=== PATIENT | male | born 1960 | race African-American/Black ===

== ENCOUNTER → 2016-07-05 | Outpatient (CLI) | payer BC ==
[~2016-07-05] VITALS: Ht 182.9 cm; Wt 104.3 kg
[~2016-07-05] MED LIST: ALPR0.254 PO; ALPR0.5T6 PO; APIX5TAB PO; ASCO500C PO; ASPI325T11 PO; ATOR40TA59 PO; BISA-42 PO; CALC625T PO; CARV25TA2 PO; CLON0.2T PO; CLON0.5T20 PO; CLOP75TA PO; CYCL10TA2 PO; FURO80TA72 PO; GABA-586 PO; GLUC100018 PO; GUAN2TAB11 PO; HYDR-2762 PO; INSU100I17 SQ; IOHEXOL 180 MG/ML 10 ML VIAL. IJ ONE; ISOS60TA2 PO; LISI-334 PO; MELO7.5O PO; NIFE60TA12 PO; NITR0.4T6 SL; OLME1TAB35 PO; OMEG300C PO; OXYC-244 PO; PROVENTIL HFA6.7 GM IH; RANO500T2 PO; TORS10TA3 PO; TRAM50TA PO
[2016-07-05 11:29] VITALS: BP 196/104
--- NOTE | 2016-07-05 13:19 | RAD ---
Lumbar myelogram, 07/05/2016: History: Back and leg pain Under local anesthesia, aseptic conditions and fluoroscopic guidance a lumbar puncture was performed at the L2-3 level utilizing a 25-gauge spinal needle. Good clear CSF flow was obtained following which 14 cc of Omnipaque 180 was injected into the thecal sac. The spinal needle was then removed and appropriate lumbar imaging performed. 2.5 minutes of fluoroscopy time was utilized. 12 fluoroscopic spot images were recorded. The patient was in moderate pain prior to, during and following the procedure. The following findings are delineated: 1. In the upright position there is severe central spinal stenosis at L4-5. There is circumferential narrowing of the thecal sac at that level. There is slight spondylolisthesis at L4-5 in the upright position. No instability was evident on limited flexion and extension. 2. There is poor filling of the L4 and L5 nerve root sleeves bilaterally. 3. There are mild anterior and posterior extradural defects at L3-4. The thecal sac narrows down to an AP diameter of 6-7 mm in the upright position. CT of the lumbar spine-post myelogram, 07/05/2016: Multidetector CT imaging was performed with multiplanar reconstructions produced. The following findings are delineated: 1. No significant abnormality is evident at the L1-2 level. 2. At L2-3 there is mild posterior disc bulging. There are mild degenerative changes involving the facet joints. The thecal sac measures 11-12 mm in AP diameter at the midline. The neural foramina are well preserved. 3. At L3-4 there is moderate broad-based posterior disc bulging. There is moderate posterior ligamentous thickening. The thecal sac measures 7-8 mm in AP diameter at the midline. There is mild inferior foraminal narrowing bilaterally. 4. At L4-5 there is moderate broad-based posterior disc protrusion, most prominent laterally on both sides. There are severe arthritic changes at the facet joints. The facet joint spaces are widened in the supine position for the CT scans. There is considerable posterior ligamentous thickening. The thecal sac narrows down to an AP diameter of 6-7 mm at the midline in the supine position. The canal narrowing is centered along the superior aspect of the disc space. A greater degree of thecal sac narrowing is present on the upright myelogram images. The combination of findings is causing moderate bilateral foraminal encroachment. 5. At L5-S1 there is mild posterior disc bulging. There are mild degenerative changes involving the facet joints. The central spinal canal is not significantly stenotic. There is only mild inferior foraminal narrowing bilaterally. IMPRESSION: 1. Severe facet joint arthropathy at L4-5 which in conjunction with moderate broad-based posterior disc protrusion results in moderate central spinal stenosis in the supine position and severe stenosis in the upright position as described above. 2. Moderate bilateral foraminal encroachment at L4-5. 3. Mild central spinal stenosis at L3-4.
== END | disposition home or self-care (01) ==
LOC: RAD 10:35
PROVIDERS: ATTEND Neurological Surgery
DX: M48.06 Spinal stenosis, lumbar region (principal)
CPT/HCPCS: 72132; 72265

== ENCOUNTER → 2017-01-24 | Outpatient (CLI) | payer BC ==
[2016-07-05 11:29] VITALS: BP 196/104
[~2017-01-24] MED LIST changes: +CHLO25TA PO; +INSU100I30 SQ; -IOHEXOL 180 MG/ML 10 ML VIAL. IJ ONE; +MODA200T2 PO; +NIFE60TA16 PO; +NITR0.4T22 SL; -NITR0.4T6 SL; -OXYC-244 PO; +OXYC-327 PO; +TAMS0.4C2 PO; +VALS1TAB22 PO
[2017-01-24 15:37] LABS: BASO % 0 % (0-3); EOS % 0 % (0-3); HEMOGLOBIN 11.5 g/dL (13.0-17.5); LYMPH # 1.5 x10^3/uL (1.0-4.8); LYMPH % 22 % (24-48); MEAN CORPUSCULAR HEMOGLOBIN 31 pg (25-35); MEAN CORPUSCULAR HGB CONC 34 g/dL (31-37); MEAN CORPUSCULAR VOLUME 91 fL (79-100); MONO % 6 % (0-9); NEUT % 72 % (31-73); PLATELET COUNT 182 x10^3/uL (140-400); RED BLOOD COUNT 3.73 x10^6/uL (4.30-5.70); RED CELL DISTRIBUTION WIDTH 13.9 % (11.5-14.5); WHITE BLOOD COUNT 6.6 x10^3/uL (4.0-11.0)
[2017-01-24 16:17] LABS: ALBUMIN 3.1 g/dL (3.4-5.0); ALBUMIN/GLOBULIN RATIO 0.8 (1.0-1.7); CALCIUM 8.3 mg/dL (8.5-10.1); TOTAL PROTEIN 7.1 g/dL (6.4-8.2)
[2017-01-24 16:18] LABS: GFR 41.7; POTASSIUM 4.6 mmol/L (3.5-5.1); TOTAL BILIRUBIN 0.3 mg/dL (0.2-1.0)
== END | disposition home or self-care (01) ==
LOC: SURGPAT 13:37
PROVIDERS: ATTEND Neurological Surgery
DX: Z01.818 Encounter for other preprocedural examination (principal); M48.061 Spinal stenosis, lumbar region without neurogenic claudication
CPT/HCPCS: 36415; 80053; 85025; 87641

== ENCOUNTER 2017-03-30 19:16 | Emergency (ER) | payer BC, MEDICARE ==
[2017-03-30] MEDS: IV NORMAL SALINE 1000ML BAG 1,000 ML IV (07:52)
[2017-03-30 19:37] LABS: ADD MAN DIFF? NO
[2017-03-30 19:38] LABS: BASO # 0.1 x10^3/uL (0.0-0.2); BASO % 1 % (0-3); EOS % 0 % (0-3); HEMATOCRIT 34.9 % (39.0-53.0); HEMOGLOBIN 12.2 g/dL (13.0-17.5); LYMPH % 27 % (24-48); MEAN CORPUSCULAR HEMOGLOBIN 31 pg (25-35); MEAN CORPUSCULAR HGB CONC 35 g/dL (31-37); MEAN CORPUSCULAR VOLUME 90 fL (79-100); MONO # 0.5 x10^3/uL (0.0-1.1); MONO % 7 % (0-9); NEUT # 4.6 x10^3uL (1.8-7.7); NEUT % 64 % (31-73); PLATELET COUNT 208 x10^3/uL (140-400); RED CELL DISTRIBUTION WIDTH 14.1 % (11.5-14.5); WHITE BLOOD COUNT 7.2 x10^3/uL (4.0-11.0)
[2017-03-30 20:03] LABS: ANION GAP 11 (6-14); BLOOD UREA NITROGEN 39 mg/dL (8-26); BUN/CREATININE RATIO 16 (6-20); CALCIUM 8.2 mg/dL (8.5-10.1); CARBON DIOXIDE 25 mmol/L (21-32); CHLORIDE 105 mmol/L (98-107); CREATININE 2.5 mg/dL (0.7-1.3); GFR 32.3; GLUCOSE 183 mg/dL (70-99); POTASSIUM 3.8 mmol/L (3.5-5.1); SODIUM 141 mmol/L (136-145)
[2017-03-30 20:05] LABS: ETHANOL < 10 mg/dL (0-10)
[2017-03-30 20:09] LABS: ALBUMIN 3.3 g/dL (3.4-5.0); ALBUMIN/GLOBULIN RATIO 0.8 (1.0-1.7); ALK PHOS 55 U/L (46-116); ALT (SGPT) 42 U/L (16-63); AST (SGOT) 35 U/L (15-37); TOTAL BILIRUBIN 0.3 mg/dL (0.2-1.0); TOTAL PROTEIN 7.2 g/dL (6.4-8.2)
[2017-03-30 20:13] LABS: TROPONINI < 0.017 ng/mL (0.000-0.055)
[2017-03-30 20:50] LABS: BARBITURATES NEG (NEG); BENZODIAZEPINES NEG (NEG); CANNABINOIDS NEG (NEG); COCAINE POS (NEG); METHADONE NEG (NEG); OPIATES POS (NEG); PHENCYCLIDINE NEG (NEG)
[2017-03-30 20:54] LABS: AMPHETAMINE/METHAMPHETAMINE NEG (NEG); ETHANOL, URINE NEG (NEG)
== END 2017-03-30 23:55 | disposition home or self-care (01) ==
LOC: ER 23:55
DX: R41.82 Altered mental status, unspecified (principal); E10.65 Type 1 diabetes mellitus with hyperglycemia; N28.9 Disorder of kidney and ureter, unspecified; F14.10 Cocaine abuse, uncomplicated; R07.89 Other chest pain; I48.91 Unspecified atrial fibrillation; F11.10 Opioid abuse, uncomplicated; J44.9 Chronic obstructive pulmonary disease, unspecified; I25.10 Atherosclerotic heart disease of native coronary artery without angina pectoris; I10 Essential (primary) hypertension; I95.9 Hypotension, unspecified; I25.2 Old myocardial infarction; Z95.0 Presence of cardiac pacemaker; Z95.5 Presence of coronary angioplasty implant and graft; Z91.041 Radiographic dye allergy status
CPT/HCPCS: 36415; 70450; 71045; 72125; 80053; 80307; 84484; 85025; 93005; 96360; 96361; 99285-25; G0480; J7030

== ENCOUNTER 2018-06-30 14:39 | Inpatient (IN) | payer BC, MEDICARE ==
[~2018-06-30] VITALS: Ht 185.4 cm; Wt 102.5 kg
[~2018-06-30 14:39] MED LIST changes: +ALBU2.5V8 IH; -CHLO25TA PO; +CHLO25TA10 PO; +ERGO500027 PO; -GABA-586 PO; +GABA300C18 PO; +HYDR-2761 PO; -HYDR-2762 PO; +HYDR-2765 PO; -OXYC-327 PO; +OXYC1TAB19 PO; +PANT20TA2 PO; +POTA20TA82 PO; -PROVENTIL HFA6.7 GM IH; +TAMS0.4C97 PO; +TICA90TA PO
--- NOTE | 2018-06-30 16:45 | NUR ---
The patient, MIKE TELLEZ, 58 y/o, M admitted by JOSELO MCPHERSON MD, was given written information regarding hospital policies, unit procedures and contact persons. Pt admitted to [facility] via transfer from [facility], report given by DULCE Delgadillo. Pt is alert, oriented with some confusion about location off and on. Pt resting comfortably under linda hugger, windows open to allow sunlight and additional heat. Valuables were checked and found to include wedding ring, glasses.
[2018-06-30 19:25] VITALS: BP 134/77
[2018-06-30] MEDS ORDERED: ONDANSETRON ODT 4 MG TAB.RAPDIS. PO PRN (19:45)
[2018-06-30] MEDS ORDERED: POTASSIUM CL 20MEQ-0.45% NACL 1,000 ML IV SCH ×2 (19:45→20:15)
[2018-06-30] MEDS ORDERED: NITROGLYCERIN SUBLINGUAL 0.4 MG BOTTLE OF 25. SL PRN (19:45)
[2018-06-30] MEDS ORDERED: ALBUTEROL SULFATE 2.5 MG/3 ML NEBU. INH PRN (19:45)
[2018-06-30] MEDS ORDERED: HYDR25SU18 RC (19:58)
[2018-06-30] MEDS ORDERED: OMEG100021 PO (19:58)
[2018-06-30] MEDS ORDERED: SENN1TAB37 PO (19:58)
[2018-06-30] MEDS ORDERED: TAMS0.4C97 PO (19:58)
[2018-06-30] MEDS ORDERED: ASCO500T3 PO (19:58)
[2018-06-30] MEDS ORDERED: FAMO20TA5 PO (19:58)
[2018-06-30] MEDS ORDERED: RANO500T2 PO (19:58)
[2018-06-30] MEDS ORDERED: ONDA4TAB12 PO (19:58)
[2018-06-30] MEDS ORDERED: OXYC1TAB19 PO (19:58)
[2018-06-30] MEDS ORDERED: CITA20TA6 PO (19:58)
[2018-06-30] MEDS ORDERED: HYDROCORTISONE ACETATE 25 MG SUPP.RECT PR PRN (20:15)
[2018-06-30] MEDS ORDERED: ONDANSETRON PF 4 MG/2 ML VIAL. IV PRN (20:15)
[2018-06-30] MEDS: RANOLAZINE 500 MG TAB.ER.12H PO SCH (20:43)
[2018-06-30] MEDS: cloNIDine HCL 0.2 MG TABLET PO SCH (20:43)
[2018-06-30] MEDS: SENNOSIDES/DOCUSATE 8.6/50MG TABLET. PO SCH (20:44)
[2018-06-30] MEDS: ALPRAZolam 0.5 MG TABLET PO PRN (20:44)
[2018-06-30] MEDS: oxyCODONE/APAP 7.5/325 1 TAB TABLET PO PRN (20:44)
[2018-06-30] MEDS: TICAGRELOR 90 MG TABLET. PO SCH (20:45)
[2018-06-30] MEDS: FAMOTIDINE 20 MG TABLET. PO SCH (20:45)
[2018-06-30] MEDS: HYDROcodone/APAP 5/325MG 1 TAB TABLET PO PRN (23:02)
[2018-06-30 23:30] VITALS: BP 132/76
[2018-07-01] MEDS: oxyCODONE/APAP 7.5/325 1 TAB TABLET PO PRN ×2 (03:40→22:54)
[2018-07-01 03:58] VITALS: BP 125/68
[2018-07-01 04:49] LABS: BASO % 0 % (0-3); EOS % 1 % (0-3); HEMATOCRIT 24.9 % (39.0-53.0); HEMOGLOBIN 8.5 g/dL (13.0-17.5); LYMPH # 1.1 x10^3/uL (1.0-4.8); LYMPH % 23 % (24-48); MEAN CORPUSCULAR HEMOGLOBIN 31 pg (25-35); MEAN CORPUSCULAR HGB CONC 34 g/dL (31-37); MEAN CORPUSCULAR VOLUME 90 fL (79-100); MONO # 0.6 x10^3/uL (0.0-1.1); MONO % 11 % (0-9); NEUT # 3.3 x10^3uL (1.8-7.7); NEUT % 66 % (31-73); PLATELET COUNT 124 x10^3/uL (140-400); RED BLOOD COUNT 2.78 x10^6/uL (4.30-5.70); WHITE BLOOD COUNT 5.1 x10^3/uL (4.0-11.0)
[2018-07-01] MEDS: HYDROcodone/APAP 5/325MG 1 TAB TABLET PO PRN ×2 (06:02→17:02)
[2018-07-01 06:37] LABS: ALBUMIN 2.4 g/dL (3.4-5.0); ALBUMIN/GLOBULIN RATIO 0.7 (1.0-1.7); ALK PHOS 55 U/L (46-116); ALT (SGPT) 28 U/L (16-63); ANION GAP 14 (6-14); AST (SGOT) 21 U/L (15-37); BLOOD UREA NITROGEN 43 mg/dL (8-26); BUN/CREATININE RATIO 8 (6-20); C-REACTIVE PROTEIN < 0.5 mg/L (0-3.3); CALCIUM 7.6 mg/dL (8.5-10.1); CARBON DIOXIDE 19 mmol/L (21-32); CHLORIDE 112 mmol/L (98-107); CREATININE 5.4 mg/dL (0.7-1.3); GFR 13.2; GLUCOSE 138 mg/dL (70-99); POTASSIUM 3.4 mmol/L (3.5-5.1); SODIUM 145 mmol/L (136-145); TOTAL BILIRUBIN 0.2 mg/dL (0.2-1.0); TOTAL PROTEIN 5.9 g/dL (6.4-8.2)
[2018-07-01 07:00] VITALS: BP 135/78
[2018-07-01] MEDS: INSULIN LISPRO 300 UNITS/3 ML INSULN.PEN. SQ SCH ×3 (08:00→17:05)
[2018-07-01] MEDS: CITALOPRAM 20 MG TABLET. PO SCH (09:25)
[2018-07-01] MEDS: RANOLAZINE 500 MG TAB.ER.12H PO SCH ×2 (09:25→20:23)
[2018-07-01] MEDS: CARVEDILOL 12.5 MG TABLET. PO SCH ×2 (09:25→17:03)
[2018-07-01] MEDS: GABAPENTIN 300 MG CAPSULE. PO SCH (09:26)
[2018-07-01] MEDS: OMEGA-3 FATTY ACIDS/FISH OIL 1,000 MG CAPSULE. PO SCH (09:26)
[2018-07-01] MEDS: ASCORBIC ACID 500 MG TABLET PO SCH (09:26)
[2018-07-01] MEDS: cloNIDine HCL 0.2 MG TABLET PO SCH ×2 (09:26→20:24)
[2018-07-01] MEDS: TAMSULOSIN 0.4 MG CAP.ER.24H. PO SCH (09:26)
[2018-07-01] MEDS: TICAGRELOR 90 MG TABLET. PO SCH ×2 (09:26→20:22)
[2018-07-01] MEDS ORDERED: IV 1/2 NORMAL SALINE 1,000 ML IV ONE (09:45)
[2018-07-01] MEDS ORDERED: MAGNESIUM SULFATE 2GM 50 ML IV ONE (10:30)
[2018-07-01 11:00] VITALS: BP 133/76
--- NOTE | 2018-07-01 12:03 | NUR ---
FACULTY CO-SIGN I have reviewed the documentation by Dao Navarro professor of nursing, [facility]: Addendum: 07/01/18 at 1203 by HOLLIS RUSHING RN Amended: Links added.
--- NOTE | 2018-07-01 14:06 | PDOC2 ---
CONSULT Date of Consult Date of Consult DATE: 07/01/18 TIME: 14:00 History of Present Illness Reason for Visit: This is 58 year male with recurrent constipation, heartburn- last seen here in February with similar complaints- also with CRF with HTN, cocaine use- now with on week of lower abd pain, constipation followed by some diarrhea recently , but does take laxatives regularly. Some nausea and vomiting as well with rectal bleeding or hematemesis. Also had chill recently but no fever Past Medical History Cardiovascular: AFIB, CAD, HTN Pulmonary: COPD CENTRAL NERVOUS SYSTEM: Seizure GI: Constipation, GERD Heme/Onc: No pertinent hx Hepatobiliary: No pertinent hx Psych: Bipolar Musculoskeletal: Osteoarthritis Infectious disease: No pertinent hx Renal/: Chronic renal insuff Endocrine: Diabetes Past Surgical History Past Surgical History: Pacemaker, Other Family History Family History: Diabetes, Heart Disease Social History ALCOHOL: occassional Drugs: Cocaine Lives: with Family Current Medications Current Medications Current Medications Potassium Chloride/Sodium Chloride 1,000 ml @ 75 mls/hr [id number] IV ; Start 03/08 at 19:45; Stop 07/01/18 at 09:46; Status DC Albuterol Sulfate (Ventolin Neb Soln) 2.5 mg PRN Q4HRS PRN INH FOR ASTHMA; Start 06/30/18 at 19:45 Alprazolam (Xanax) 0.5 mg PRN Q8HRS PRN PO ANXIETY / AGITATION Last administered on 06/30/18at 20:44; Start 06/30/18 at 19:45 Ascorbic Acid (Vitamin C) 500 mg DAILY PO Last administered on 07/01/18at 09:26 ; Start 07/01/18 at 09:00 Citalopram Hydrobromide (CeleXA) 20 mg DAILY PO Last administered on 07/01/18at 09:25; Start 07/01/18 at 09:00 Clonidine HCl (Catapres) 0.2 mg BID PO Last administered on 07/01/18at 09:26; Start 06/30/18 at 21:00 Famotidine (Pepcid) 20 mg HS PO Last administered on 06/30/18at 20:45; Start 03/08 at 21:00 Gabapentin (Neurontin) 300 mg DAILY PO Last administered on 07/01/18at 09:26; Start 07/01/18 at 09:00 Acetaminophen/ Hydrocodone Bitart (Lortab 5/325) 1 tab PRN Q6HRS PRN PO MODERATE PAIN Last administered on 07/01/18 06:02; Start 06/30/18 at 19:45 Nitroglycerin (Nitrostat) 0.4 mg PRN Q5MIN PRN SL CHEST PAIN; Start 06/30/18 at 19:45 Ondansetron HCl (Zofran Odt) 4 mg PRN Q8HRS PRN PO NAUSEA; Start 06/30/18 at 19 :45 Oxycodone/ Acetaminophen (Percocet 7.5/ 325) 1 tab PRN TID PRN PO SEVERE PAIN Last administered on 07/01/18 03:40; Start 06/30/18 at 19:45 Ranolazine (Ranexa) 500 mg BID PO Last administered on 07/01/18 09:25; Start 06/30/18 at 21:00 Senna/Docusate Sodium (Senna Plus) 1 tab HS PO Last administered on 06/30/18 20:44; Start 06/30/18 at 21:00 Tamsulosin HCl (Flomax) 0.4 mg DAILY PO Last administered on 07/01/18 09:26; Start 07/01/18 at 09:00 Ticagrelor (Brilinta) 90 mg BID PO Last administered on 07/01/18 09:26; Start 06/30/18 at 21:00 Carvedilol (Coreg) 12.5 mg BIDWMEALS PO Last administered on 07/01/18 09:25; Start 07/01/18 at 08:00 Hydrocortisone Acetate (Anucort-Hc) 25 mg BID PRN RI RECTAL PAIN; Start at 20:15 Nifedipine (Procardia Xl) 60 mg DAILY PO Last administered on 07/01/18 09:25; Start 07/01/18 at 09:00 Fish Oil (Fish Oil) 1,000 mg DAILY PO Last administered on 07/01/18 09:26; Start 07/01/18 at 09:00 Insulin Human Lispro (HumaLOG) 0-5 UNITS TIDWMEALS SQ ; Start 07/01/18 at 08:00 Dextrose (Dextrose 50%-Water Syringe) 12.5 gm PRN Q15MIN PRN IV SEE COMMENTS; Start 06/30/18 at 20:15 Ondansetron HCl (Zofran) 4 mg PRN Q4HRS PRN IV NAUSEA/VOMITING; Start 06/30/18 at 20:15 Potassium Chloride/Sodium Chloride 1,000 ml @ 75 mls/hr [id number] IV Last administered on 06/30/18at 20:47; Start 06/30/18 at 20:15; Stop 07/01/18 at 09:46 ; Status DC Fentanyl Citrate (Fentanyl 2ml Vial) 50 mcg PRN Q2HR PRN IV PAIN; Start at 20:15 Sodium Chloride 1,000 ml @ 125 mls/hr 1X ONCE IV Last administered on at 10:16; Start 07/01/18 at 09:45; Stop 07/01/18 at 17:44 Potassium Chloride (Klor-Con) 20 meq BIDWMEALS PO ; Start 07/01/18 at 17:00 Magnesium Sulfate 50 ml @ 25 mls/hr 1X ONCE IV Last administered on 07/01/18at 10:17; Start 07/01/18 at 10:30; Stop 07/01/18 at 12:29; Status DC Active Scripts Active Hydrocodone-Apap 5-325 (Hydrocodone Bit/Acetaminophen) 1 Each Tablet 1 Tab PO PRN Q6HRS PRN Flomax (Tamsulosin Hcl) 0.4 Mg Cap.er.24h 0.4 Mg PO BID 30 Days Reported Percocet 7.5-325 Mg Tablet (Oxycodone/Acetaminophen) 1 Each Tablet 1 Tab PO PRN TID PRN Flomax (Tamsulosin Hcl) 0.4 Mg Cap.er.24h 1 Cap PO DAILY Sennosides-Docusate Sodium Tab (Sennosides/Docusate Sodium) 1 Each Tablet 1 Each PO HS Ranexa (Ranolazine) 500 Mg Tab.er.12h 1 Tab PO BID Ondansetron Odt (Ondansetron) 4 Mg Tab.rapdis 1 Tab PO PRN Q8HRS PRN Fish Oil 1,000 mg Softgel ([place]-3/Dha/Epa/Fish Oil) 1,000 Mg Capsule 1,000 Mg PO DAILY Anusol-Hc (Hydrocortisone Acetate) 25 Mg Supp.rect 1 Supp RC PRN BID PRN Famotidine 20 Mg Tablet 20 Mg PO HS Citalopram Hbr (Citalopram Hydrobromide) 20 Mg Tablet 1 Tab PO DAILY Ascorbic Acid 500 Mg Tablet 500 Mg PO DAILY Protonix (Pantoprazole Sodium) 20 Mg Tablet.dr 40 Mg PO DAILY Vitamin D2 (Ergocalciferol (Vitamin D2)) 50,000 Unit Capsule 50,000 Unit PO WEEKLY Ranexa (Ranolazine) 500 Mg Tab.er.12h 500 Mg PO BID Brilinta (Ticagrelor) 90 Mg Tablet 90 Mg PO BID Gabapentin 300 Mg Capsule 300 Mg PO DAILY NITROGLYCERIN SubLingual (Nitroglycerin) 0.4 Mg Tab.subl 0.4 Mg SL PRN Q5MIN PRN Nifedipine Er (Nifedipine) 60 Mg Tab.er.24 60 Mg PO DAILY Eliquis (Apixaban) 5 Mg Tablet 5 Mg PO BID Proventil Hfa Inhaler (Albuterol Sulfate) 6.7 Gm Hfa.aer.ad 1 Puff IH PRN Q4HRS PRN Alprazolam 0.25 Mg Tablet 0.5 Mg PO PRN Q8HRS PRN Clonidine Hcl 0.2 Mg Tablet 1 Tab PO BID Atorvastatin Calcium 40 Mg Tablet 1 Tab PO DAILY Carvedilol 25 Mg Tablet 12.5 Mg PO BIDWMEALS Allergies Allergies: Coded Allergies: No Known Medication Allergies (Verified Allergy, Unknown, 06/23/15) ROS General: YES: Chills Gastrointestinal: Yes Nausea, Yes Constipation Physical Exam General: Alert, Oriented X3 HEENT: PERRLA Lungs: Clear to auscultation Heart: Regular rate, Normal S1, Normal S2 Abdomen: Normal bowel sounds, Soft, No tenderness, No hepatosplenomegaly Extremities: No clubbing, No cyanosis Skin: No rashes Psych/Mental Status: Mental status NL Vitals VITALS Vital Signs Date Time Temp Pulse Resp B/P (MAP) Pulse Ox O2 Delivery O2 Flow Rate FiO2 07/01/18 11:00 97.8 68 18 133/76 (95) 97 Room Air 97.8 Labs Labs Laboratory Tests Test 07/01/18 04:15 07/01/18 04:38 07/01/18 07:10 07/01/18 11:12 White Blood Count 5.1 x10^3/uL (4.0-11.0) Red Blood Count 2.78 x10^6/uL (4.30-5.70) Hemoglobin 8.5 g/dL (13.0-17.5) Hematocrit 24.9 % (39.0-53.0) Mean Corpuscular Volume 90 fL (79-100) Mean Corpuscular Hemoglobin 31 pg (25-35) Mean Corpuscular Hemoglobin Concent 34 g/dL (31-37) Red Cell Distribution Width 15.0 % (11.5-14.5) Platelet Count 124 x10^3/uL (140-400) Neutrophils (%) (Auto) 66 % (31-73) Lymphocytes (%) (Auto) 23 % (24-48) Monocytes (%) (Auto) 11 % (0-9) Eosinophils (%) (Auto) 1 % (0-3) Basophils (%) (Auto) 0 % (0-3) Neutrophils # (Auto) 3.3 x10^3uL (1.8-7.7) Lymphocytes # (Auto) 1.1 x10^3/uL (1.0-4.8) Monocytes # (Auto) 0.6 x10^3/uL (0.0-1.1) Eosinophils # (Auto) 0.0 x10^3/uL (0.0-0.7) Basophils # (Auto) 0.0 x10^3/uL (0.0-0.2) Erythrocyte Sedimentation Rate 35 (0-15) Thyroid Stimulating Hormone (TSH) 2.489 uIU/mL (0.358-3.74) Sodium Level 145 mmol/L (136-145) Potassium Level 3.4 mmol/L (3.5-5.1) Chloride Level 112 mmol/L (98-107) Carbon Dioxide Level 19 mmol/L (21-32) Anion Gap 14 (6-14) Blood Urea Nitrogen 43 mg/dL (8-26) Creatinine 5.4 mg/dL (0.7-1.3) Estimated GFR (Cockcroft-Gault) 13.2 BUN/Creatinine Ratio 8 (6-20) Glucose Level 138 mg/dL (70-99) Calcium Level 7.6 mg/dL (8.5-10.1) Total Bilirubin 0.2 mg/dL (0.2-1.0) Aspartate Amino Transf (AST/SGOT) 21 U/L (15-37) Alanine Aminotransferase (ALT/SGPT) 28 U/L (16-63) Alkaline Phosphatase 55 U/L (46-116) C-Reactive Protein, Quantitative < 0.5 mg/L (0-3.3) Total Protein 5.9 g/dL (6.4-8.2) Albumin 2.4 g/dL (3.4-5.0) Albumin/Globulin Ratio 0.7 (1.0-1.7) Glucose (Fingerstick) 91 mg/dL (70-99) 112 mg/dL (70-99) Laboratory Tests Test 07/01/18 04:15 07/01/18 04:38 07/01/18 07:10 07/01/18 11:12 White Blood Count 5.1 x10^3/uL (4.0-11.0) Red Blood Count 2.78 x10^6/uL (4.30-5.70) Hemoglobin 8.5 g/dL (13.0-17.5) Hematocrit 24.9 % (39.0-53.0) Mean Corpuscular Volume 90 fL (79-100) Mean Corpuscular Hemoglobin 31 pg (25-35) Mean Corpuscular Hemoglobin Concent 34 g/dL (31-37) Red Cell Distribution Width 15.0 % (11.5-14.5) Platelet Count 124 x10^3/uL (140-400) Neutrophils (%) (Auto) 66 % (31-73) Lymphocytes (%) (Auto) 23 % (24-48) Monocytes (%) (Auto) 11 % (0-9) Eosinophils (%) (Auto) 1 % (0-3) Basophils (%) (Auto) 0 % (0-3) Neutrophils # (Auto) 3.3 x10^3uL (1.8-7.7) Lymphocytes # (Auto) 1.1 x10^3/uL (1.0-4.8) Monocytes # (Auto) 0.6 x10^3/uL (0.0-1.1) Eosinophils # (Auto) 0.0 x10^3/uL (0.0-0.7) Basophils # (Auto) 0.0 x10^3/uL (0.0-0.2) Erythrocyte Sedimentation Rate 35 (0-15) Thyroid Stimulating Hormone (TSH) 2.489 uIU/mL (0.358-3.74) Sodium Level 145 mmol/L (136-145) Potassium Level 3.4 mmol/L (3.5-5.1) Chloride Level 112 mmol/L (98-107) Carbon Dioxide Level 19 mmol/L (21-32) Anion Gap 14 (6-14) Blood Urea Nitrogen 43 mg/dL (8-26) Creatinine 5.4 mg/dL (0.7-1.3) Estimated GFR (Cockcroft-Gault) 13.2 BUN/Creatinine Ratio 8 (6-20) Glucose Level 138 mg/dL (70-99) Calcium Level 7.6 mg/dL (8.5-10.1) Total Bilirubin 0.2 mg/dL (0.2-1.0) Aspartate Amino Transf (AST/SGOT) 21 U/L (15-37) Alanine Aminotransferase (ALT/SGPT) 28 U/L (16-63) Alkaline Phosphatase 55 U/L (46-116) C-Reactive Protein, Quantitative < 0.5 mg/L (0-3.3) Total Protein 5.9 g/dL (6.4-8.2) Albumin 2.4 g/dL (3.4-5.0) Albumin/Globulin Ratio 0.7 (1.0-1.7) Glucose (Fingerstick) 91 mg/dL (70-99) 112 mg/dL (70-99) Assessment/Plan Assessment/Plan New nausea and vomiting with lower abd pain- chronic constipation with recent diarrhea -but takes laxatives regularly Chronic constipation Chronic heartburn and some dysphagia CRF HTN Cocaine use history Plan- liquid diet PPI miralax defer to renal on bladder testing and management of HTN and CRF Will plan EGD and colonoscopy in next few days if stable MAEVE WREN MD Jul 01, 2018 14:06
--- NOTE | 2018-07-01 14:31 | NUR ---
Per Dr. Hamilton, patient is no longer to be on isolation for c-diff. Dr. Hamilton believes there is not significant evidence to warrant the testing. Isolation stopped and sticker removed per this health underwriter
--- NOTE | 2018-07-01 14:32 | NUR ---
Bladder scan performed by this jingle writer per the request of Dr. Ibis Cantu. Bladder scan showed 202mL of urine in the bladder at the time of scan, 1400. This information was verbally delivered to Dr. Ibis Cantu as he was on the unit.
--- NOTE | 2018-07-01 14:41 | PDOC2 ---
CONSULT Date of Consult Date of Consult DATE: 07/01/18 TIME: 14:30 Reason for Consult Reason for Consult: RENAL FAILURE Referring Physician Referring Physician: [place] Identification/Chief Complaint Chief Complaint WEAK, AND ABNORMAL LABS Source Source: Chart review, Patient History of Present Illness Reason for Visit: THIS IS A 58 YR OLD EVALUATED FOR WEAKNESS AND ADMITTED FOR KARLA, CR OF 5.4. PREVIOUSLY CR OF 3.2 AT BASELINE AND C/W STAGE 4 CKD. MILD HYPOKALEMIA AND MET ACIDOSIS ALSO NOTED. HIS HX IS NOTABLE FOR HTN, DM II AND BPH WITH SOME URINARY RETENTION FOR WHICH HE IS ON FLOMAX. DENIED ANY NEPHROTOXINS LATELY BUT HIS UDS IS POSITIVE FOR COCAINE IN THE PAST EVEN THOUGH HE HAS DENIED IT. ALSO HAS COMPLAINTS OF RECURRENT CONSTIPATION AND HEART BURN SYMPTOMS FOR WHICH HE IS SEEING GI. NO OTHER HX OF ANY KIDNEY OR BLADDER SURGERIES HEMATURIA DYSURIA OR FREQUENCY NOTED Past Medical History Cardiovascular: AFIB, CAD, HTN Pulmonary: COPD CENTRAL NERVOUS SYSTEM: Seizure GI: Constipation, GERD Heme/Onc: No pertinent hx Hepatobiliary: No pertinent hx Psych: Bipolar Musculoskeletal: Osteoarthritis Infectious disease: No pertinent hx Renal/: Chronic renal insuff Endocrine: Diabetes Past Surgical History Past Surgical History: Pacemaker, Other Family History Family History: Diabetes, Heart Disease Social History ALCOHOL: occassional Drugs: Cocaine Lives: with Family Current Medications Current Medications Current Medications Potassium Chloride/Sodium Chloride 1,000 ml @ 75 mls/hr [id number] IV ; Start 03/08 at 19:45; Stop 07/01/18 at 09:46; Status DC Albuterol Sulfate (Ventolin Neb Soln) 2.5 mg PRN Q4HRS PRN INH FOR ASTHMA; Start 06/30/18 at 19:45 Alprazolam (Xanax) 0.5 mg PRN Q8HRS PRN PO ANXIETY / AGITATION Last administered on 06/30/18at 20:44; Start 06/30/18 at 19:45 Ascorbic Acid (Vitamin C) 500 mg DAILY PO Last administered on 07/01/18at 09:26 ; Start 07/01/18 at 09:00 Citalopram Hydrobromide (CeleXA) 20 mg DAILY PO Last administered on 07/01/18at 09:25; Start 07/01/18 at 09:00 Clonidine HCl (Catapres) 0.2 mg BID PO Last administered on 07/01/18 09:26; Start 06/30/18 at 21:00 Famotidine (Pepcid) 20 mg HS PO Last administered on 06/30/18 20:45; Start 03/08 at 21:00 Gabapentin (Neurontin) 300 mg DAILY PO Last administered on 07/01/18 09:26; Start 07/01/18 at 09:00 Acetaminophen/ Hydrocodone Bitart (Lortab 5/325) 1 tab PRN Q6HRS PRN PO MODERATE PAIN Last administered on 07/01/18 06:02; Start 06/30/18 at 19:45 Nitroglycerin (Nitrostat) 0.4 mg PRN Q5MIN PRN SL CHEST PAIN; Start 06/30/18 at 19:45 Ondansetron HCl (Zofran Odt) 4 mg PRN Q8HRS PRN PO NAUSEA; Start 06/30/18 at 19 :45 Oxycodone/ Acetaminophen (Percocet 7.5/ 325) 1 tab PRN TID PRN PO SEVERE PAIN Last administered on 07/01/18 03:40; Start 06/30/18 at 19:45 Ranolazine (Ranexa) 500 mg BID PO Last administered on 07/01/18 09:25; Start 06/30/18 at 21:00 Senna/Docusate Sodium (Senna Plus) 1 tab HS PO Last administered on 06/30/18 20:44; Start 06/30/18 at 21:00 Tamsulosin HCl (Flomax) 0.4 mg DAILY PO Last administered on 07/01/18 09:26; Start 07/01/18 at 09:00 Ticagrelor (Brilinta) 90 mg BID PO Last administered on 07/01/18 09:26; Start 06/30/18 at 21:00 Carvedilol (Coreg) 12.5 mg BIDWMEALS PO Last administered on 07/01/18 09:25; Start 07/01/18 at 08:00 Hydrocortisone Acetate (Anucort-Hc) 25 mg BID PRN GA RECTAL PAIN; Start at 20:15 Nifedipine (Procardia Xl) 60 mg DAILY PO Last administered on 07/01/18 09:25; Start 07/01/18 at 09:00 Fish Oil (Fish Oil) 1,000 mg DAILY PO Last administered on 07/01/18at 09:26; Start 07/01/18 at 09:00 Insulin Human Lispro (HumaLOG) 0-5 UNITS TIDWMEALS SQ ; Start 07/01/18 at 08:00 Dextrose (Dextrose 50%-Water Syringe) 12.5 gm PRN Q15MIN PRN IV SEE COMMENTS; Start 06/30/18 at 20:15 Ondansetron HCl (Zofran) 4 mg PRN Q4HRS PRN IV NAUSEA/VOMITING; Start 06/30/18 at 20:15 Potassium Chloride/Sodium Chloride 1,000 ml @ 75 mls/hr [id number] IV Last administered on 06/30/18at 20:47; Start 06/30/18 at 20:15; Stop 07/01/18 at 09:46 ; Status DC Fentanyl Citrate (Fentanyl 2ml Vial) 50 mcg PRN Q2HR PRN IV PAIN; Start at 20:15 Sodium Chloride 1,000 ml @ 125 mls/hr 1X ONCE IV Last administered on at 10:16; Start 07/01/18 at 09:45; Stop 07/01/18 at 17:44 Potassium Chloride (Klor-Con) 20 meq BIDWMEALS PO ; Start 07/01/18 at 17:00 Magnesium Sulfate 50 ml @ 25 mls/hr 1X ONCE IV Last administered on 07/01/18at 10:17; Start 07/01/18 at 10:30; Stop 07/01/18 at 12:29; Status DC Active Scripts Active Hydrocodone-Apap 5-325 (Hydrocodone Bit/Acetaminophen) 1 Each Tablet 1 Tab PO PRN Q6HRS PRN Flomax (Tamsulosin Hcl) 0.4 Mg Cap.er.24h 0.4 Mg PO BID 30 Days Reported Percocet 7.5-325 Mg Tablet (Oxycodone/Acetaminophen) 1 Each Tablet 1 Tab PO PRN TID PRN Flomax (Tamsulosin Hcl) 0.4 Mg Cap.er.24h 1 Cap PO DAILY Sennosides-Docusate Sodium Tab (Sennosides/Docusate Sodium) 1 Each Tablet 1 Each PO HS Ranexa (Ranolazine) 500 Mg Tab.er.12h 1 Tab PO BID Ondansetron Odt (Ondansetron) 4 Mg Tab.rapdis 1 Tab PO PRN Q8HRS PRN Fish Oil 1,000 mg Softgel (Parker-3/Dha/Epa/Fish Oil) 1,000 Mg Capsule 1,000 Mg PO DAILY Anusol-Hc (Hydrocortisone Acetate) 25 Mg Supp.rect 1 Supp RC PRN BID PRN Famotidine 20 Mg Tablet 20 Mg PO HS Citalopram Hbr (Citalopram Hydrobromide) 20 Mg Tablet 1 Tab PO DAILY Ascorbic Acid 500 Mg Tablet 500 Mg PO DAILY Protonix (Pantoprazole Sodium) 20 Mg Tablet.dr 40 Mg PO DAILY Vitamin D2 (Ergocalciferol (Vitamin D2)) 50,000 Unit Capsule 50,000 Unit PO WEEKLY Ranexa (Ranolazine) 500 Mg Tab.er.12h 500 Mg PO BID Brilinta (Ticagrelor) 90 Mg Tablet 90 Mg PO BID Gabapentin 300 Mg Capsule 300 Mg PO DAILY NITROGLYCERIN SubLingual (Nitroglycerin) 0.4 Mg Tab.subl 0.4 Mg SL PRN Q5MIN PRN Nifedipine Er (Nifedipine) 60 Mg Tab.er.24 60 Mg PO DAILY Eliquis (Apixaban) 5 Mg Tablet 5 Mg PO BID Proventil Hfa Inhaler (Albuterol Sulfate) 6.7 Gm Hfa.aer.ad 1 Puff IH PRN Q4HRS PRN Alprazolam 0.25 Mg Tablet 0.5 Mg PO PRN Q8HRS PRN Clonidine Hcl 0.2 Mg Tablet 1 Tab PO BID Atorvastatin Calcium 40 Mg Tablet 1 Tab PO DAILY Carvedilol 25 Mg Tablet 12.5 Mg PO BIDWMEALS Allergies Allergies: Coded Allergies: No Known Medication Allergies (Verified Allergy, Unknown, 06/23/15) ROS General: YES: Fatigue, Appetite PSYCHOLOGICAL ROS: YES: Anxiety, Depression Eyes: Yes Decreased vision HEENT: YES: Heacaches Respiratory: YES: Cough Gastrointestinal: Yes Constipation Genitourinary: YES Frequency, YES Retention Musculoskeletal: Yes Muscular Weakness Neurological: Yes Weakness Skin: Yes Dry Skin Physical Exam General: Alert, Oriented X3, Cooperative, No acute distress HEENT: Atraumatic, PERRLA, EOMI, Mucous membr. moist/pink Lungs: Clear to auscultation, Normal air movement Heart: Regular rate, Normal S1, Normal S2 Abdomen: Normal bowel sounds, Soft, No tenderness Extremities: No clubbing Skin: No breakdown Neuro: Normal speech, Sensation intact Psych/Mental Status: Mental status NL, Mood NL MUSCULOSKELETAL: No joint tenderness, No deformity, No swelling Vitals VITALS Vital Signs Date Time Temp Pulse Resp B/P (MAP) Pulse Ox O2 Delivery O2 Flow Rate FiO2 07/01/18 11:00 97.8 68 18 133/76 (95) 97 Room Air 97.8 Labs Labs Laboratory Tests Test 07/01/18 04:15 07/01/18 04:38 07/01/18 07:10 07/01/18 11:12 White Blood Count 5.1 x10^3/uL (4.0-11.0) Red Blood Count 2.78 x10^6/uL (4.30-5.70) Hemoglobin 8.5 g/dL (13.0-17.5) Hematocrit 24.9 % (39.0-53.0) Mean Corpuscular Volume 90 fL (79-100) Mean Corpuscular Hemoglobin 31 pg (25-35) Mean Corpuscular Hemoglobin Concent 34 g/dL (31-37) Red Cell Distribution Width 15.0 % (11.5-14.5) Platelet Count 124 x10^3/uL (140-400) Neutrophils (%) (Auto) 66 % (31-73) Lymphocytes (%) (Auto) 23 % (24-48) Monocytes (%) (Auto) 11 % (0-9) Eosinophils (%) (Auto) 1 % (0-3) Basophils (%) (Auto) 0 % (0-3) Neutrophils # (Auto) 3.3 x10^3uL (1.8-7.7) Lymphocytes # (Auto) 1.1 x10^3/uL (1.0-4.8) Monocytes # (Auto) 0.6 x10^3/uL (0.0-1.1) Eosinophils # (Auto) 0.0 x10^3/uL (0.0-0.7) Basophils # (Auto) 0.0 x10^3/uL (0.0-0.2) Erythrocyte Sedimentation Rate 35 (0-15) Thyroid Stimulating Hormone (TSH) 2.489 uIU/mL (0.358-3.74) Sodium Level 145 mmol/L (136-145) Potassium Level 3.4 mmol/L (3.5-5.1) Chloride Level 112 mmol/L (98-107) Carbon Dioxide Level 19 mmol/L (21-32) Anion Gap 14 (6-14) Blood Urea Nitrogen 43 mg/dL (8-26) Creatinine 5.4 mg/dL (0.7-1.3) Estimated GFR (Cockcroft-Gault) 13.2 BUN/Creatinine Ratio 8 (6-20) Glucose Level 138 mg/dL (70-99) Calcium Level 7.6 mg/dL (8.5-10.1) Total Bilirubin 0.2 mg/dL (0.2-1.0) Aspartate Amino Transf (AST/SGOT) 21 U/L (15-37) Alanine Aminotransferase (ALT/SGPT) 28 U/L (16-63) Alkaline Phosphatase 55 U/L (46-116) C-Reactive Protein, Quantitative < 0.5 mg/L (0-3.3) Total Protein 5.9 g/dL (6.4-8.2) Albumin 2.4 g/dL (3.4-5.0) Albumin/Globulin Ratio 0.7 (1.0-1.7) Glucose (Fingerstick) 91 mg/dL (70-99) 112 mg/dL (70-99) Laboratory Tests Test 07/01/18 04:15 07/01/18 04:38 07/01/18 07:10 07/01/18 11:12 White Blood Count 5.1 x10^3/uL (4.0-11.0) Red Blood Count 2.78 x10^6/uL (4.30-5.70) Hemoglobin 8.5 g/dL (13.0-17.5) Hematocrit 24.9 % (39.0-53.0) Mean Corpuscular Volume 90 fL (79-100) Mean Corpuscular Hemoglobin 31 pg (25-35) Mean Corpuscular Hemoglobin Concent 34 g/dL (31-37) Red Cell Distribution Width 15.0 % (11.5-14.5) Platelet Count 124 x10^3/uL (140-400) Neutrophils (%) (Auto) 66 % (31-73) Lymphocytes (%) (Auto) 23 % (24-48) Monocytes (%) (Auto) 11 % (0-9) Eosinophils (%) (Auto) 1 % (0-3) Basophils (%) (Auto) 0 % (0-3) Neutrophils # (Auto) 3.3 x10^3uL (1.8-7.7) Lymphocytes # (Auto) 1.1 x10^3/uL (1.0-4.8) Monocytes # (Auto) 0.6 x10^3/uL (0.0-1.1) Eosinophils # (Auto) 0.0 x10^3/uL (0.0-0.7) Basophils # (Auto) 0.0 x10^3/uL (0.0-0.2) Erythrocyte Sedimentation Rate 35 (0-15) Thyroid Stimulating Hormone (TSH) 2.489 uIU/mL (0.358-3.74) Sodium Level 145 mmol/L (136-145) Potassium Level 3.4 mmol/L (3.5-5.1) Chloride Level 112 mmol/L (98-107) Carbon Dioxide Level 19 mmol/L (21-32) Anion Gap 14 (6-14) Blood Urea Nitrogen 43 mg/dL (8-26) Creatinine 5.4 mg/dL (0.7-1.3) Estimated GFR (Cockcroft-Gault) 13.2 BUN/Creatinine Ratio 8 (6-20) Glucose Level 138 mg/dL (70-99) Calcium Level 7.6 mg/dL (8.5-10.1) Total Bilirubin 0.2 mg/dL (0.2-1.0) Aspartate Amino Transf (AST/SGOT) 21 U/L (15-37) Alanine Aminotransferase (ALT/SGPT) 28 U/L (16-63) Alkaline Phosphatase 55 U/L (46-116) C-Reactive Protein, Quantitative < 0.5 mg/L (0-3.3) Total Protein 5.9 g/dL (6.4-8.2) Albumin 2.4 g/dL (3.4-5.0) Albumin/Globulin Ratio 0.7 (1.0-1.7) Glucose (Fingerstick) 91 mg/dL (70-99) 112 mg/dL (70-99) Assessment/Plan Assessment/Plan IMP KARLA CR OF 5.4 CKD STAGE 4-PROGRESSIVE WITH CR OF 3.2 AT BASELINE WHEN LAST HERE HX OF HTN HX OF DM II SUBSTANCE ABUSE-RECURRENT COCAINE ON HIS UDS IN THE PAST SUSPECT NON COMPLIANCE RECURRENT CONSTIPATION AND HEART BURN HX OF URINARY RETENTION AND BPH IN THE PAST ANEMIA OF CHRONIC DISEASE MILD HYPOKALEMIA MILD NON AG MET ACIDOSIS PLAN CONT WITH FLOMAX HYDRATION WILL NEED COLONOSCOPY D/W DR WREN CHECK BLADDER SCAN MAY NEED HD SOON ENC ABSTINENCE FROM DRUG USE CHECK UDS CHECK CPK CHECK IRON, PO4 ENC COMPLIANCE EMY GAN MD Jul 01, 2018 14:40
[2018-07-01 15:00] VITALS: BP_SYST 136; BP_SYST 171; BP_DIAS 52; BP_DIAS 72
[2018-07-01] MEDS: IV NORMAL SALINE 1000ML BAG 1,000 ML IV SCH (15:09)
--- NOTE | 2018-07-01 15:23 | HP ---
ADMIT DATE: 07/01/2018 HISTORY OF PRESENT ILLNESS: The patient is a 58-year-old male patient who came to the Emergency Room of [facility] complaining of recurrent episodes of nausea, vomiting as well as diarrhea. He also complains of left lower quadrant pain. All this started approximately five days ago. He was seen in the Emergency Room two days ago. Since that time, his diarrhea has stopped, but he is still unable to tolerate anything orally. He denied any blood in the emesis. There is no recent travel, no fever and the Zofran is not helping his nausea. Nothing seems to make a discomfort in the left lower quadrant of the abdomen toward better or worse. He had a CT scan performed at his Emergency Room visit two days ago, which showed no evidence of diverticulitis. It did show dilatation of his appendix without definite adjacent inflammation at this time and poor evaluation of the pancreas without contrast, but there is suspicion for fullness in the pancreatic head and uncinate process with some possible mild haziness of the adjacent fat. In fact, we repeated his CT scan yesterday and it shows marked atrophy of the body and tail of the pancreas and fullness of the uncinate process, the head of the pancreas is unchanged. However, the appendix is well visualized and is within normal limits at least on this second report. The patient is known to have diabetes and has an insulin infusion pump and has reported that his blood sugars have been running low as he is unable to keep anything by mouth. He was extensively investigated in the Emergency Room and was found to be hypokalemic, hypomagnesemic. His creatinine also has risen to 4.9. He normally follows with Dr. Cantu and apparently, his baseline creatinine is 2.5-3 mg/dL according to him and I did actually contact Dr. Cantu's office and confirmed this information. His white cell count was normal and his urinalysis was basically unremarkable and he was admitted to [facility] where we did investigate the cause of his recurrent bouts of nausea and vomiting, diarrhea as my differential diagnosis initially was acute gastroenteritis, C. diff colitis and/or diabetic gastroparesis. While at [facility], he was started on IV fluid with potassium and his creatinine has actually slightly improved from 4.9 to 4.8. We gave him a bolus of normal saline and continued at half normal saline with 20 mEq of potassium chloride and he was noted also to be hypothermic with a rectal temperature of only 94 and therefore, the patient was transferred to [facility] to continue with rewarming process and to consult the digital marketing analyst as well as the electric cutter operator as he clearly has acute on chronic kidney injury, hypokalemia, hypomagnesemia as well as nausea, vomiting and diarrhea and left lower quadrant abdominal pain. PAST MEDICAL HISTORY: Significant for: 1. Type 2 diabetes mellitus for which she is on insulin infusion pump. 2. Hypertension. 3. Hyperlipidemia. 4. He has coronary artery disease, status post PCI with stent deployment. 5. He has chronic kidney disease. 6. Hypothyroidism. 7. Benign prostatic hypertrophy. 8. He apparently has urinary tract infection, treated with amoxicillin about a month ago according to him. PAST SURGICAL HISTORY: Significant for partial thyroidectomy, PCI with stent deployment, permanent pacemaker placement, abdominal wall abscess, incision and drainage, bilateral cataract extraction, esophagogastroduodenoscopy and colonoscopy. ALLERGIES: He has no known drug allergies. MEDICATIONS: He is currently on following medications: He is on albuterol sulfate 1 puff 4 times a day, Flomax 0.4 mg daily, apixaban 5 mg twice a day, Brilinta 90 mg p.o. b.i.d., Ranexa 500 mg twice a day, omega-3 fatty acid, fish oil 500 mg daily, clonidine 0.2 mg twice a day, nitroglycerin 0.4 mg sublingually every 5 minutes x 3, carvedilol 12.5 mg twice a day, nifedipine for Procardia 60 mg once a day. He is on hydrocodone/APAP 5/325 one tablet every 6 hours, gabapentin 300 mg 3 times a day, escitalopram oxalate 10 mg daily, Xanax 0.5 mg every 8 hours, furosemide 80 mg daily and Senna-S two-in-one one tablet at bedtime, ondansetron 4 mg every 6-8 hours, famotidine 20 mg twice a day. He is on insulin sliding scale before meals, ascorbic acid 500 mg once a day. FAMILY HISTORY: He has two sisters and four brothers, all of them have diabetes and hypertension. Two of his sisters have myocardial infarction, PCI. Father at the age of 87 because of congestive heart failure. Mother in her 80s because of myocardial infarction, cerebrovascular accident, Alzheimer disease. SOCIAL HISTORY: He is , has two daughters. He continued to smoke about five cigarettes a day. He drinks alcohol occasionally. He does not use any drugs. 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 REVIEW OF SYSTEMS: The patient has bilateral cataract extraction. Denied any glaucoma or macular degeneration or diabetic retinopathy. Denied any earache, tinnitus or sensorineural deafness. Denied any nosebleeds, stuffy nose or postnasal drip. Denied any sore throat, sore tongue, toothache, hoarseness of voice or difficulty swallowing. Did have multiple episodes of nausea, vomiting as well as diarrhea. He continued to complain of pain in his left lower quadrant. Denied any chest pain, shortness of breath, orthopnea, paroxysmal nocturnal dyspnea. Denied any cough, phlegm or hemoptysis. Denied any dizziness, lightheadedness, or vertigo. Denied any chills, rigors or fever. PHYSICAL EXAMINATION: GENERAL: When I examined him this morning, he was sitting at the edge of the bed, eating his breakfast comfortably, in no apparent distress. He was somewhat pale, but no jaundice, cyanosis or thyromegaly. No jugular venous distention. No limb edema. VITAL SIGNS: His heart rate was 74, blood pressure was 135/78, temperature was 98.4, respiratory rate was 16 and oxygen saturation was 99%. HEAD, EYES, EARS, NOSE AND THROAT: Showed normocephalic, atraumatic. NECK: Supple. HEART: Showed normal first and second sounds. No gallop, rub or murmur. CHEST: Clear to auscultation. No crepitation or rhonchi. ABDOMEN: Distended, soft, nontender. No guarding or rigidity. No organomegaly. All hernial orifices intact. Bowel sounds normal. NEUROLOGIC: He is awake, alert, responding appropriately. All cranial nerves intact. EXTREMITIES: He moves extremities without difficulty. His intake and output was incompletely recorded. LABORATORY DATA: This morning showed that his white cell count was 5100, hemoglobin 8.5, hematocrit 24.9, MCV 90 and platelet count of 124,000. Sed rate was 35. His chemistry showed that his serum sodium was 145, potassium slightly up at 3.4, chloride 112, bicarbonate 19, anion gap of 14, BUN 43, creatinine 5.4, estimated GFR was 13 mL per minute, his glucose 138, calcium was 7.6. Total bilirubin, AST, ALT, alkaline phosphatase were normal. Total protein was 5.9, albumin was 2.4. His sed rate was only 0.5 mg/dL. TSH was 2.489. ASSESSMENT AND PLAN: In summary, this is a 58-year-old male patient who was transferred from [facility] where he was admitted with: 1. Recurrent bouts of nausea, vomiting, diarrhea and left lower quadrant pain. CT scan did not really show any abnormality, particularly it showed no any evidence of diverticulitis or colitis. He did receive antibiotic about a month ago for urinary tract infection. 2. Acute on chronic kidney injury. His creatinine has risen from 2.5 to 3 to 4.9. He was given IV bolus of half normal saline with 20 mEq of potassium as he has also hypokalemia, hypomagnesemia. He has multiple other medical problems including type 2 diabetes with recurrent episode of hypoglycemia such that he has stopped his insulin infusion pump. Hypertension, hyperlipidemia, coronary artery disease, status post percutaneous coronary intervention with stent deployment, hypothyroidism, benign prostatic hypertrophy. Unfortunately, although his potassium is slightly better, his creatinine has risen from 4.8 to 5.4. I will increase his IV fluid and await the evaluation by the electric cutter operator as he might ultimately require hemodialysis if the trend continue. His CT scan showed no evidence of any obstruction, hydronephrosis or urinary retention. JOSELO MCPHERSON MD DR: LEEANNA/bonnie JOB#: [id number] / [id number]
[2018-07-01] MEDS: POTASSIUM CHLORIDE 20 MEQ TABLET.ER. PO SCH (17:03)
[2018-07-01 19:15] VITALS: BP 147/77
[2018-07-01] MEDS: SENNOSIDES/DOCUSATE 8.6/50MG TABLET. PO SCH (20:22)
[2018-07-01] MEDS: ALPRAZolam 0.5 MG TABLET PO PRN (20:22)
[2018-07-01] MEDS: FAMOTIDINE 20 MG TABLET. PO SCH (20:23)
[2018-07-01 23:45] VITALS: BP 169/78
[2018-07-02] MEDS: IV NORMAL SALINE 1000ML BAG 1,000 ML IV SCH ×3 (00:02→23:14)
[2018-07-02 03:52] VITALS: BP 150/72
[2018-07-02] MEDS: oxyCODONE/APAP 7.5/325 1 TAB TABLET PO PRN ×2 (05:54→20:50)
[2018-07-02 07:00] VITALS: BP 150/75
[2018-07-02] MEDS: INSULIN LISPRO 300 UNITS/3 ML INSULN.PEN. SQ SCH ×3 (07:53→17:00)
[2018-07-02 08:22] LABS: CALCIUM 7.6 mg/dL (8.5-10.1); CREATININE 5.5 mg/dL (0.7-1.3); GFR 12.9; POTASSIUM 3.8 mmol/L (3.5-5.1)
[2018-07-02 08:27] LABS: PHOSPHORUS 4.5 mg/dL (2.6-4.7)
[2018-07-02] MEDS: TAMSULOSIN 0.4 MG CAP.ER.24H. PO SCH (08:49)
[2018-07-02] MEDS: RANOLAZINE 500 MG TAB.ER.12H PO SCH ×2 (08:49→20:52)
[2018-07-02] MEDS: POTASSIUM CHLORIDE 20 MEQ TABLET.ER. PO SCH ×2 (08:51→16:46)
[2018-07-02] MEDS: GABAPENTIN 300 MG CAPSULE. PO SCH (08:51)
[2018-07-02] MEDS: ASCORBIC ACID 500 MG TABLET PO SCH (08:51)
[2018-07-02] MEDS: cloNIDine HCL 0.2 MG TABLET PO SCH ×2 (08:52→20:53)
[2018-07-02] MEDS: CITALOPRAM 20 MG TABLET. PO SCH (08:52)
[2018-07-02] MEDS: OMEGA-3 FATTY ACIDS/FISH OIL 1,000 MG CAPSULE. PO SCH (08:52)
[2018-07-02] MEDS: CARVEDILOL 12.5 MG TABLET. PO SCH ×2 (08:52→16:46)
[2018-07-02] MEDS: TICAGRELOR 90 MG TABLET. PO SCH ×2 (08:53→20:50)
[2018-07-02 11:00] VITALS: BP 147/70
--- NOTE | 2018-07-02 11:23 | PDOC ---
GI PROGRESS NOTES Date Date/Time DATE: 07/02/18 TIME: 11:20 Subjective Subjective no BM yet- abd pain improved- tolerating diet Cr has not improved Objective Vitals Vital Signs Date Time Temp Pulse Resp B/P (MAP) Pulse Ox O2 Delivery O2 Flow Rate FiO2 07/02/18 08:53 70 150/75 07/02/18 08:52 70 150/75 07/02/18 08:52 70 150/75 07/02/18 08:49 150/75 07/02/18 08:00 Room Air 07/02/18 07:11 BiPAP/CPAP 07/02/18 07:00 97.3 70 18 150/75 (100) 100 Room Air 97.3 07/02/18 05:54 BiPAP/CPAP 07/02/18 03:52 97.4 69 20 150/72 (98) 100 Room Air 97.4 07/01/18 23:45 97.9 73 20 169/78 (108) 99 Room Air 97.9 07/01/18 22:54 Room Air 07/01/18 20:24 71 147/71 07/01/18 20:23 71 147/77 07/01/18 20:00 Room Air 07/01/18 19:15 98.6 71 18 147/77 (100) 99 Room Air 98.6 07/01/18 18:06 Room Air 07/01/18 17:03 73 136/72 07/01/18 17:02 Room Air 07/01/18 15:00 98.3 73 18 136/72 (93) 98 Room Air 98.3 Labs Labs Laboratory Tests Test 07/01/18 16:41 07/01/18 19:46 07/02/18 07:34 07/02/18 07:41 Glucose (Fingerstick) 160 mg/dL (70-99) 285 mg/dL (70-99) 122 mg/dL (70-99) Sodium Level 146 mmol/L (136-145) Potassium Level 3.8 mmol/L (3.5-5.1) Chloride Level 112 mmol/L (98-107) Carbon Dioxide Level 20 mmol/L (21-32) Anion Gap 14 (6-14) Blood Urea Nitrogen 43 mg/dL (8-26) Creatinine 5.5 mg/dL (0.7-1.3) Estimated GFR (Cockcroft-Gault) 12.9 Glucose Level 121 mg/dL (70-99) Calcium Level 7.6 mg/dL (8.5-10.1) Phosphorus Level 4.5 mg/dL (2.6-4.7) Magnesium Level 1.9 mg/dL (1.8-2.4) Creatine Kinase 239 U/L (39-308) Physical Exam Physical Exam chest- clear abd- soft non tender no masses Assessment Assessment Constipation and abd pain- no prior colonoscopy - need to r/o occult lesions GERD and heartburn- need to r/o PUD, reflux etc CRF Anemia- likely multifactorial- checking stool but none yet Plan- laxative today, consider EGD and colonoscopy in the next few days MAEVE WREN MD Jul 02, 2018 11:23
[2018-07-02] MEDS ORDERED: MAGNESIUM CITRATE 296 ML SOLUTION. PO ONE (11:30)
--- NOTE | 2018-07-02 12:15 | PDOC ---
Renal-Progress Notes Subjective Notes Notes NO NEW COMPLAINTS History of Present Illness Hx of present illness STABLE Vitals Vitals Vital Signs Date Time Temp Pulse Resp B/P (MAP) Pulse Ox O2 Delivery O2 Flow Rate FiO2 07/02/18 11:00 97.2 73 18 147/70 (95) 100 Room Air 97.2 Weight Weight [ ] I.O. Intake and Output Intake and Output 07/02/18 07:00 Intake Total 1225 ml Output Total 450 ml Balance 775 ml Intake Oral 1225 ml Output Urine Total 450 ml # Voids 1 Labs Labs Laboratory Tests Test 07/01/18 16:41 07/01/18 19:46 07/02/18 07:34 07/02/18 07:41 Glucose (Fingerstick) 160 mg/dL (70-99) 285 mg/dL (70-99) 122 mg/dL (70-99) Sodium Level 146 mmol/L (136-145) Potassium Level 3.8 mmol/L (3.5-5.1) Chloride Level 112 mmol/L (98-107) Carbon Dioxide Level 20 mmol/L (21-32) Anion Gap 14 (6-14) Blood Urea Nitrogen 43 mg/dL (8-26) Creatinine 5.5 mg/dL (0.7-1.3) Estimated GFR (Cockcroft-Gault) 12.9 Glucose Level 121 mg/dL (70-99) Calcium Level 7.6 mg/dL (8.5-10.1) Phosphorus Level 4.5 mg/dL (2.6-4.7) Magnesium Level 1.9 mg/dL (1.8-2.4) Creatine Kinase 239 U/L (39-308) Test 07/02/18 11:12 Glucose (Fingerstick) 97 mg/dL (70-99) Review of Systems Constitutional: yes: weakness, alert, oriented Ears/Nose/Throat: Yes: no symptom reported Eyes: Yes: no symptom reported Pulmonary: Yes no symptom reported Gastrointestional: Yes: nausea, constipation Genitourinary: Yes: retention Musculoskeletal: Yes: muscle stiffness Skin: Yes no symptom reported Psychiatric/Neurological: Yes: no symptom reported Endocrine: Yes: no symptom reported Physical Exam General Appearance: no apparent distress Skin: warm Respiratory: bilateral CTA Heart: S1S2, RRR Abdomen: soft, bowel sounds present Genitourinary: bladder flat Extremities: pulses present Neurology: alert, oriented Musculoskeletal: Osteoarthritis Assessment Assessment IMP KARLA CR OF 5.5-WORSE CKD STAGE 4-PROGRESSIVE WITH CR OF 3.2 AT BASELINE WHEN LAST HERE HX OF HTN HX OF DM II SUBSTANCE ABUSE-RECURRENT COCAINE ON HIS UDS IN THE PAST SUSPECT NON COMPLIANCE RECURRENT CONSTIPATION AND HEART BURN HX OF URINARY RETENTION AND BPH IN THE PAST ANEMIA OF CHRONIC DISEASE-IRON STORES ARE ADEQUATE MILD HYPOKALEMIA-BETTER MILD NON AG MET ACIDOSIS PLAN CONT WITH FLOMAX HYDRATION WILL NEED COLONOSCOPY D/W DR WREN CHECKED BLADDER SCAN-NO SIGNIFICANT RETENTION MAY NEED HD SOON IF NOT THIS WEEK ENC ABSTINENCE FROM DRUG USE CHECK IRON, PO4 START ARANESP ENC COMPLIANCE EMY GAN MD Jul 02, 2018 12:15
[2018-07-02] MEDS: DEXTROSE 50% 25 GM / 50ML DISP.SYRIN. IV PRN (14:26)
[2018-07-02 15:00] VITALS: BP 144/76
[2018-07-02 19:15] VITALS: BP 157/76
[2018-07-02] MEDS: ALPRAZolam 0.5 MG TABLET PO PRN (20:50)
[2018-07-02] MEDS: FAMOTIDINE 20 MG TABLET. PO SCH (20:52)
[2018-07-02] MEDS: SENNOSIDES/DOCUSATE 8.6/50MG TABLET. PO SCH (20:52)
[2018-07-02] MEDS: DARBEPOETIN ALFA 60 MCG/0.3 ML DISP.SYRIN. SQ SCH (21:13)
[2018-07-02] MEDS: HYDROcodone/APAP 5/325MG 1 TAB TABLET PO PRN (23:15)
[2018-07-02 23:30] VITALS: BP 152/68
--- NOTE | 2018-07-03 02:00 | PN ---
DATE: 07/02/2018 SUBJECTIVE: The patient is sitting slightly propped up in bed, in no apparent distress. He is awake, alert. On questioning him, he denied any complaint except that he has no constipation. The nursing staff stated that he is now retaining fluid and they have to cut his bracelet. We did start him on IV fluid without any much improvement in his kidney function. In fact, his creatinine is steadily rising, today is 5.5. PHYSICAL EXAMINATION: GENERAL: When I examined him, he looked well and was clearly in no apparent respiratory distress and pale. Not jaundiced or cyanosed from thyromegaly. No jugular venous distension. No lower limb edema. VITAL SIGNS: His heart rate was 70, blood pressure 150/75, temperature was 97.3, respiratory rate was 18 and oxygen saturation was 100% on room air. HEAD, EYES, EARS, NOSE AND THROAT: Normocephalic, atraumatic. NECK: Supple. HEART: Showed normal first and second sounds. No gallop, rub or murmur. CHEST: Clear to auscultation. No crepitation or rhonchi. ABDOMEN: Distended, soft, nontender. NEUROLOGIC: He was awake, alert, responding appropriately. Cranial nerves intact. He moves extremities without difficulty. His intake was 780, output was 400. LABORATORY DATA: As of this morning, his serum sodium was 146, potassium 3.8, chloride 112, bicarbonate 20, anion gap of 14, BUN 43, creatinine 5.5, estimated GFR was 12.9 mL per minute. His glucose was 121, calcium was 7.6. His phosphorus was 4.5, magnesium was 1.9 and CK was 239. ASSESSMENT: 1. Recurrent bouts of nausea, vomiting, diarrhea and lower left quadrant pain. CT scan did not show any evidence of diverticulitis or colitis. He did receive antibiotic about a month ago for urinary tract infection. 2. Acute on chronic kidney injury. His creatinine is baseline 2.5-3, and as of this morning, his creatinine has risen up to 5.5. 3. Hypokalemia and hypomagnesemia have improved. His potassium is up to 3.8, magnesium was 1.9. Other medical problems include: A. Type 2 diabetes mellitus for which he was on insulin infusion pump. B. Hypertension. C. Hyperlipidemia. D. Coronary artery disease, status post percutaneous coronary intervention with stent deployment. E. Hypothyroidism. F. Benign prostatic hypertrophy. PLAN: To continue with IV fluid. The patient will be scheduled for upper and lower GI endoscopy. He will also probably require dialysis soon as his creatinine is steadily worsening. JOSELO MCPHERSON MD DR: LEEANNA/bonnie JOB#: [id number] / [id number]
[2018-07-03] MEDS: oxyCODONE/APAP 7.5/325 1 TAB TABLET PO PRN ×2 (03:36→16:17)
[2018-07-03 03:46] VITALS: BP 156/82
--- NOTE | 2018-07-03 04:13 | NUR ---
Bladder scanned performed at 0400 on 07/03/18 as patient voiced concerns about not voiding enough and pain in is right back and right leg. Scan showed residual of 100ml after using urinal, will pass this information onto the day nurse.
[2018-07-03 04:41] LABS: HEMATOCRIT 25.9 % (39.0-53.0); HEMOGLOBIN 8.8 g/dL (13.0-17.5); RED BLOOD COUNT 2.89 x10^6/uL (4.30-5.70); RED CELL DISTRIBUTION WIDTH 15.3 % (11.5-14.5)
[2018-07-03] MEDS: ALPRAZolam 0.5 MG TABLET PO PRN (05:48)
[2018-07-03] MEDS: HYDROcodone/APAP 5/325MG 1 TAB TABLET PO PRN ×2 (05:49→12:28)
[2018-07-03 06:26] LABS: CREATININE 5.4 mg/dL (0.7-1.3); GFR 13.2; POTASSIUM 4.8 mmol/L (3.5-5.1)
[2018-07-03 07:13] VITALS: BP 137/83
[2018-07-03] MEDS: INSULIN LISPRO 300 UNITS/3 ML INSULN.PEN. SQ SCH ×3 (08:00→17:00)
[2018-07-03] MEDS: CITALOPRAM 20 MG TABLET. PO SCH (08:32)
[2018-07-03] MEDS: POTASSIUM CHLORIDE 20 MEQ TABLET.ER. PO SCH ×2 (08:32→17:00)
[2018-07-03] MEDS: RANOLAZINE 500 MG TAB.ER.12H PO SCH ×2 (08:33→20:02)
[2018-07-03] MEDS: CARVEDILOL 12.5 MG TABLET. PO SCH ×2 (08:33→17:09)
[2018-07-03] MEDS: TAMSULOSIN 0.4 MG CAP.ER.24H. PO SCH (08:34)
[2018-07-03] MEDS: TICAGRELOR 90 MG TABLET. PO SCH ×2 (08:34→19:40)
[2018-07-03] MEDS: cloNIDine HCL 0.2 MG TABLET PO SCH ×2 (08:34→20:02)
[2018-07-03] MEDS: OMEGA-3 FATTY ACIDS/FISH OIL 1,000 MG CAPSULE. PO SCH (08:34)
[2018-07-03] MEDS: GABAPENTIN 300 MG CAPSULE. PO SCH (08:34)
[2018-07-03] MEDS: ASCORBIC ACID 500 MG TABLET PO SCH (08:34)
[2018-07-03] MEDS: IV NORMAL SALINE 1000ML BAG 1,000 ML IV SCH (08:39)
--- NOTE | 2018-07-03 09:55 | NUR ---
Pt administers own insulin through pump. Pt states he gave self 3 units of insulin.
[2018-07-03] MEDS ORDERED: FURO80TA72 PO (11:30)
[2018-07-03 11:55] VITALS: BP 147/80
--- NOTE | 2018-07-03 12:08 | NUR ---
Pt administers own insulin with pump. Pt states he administered 3.5 units of insulin for 1200 dosage.
--- NOTE | 2018-07-03 12:23 | PDOC ---
Subjective: Subjective: Tolerating PO, hasn't stooled. Has some LLQ discomfort when touched. Heartburn is better. Objective: Vital Signs: Vital Signs Date Time Temp Pulse Resp B/P (MAP) Pulse Ox O2 Delivery O2 Flow Rate FiO2 07/03/18 11:55 97.6 71 147/80 (102) Room Air 97.6 07/03/18 07:13 20 100 Labs: Laboratory Tests Test 07/02/18 14:23 07/02/18 14:36 07/02/18 16:59 07/02/18 19:35 Glucose (Fingerstick) 43 mg/dL 175 mg/dL 104 mg/dL 110 mg/dL Test 07/03/18 04:15 07/03/18 07:14 07/03/18 11:26 White Blood Count 5.0 x10^3/uL Red Blood Count 2.89 x10^6/uL Hemoglobin 8.8 g/dL Hematocrit 25.9 % Mean Corpuscular Volume 90 fL Mean Corpuscular Hemoglobin 31 pg Mean Corpuscular Hemoglobin Concent 34 g/dL Red Cell Distribution Width 15.3 % Platelet Count 152 x10^3/uL Sodium Level 140 mmol/L Potassium Level 4.8 mmol/L Chloride Level 109 mmol/L Carbon Dioxide Level 19 mmol/L Anion Gap 12 Blood Urea Nitrogen 47 mg/dL Creatinine 5.4 mg/dL Estimated GFR (Cockcroft-Gault) 13.2 Glucose Level 180 mg/dL Calcium Level 8.0 mg/dL Glucose (Fingerstick) 151 mg/dL 185 mg/dL PE: GEN: NAD, up to chair LUNGS: CTAB HEART: RRR ABD: NABS, S/ND, mild discomfort around insulin pump NEURO/PSYCH: A & O 3, flat A/P: N/v - better H/o GERD and constipation - previously recommended PPI and Miralax long-term CRC screen - 10 years ago HTN, DM, CKD/KARLA, ACD H/o cocaine use Abnormal CT @ [facility] - "pancreatic head fullness" according to H&P -- Previous recommendations for EGD and colonoscopy - will review this w/ Dr. Schmidt but could pursue as outpt when renal function improves. Add PPI in place of H2 shayna, add Miralax. Check KUB. Could also consider GES later on. Will review recs re: pancreatic head fullness w/ Dr. Schmidt. KEVIN LAGUNAS Jul 03, 2018 12:23
[2018-07-03] MEDS: POLYETHYLENE GLYCOL 3350 17 GM PACKET. PO SCH ×2 (12:28→20:02)
[2018-07-03] MEDS: PANTOPRAZOLE 40 MG TABLET.DR. PO SCH (12:28)
--- NOTE | 2018-07-03 14:19 | PDOC ---
SUBJECTIVE ROS Denies N/V. Mild SOB on exertion, none at rest Feels UOP somewhat decreased, Bladder scan last night OBJECTIVE Vital Signs Vital Signs Date Time Temp Pulse Resp B/P (MAP) Pulse Ox O2 Delivery O2 Flow Rate FiO2 07/03/18 13:28 Room Air 07/03/18 11:55 97.6 71 147/80 (102) 97.6 07/03/18 07:13 20 100 I & 0 Intake and Output 07/03/18 06:59 Intake Total 650 ml Output Total 1200 ml Balance -550 ml Intake Oral 650 ml Output Urine Total 1200 ml PHYSICAL EXAM Physical Exam GEN: NAD HEEN: OM Moist NECK: Supple CVS: S1S2, RRR RESP: No Acc. Muscle Use, Coarse BS GI: BS + ve, NO Bruit, Non Tender, obese : No CVA tenderness, No Suprapubic Tenderness NEURO- No Asterixis DIAGNOSIS/ASSESSMENT Assessment & Plan KARLA - Creat peaked at 5.5 Stable today , E-Lytes stable, asymptomatic DC IVF , Monitor Bladder scan PVR 200 ml If No improvement in renal function in am will initiate HD Temp HD cath (after reviewing am labs) tomorrow( IR recommends Holding Brilinta for 3 days, permacath on tuesday) CKD stage 4- Baseline Creat 3.[address] Cantu of our Group Pt reports at last visit with him Creat in 3's Shortenss of Breath Mild DC IVF On lasix at home, will hold for now as stable Get CxR , daily standing weight HTN DM II- a sper primary Substance Abuse - Recurrent Cocaine use Acknowledges, states will not use again HX Urinary retention and BPH PVR 200 ml , On Flomax Anemia of Chr disease Fe stores Normal On Aranesp GI planning EGD and colonoscopy in the next few days Hypokalemia- Mild Normal today Metabolic acidosis- Mild Discussed at great length with Pt and at bedside Discussed with RN COMMENT/RELEVANT DATA Meds Current Medications Medications (Trade) Dose Ordered Sig/Lien Start Time Stop Time Status Last Admin Dose Admin Acetaminophen/ Hydrocodone Bitart (Lortab 5/325) 1 tab PRN Q6HRS PRN 06/30/18 19:45 07/03/18 12:28 1 TAB Albuterol Sulfate (Ventolin Neb Soln) 2.5 mg PRN Q4HRS PRN 06/30/18 19:45 Alprazolam (Xanax) 0.5 mg PRN Q8HRS PRN 06/30/18 19:45 07/03/18 05:48 0.5 MG Ascorbic Acid (Vitamin C) 500 mg DAILY 07/01/18 09:00 07/03/18 08:34 500 MG Carvedilol (Coreg) 12.5 mg BIDWMEALS 07/01/18 08:00 07/03/18 08:33 12.5 MG Citalopram Hydrobromide (CeleXA) 20 mg DAILY 07/01/18 09:00 07/03/18 08:32 20 MG Clonidine HCl (Catapres) 0.2 mg BID 06/30/18 21:00 07/03/18 08:34 0.2 MG Darbepoetin Blane (Aranesp) 60 mcg WEEKLYHS 07/02/18 21:00 07/02/18 21:13 60 MCG Dextrose (Dextrose 50%-Water Syringe) 12.5 gm PRN Q15MIN PRN 06/30/18 20:15 07/02/18 14:26 25 GM Famotidine (Pepcid) 20 mg HS 06/30/18 21:00 07/03/18 12:22 DC 07/02/18 20:52 20 MG Fentanyl Citrate (Fentanyl 2ml Vial) 50 mcg PRN Q2HR PRN 06/30/18 20:15 Fish Oil (Fish Oil) 1,000 mg DAILY 07/01/18 09:00 07/03/18 08:34 1,000 MG Gabapentin (Neurontin) 300 mg DAILY 07/01/18 09:00 07/03/18 08:34 300 MG Hydrocortisone Acetate (Anucort-Hc) 25 mg BID PRN 06/30/18 20:15 Insulin Human Lispro (HumaLOG) 0-5 UNITS TIDWMEALS 07/01/18 08:00 07/01/18 17:05 2 UNITS Magnesium Citrate (Citroma) 296 ml 1X ONCE 07/02/18 11:30 07/02/18 11:31 DC 07/02/18 11:44 296 ML Magnesium Sulfate 50 ml @ 25 mls/hr 1X ONCE 07/01/18 10:30 07/01/18 12:29 DC 07/01/18 10:17 25 MLS/HR Nifedipine (Procardia Xl) 60 mg DAILY 07/01/18 09:00 07/03/18 11:45 60 MG Nitroglycerin (Nitrostat) 0.4 mg PRN Q5MIN PRN 06/30/18 19:45 Ondansetron HCl (Zofran Odt) 4 mg PRN Q8HRS PRN 06/30/18 19:45 Ondansetron HCl (Zofran) 4 mg PRN Q4HRS PRN 06/30/18 20:15 Oxycodone/ Acetaminophen (Percocet 7.5/ 325) 1 tab PRN TID PRN 06/30/18 19:45 07/03/18 03:36 1 TAB Pantoprazole Sodium (Protonix) 40 mg DAILYAC 07/03/18 13:00 07/03/18 12:28 40 MG Polyethylene Glycol (miraLAX PACKET) 17 gm BID 07/03/18 13:00 07/03/18 12:28 17 GM Potassium Chloride/Sodium Chloride 1,000 ml @ 75 mls/hr [id number] 06/30/18 20:15 07/01/18 09:46 DC 06/30/18 20:47 75 MLS/HR Potassium Chloride (Klor-Con) 20 meq BIDWMEALS 07/01/18 17:00 07/03/18 08:32 20 MEQ Ranolazine (Ranexa) 500 mg BID 06/30/18 21:00 07/03/18 08:33 500 MG Senna/Docusate Sodium (Senna Plus) 1 tab HS 06/30/18 21:00 07/02/18 20:52 1 TAB Sodium Chloride 1,000 ml @ 100 mls/hr Q10H 07/01/18 14:45 07/03/18 08:39 100 MLS/HR Tamsulosin HCl (Flomax) 0.4 mg DAILY 07/01/18 09:00 07/03/18 08:34 0.4 MG Ticagrelor (Brilinta) 90 mg BID 06/30/18 21:00 07/03/18 08:34 90 MG Lab Laboratory Tests Test 07/02/18 14:23 07/02/18 14:36 07/02/18 16:59 07/02/18 19:35 Glucose (Fingerstick) 43 mg/dL (70-99) 175 mg/dL (70-99) 104 mg/dL (70-99) 110 mg/dL (70-99) Test 07/03/18 04:15 07/03/18 07:14 07/03/18 11:26 White Blood Count 5.0 x10^3/uL (4.0-11.0) Red Blood Count 2.89 x10^6/uL (4.30-5.70) Hemoglobin 8.8 g/dL (13.0-17.5) Hematocrit 25.9 % (39.0-53.0) Mean Corpuscular Volume 90 fL (79-100) Mean Corpuscular Hemoglobin 31 pg (25-35) Mean Corpuscular Hemoglobin Concent 34 g/dL (31-37) Red Cell Distribution Width 15.3 % (11.5-14.5) Platelet Count 152 x10^3/uL (140-400) Sodium Level 140 mmol/L (136-145) Potassium Level 4.8 mmol/L (3.5-5.1) Chloride Level 109 mmol/L (98-107) Carbon Dioxide Level 19 mmol/L (21-32) Anion Gap 12 (6-14) Blood Urea Nitrogen 47 mg/dL (8-26) Creatinine 5.4 mg/dL (0.7-1.3) Estimated GFR (Cockcroft-Gault) 13.2 Glucose Level 180 mg/dL (70-99) Calcium Level 8.0 mg/dL (8.5-10.1) Glucose (Fingerstick) 151 mg/dL (70-99) 185 mg/dL (70-99) Results All relevant outside records, renal labs, imaging studies, telemetry/EKG's were reviewed. JOY CELIS MD Jul 03, 2018 14:19
[2018-07-03 15:00] VITALS: BP 133/70
--- NOTE | 2018-07-03 15:29 | NUR ---
CHARLINE following pt for anticipated dc needs. Chart reviewed and DW RN. Pt lives at home with family. Nephrology following pt and pt will have a temp cath tomorrow for HD. Per RN, plan is to eval pt's labs after HD to determine OP HD needs. Will continue to follow.
--- NOTE | 2018-07-03 15:43 | RAD ---
EXAM: Chest, 2 views. HISTORY: Shortness of breath. COMPARISON: 03/30/2017 FINDINGS: 2 views of the chest are obtained. There is no infiltrate, pleural effusion or pneumothorax. There is suspected right basilar pleural parenchymal scarring. There are healed rib fractures. The heart is normal in size. There is a cardiac pacemaker with leads unchanged in position. IMPRESSION: No acute pulmonary finding. Electronically signed by: Cori Mclaughlin MD (07/03/2018 3:39 PM) [place] [id number]
--- NOTE | 2018-07-03 16:01 | RAD ---
EXAM: Abdomen, single view. HISTORY: Constipation. COMPARISON: CT dated 02/23/2018. FINDINGS: A frontal view of the abdomen is obtained. There is gas and stool within the colon. There is no transition point to suggest obstruction. There are vascular calcifications. There is an oval opacity overlying the left lower quadrant, likely artifact overlying the patient. IMPRESSION: Prominent air-filled bowel within the upper abdomen. There is no evidence of obstruction. Electronically signed by: Cori Mclaughlin MD (07/03/2018 3:58 PM) [place] [id number]
--- NOTE | 2018-07-03 19:08 | NUR ---
Pt administers own insulin with pump. Pt administered zero units of insulin with dinner with a BS reading of 130.
[2018-07-03 19:45] VITALS: BP 155/84
[2018-07-03] MEDS: SENNOSIDES/DOCUSATE 8.6/50MG TABLET. PO SCH (20:02)
[2018-07-03 23:15] VITALS: BP 146/75
[2018-07-04] MEDS: DEXTROSE 50% 25 GM / 50ML DISP.SYRIN. IV PRN (01:18)
--- NOTE | 2018-07-04 01:29 | PN ---
DATE: 07/03/2018 SUBJECTIVE: The patient is resting, slightly propped up in bed, eating his breakfast comfortably, in no apparent distress. On questioning him, he denied any chest pain or shortness of breath, has had no further episodes of nausea, vomiting or diarrhea. In fact, he is constipated. He had complained of back pain and pain in his legs and he is already on pain medication for that. PHYSICAL EXAMINATION: GENERAL: When I examined him, he looked pale, but no jaundice, cyanosis, or thyromegaly. No jugular venous distention. No lower limb edema. VITAL SIGNS: His heart rate was 71, blood pressure was 137/83, temperature was 98.2, respiratory rate was 20, and oxygen saturation was 100% on room air. HEAD, EYES, EARS, NOSE AND THROAT: Showed normocephalic, atraumatic. NECK: Supple. HEART: Showed normal first and second heart sounds. No gallop, rub or murmur. CHEST: Clear to auscultation. No crepitation or rhonchi. ABDOMEN: Distended, soft, nontender. NEUROLOGIC: He was awake, alert, responding appropriately. All cranial nerves intact. He moves extremities without difficulty. His intake was 1225, output was 450. LABORATORY DATA: His lab work this morning showed a white cell count 5000, hemoglobin 8.8, hematocrit 25.9, MCV 90 and platelet count of 152,000. His chemistry showed a serum sodium 140, potassium 4.8, chloride 109, bicarbonate 19, anion gap of 12, BUN of 47, creatinine 5.4. His estimated GFR was 13.2 mL per minute. His glucose was 180, calcium was 8. ASSESSMENT: 1. Recurrent bouts of nausea, vomiting, diarrhea and left lower quadrant pain that has resolved. CT scan did not show any evidence of diverticulitis or colitis. He did receive antibiotic about a month ago for urinary tract infection. 2. Acute on chronic kidney injury. Creatinine has dramatically risen from a baseline of 2.5-3. As of this morning, his creatinine is 5.4. 3. Hypokalemia and hypomagnesemia has improved. His potassium is up to 4.8, magnesium was 1.94. The patient has multiple other medical problems including: A. Type 2 diabetes mellitus, for which he was on insulin infusion pump. B. Hypertension. C. Hyperlipidemia. D. Coronary artery disease, status post percutaneous coronary intervention with stent deployment. E. Hypothyroidism. F. Benign prostatic hypertrophy. PLAN: To continue with IV fluid. Apparently, he was seen by the cookie breaker and he is scheduled with plans for upper and lower GI endoscopy. So far, the patient did not seem to have an urgent indication for hemodialysis. JOSELO MCPHERSON MD DR: LEEANNA/bonnie JOB#: [id number] / [id number]
[2018-07-04 03:14] VITALS: BP 120/67
[2018-07-04 04:25] LABS: CALCIUM 8.1 mg/dL (8.5-10.1); CREATININE 5.6 mg/dL (0.7-1.3); GFR 12.6; MAGNESIUM 2.3 mg/dL (1.8-2.4); POTASSIUM 5.2 mmol/L (3.5-5.1)
[2018-07-04 07:05] VITALS: BP 142/76
[2018-07-04] MEDS: TICAGRELOR 90 MG TABLET. PO SCH (07:24)
[2018-07-04] MEDS: PANTOPRAZOLE 40 MG TABLET.DR. PO SCH (07:52)
[2018-07-04] MEDS: CARVEDILOL 12.5 MG TABLET. PO SCH ×2 (07:53→17:00)
[2018-07-04] MEDS: INSULIN LISPRO 300 UNITS/3 ML INSULN.PEN. SQ SCH ×3 (08:00→17:00)
[2018-07-04] MEDS: POTASSIUM CHLORIDE 20 MEQ TABLET.ER. PO SCH ×2 (08:00→17:00)
--- NOTE | 2018-07-04 08:58 | NUR ---
Pt administers own insulin via pump. Pt has a BS reading of 256 this morning, 07/04, and states he administered 5.7 units of insulin via his pump.
[2018-07-04] MEDS ORDERED: LIDOCAINE WITH 8.4% SOD BICARB 3 ML DISP.SYRIN. INJ ONE (09:00)
[2018-07-04] MEDS: RANOLAZINE 500 MG TAB.ER.12H PO SCH ×2 (09:00→20:36)
[2018-07-04] MEDS: cloNIDine HCL 0.2 MG TABLET PO SCH ×2 (09:00→20:36)
[2018-07-04] MEDS ORDERED: LIDOCAINE WITH 8.4% SOD BICARB 3 ML DISP.SYRIN. ONE ×2 (09:03→09:39)
--- NOTE | 2018-07-04 09:38 | PDOC ---
SUBJECTIVE ROS Initiate don HD, tolerating well , denies any concerns or complaints OBJECTIVE Vital Signs Vital Signs Date Time Temp Pulse Resp B/P (MAP) Pulse Ox O2 Delivery O2 Flow Rate FiO2 07/04/18 07:53 73 142/76 07/04/18 07:05 98.4 17 97 Room Air 98.4 I & 0 Intake and Output 07/04/18 06:59 Intake Total 2260 ml Balance 2260 ml Intake Oral 2260 ml # Voids 6 PHYSICAL EXAM Physical Exam GEN: NAD HEEN: OM Moist NECK: Supple CVS: S1S2, RRR RESP: No Acc. Muscle Use, Coarse BS GI: BS + ve, NO Bruit, Non Tender, obese : No CVA tenderness, No Suprapubic Tenderness NEURO- No Asterixis DIAGNOSIS/ASSESSMENT Assessment & Plan KARLA - Creat peaked at 5.5 No improvement in renal function Bladder scan PVR 200 ml 1st treatment today - Seen on HD, tolerating well Temp HD cath placed Holding Brilinta for 3 days, permacath on tuesday) CKD stage 4- Baseline Creat 3.[address] Cantu of our Group Pt reports at last visit with him Creat in 3's Shortness of Breath Mild CxR unremarkable HTN- Monitor Post HD DM II- as per primary Substance Abuse - Recurrent Cocaine use Acknowledges, states will not use again HX Urinary retention and BPH PVR 200 ml , On Flomax Anemia of Chr disease Fe stores Normal On Aranesp GI planning EGD and colonoscopy in the next few days Hypokalemia- Mild Normal today Metabolic acidosis- Mild Discussed at great length with Pt and at bedside Discussed with RN COMMENT/RELEVANT DATA Meds Current Medications Medications (Trade) Dose Ordered Sig/Lien Start Time Stop Time Status Last Admin Dose Admin Acetaminophen/ Hydrocodone Bitart (Lortab 5/325) 1 tab PRN Q6HRS PRN 06/30/18 19:45 07/03/18 12:28 1 TAB Albuterol Sulfate (Ventolin Neb Soln) 2.5 mg PRN Q4HRS PRN 06/30/18 19:45 Alprazolam (Xanax) 0.5 mg PRN Q8HRS PRN 06/30/18 19:45 07/03/18 05:48 0.5 MG Ascorbic Acid (Vitamin C) 500 mg DAILY 07/01/18 09:00 07/03/18 08:34 500 MG Carvedilol (Coreg) 12.5 mg BIDWMEALS 07/01/18 08:00 07/04/18 07:53 12.5 MG Citalopram Hydrobromide (CeleXA) 20 mg DAILY 07/01/18 09:00 07/03/18 08:32 20 MG Clonidine HCl (Catapres) 0.2 mg BID 06/30/18 21:00 07/03/18 20:02 0.2 MG Darbepoetin Blane (Aranesp) 60 mcg WEEKLYHS 07/02/18 21:00 07/02/18 21:13 60 MCG Dextrose (Dextrose 50%-Water Syringe) 12.5 gm PRN Q15MIN PRN 06/30/18 20:15 07/04/18 01:18 12.5 GM Famotidine (Pepcid) 20 mg HS 06/30/18 21:00 07/03/18 12:22 DC 07/02/18 20:52 20 MG Fentanyl Citrate (Fentanyl 2ml Vial) 50 mcg PRN Q2HR PRN 06/30/18 20:15 Fish Oil (Fish Oil) 1,000 mg DAILY 07/01/18 09:00 07/03/18 08:34 1,000 MG Gabapentin (Neurontin) 300 mg DAILY 07/01/18 09:00 07/03/18 08:34 300 MG Hydrocortisone Acetate (Anucort-Hc) 25 mg BID PRN 06/30/18 20:15 Insulin Human Lispro (HumaLOG) 0-5 UNITS TIDWMEALS 07/01/18 08:00 07/01/18 17:05 2 UNITS Lidocaine/Sodium Bicarbonate (Buffered Lidocaine 1%) 3 ml STK-MED ONCE 07/04/18 09:03 07/04/18 09:04 DC Magnesium Citrate (Citroma) 296 ml 1X ONCE 07/02/18 11:30 07/02/18 11:31 DC 07/02/18 11:44 296 ML Magnesium Sulfate 50 ml @ 25 mls/hr 1X ONCE 07/01/18 10:30 07/01/18 12:29 DC 07/01/18 10:17 25 MLS/HR Nifedipine (Procardia Xl) 60 mg DAILY 07/01/18 09:00 07/03/18 11:45 60 MG Nitroglycerin (Nitrostat) 0.4 mg PRN Q5MIN PRN 06/30/18 19:45 Ondansetron HCl (Zofran Odt) 4 mg PRN Q8HRS PRN 06/30/18 19:45 Ondansetron HCl (Zofran) 4 mg PRN Q4HRS PRN 06/30/18 20:15 Oxycodone/ Acetaminophen (Percocet 7.5/ 325) 1 tab PRN TID PRN 06/30/18 19:45 07/03/18 16:17 1 TAB Pantoprazole Sodium (Protonix) 40 mg DAILYAC 07/03/18 13:00 07/04/18 07:52 40 MG Polyethylene Glycol (miraLAX PACKET) 17 gm BID 07/03/18 13:00 07/03/18 20:02 17 GM Potassium Chloride/Sodium Chloride 1,000 ml @ 75 mls/hr [id number] 06/30/18 20:15 07/01/18 09:46 DC 06/30/18 20:47 75 MLS/HR Potassium Chloride (Klor-Con) 20 meq BIDWMEALS 07/01/18 17:00 07/03/18 08:32 20 MEQ Ranolazine (Ranexa) 500 mg BID 06/30/18 21:00 07/03/18 20:02 500 MG Senna/Docusate Sodium (Senna Plus) 1 tab HS 06/30/18 21:00 07/03/18 20:02 1 TAB Sodium Chloride 1,000 ml @ 100 mls/hr Q10H 07/01/18 14:45 07/03/18 14:07 DC 07/03/18 08:39 100 MLS/HR Tamsulosin HCl (Flomax) 0.4 mg DAILY 07/01/18 09:00 07/03/18 08:34 0.4 MG Ticagrelor (Brilinta) 90 mg BID 06/30/18 21:00 07/03/18 08:34 90 MG Lab Laboratory Tests Test 07/03/18 11:26 07/03/18 16:44 07/03/18 19:55 07/04/18 01:10 Glucose (Fingerstick) 185 mg/dL (70-99) 130 mg/dL (70-99) 123 mg/dL (70-99) 53 mg/dL (70-99) Test 07/04/18 01:26 07/04/18 02:41 07/04/18 03:47 07/04/18 06:56 Glucose (Fingerstick) 102 mg/dL (70-99) 149 mg/dL (70-99) 256 mg/dL (70-99) Sodium Level 142 mmol/L (136-145) Potassium Level 5.2 mmol/L (3.5-5.1) Chloride Level 110 mmol/L (98-107) Carbon Dioxide Level 20 mmol/L (21-32) Anion Gap 12 (6-14) Blood Urea Nitrogen 49 mg/dL (8-26) Creatinine 5.6 mg/dL (0.7-1.3) Estimated GFR (Cockcroft-Gault) 12.6 Glucose Level 161 mg/dL (70-99) Calcium Level 8.1 mg/dL (8.5-10.1) Magnesium Level 2.3 mg/dL (1.8-2.4) Results All relevant outside records, renal labs, imaging studies, telemetry/EKG's were reviewed. Other CxR-- There is no infiltrate, pleural effusion or pneumothorax. There is suspected right basilar pleural parenchymal scarring. There are healed rib fractures. The heart is normal in size. There is a cardiac pacemaker with leads unchanged in position. IMPRESSION: No acute pulmonary finding. JOY CELIS MD Jul 04, 2018 09:38
[2018-07-04] MEDS: CITALOPRAM 20 MG TABLET. PO SCH (10:11)
[2018-07-04] MEDS: POLYETHYLENE GLYCOL 3350 17 GM PACKET. PO SCH ×2 (10:11→20:35)
[2018-07-04] MEDS: ASCORBIC ACID 500 MG TABLET PO SCH (10:12)
[2018-07-04] MEDS: TAMSULOSIN 0.4 MG CAP.ER.24H. PO SCH (10:12)
[2018-07-04] MEDS: HYDROcodone/APAP 5/325MG 1 TAB TABLET PO PRN ×2 (10:12→20:39)
[2018-07-04] MEDS: GABAPENTIN 300 MG CAPSULE. PO SCH (10:12)
[2018-07-04] MEDS: OMEGA-3 FATTY ACIDS/FISH OIL 1,000 MG CAPSULE. PO SCH (10:12)
--- NOTE | 2018-07-04 10:23 | RAD ---
Procedure: Ultrasound and fluoroscopically guided placement of right internal jugular central venous catheter07/04/2018 10:19 AM Clinical Indication: Needs Dialysis Discussion: The risks and benefits of the procedure were discussed the patient and/or their artist's representative. Informed consent was obtained. A timeout procedure was performed. All elements of maximal sterile barrier technique including the use of a cap, mask, sterile gown, sterile gloves, large sterile sheet, appropriate hand hygiene, and 2% chlorhexidine for cutaneous antisepsis (or acceptable alternative antiseptic per current guidelines) were followed for this procedure. The patient was prepped and draped in the usual sterile fashion. Ultrasound interrogation of the right neck revealed patency and compressibility of the right internal jugular vein. A 21-gauge micropuncture was then used to gain access to this vein under ultrasound guidance. A hard copy ultrasound image was recorded. A guidewire was advanced centrally. 5 Croatian sheath was placed. Over a wire following dilatation, a dual-lumen temporary dialysis catheter was advanced such the tip is at the mid right atrium with the patient supine. Triple-lumen central venous catheter was advanced centrally. Catheter was found to flush and aspirate normally Catheter secured in place and a sterile dressing was applied. No immediate complications were identified. Total fluoroscopy time: 0.7 MIN Dose area product: 3 Gycm2 Impression: Successful ultrasound-guided placement of right internal jugular triple-lumen central venous catheter
[2018-07-04 10:37] VITALS: BP 150/74
--- NOTE | 2018-07-04 12:08 | NUR ---
Pt administers own insulin via pump. Pt had a BS reading of 169 the afternoon of 07/04. Pt states he administered to himself 5 units of insulin.
--- NOTE | 2018-07-04 12:09 | PDOC ---
Subjective: Subjective: No GI complaints - hasn't stooled but doesn't want more laxatives. Objective: Objective: Had temp HD cath placed - ?dialysis today Vital Signs: Vital Signs Date Time Temp Pulse Resp B/P (MAP) Pulse Ox O2 Delivery O2 Flow Rate FiO2 07/04/18 10:37 97.4 64 18 150/74 (99) 98 Room Air 97.4 Labs: Laboratory Tests Test 07/03/18 16:44 07/03/18 19:55 07/04/18 01:10 07/04/18 01:26 Glucose (Fingerstick) 130 mg/dL 123 mg/dL 53 mg/dL 102 mg/dL Test 07/04/18 02:41 07/04/18 03:47 07/04/18 06:56 07/04/18 11:31 Glucose (Fingerstick) 149 mg/dL 256 mg/dL 169 mg/dL Sodium Level 142 mmol/L Potassium Level 5.2 mmol/L Chloride Level 110 mmol/L Carbon Dioxide Level 20 mmol/L Anion Gap 12 Blood Urea Nitrogen 49 mg/dL Creatinine 5.6 mg/dL Estimated GFR (Cockcroft-Gault) 12.6 Glucose Level 161 mg/dL Calcium Level 8.1 mg/dL Magnesium Level 2.3 mg/dL Hepatitis B Surface Antigen Nonreactive Imaging: KUB 07/03 IMPRESSION: Prominent air-filled bowel within the upper abdomen. There is no evidence of obstruction. PE: GEN: NAD - was asleep LUNGS: CTAB HEART: RRR ABD: NABS, S/ND/NT NEURO/PSYCH: A & O 3 A/P: N/v - resolved H/o constipation w/ recent diarrhea CKD - plans for dialysis ACD -- Continue same per GI - plan for outpt EGD, colonoscopy, and MRCP. KEVIN LAGUNAS Jul 04, 2018 12:09
[2018-07-04] MEDS ORDERED: IV NORMAL SALINE 1000ML BAG 1,000 ML IV PRN ×2 (14:30)
[2018-07-04 15:05] VITALS: BP 152/77
--- NOTE | 2018-07-04 15:36 | NUR ---
Ranexa and Catapres held due to pt having dialysis for the first time today, 07/04.
[2018-07-04] MEDS ORDERED: DIALYSIS PATIENT. MC PRN ×2 (16:45)
--- NOTE | 2018-07-04 17:26 | NUR ---
Humalog not administered at 1700 due to pt being off unit for dialysis.
--- NOTE | 2018-07-04 18:19 | NUR ---
beatrice held d/t pt having first dialysis today
[2018-07-04 19:00] VITALS: BP 193/90
[2018-07-04] MEDS: SENNOSIDES/DOCUSATE 8.6/50MG TABLET. PO SCH ×2 (20:35→21:00)
--- NOTE | 2018-07-04 22:09 | PN ---
DATE: 07/04/2018 SUBJECTIVE: The patient is resting, slightly propped up in bed, in no apparent distress. Apparently, he has had his temper, hemodialysis placed successfully. On questioning him, he denied any complaint. The nursing staff did not voice any concerns and said he had an uneventful night. PHYSICAL EXAMINATION: GENERAL: On he looked pale, no jaundice, cyanosis, or thyromegaly. No jugular venous distension. No lower limb edema. VITAL SIGNS: Her heart rate was 73, blood pressure 142/76, temperature was 98.4, respiratory rate was 17 and oxygen saturation was 97%. The rest of clinical exam is stable, has not really changed. LABORATORY DATA: Showed a serum sodium 142, potassium 5.2, chloride 110, bicarbonate 20, anion gap of 12, BUN 49, creatinine 5.6, estimated GFR was 12.6 and glucose 161, calcium was 8.2, magnesium was 2.3. His white cell count was 5000, hemoglobin 9, hematocrit 26, MCV 90 and platelet count 152,000. ASSESSMENT: 1. Acute kidney injury with a creatinine rising to 5.6 today, his hyperkalemia also. 2. The patient has multiple other medical problems including: A: Type 2 diabetes mellitus for which he was on insulin infusion pump. B: Hypertension. C: Hyperlipidemia. D. Coronary artery disease, status post percutaneous coronary intervention with stent deployment. E. Hypothyroidism. F: Benign prostatic hypertrophy with no evidence of urinary retention. The patient basically did not respond to IV fluid and he is probably going to be dialyzed today. His Brilinta was held and he will have his permanent catheter placed next Tuesday. JOSELO MCPHERSON MD DR: LEEANNA/bonnie JOB#: [id number] / [id number]
[2018-07-04 23:00] VITALS: BP 171/81
[2018-07-05 03:00] VITALS: BP 180/88
[2018-07-05] MEDS: DEXTROSE 50% 25 GM / 50ML DISP.SYRIN. IV PRN (06:11)
--- NOTE | 2018-07-05 06:23 | NUR ---
this RN entered the patient's room at about 0600, patient stated that his blood glucose was 57 on the patient's glucose monitor. This RN checked the patient's levels on the hospital's glucose monitor, Blood glucose of 33. Patient was given 3 orange juices and left over chicken that his brought in. This RN was able to give the patient 25ml of IV dextrose before patient's IV infiltrated. This RN checked the patient's glucose at this time, Glucose 136. Patient glucose rechecked after 5 minutes and glucose is currently at 125. This RN will continue to monitor the patient's glucose levels at this time. This RN will also attempt to place a new IV.
[2018-07-05 07:10] VITALS: BP 165/79
[2018-07-05] MEDS: PANTOPRAZOLE 40 MG TABLET.DR. PO SCH (07:30)
[2018-07-05] MEDS ORDERED: IV NORMAL SALINE 1000ML BAG 1,000 ML IV PRN ×2 (07:42)
[2018-07-05] MEDS ORDERED: ALBUMIN HUMAN 25% 200 ML IV PRN (07:45)
[2018-07-05] MEDS ORDERED: DIALYSIS PATIENT. MC PRN ×2 (07:45)
[2018-07-05] MEDS: fentaNYL PF VIAL 100 MCG/2 ML VIAL IV PRN ×2 (07:53→11:36)
[2018-07-05] MEDS: CARVEDILOL 12.5 MG TABLET. PO SCH ×3 (08:00→17:11)
[2018-07-05] MEDS: POTASSIUM CHLORIDE 20 MEQ TABLET.ER. PO SCH ×2 (08:00→17:11)
[2018-07-05] MEDS: INSULIN LISPRO 300 UNITS/3 ML INSULN.PEN. SQ SCH ×3 (08:00→17:16)
[2018-07-05] MEDS: cloNIDine HCL 0.2 MG TABLET PO SCH ×3 (09:00→20:46)
[2018-07-05] MEDS: CITALOPRAM 20 MG TABLET. PO SCH ×2 (09:00→11:39)
[2018-07-05] MEDS: OMEGA-3 FATTY ACIDS/FISH OIL 1,000 MG CAPSULE. PO SCH (09:00)
[2018-07-05] MEDS: GABAPENTIN 300 MG CAPSULE. PO SCH ×2 (09:00→11:37)
[2018-07-05] MEDS: RANOLAZINE 500 MG TAB.ER.12H PO SCH ×3 (09:00→20:46)
[2018-07-05] MEDS: TAMSULOSIN 0.4 MG CAP.ER.24H. PO SCH (09:00)
[2018-07-05] MEDS: POLYETHYLENE GLYCOL 3350 17 GM PACKET. PO SCH ×3 (09:00→20:46)
[2018-07-05] MEDS: ASCORBIC ACID 500 MG TABLET PO SCH (09:00)
--- NOTE | 2018-07-05 13:12 | PDOC ---
Subjective: Subjective: No GI complaints - still hasn't stooled but "I can tell I will soon." Tolerating PO, denies pain. Has a sack of mints - "I'm not supposed to be eating these." Objective: Vital Signs: Vital Signs Date Time Temp Pulse Resp B/P (MAP) Pulse Ox O2 Delivery O2 Flow Rate FiO2 07/05/18 12:06 14 99 Room Air 07/05/18 11:42 70 201/108 07/05/18 07:10 97.3 97.3 Labs: Laboratory Tests Test 07/04/18 20:30 07/05/18 05:56 07/05/18 06:09 07/05/18 06:22 Glucose (Fingerstick) 143 mg/dL 33 mg/dL 136 mg/dL 125 mg/dL Test 07/05/18 06:42 07/05/18 08:21 07/05/18 10:47 07/05/18 11:31 Glucose (Fingerstick) 122 mg/dL 75 mg/dL 71 mg/dL 76 mg/dL PE: GEN: NAD LUNGS: CTAB HEART: RRR ABD: NABS, S/ND/NT NEURO/PSYCH: A & O 3, flat A/P: CKD - getting HD now ACD GERD, constipation -- Continue same per GI for now - further workup as outpt. KEVIN LAGUNAS Jul 05, 2018 13:12
[2018-07-05 15:11] VITALS: BP 168/84
--- NOTE | 2018-07-05 15:49 | PDOC ---
SUBJECTIVE ROS 2nd HD today tolerating well , denies any concerns or complaints OBJECTIVE Vital Signs Vital Signs Date Time Temp Pulse Resp B/P (MAP) Pulse Ox O2 Delivery O2 Flow Rate FiO2 07/05/18 15:11 98.5 73 19 168/84 (112) 100 Room Air 98.5 I & 0 Intake and Output 07/05/18 06:59 Intake Total 600 ml Output Total 600 ml Balance 0 ml Intake Oral 600 ml Output Urine Total 600 ml PHYSICAL EXAM Physical Exam GEN: NAD HEEN: OM Moist NECK: Supple CVS: S1S2, RRR RESP: No Acc. Muscle Use, Coarse BS GI: BS + ve, NO Bruit, Non Tender, obese : No CVA tenderness, No Suprapubic Tenderness NEURO- No Asterixis DIAGNOSIS/ASSESSMENT Assessment & Plan ?New Onset ESRD / KARLA - Creat peaked at 5.5 No improvement in renal function Bladder scan PVR 200 ml Initiated on HD 07/04 2nst treatment today - Seen on HD, tolerating well Temp HD cath placed Holding Brilinta for 3 days, permacath on tuesday) CKD stage 4- Baseline Creat 3.[address] Cantu of our Group Pt reports at last visit with him Creat in 3's Shortness of Breath Mild CxR unremarkable HTN- Monitor Post HD DM II- as per primary Substance Abuse - Recurrent Cocaine use Acknowledges, states will not use again HX Urinary retention and BPH PVR 200 ml , On Flomax HTN- BP high Restarted Lasix, Continue HD and UF Anemia of Chr disease Fe stores Normal On Aranesp GI planning EGD and colonoscopy in the next few days Hypokalemia- Mild Normal today Metabolic acidosis- Mild Discussed at great length with Pt and at bedside Discussed with RN COMMENT/RELEVANT DATA Meds Current Medications Medications (Trade) Dose Ordered Sig/Lien Start Time Stop Time Status Last Admin Dose Admin Acetaminophen/ Hydrocodone Bitart (Lortab 5/325) 1 tab PRN Q6HRS PRN 06/30/18 19:45 07/04/18 20:39 1 TAB Albumin Human 200 ml @ 200 mls/hr 1X PRN PRN 07/05/18 07:45 07/05/18 13:44 DC Albuterol Sulfate (Ventolin Neb Soln) 2.5 mg PRN Q4HRS PRN 06/30/18 19:45 Alprazolam (Xanax) 0.5 mg PRN Q8HRS PRN 06/30/18 19:45 07/03/18 05:48 0.5 MG Ascorbic Acid (Vitamin C) 500 mg DAILY 07/01/18 09:00 07/04/18 10:12 500 MG Carvedilol (Coreg) 12.5 mg BIDWMEALS 07/01/18 08:00 07/05/18 11:38 12.5 MG Citalopram Hydrobromide (CeleXA) 20 mg DAILY 07/01/18 09:00 07/05/18 11:39 20 MG Clonidine HCl (Catapres) 0.2 mg BID 06/30/18 21:00 07/05/18 11:37 0.2 MG Darbepoetin Blane (Aranesp) 60 mcg WEEKLYHS 07/02/18 21:00 07/02/18 21:13 60 MCG Dextrose (Dextrose 50%-Water Syringe) 12.5 gm PRN Q15MIN PRN 06/30/18 20:15 07/05/18 06:11 12.5 GM Famotidine (Pepcid) 20 mg HS 06/30/18 21:00 07/03/18 12:22 DC 07/02/18 20:52 20 MG Fentanyl Citrate (Fentanyl 2ml Vial) 50 mcg PRN Q2HR PRN 06/30/18 20:15 07/05/18 11:36 50 MCG Fish Oil (Fish Oil) 1,000 mg DAILY 07/01/18 09:00 07/04/18 10:12 1,000 MG Gabapentin (Neurontin) 300 mg DAILY 07/01/18 09:00 07/05/18 11:37 300 MG Hydrocortisone Acetate (Anucort-Hc) 25 mg BID PRN 06/30/18 20:15 Info (PHARMACY MONITORING -- do not chart) 1 each PRN DAILY PRN 07/05/18 07:45 UNV Insulin Human Lispro (HumaLOG) 0-5 UNITS TIDWMEALS 07/01/18 08:00 07/01/18 17:05 2 UNITS Lidocaine/Sodium Bicarbonate (Buffered Lidocaine 1%) 3 ml STK-MED ONCE 07/04/18 09:39 07/04/18 09:40 DC Magnesium Citrate (Citroma) 296 ml 1X ONCE 07/02/18 11:30 07/02/18 11:31 DC 07/02/18 11:44 296 ML Magnesium Sulfate 50 ml @ 25 mls/hr 1X ONCE 07/01/18 10:30 07/01/18 12:29 DC 07/01/18 10:17 25 MLS/HR Nifedipine (Procardia Xl) 60 mg DAILY 07/01/18 09:00 07/05/18 11:39 60 MG Nitroglycerin (Nitrostat) 0.4 mg PRN Q5MIN PRN 06/30/18 19:45 Ondansetron HCl (Zofran Odt) 4 mg PRN Q8HRS PRN 06/30/18 19:45 Ondansetron HCl (Zofran) 4 mg PRN Q4HRS PRN 06/30/18 20:15 Oxycodone/ Acetaminophen (Percocet 7.5/ 325) 1 tab PRN TID PRN 06/30/18 19:45 07/03/18 16:17 1 TAB Pantoprazole Sodium (Protonix) 40 mg DAILYAC 07/03/18 13:00 07/04/18 07:52 40 MG Polyethylene Glycol (miraLAX PACKET) 17 gm BID 07/03/18 13:00 07/05/18 11:42 17 GM Potassium Chloride/Sodium Chloride 1,000 ml @ 75 mls/hr [id number] 06/30/18 20:15 07/01/18 09:46 DC 06/30/18 20:47 75 MLS/HR Potassium Chloride (Klor-Con) 20 meq BIDWMEALS 07/01/18 17:00 07/03/18 08:32 20 MEQ Ranolazine (Ranexa) 500 mg BID 06/30/18 21:00 07/05/18 11:42 500 MG Senna/Docusate Sodium (Senna Plus) 1 tab HS 06/30/18 21:00 07/03/18 20:02 1 TAB Sodium Chloride 1,000 ml @ 400 mls/hr Q2H30M PRN 07/05/18 07:42 07/05/18 19:41 Tamsulosin HCl (Flomax) 0.4 mg DAILY 07/01/18 09:00 07/04/18 10:12 0.4 MG Ticagrelor (Brilinta) 90 mg BID 07/07/18 09:00 Lab Laboratory Tests Test 07/04/18 20:30 07/05/18 05:56 07/05/18 06:09 07/05/18 06:22 Glucose (Fingerstick) 143 mg/dL (70-99) 33 mg/dL (70-99) 136 mg/dL (70-99) 125 mg/dL (70-99) Test 07/05/18 06:42 07/05/18 08:21 07/05/18 10:47 07/05/18 11:31 Glucose (Fingerstick) 122 mg/dL (70-99) 75 mg/dL (70-99) 71 mg/dL (70-99) 76 mg/dL (70-99) Results All relevant outside records, renal labs, imaging studies, telemetry/EKG's were reviewed. JOY CELIS MD Jul 05, 2018 15:49
[2018-07-05] MEDS: FUROSEMIDE 80 MG TABLET. PO SCH (17:10)
[2018-07-05] MEDS: HYDROcodone/APAP 5/325MG 1 TAB TABLET PO PRN (17:11)
[2018-07-05 19:58] VITALS: BP 163/80
[2018-07-05] MEDS: SENNOSIDES/DOCUSATE 8.6/50MG TABLET. PO SCH (20:46)
[2018-07-05] MEDS: oxyCODONE/APAP 7.5/325 1 TAB TABLET PO PRN (20:49)
[2018-07-05 23:18] VITALS: BP 177/56
--- NOTE | 2018-07-06 03:21 | PN ---
DATE: 07/05/2018 SUBJECTIVE: The patient is resting, slightly propped up in bed, in no apparent respiratory distress. He just finished his hemodialysis for second time through his temporary hemodialysis catheter. Apparently, he is scheduled for permanent catheter placement on Tuesday as per the director of labor and delivery progress note. Apparently, despite all the discussions, he continued stating that he needs an answer. PHYSICAL EXAMINATION: GENERAL: When I examined him this afternoon, he looked well and was clearly in no apparent respiratory distress. No pallor, jaundice, cyanosis, or thyromegaly. No jugular venous distension. No lower limb edema. VITAL SIGNS: His heart rate was 70, blood pressure was 201/108, temperature was 97.4, respiratory rate was 18 and oxygen saturation was 99% on room air. The rest of clinical exam is stable. No lab work is available. ASSESSMENT: 1. Acute kidney injury with creatinine rising to 5.6, also has hyperkalemia as of yesterday for which he underwent hemodialysis twice. 2. The patient has multiple other medical problems including: a. Type 2 diabetes mellitus for which he is on insulin infusion pump. b. Hypertension. c. Hyperlipidemia. d. Coronary artery disease, status post percutaneous coronary intervention and stent deployment. e. Hypothyroidism. f. Benign prostatic hypertrophy with no evidence of urinary retention. PLAN: To continue with the current plan of management. Apparently, the Gastroenterology team is planning upper and lower GI endoscopy. Continue with hemodialysis. Continue to educate the patient about the nature of his disease. OJSELO MCPHERSON MD DR: LEEANNA/bonnie JOB#: [id number] / [id number]
[2018-07-06 03:30] VITALS: BP 155/78
[2018-07-06 07:15] LABS: HEMATOCRIT 26.5 % (39.0-53.0); HEMOGLOBIN 8.9 g/dL (13.0-17.5); RED BLOOD COUNT 2.95 x10^6/uL (4.30-5.70); RED CELL DISTRIBUTION WIDTH 15.2 % (11.5-14.5); WHITE BLOOD COUNT 6.8 x10^3/uL (4.0-11.0)
[2018-07-06 07:28] VITALS: BP 148/77
[2018-07-06 07:29] LABS: ALBUMIN 2.6 g/dL (3.4-5.0); CREATININE 3.3 mg/dL (0.7-1.3); GFR 23.3; PHOSPHORUS 3.1 mg/dL (2.6-4.7); POTASSIUM 4.4 mmol/L (3.5-5.1)
[2018-07-06 07:41] LABS: CALCIUM 8.6 mg/dL (8.5-10.1)
[2018-07-06] MEDS: PANTOPRAZOLE 40 MG TABLET.DR. PO SCH (08:01)
[2018-07-06] MEDS: INSULIN LISPRO 300 UNITS/3 ML INSULN.PEN. SQ SCH ×3 (08:03→17:00)
[2018-07-06] MEDS: POTASSIUM CHLORIDE 20 MEQ TABLET.ER. PO SCH ×2 (08:06→17:17)
[2018-07-06] MEDS: OMEGA-3 FATTY ACIDS/FISH OIL 1,000 MG CAPSULE. PO SCH (08:09)
[2018-07-06] MEDS: ASCORBIC ACID 500 MG TABLET PO SCH (08:09)
[2018-07-06] MEDS: GABAPENTIN 300 MG CAPSULE. PO SCH (08:09)
[2018-07-06] MEDS: TAMSULOSIN 0.4 MG CAP.ER.24H. PO SCH (08:10)
[2018-07-06] MEDS: POLYETHYLENE GLYCOL 3350 17 GM PACKET. PO SCH ×2 (08:10→21:00)
[2018-07-06] MEDS: CITALOPRAM 20 MG TABLET. PO SCH (08:11)
[2018-07-06] MEDS: oxyCODONE/APAP 7.5/325 1 TAB TABLET PO PRN ×3 (08:21→23:29)
[2018-07-06] MEDS: RANOLAZINE 500 MG TAB.ER.12H PO SCH ×2 (10:00→20:12)
[2018-07-06] MEDS: FUROSEMIDE 80 MG TABLET. PO SCH (10:00)
[2018-07-06] MEDS: cloNIDine HCL 0.2 MG TABLET PO SCH ×2 (10:01→20:11)
--- NOTE | 2018-07-06 10:08 | PDOC ---
SUBJECTIVE ROS No complaints OBJECTIVE Vital Signs Vital Signs Date Time Temp Pulse Resp B/P (MAP) Pulse Ox O2 Delivery O2 Flow Rate FiO2 07/06/18 08:21 18 99 Room Air 07/06/18 07:28 98.1 70 148/77 (100) 98.1 I & 0 Intake and Output 07/06/18 07:00 Intake Total 900 ml Output Total 800 ml Balance 100 ml Intake Oral 900 ml Output Urine Total 800 ml PHYSICAL EXAM Physical Exam GEN: NAD HEEN: OM Moist NECK: Supple CVS: S1S2, RRR RESP: No Acc. Muscle Use, Coarse BS GI: BS + ve, NO Bruit, Non Tender, obese : No CVA tenderness, No Suprapubic Tenderness NEURO- No Asterixis DIAGNOSIS/ASSESSMENT Assessment & Plan ?New Onset ESRD / KARLA - Creat peaked at 5.5 Initiated on HD 07/04 x 2 treatments , No HD today Holding Brilinta perm cath on Tuesday Dw RN to call me with renal lab results tomorrow am CKD stage 4- Baseline Creat 3.[address] Cantu of our Group Pt reports at last visit with him Creat in 3's Shortness of Breath resolved CxR unremarkable HTN- Monitor Post HD DM II- as per primary Substance Abuse - Recurrent Cocaine use HX Urinary retention and BPH PVR 200 ml , On Flomax HTN- BP high Restarted Lasix Anemia of Chr disease Fe stores Normal On Aranesp now GI planning further whaley as OP Hypokalemia- Mild Normal today Metabolic acidosis- Mild Discussed at great length with Pt and at bedside Discussed with RN COMMENT/RELEVANT DATA Meds Current Medications Medications (Trade) Dose Ordered Sig/Lien Start Time Stop Time Status Last Admin Dose Admin Acetaminophen/ Hydrocodone Bitart (Lortab 5/325) 1 tab PRN Q6HRS PRN 06/30/18 19:45 07/05/18 17:11 1 TAB Albumin Human 200 ml @ 200 mls/hr 1X PRN PRN 07/05/18 07:45 07/05/18 13:44 DC Albuterol Sulfate (Ventolin Neb Soln) 2.5 mg PRN Q4HRS PRN 06/30/18 19:45 Alprazolam (Xanax) 0.5 mg PRN Q8HRS PRN 06/30/18 19:45 07/03/18 05:48 0.5 MG Ascorbic Acid (Vitamin C) 500 mg DAILY 07/01/18 09:00 07/06/18 08:09 500 MG Carvedilol (Coreg) 12.5 mg BIDWMEALS 07/01/18 08:00 07/05/18 17:11 12.5 MG Citalopram Hydrobromide (CeleXA) 20 mg DAILY 07/01/18 09:00 07/06/18 08:11 20 MG Clonidine HCl (Catapres) 0.2 mg BID 06/30/18 21:00 07/05/18 20:46 0.2 MG Darbepoetin Blane (Aranesp) 60 mcg WEEKLYHS 07/02/18 21:00 07/02/18 21:13 60 MCG Dextrose (Dextrose 50%-Water Syringe) 12.5 gm PRN Q15MIN PRN 06/30/18 20:15 07/05/18 06:11 12.5 GM Famotidine (Pepcid) 20 mg HS 06/30/18 21:00 07/03/18 12:22 DC 07/02/18 20:52 20 MG Fentanyl Citrate (Fentanyl 2ml Vial) 50 mcg PRN Q2HR PRN 06/30/18 20:15 07/05/18 11:36 50 MCG Fish Oil (Fish Oil) 1,000 mg DAILY 07/01/18 09:00 07/06/18 08:09 1,000 MG Furosemide (Lasix) 80 mg DAILY 07/05/18 16:00 07/05/18 17:10 80 MG Gabapentin (Neurontin) 300 mg DAILY 07/01/18 09:00 07/06/18 08:09 300 MG Hydrocortisone Acetate (Anucort-Hc) 25 mg BID PRN 06/30/18 20:15 Info (PHARMACY MONITORING -- do not chart) 1 each PRN DAILY PRN 07/05/18 07:45 UNV Insulin Human Lispro (HumaLOG) 0-5 UNITS TIDWMEALS 07/01/18 08:00 07/05/18 17:16 3 UNITS Lidocaine/Sodium Bicarbonate (Buffered Lidocaine 1%) 3 ml STK-MED ONCE 07/04/18 09:39 07/04/18 09:40 DC Magnesium Citrate (Citroma) 296 ml 1X ONCE 07/02/18 11:30 07/02/18 11:31 DC 07/02/18 11:44 296 ML Magnesium Sulfate 50 ml @ 25 mls/hr 1X ONCE 07/01/18 10:30 07/01/18 12:29 DC 07/01/18 10:17 25 MLS/HR Nifedipine (Procardia Xl) 60 mg DAILY 07/01/18 09:00 07/05/18 11:39 60 MG Nitroglycerin (Nitrostat) 0.4 mg PRN Q5MIN PRN 06/30/18 19:45 Ondansetron HCl (Zofran Odt) 4 mg PRN Q8HRS PRN 06/30/18 19:45 Ondansetron HCl (Zofran) 4 mg PRN Q4HRS PRN 06/30/18 20:15 Oxycodone/ Acetaminophen (Percocet 7.5/ 325) 1 tab PRN TID PRN 06/30/18 19:45 07/06/18 08:21 1 TAB Pantoprazole Sodium (Protonix) 40 mg DAILYAC 07/03/18 13:00 07/06/18 08:01 40 MG Polyethylene Glycol (miraLAX PACKET) 17 gm BID 07/03/18 13:00 07/06/18 08:10 17 GM Potassium Chloride/Sodium Chloride 1,000 ml @ 75 mls/hr [id number] 06/30/18 20:15 07/01/18 09:46 DC 06/30/18 20:47 75 MLS/HR Potassium Chloride (Klor-Con) 20 meq BIDWMEALS 07/01/18 17:00 07/06/18 08:06 20 MEQ Ranolazine (Ranexa) 500 mg BID 06/30/18 21:00 07/05/18 20:46 500 MG Senna/Docusate Sodium (Senna Plus) 1 tab HS 06/30/18 21:00 07/05/18 20:46 1 TAB Sodium Chloride 1,000 ml @ 400 mls/hr Q2H30M PRN 07/05/18 07:42 07/05/18 19:41 DC Tamsulosin HCl (Flomax) 0.4 mg DAILY 07/01/18 09:00 07/06/18 08:10 0.4 MG Ticagrelor (Brilinta) 90 mg BID 07/07/18 09:00 Lab Laboratory Tests Test 07/05/18 10:47 07/05/18 11:31 07/05/18 16:31 07/05/18 16:40 Glucose (Fingerstick) 71 mg/dL (70-99) 76 mg/dL (70-99) 220 mg/dL (70-99) Hepatitis B Surface Antibody Nonreactive Hepatitis B Core Total Antibody Negative (Negative) Test 07/05/18 20:26 07/06/18 05:42 07/06/18 07:35 Glucose (Fingerstick) 169 mg/dL (70-99) 193 mg/dL (70-99) White Blood Count 6.8 x10^3/uL (4.0-11.0) Red Blood Count 2.95 x10^6/uL (4.30-5.70) Hemoglobin 8.9 g/dL (13.0-17.5) Hematocrit 26.5 % (39.0-53.0) Mean Corpuscular Volume 90 fL (79-100) Mean Corpuscular Hemoglobin 30 pg (25-35) Mean Corpuscular Hemoglobin Concent 34 g/dL (31-37) Red Cell Distribution Width 15.2 % (11.5-14.5) Platelet Count 175 x10^3/uL (140-400) Sodium Level 138 mmol/L (136-145) Potassium Level 4.4 mmol/L (3.5-5.1) Chloride Level 101 mmol/L (98-107) Carbon Dioxide Level 32 mmol/L (21-32) Anion Gap 5 (6-14) Blood Urea Nitrogen 22 mg/dL (8-26) Creatinine 3.3 mg/dL (0.7-1.3) Estimated GFR (Cockcroft-Gault) 23.3 Glucose Level 211 mg/dL (70-99) Calcium Level 8.6 mg/dL (8.5-10.1) Phosphorus Level 3.1 mg/dL (2.6-4.7) Albumin 2.6 g/dL (3.4-5.0) Results All relevant outside records, renal labs, imaging studies, telemetry/EKG's were reviewed. JOY CELIS MD Jul 06, 2018 10:08
[2018-07-06 11:00] VITALS: BP 160/86
[2018-07-06] MEDS: CARVEDILOL 12.5 MG TABLET. PO SCH ×2 (11:43→17:19)
--- NOTE | 2018-07-06 11:59 | PDOC ---
Subjective: Subjective: Feels fine, hasn't stooled. Objective: Vital Signs: Vital Signs Date Time Temp Pulse Resp B/P (MAP) Pulse Ox O2 Delivery O2 Flow Rate FiO2 07/06/18 11:43 70 160/86 07/06/18 11:00 98.6 16 97 Room Air 98.6 Labs: Laboratory Tests Test 07/05/18 16:31 07/05/18 16:40 07/05/18 20:26 07/06/18 05:42 Glucose (Fingerstick) 220 mg/dL 169 mg/dL Hepatitis B Surface Antibody Nonreactive Hepatitis B Core Total Antibody Negative White Blood Count 6.8 x10^3/uL Red Blood Count 2.95 x10^6/uL Hemoglobin 8.9 g/dL Hematocrit 26.5 % Mean Corpuscular Volume 90 fL Mean Corpuscular Hemoglobin 30 pg Mean Corpuscular Hemoglobin Concent 34 g/dL Red Cell Distribution Width 15.2 % Platelet Count 175 x10^3/uL Sodium Level 138 mmol/L Potassium Level 4.4 mmol/L Chloride Level 101 mmol/L Carbon Dioxide Level 32 mmol/L Anion Gap 5 Blood Urea Nitrogen 22 mg/dL Creatinine 3.3 mg/dL Estimated GFR (Cockcroft-Gault) 23.3 Glucose Level 211 mg/dL Calcium Level 8.6 mg/dL Phosphorus Level 3.1 mg/dL Albumin 2.6 g/dL Test 07/06/18 07:35 Glucose (Fingerstick) 193 mg/dL PE: GEN: NADA LUNGS: CTAB HEART: RRR ABD: S/ND/NT NEURO/PSYCH: A & O 3 A/P: CKD, now on HD ACD GERD, constipation -- Try Dulcolax. KEVIN LAGUNAS Jul 06, 2018 11:59
[2018-07-06] MEDS ORDERED: BISACODYL 5 MG TABLET.DR. PO ONE (12:00)
--- NOTE | 2018-07-06 13:44 | NUR ---
CHARLINE following pt. After discussing with Drywall Applicator, CHARLINE phoned and faxed referral to [facility] for [facility]. Pt admission and chair time pending. Left a voice mail to Ghazala regarding referral. Pt and pt's aware and agreeable. Will continue to follow. Addendum: 07/06/18 at 1620 by PRADEEP OLIVIER CHARLINE refaxed referral to [facility] after speaking with Ghazala. Acceptance and admission pending.
--- NOTE | 2018-07-06 14:19 | NUR ---
Patient has insulin pump in place, he administered 4 units of insulin for his lunch/ 1200 dosage.
[2018-07-06 15:20] VITALS: BP 140/84
--- NOTE | 2018-07-06 15:58 | NUR ---
Called IR several times at 1500 and left message to call back regarding patient's tunneled catheter insertion tomorrow. Discussed with the patient the procedure and need to obtain consent. The patient said that according to the green coffee blender, he might not need it if his next lab results are OK/ there's a decrease in creatinine. He will wait tomorrow to sign the consent forms for the procedure.
[2018-07-06 19:30] VITALS: BP 126/75
[2018-07-06] MEDS: HYDROcodone/APAP 5/325MG 1 TAB TABLET PO PRN (19:51)
[2018-07-06] MEDS: SENNOSIDES/DOCUSATE 8.6/50MG TABLET. PO SCH (20:13)
--- NOTE | 2018-07-06 23:29 | PN ---
DATE: 07/06/2018 SUBJECTIVE: The patient is resting, slightly propped up in bed, in no apparent respiratory distress. He denied any complaint; however, he said that yesterday was rough and he was very weak, tired and nauseous after dialysis. PHYSICAL EXAMINATION: GENERAL: When I examined him this morning, he looked well and was clearly in no apparent respiratory distress. Pale, but not jaundiced or cyanosed from thyromegaly. No jugular venous distention. No lower limb edema. VITAL SIGNS: His heart rate was 70, blood pressure was 148/77, temperature was 98, respiratory rate was 18 and oxygen saturation was 99% on room air. LABORATORY DATA: His lab work this morning showed a serum sodium 138, potassium 4.4, chloride 101, bicarbonate 32, anion gap of 5, BUN 22, creatinine 3.3, estimated GFR was 23 mL per minute, his glucose was 211 and calcium was 8.6. Phosphorus 3.2. Albumin was 2.6. His white cell count was 6800, hemoglobin 9, hematocrit 27, MCV 90 and platelet count of 175,000. ASSESSMENT: 1. Acute kidney injury. Creatinine has risen up to 5.6. He was dialyzed on 2 consecutive days and today's creatinine is 3.32. The patient has multiple other medical problems including: A. Type 2 diabetes mellitus, for which he was on insulin infusion pump. B. Hypertension. C. Hyperlipidemia. D. Coronary artery disease, status post percutaneous coronary intervention and stent deployment. E. Hypothyroidism. F. Benign prostatic hypertrophy with no evidence of urinary retention. G. Chronic kidney disease, stage 3 to 4. PLAN: The plan is to continue with current plan of management. He is scheduled for a tunneled hemodialysis catheter tomorrow unless his kidney functions show significant improvement by tomorrow morning. JOSELO MCPHERSON MD DR: LEEANNA/bonnie JOB#: [id number] / [id number]
[2018-07-06] MEDS: ALPRAZolam 0.5 MG TABLET PO PRN (23:30)
[2018-07-06 23:38] VITALS: BP 142/79
[2018-07-07] VITALS (12 sets, daily range): BP systolic 141–182; BP diastolic 72–92
[2018-07-07 05:03] LABS: CALCIUM 8.6 mg/dL (8.5-10.1); CREATININE 4.2 mg/dL (0.7-1.3); GFR 17.6; POTASSIUM 4.8 mmol/L (3.5-5.1)
[2018-07-07] MEDS: HYDROcodone/APAP 5/325MG 1 TAB TABLET PO PRN ×2 (05:21→18:11)
[2018-07-07] MEDS: PANTOPRAZOLE 40 MG TABLET.DR. PO SCH (07:30)
[2018-07-07] MEDS: CARVEDILOL 12.5 MG TABLET. PO SCH ×2 (08:00→18:08)
[2018-07-07] MEDS: INSULIN LISPRO 300 UNITS/3 ML INSULN.PEN. SQ SCH ×3 (08:00→17:00)
[2018-07-07] MEDS: POTASSIUM CHLORIDE 20 MEQ TABLET.ER. PO SCH ×2 (08:00→18:07)
[2018-07-07] MEDS ORDERED: LIDOCAINE 1%/EPI 1:100,000 20 ML VIAL. ONE ×2 (08:16→13:26)
--- NOTE | 2018-07-07 08:44 | PDOC ---
Subjective: Subjective: Hasn't stooled, feels bloated. Might go for IR procedure today, doesn't want to have stools during that. Objective: Objective: Gets Fentanyl and Percocet. Vital Signs: Vital Signs Date Time Temp Pulse Resp B/P (MAP) Pulse Ox O2 Delivery O2 Flow Rate FiO2 07/07/18 07:00 97.8 75 17 148/84 (105) 98 Room Air 97.8 Labs: Laboratory Tests Test 07/06/18 11:41 07/06/18 16:55 07/06/18 19:19 07/07/18 04:00 Glucose (Fingerstick) 234 mg/dL 186 mg/dL 132 mg/dL Sodium Level 138 mmol/L Potassium Level 4.8 mmol/L Chloride Level 101 mmol/L Carbon Dioxide Level 32 mmol/L Anion Gap 5 Blood Urea Nitrogen 30 mg/dL Creatinine 4.2 mg/dL Estimated GFR (Cockcroft-Gault) 17.6 Glucose Level 132 mg/dL Calcium Level 8.6 mg/dL Test 07/07/18 07:38 Glucose (Fingerstick) 169 mg/dL PE: GEN: NAD LUNGS: CTAB HEART: RRR ABD: quiet, some distention NEURO/PSYCH: A & O 3, flat A/P: CKD - has been on HD w/ temp cath ACD - stable GERD, constipation -- Add Amitiza, consider Relistor. Outpt EGD, colonoscopy, and MRCP. KEVIN LAGUNAS Jul 07, 2018 08:44
[2018-07-07] MEDS: cloNIDine HCL 0.2 MG TABLET PO SCH ×2 (09:00→21:26)
[2018-07-07] MEDS: POLYETHYLENE GLYCOL 3350 17 GM PACKET. PO SCH ×2 (09:00→21:00)
[2018-07-07] MEDS: RANOLAZINE 500 MG TAB.ER.12H PO SCH ×2 (09:00→21:25)
[2018-07-07] MEDS: LUBIPROSTONE 8 MCG CAPSULE PO SCH ×2 (09:00→18:06)
[2018-07-07] MEDS: TICAGRELOR 90 MG TABLET. PO SCH ×2 (09:00→21:25)
[2018-07-07] MEDS: TAMSULOSIN 0.4 MG CAP.ER.24H. PO SCH (09:00)
[2018-07-07] MEDS: FUROSEMIDE 80 MG TABLET. PO SCH (09:00)
--- NOTE | 2018-07-07 09:41 | NUR ---
CHARLINE following pt. CHARLINE phoned Ghazala at [facility] intake and she reported fax was not received. She also reported the faxes go to an intake team first. CHARLINE re-faxed clinicals again for 3rd time. Acceptance and admission pending. Will continue to follow.
[2018-07-07] MEDS ORDERED: IV NORMAL SALINE 1000ML BAG 1,000 ML IV PRN ×2 (10:27)
--- NOTE | 2018-07-07 10:28 | PDOC ---
SUBJECTIVE ROS No complaints OBJECTIVE Vital Signs Vital Signs Date Time Temp Pulse Resp B/P (MAP) Pulse Ox O2 Delivery O2 Flow Rate FiO2 07/07/18 08:00 Room Air 07/07/18 07:00 97.8 75 17 148/84 (105) 98 97.8 I & 0 Intake and Output 07/07/18 06:59 Intake Total 540 ml Output Total 200 ml Balance 340 ml Intake Oral 540 ml Output Urine Total 200 ml # Voids 1 PHYSICAL EXAM Physical Exam GEN: NAD HEEN: OM Moist NECK: Supple CVS: S1S2, RRR RESP: No Acc. Muscle Use, Coarse BS GI: BS + ve, NO Bruit, Non Tender, obese : No CVA tenderness, No Suprapubic Tenderness NEURO- No Asterixis DIAGNOSIS/ASSESSMENT Assessment & Plan New Onset ESRD - No improvement in renal function Bladder scan PVR 200 ml Initiated on HD 07/04 , 3 rd treatment today Seen on HD, tolerating well , continue as ordered Temp HD cath ,permacath today (Brilinta held for past 3 days) SW for OP chair time CKD stage 4- Baseline Creat 3.[address] Cantu Shortness of Breath Improved CxR unremarkable HTN- Monitor Post HD DM II- as per primary Substance Abuse - Recurrent Cocaine use Acknowledges, states will not use again HX Urinary retention and BPH PVR 200 ml , On Flomax HTN- BP high Restarted Lasix, Continue HD and UF Anemia of Chr disease Fe stores Normal On Aranesp GI planning EGD and colonoscopy in the next few days Metabolic acidosis- Corrected with HD Discussed at great length with Pt and at bedside COMMENT/RELEVANT DATA Meds Current Medications Medications (Trade) Dose Ordered Sig/Lien Start Time Stop Time Status Last Admin Dose Admin Acetaminophen/ Hydrocodone Bitart (Lortab 5/325) 1 tab PRN Q6HRS PRN 06/30/18 19:45 07/07/18 05:21 1 TAB Albumin Human 200 ml @ 200 mls/hr 1X PRN PRN 07/05/18 07:45 07/05/18 13:44 DC Albuterol Sulfate (Ventolin Neb Soln) 2.5 mg PRN Q4HRS PRN 06/30/18 19:45 Alprazolam (Xanax) 0.5 mg PRN Q8HRS PRN 06/30/18 19:45 07/06/18 23:30 0.5 MG Ascorbic Acid (Vitamin C) 500 mg DAILY 07/01/18 09:00 07/06/18 08:09 500 MG Bisacodyl (Dulcolax Tab) 10 mg 1X ONCE 07/06/18 12:00 07/06/18 12:01 DC 07/06/18 12:12 10 MG Carvedilol (Coreg) 12.5 mg BIDWMEALS 07/01/18 08:00 07/06/18 17:19 12.5 MG Citalopram Hydrobromide (CeleXA) 20 mg DAILY 07/01/18 09:00 07/06/18 08:11 20 MG Clonidine HCl (Catapres) 0.2 mg BID 06/30/18 21:00 07/06/18 20:11 0.2 MG Darbepoetin Blane (Aranesp) 60 mcg WEEKLYHS 07/02/18 21:00 07/02/18 21:13 60 MCG Dextrose (Dextrose 50%-Water Syringe) 12.5 gm PRN Q15MIN PRN 06/30/18 20:15 07/05/18 06:11 12.5 GM Famotidine (Pepcid) 20 mg HS 06/30/18 21:00 07/03/18 12:22 DC 07/02/18 20:52 20 MG Fentanyl Citrate (Fentanyl 2ml Vial) 50 mcg PRN Q2HR PRN 06/30/18 20:15 07/05/18 11:36 50 MCG Fish Oil (Fish Oil) 1,000 mg DAILY 07/01/18 09:00 07/06/18 08:09 1,000 MG Furosemide (Lasix) 80 mg DAILY 07/05/18 16:00 07/06/18 10:00 80 MG Gabapentin (Neurontin) 300 mg DAILY 07/01/18 09:00 07/06/18 08:09 300 MG Hydrocortisone Acetate (Anucort-Hc) 25 mg BID PRN 06/30/18 20:15 Info (PHARMACY MONITORING -- do not chart) 1 each PRN DAILY PRN 07/05/18 07:45 UNV Insulin Human Lispro (HumaLOG) 0-5 UNITS TIDWMEALS 07/01/18 08:00 07/06/18 08:03 2 UNITS Lidocaine/ Epinephrine (LIDOCAINE 1%-EPI 1:100,000 Multi-Dose) 20 ml STK-MED ONCE 07/07/18 08:16 07/07/18 08:17 DC Lidocaine/Sodium Bicarbonate (Buffered Lidocaine 1%) 3 ml STK-MED ONCE 07/04/18 09:39 07/04/18 09:40 DC Lubiprostone (Amitiza) 24 mcg BIDWMEALS 07/07/18 09:00 Magnesium Citrate (Citroma) 296 ml 1X ONCE 07/02/18 11:30 07/02/18 11:31 DC 07/02/18 11:44 296 ML Magnesium Sulfate 50 ml @ 25 mls/hr 1X ONCE 07/01/18 10:30 07/01/18 12:29 DC 07/01/18 10:17 25 MLS/HR Nifedipine (Procardia Xl) 60 mg DAILY 07/01/18 09:00 07/06/18 10:00 60 MG Nitroglycerin (Nitrostat) 0.4 mg PRN Q5MIN PRN 06/30/18 19:45 Ondansetron HCl (Zofran Odt) 4 mg PRN Q8HRS PRN 06/30/18 19:45 Ondansetron HCl (Zofran) 4 mg PRN Q4HRS PRN 06/30/18 20:15 Oxycodone/ Acetaminophen (Percocet 7.5/ 325) 1 tab PRN TID PRN 06/30/18 19:45 07/06/18 23:29 1 TAB Pantoprazole Sodium (Protonix) 40 mg DAILYAC 07/03/18 13:00 07/06/18 08:01 40 MG Polyethylene Glycol (miraLAX PACKET) 17 gm BID 07/03/18 13:00 07/06/18 08:10 17 GM Potassium Chloride/Sodium Chloride 1,000 ml @ 75 mls/hr [id number] 06/30/18 20:15 07/01/18 09:46 DC 06/30/18 20:47 75 MLS/HR Potassium Chloride (Klor-Con) 20 meq BIDWMEALS 07/01/18 17:00 07/06/18 17:17 20 MEQ Ranolazine (Ranexa) 500 mg BID 06/30/18 21:00 07/06/18 20:12 500 MG Senna/Docusate Sodium (Senna Plus) 1 tab HS 06/30/18 21:00 07/06/18 20:13 1 TAB Sodium Chloride 1,000 ml @ 400 mls/hr Q2H30M PRN 07/05/18 07:42 07/05/18 19:41 DC Tamsulosin HCl (Flomax) 0.4 mg DAILY 07/01/18 09:00 07/06/18 08:10 0.4 MG Ticagrelor (Brilinta) 90 mg BID 07/07/18 09:00 Lab Laboratory Tests Test 07/06/18 11:41 07/06/18 16:55 07/06/18 19:19 07/07/18 04:00 Glucose (Fingerstick) 234 mg/dL (70-99) 186 mg/dL (70-99) 132 mg/dL (70-99) Sodium Level 138 mmol/L (136-145) Potassium Level 4.8 mmol/L (3.5-5.1) Chloride Level 101 mmol/L (98-107) Carbon Dioxide Level 32 mmol/L (21-32) Anion Gap 5 (6-14) Blood Urea Nitrogen 30 mg/dL (8-26) Creatinine 4.2 mg/dL (0.7-1.3) Estimated GFR (Cockcroft-Gault) 17.6 Glucose Level 132 mg/dL (70-99) Calcium Level 8.6 mg/dL (8.5-10.1) Test 07/07/18 07:38 Glucose (Fingerstick) 169 mg/dL (70-99) Results All relevant outside records, renal labs, imaging studies, telemetry/EKG's were reviewed. JOY CELIS MD Jul 07, 2018 10:28
[2018-07-07] MEDS ORDERED: diphenhydrAMINE 50 MG/ML VIAL IV PRN ×2 (10:30)
[2018-07-07] MEDS ORDERED: DIALYSIS PATIENT. MC PRN (10:30)
--- NOTE | 2018-07-07 10:54 | NUR ---
SW following with pt. Spoke with Ghazala and they are verifying pt's insurance at this time. Discussed with PCP, RN and Mural Painter. Pt will have perm cath today and will definitely need OP HD. Pt admission and chair time pending. Will continue to follow.
[2018-07-07] MEDS ORDERED: MIDAZOLAM HCL/PF 2 MG/2 ML VIAL. ONE (13:11)
[2018-07-07] MEDS ORDERED: fentaNYL PF VIAL 100 MCG/2 ML VIAL ONE (13:12)
[2018-07-07] MEDS ORDERED: fentaNYL PF VIAL 100 MCG/2 ML VIAL IV ONE (13:30)
[2018-07-07] MEDS ORDERED: IOHEXOL 240 MG/ML 50ML VIAL. IJ ONE (13:30)
[2018-07-07] MEDS ORDERED: IV NORMAL SALINE 250ML 250 ML IV ONE (13:30)
[2018-07-07] MEDS ORDERED: MIDAZOLAM HCL/PF 2 MG/2 ML VIAL. IV ONE (13:30)
[2018-07-07] MEDS ORDERED: DEXTROSE 50% 25 GM / 50ML DISP.SYRIN. IV ONE ×2 (13:32→14:00)
[2018-07-07] MEDS ORDERED: LIDOCAINE 1%/EPI 1:100,000 20 ML VIAL. IJ ONE (14:00)
--- NOTE | 2018-07-07 14:02 | NUR ---
Patient to IR for temp to permanent HD cath exchange. Patient's insulin pump beeping alerting low blood sugar. Fingerstick glucose reading 71, insulin pump read 56 patient feels symptomatic. Patient given 1 amp of Dextrose IVP x1. Blood sugar recheck 189. Patient vitals stable. Right temp IJ HD cath removed and tunneled HD catheter placed right IJ/chest. Patient tolerated well with no issues. Report called to DULCE Maria on .
[2018-07-07] MEDS: CITALOPRAM 20 MG TABLET. PO SCH (14:55)
[2018-07-07] MEDS: OMEGA-3 FATTY ACIDS/FISH OIL 1,000 MG CAPSULE. PO SCH (14:55)
[2018-07-07] MEDS: GABAPENTIN 300 MG CAPSULE. PO SCH (14:56)
[2018-07-07] MEDS: ASCORBIC ACID 500 MG TABLET PO SCH (14:56)
--- NOTE | 2018-07-07 15:00 | NUR ---
Patient underwent hemodialysis this morning then tunneled catheter insertion at IR lab this afternoon at 1330. The patient was brought back to the unit at 1415. He is alert and oriented. VS upon returning to the unit were BP 177/87 HR 71 RR 18 Temp. 98.2F O2 sat at 100% at 2 LPM. He reported pain on the catheter site at 7/10, dressing is intact, clean and dry. The patient was given food upon arrival. We will continue to monitor.
[2018-07-07] MEDS ORDERED: ANTI-COAG MONITOR BY PHARMACY. MC PRN (16:15)
--- NOTE | 2018-07-07 17:05 | RAD ---
Conversion of a right internal jugular temporary dialysis catheter to tunneled catheter 07/07/2018 Indication: Need for longer term dialysis access Discussion: The risks and benefits of the procedure were discussed the patient. Informed consent was obtained. Timeout procedure was performed. The right neck and chest prepped and draped using sterile barrier technique. All elements of maximal sterile barrier technique including the use of a cap, mask, sterile gown, sterile gloves, large sterile sheet, appropriate hand hygiene, and 2% chlorhexidine for cutaneous antisepsis (or acceptable alternative antiseptic per current guidelines) were followed for this procedure. Fluoroscopic evaluation demonstrates the pre-existing catheter to be in the appropriate position. A guidewire was advanced through the pre-existing catheter, into the IVC. A tunneled dialysis catheter was advanced from a small dermatotomy several inches inferior to the right clavicle to the access site. The pre-existing catheter was removed over a wire. A peel-away sheath was placed. The wire was removed and the new catheter was advanced through the peel-away sheath such that its catheter tip was at the mid right atrium with the patient supine. The new catheter was found to flush and aspirate normally. The catheter was secured in place. Sterile dressings were applied. Total fluoroscopy time: 0.4 minutes Dose area product:3 Gycmn2 The procedures performed under conscious sedation including continuous cardiopulmonary monitoring via dedicated sedation nurse. Natx-yf-rbmn sedation time: 15 minutes Impression: Conversion of a temporary dialysis catheter to a tunneled dialysis catheter as described
[2018-07-07] MEDS: oxyCODONE/APAP 7.5/325 1 TAB TABLET PO PRN (21:24)
[2018-07-07] MEDS: ALPRAZolam 0.5 MG TABLET PO PRN (21:25)
[2018-07-07] MEDS: SENNOSIDES/DOCUSATE 8.6/50MG TABLET. PO SCH (21:25)
--- NOTE | 2018-07-07 22:43 | PN ---
DATE: 07/07/2018 SUBJECTIVE: The patient is having his hemodialysis today. His creatinine is up and the ssn/ssbn weapons equipment operator recommended that he should go ahead and place a tunneled hemodialysis catheter. OBJECTIVE: GENERAL: On examining him, he looked well and was clearly in no apparent respiratory distress, pale, but no jaundice, cyanosis or thyromegaly. No jugular venous distention. No limb edema. VITAL SIGNS: His heart rate was 75, blood pressure 148/84, temperature was 97.8, respiratory rate was 17 and oxygen saturation was 98%. The rest of clinical exam is stable, has not really changed. PLAN: To proceed with the tunneled hemodialysis catheter. I spoke with the Gastroenterology team and they are planning to do the colonoscopy as an outpatient. JOSELO MCPHERSON MD DR: LEEANNA/bonnie JOB#: [id number] / [id number]
[2018-07-07 22:52] LABS: FECAL OB PT NEGATIVE (NEG)
[2018-07-08 03:50] VITALS: BP 172/57
[2018-07-08] MEDS: oxyCODONE/APAP 7.5/325 1 TAB TABLET PO PRN ×2 (06:10→19:36)
[2018-07-08 07:00] VITALS: BP 153/82
[2018-07-08] MEDS: POTASSIUM CHLORIDE 20 MEQ TABLET.ER. PO SCH ×4 (08:00→17:36)
[2018-07-08] MEDS: INSULIN LISPRO 300 UNITS/3 ML INSULN.PEN. SQ SCH ×3 (08:00→17:00)
[2018-07-08] MEDS: POLYETHYLENE GLYCOL 3350 17 GM PACKET. PO SCH ×2 (08:56→20:56)
[2018-07-08] MEDS: LUBIPROSTONE 8 MCG CAPSULE PO SCH ×2 (08:57→17:30)
[2018-07-08] MEDS: HYDROcodone/APAP 5/325MG 1 TAB TABLET PO PRN ×2 (08:57→21:02)
[2018-07-08] MEDS: GABAPENTIN 300 MG CAPSULE. PO SCH (08:57)
[2018-07-08] MEDS: TICAGRELOR 90 MG TABLET. PO SCH ×2 (08:57→20:57)
[2018-07-08] MEDS: PANTOPRAZOLE 40 MG TABLET.DR. PO SCH (08:57)
[2018-07-08] MEDS: TAMSULOSIN 0.4 MG CAP.ER.24H. PO SCH (08:57)
[2018-07-08] MEDS: RANOLAZINE 500 MG TAB.ER.12H PO SCH ×2 (08:57→20:56)
[2018-07-08] MEDS: OMEGA-3 FATTY ACIDS/FISH OIL 1,000 MG CAPSULE. PO SCH (08:57)
[2018-07-08] MEDS: FUROSEMIDE 80 MG TABLET. PO SCH (08:58)
[2018-07-08] MEDS: cloNIDine HCL 0.2 MG TABLET PO SCH ×2 (08:58→20:56)
[2018-07-08] MEDS: CITALOPRAM 20 MG TABLET. PO SCH (08:59)
[2018-07-08] MEDS: CARVEDILOL 12.5 MG TABLET. PO SCH ×2 (08:59→17:31)
[2018-07-08] MEDS: ASCORBIC ACID 500 MG TABLET PO SCH (09:01)
[2018-07-08 11:00] VITALS: BP 131/79
--- NOTE | 2018-07-08 11:12 | PN ---
DATE: 07/08/2018 SUBJECTIVE: The patient is resting slightly propped up, sleeping comfortably, in no apparent distress. He apparently has had his tunneled catheter for hemodialysis placed successfully yesterday. However, his chair time is still pending. The nursing staff, however, did not voice any concern that he had an uneventful night. PHYSICAL EXAMINATION: GENERAL: On examining him, he looked pale, not jaundiced or cyanosed. No thyromegaly. No jugular venous distention. No lower limb edema. VITAL SIGNS: His heart rate was 70, blood pressure was 153/82, temperature was 98.3, respiratory rate was 20 and oxygen saturation was 99%. The rest of the clinical examination is stable. His blood sugar seems to be reasonably controlled. ASSESSMENT: 1. Qbyov-rk-ylxjlad kidney injury. The patient now has end-stage renal disease, on hemodialysis and has permanent tunneled hemodialysis catheter placed successfully yesterday. Awaiting the chair time, to be discharged, with dialysis as an outpatient. 2. The patient has multiple other medical problems including: A. Type 2 diabetes mellitus, seems to be reasonably controlled. B. Hypertension. C. Hyperlipidemia. D. Coronary artery disease, status post percutaneous coronary intervention with stent deployment. E. Hypothyroidism. F. Benign prostatic hypertrophy, with no evidence of urinary retention. G. Anemia of chronic kidney disease, for which he is now on darbepoetin yazmin 60 mcg once a week. PLAN: Plan is to continue with all his current medications, continue with hemodialysis and Urology team await the chair time and discharge him accordingly, to dialyze the patient or not. JOSELO MCPHERSON MD DR: LEEANNA/bonnie JOB#: [id number] / [id number]
[2018-07-08 15:00] VITALS: BP 128/78
--- NOTE | 2018-07-08 18:00 | NUR ---
Pt ambulated and took a shower with stand-by assistance. After shower, pt was c/o nausea and stated he had one episode of vomiting although staff only noted secretions coming out of mouth like salvia. Pt stated that he feels "lightheaded." BP 133/77, HR 72. No changes noted on media monitor. Gave PRN zofran. Will continue to monitor.
[2018-07-08 19:40] VITALS: BP 152/77
[2018-07-08] MEDS: SENNOSIDES/DOCUSATE 8.6/50MG TABLET. PO SCH (20:57)
[2018-07-08] MEDS: APIXABAN 5 MG TABLET. PO SCH (20:57)
[2018-07-08 23:40] VITALS: BP 148/80
[2018-07-09 03:40] VITALS: BP 151/81
[2018-07-09 07:00] VITALS: BP 153/79
[2018-07-09] MEDS: INSULIN LISPRO 300 UNITS/3 ML INSULN.PEN. SQ SCH ×3 (08:00→17:00)
[2018-07-09] MEDS: POLYETHYLENE GLYCOL 3350 17 GM PACKET. PO SCH ×2 (09:00→20:58)
[2018-07-09] MEDS: LUBIPROSTONE 8 MCG CAPSULE PO SCH ×2 (10:05→17:46)
[2018-07-09] MEDS: APIXABAN 5 MG TABLET. PO SCH ×2 (10:06→20:58)
[2018-07-09] MEDS: GABAPENTIN 300 MG CAPSULE. PO SCH (10:06)
[2018-07-09] MEDS: CITALOPRAM 20 MG TABLET. PO SCH (10:06)
[2018-07-09] MEDS: ASCORBIC ACID 500 MG TABLET PO SCH (10:06)
[2018-07-09] MEDS: oxyCODONE/APAP 7.5/325 1 TAB TABLET PO PRN ×2 (10:06→17:46)
[2018-07-09] MEDS: TICAGRELOR 90 MG TABLET. PO SCH ×2 (10:06→20:58)
[2018-07-09] MEDS: OMEGA-3 FATTY ACIDS/FISH OIL 1,000 MG CAPSULE. PO SCH (10:07)
[2018-07-09] MEDS: TAMSULOSIN 0.4 MG CAP.ER.24H. PO SCH (10:07)
[2018-07-09] MEDS: FUROSEMIDE 80 MG TABLET. PO SCH (10:07)
[2018-07-09] MEDS: PANTOPRAZOLE 40 MG TABLET.DR. PO SCH (10:07)
[2018-07-09] MEDS: CARVEDILOL 12.5 MG TABLET. PO SCH ×2 (10:07→17:47)
[2018-07-09] MEDS: RANOLAZINE 500 MG TAB.ER.12H PO SCH ×2 (10:07→20:57)
[2018-07-09] MEDS: cloNIDine HCL 0.2 MG TABLET PO SCH ×2 (10:08→20:57)
[2018-07-09 11:00] VITALS: BP 144/76
[2018-07-09 15:00] VITALS: BP 117/73
[2018-07-09] MEDS: POTASSIUM CHLORIDE 20 MEQ TABLET.ER. PO SCH (17:46)
[2018-07-09 19:45] VITALS: BP 146/80
[2018-07-09] MEDS: DEXTROSE 50% 25 GM / 50ML DISP.SYRIN. IV PRN (20:37)
[2018-07-09] MEDS: HYDROcodone/APAP 5/325MG 1 TAB TABLET PO PRN (20:58)
[2018-07-09] MEDS: SENNOSIDES/DOCUSATE 8.6/50MG TABLET. PO SCH (20:59)
[2018-07-09] MEDS: DARBEPOETIN ALFA 60 MCG/0.3 ML DISP.SYRIN. SQ SCH (21:03)
--- NOTE | 2018-07-09 22:58 | PN ---
DATE: 07/09/2018 SUBJECTIVE: The patient is resting slightly propped up, comfortably, in no apparent distress. On questioning him, he denied any complaint. The nursing staff did not voice any concern, said he had an uneventful night. He has had his tunneled hemodialysis catheter placed successfully and we are basically waiting for the chair time where he can be discharged to be dialyzed as an outpatient. PHYSICAL EXAMINATION: GENERAL: When I examined him this morning, he looked well and was really in no apparent respiratory distress ____ pale, not jaundiced, cyanosed, thyromegaly. No jugular venous distension. No lower limb edema. VITAL SIGNS: His heart rate was 74, blood pressure was 151/81, temperature was 98.4, respiratory rate was 18, and oxygen saturation was 98%. HEAD, EYES, EARS, NOSE AND THROAT: Showed normocephalic, atraumatic. NECK: Supple. HEART: Showed normal first and sounds. No gallop, rub or murmur. CHEST: Clear to auscultation. No crepitation or rhonchi. ABDOMEN: Distended, soft, nontender. NEUROLOGIC: He is awake, alert, responding appropriately. All cranial nerves intact. Moves extremities without difficulty, ambulates with a walker. His intake is 700, output 250. LABORATORY DATA: No lab work done. Blood sugars seem to be reasonably controlled. ASSESSMENT AND PLAN: 1. End-stage renal disease on hemodialysis Tuesday, Tuesday, Tuesday. 2. Type 2 diabetes mellitus, seems to be reasonably controlled. 3. Hypertension. 4. Hyperlipidemia. 5. Coronary artery disease, status post percutaneous coronary intervention with stent deployment. 6. Hypothyroidism. 7. Benign prostatic bed with no evidence of urinary retention. 8. Anemia of chronic kidney disease for which he is on darbepoetin yazmin 60 mcg once a week. JOSELO MCPHERSON MD DR: LEEANNA/bonnie JOB#: [id number] / [id number]
[2018-07-09 23:16] VITALS: BP 156/84
[2018-07-10 03:15] VITALS: BP 154/83
[2018-07-10] MEDS: PANTOPRAZOLE 40 MG TABLET.DR. PO SCH (07:30)
[2018-07-10] MEDS: INSULIN LISPRO 300 UNITS/3 ML INSULN.PEN. SQ SCH ×3 (08:00→17:27)
[2018-07-10] MEDS: LUBIPROSTONE 8 MCG CAPSULE PO SCH ×2 (08:00→17:23)
[2018-07-10] MEDS: CARVEDILOL 12.5 MG TABLET. PO SCH ×2 (08:00→17:23)
[2018-07-10] MEDS: POTASSIUM CHLORIDE 20 MEQ TABLET.ER. PO SCH ×2 (08:00→17:23)
[2018-07-10 08:28] VITALS: BP 142/84
[2018-07-10 08:55] LABS: HEMATOCRIT 31.2 % (39.0-53.0); HEMOGLOBIN 10.5 g/dL (13.0-17.5)
[2018-07-10] MEDS ORDERED: 0.9 % SODIUM CHLORIDE 10 ML DISP.SYRIN. IV PRN ×2 (09:00)
[2018-07-10] MEDS: RANOLAZINE 500 MG TAB.ER.12H PO SCH ×2 (09:00→21:24)
[2018-07-10] MEDS: TICAGRELOR 90 MG TABLET. PO SCH ×2 (09:00→21:25)
[2018-07-10] MEDS: CITALOPRAM 20 MG TABLET. PO SCH (09:00)
[2018-07-10] MEDS: POLYETHYLENE GLYCOL 3350 17 GM PACKET. PO SCH ×2 (09:00→21:00)
[2018-07-10] MEDS ORDERED: IV NORMAL SALINE 1000ML BAG 1,000 ML IV PRN ×2 (09:00)
[2018-07-10] MEDS: TAMSULOSIN 0.4 MG CAP.ER.24H. PO SCH (09:00)
[2018-07-10] MEDS: FUROSEMIDE 80 MG TABLET. PO SCH (09:00)
[2018-07-10] MEDS: APIXABAN 5 MG TABLET. PO SCH ×2 (09:00→21:25)
[2018-07-10] MEDS: ASCORBIC ACID 500 MG TABLET PO SCH (09:00)
[2018-07-10] MEDS: OMEGA-3 FATTY ACIDS/FISH OIL 1,000 MG CAPSULE. PO SCH (09:00)
[2018-07-10] MEDS: GABAPENTIN 300 MG CAPSULE. PO SCH (09:00)
--- NOTE | 2018-07-10 09:26 | NUR ---
CHARLINE following pt. CHARLINE faxed permanent cath placement note and left a voice mail to Ghazala at [facility] requesting a call back. Chair time still pending. EJ CARDONA.
[2018-07-10 09:31] LABS: CALCIUM 9.3 mg/dL (8.5-10.1); CREATININE 5.3 mg/dL (0.7-1.3); GFR 13.5; POTASSIUM 4.3 mmol/L (3.5-5.1)
[2018-07-10] MEDS ORDERED: DIALYSIS PATIENT. MC PRN ×2 (10:15)
--- NOTE | 2018-07-10 11:22 | PDOC ---
Subjective: Subjective: Stooled over the weekend. Tolerating PO but not excited about food options here. Objective: Vital Signs: Vital Signs Date Time Temp Pulse Resp B/P (MAP) Pulse Ox O2 Delivery O2 Flow Rate FiO2 07/10/18 08:28 97.9 72 18 142/84 (103) 96 Room Air 97.9 07/09/18 20:58 2.0 Labs: Laboratory Tests Test 07/09/18 12:01 07/09/18 17:20 07/09/18 20:30 07/09/18 20:44 Glucose (Fingerstick) 185 mg/dL 131 mg/dL 32 mg/dL 148 mg/dL Test 07/10/18 08:25 Hemoglobin 10.5 g/dL Hematocrit 31.2 % Sodium Level 136 mmol/L Potassium Level 4.3 mmol/L Chloride Level 100 mmol/L Carbon Dioxide Level 25 mmol/L Anion Gap 11 Blood Urea Nitrogen 36 mg/dL Creatinine 5.3 mg/dL Estimated GFR (Cockcroft-Gault) 13.5 Glucose Level 152 mg/dL Glucose (Fingerstick) 149 mg/dL Calcium Level 9.3 mg/dL PE: GEN: dialyzing LUNGS: CTAB HEART: RRR ABD: NABS, S/ND/NT NEURO/PSYCH: A & O 3 A/P: ESRD on HD ACD - stable GERD, constipation -- Continue Protonix, Miralax, and Amitiza. When discharged, our office will contact to set up EGD, colonoscopy, and MRCP. KEVIN LAGUNAS Jul 10, 2018 11:22
--- NOTE | 2018-07-10 11:45 | NUR ---
CHARLINE following pt. Spoke with Ghazala and informed her pt is ready to dc today once chair time is confirmed. She reported she will check in with clinic and notify SW with a confirmed chair time. Will continue to follow.
--- NOTE | 2018-07-10 11:51 | PDOC ---
Renal-Progress Notes Subjective Notes Notes NONE History of Present Illness Hx of present illness BETTER Vitals Vitals Vital Signs Date Time Temp Pulse Resp B/P (MAP) Pulse Ox O2 Delivery O2 Flow Rate FiO2 07/10/18 08:28 97.9 72 18 142/84 (103) 96 Room Air 97.9 07/09/18 20:58 2.0 Weight Weight [ ] I.O. Intake and Output Intake and Output 07/10/18 06:59 Intake Total 300 ml Output Total 300 ml Balance 0 ml Intake Oral 300 ml Output Urine Total 300 ml Labs Labs Laboratory Tests Test 07/09/18 12:01 07/09/18 17:20 07/09/18 20:30 07/09/18 20:44 Glucose (Fingerstick) 185 mg/dL (70-99) 131 mg/dL (70-99) 32 mg/dL (70-99) 148 mg/dL (70-99) Test 07/10/18 08:25 Hemoglobin 10.5 g/dL (13.0-17.5) Hematocrit 31.2 % (39.0-53.0) Sodium Level 136 mmol/L (136-145) Potassium Level 4.3 mmol/L (3.5-5.1) Chloride Level 100 mmol/L (98-107) Carbon Dioxide Level 25 mmol/L (21-32) Anion Gap 11 (6-14) Blood Urea Nitrogen 36 mg/dL (8-26) Creatinine 5.3 mg/dL (0.7-1.3) Estimated GFR (Cockcroft-Gault) 13.5 Glucose Level 152 mg/dL (70-99) Glucose (Fingerstick) 149 mg/dL (70-99) Calcium Level 9.3 mg/dL (8.5-10.1) Review of Systems Constitutional: yes: weakness, alert, oriented Ears/Nose/Throat: Yes: no symptom reported Eyes: Yes: no symptom reported Pulmonary: Yes no symptom reported Gastrointestional: Yes: nausea, constipation Genitourinary: Yes: retention Musculoskeletal: Yes: muscle stiffness Skin: Yes no symptom reported Psychiatric/Neurological: Yes: no symptom reported Endocrine: Yes: no symptom reported Physical Exam General Appearance: no apparent distress Skin: warm Respiratory: bilateral CTA Heart: S1S2, RRR Abdomen: soft, bowel sounds present Genitourinary: bladder flat Extremities: pulses present Neurology: alert, oriented Musculoskeletal: Osteoarthritis Assessment Assessment IMP NEW ESRD ANEMIA HTN DM II COCAINE USE HX BPH HX PLAN HD TODAY UF TO EJ D/C ONCE OP HD SET UP WILL FOLLOW EMY GAN MD Jul 10, 2018 11:51
[2018-07-10 14:20] VITALS: BP 158/81
--- NOTE | 2018-07-10 14:29 | NUR ---
SW left a voice mail to Ghazala regarding pt's chair time. Still awaiting chair time for OP HD. DW with pt's and Physician this morning as well.
[2018-07-10] MEDS: cloNIDine HCL 0.2 MG TABLET PO SCH ×2 (14:37→21:25)
[2018-07-10] MEDS: oxyCODONE/APAP 7.5/325 1 TAB TABLET PO PRN ×2 (14:38→23:11)
--- NOTE | 2018-07-10 16:28 | NUR ---
Spoke with Ghazala who reported she still awaiting to hear back from clinic regarding chair time. She reported as of this morning clinic was waiting for MD to review clinicals. Chair time pending. RN aware.
[2018-07-10 19:20] VITALS: BP 146/73
[2018-07-10] MEDS: SENNOSIDES/DOCUSATE 8.6/50MG TABLET. PO SCH (21:25)
--- NOTE | 2018-07-10 22:30 | PN ---
DATE: 07/10/2018 SUBJECTIVE: The patient is having his scheduled hemodialysis today. On questioning him, he denied any complaint. The nursing staff did not voice any concern. He had an eventful night. market research worker stated that she continues to wait for chair time from [facility]. Once we have that, obviously she can be discharged. OBJECTIVE: GENERAL: When I saw him this morning, he looked well and in no apparent respiratory distress. No pallor, jaundice, cyanosis or thyromegaly. No jugular venous distention. No lower limb edema. VITAL SIGNS: His heart rate was 72, blood pressure 142/84, temperature was 97.9, respiratory rate was 18 and oxygen saturation was 96% on room air. HEAD, EYES, EARS, NOSE AND THROAT: Normocephalic, atraumatic. NECK: Supple. HEART: Showed normal first and second sound. No gallop, no murmur. CHEST: Clear to auscultation. No crepitation or rhonchi. ABDOMEN: Distended, soft, nontender. No guarding, no rigidity, organomegaly. All hernial orifices intact. Bowel sounds normal. NEUROLOGIC: He was awake, alert, responding appropriately. All cranial nerves intact. He moves extremities without difficult. LABORATORY DATA: Showed hemoglobin of 10.5 and hematocrit 31.2. His chemistries ____ hemodialysis dependent. ASSESSMENT: 1. End-stage renal disease, on hemodialysis on Tuesday, Tuesday and Tuesday. 2. Type 2 diabetes mellitus, seems to be reasonably controlled. 3. Hypertension. 4. Hyperlipidemia. 5. Coronary artery disease, status post percutaneous coronary intervention with stent deployment. 6. Hypothyroidism. 7. Benign prostatic hypertrophy with no evidence of urinary retention. 8. Anemia of chronic kidney disease for which he is on darbepoetin yazmin 60 mcg once a week. PLAN: Obviously to continue with current plan and management, await the chair time. The patient will be ____ the patient can be discharged. JOSELO MCPHERSON MD DR: LEEANNA/bonnie JOB#: [id number] / [id number]
[2018-07-10 23:52] VITALS: BP 179/85
[2018-07-11 03:45] VITALS: BP 180/89
[2018-07-11 07:52] VITALS: BP 187/92
[2018-07-11] MEDS: INSULIN LISPRO 300 UNITS/3 ML INSULN.PEN. SQ SCH ×2 (08:00→12:00)
[2018-07-11] MEDS: OMEGA-3 FATTY ACIDS/FISH OIL 1,000 MG CAPSULE. PO SCH (08:31)
[2018-07-11] MEDS: POLYETHYLENE GLYCOL 3350 17 GM PACKET. PO SCH (08:31)
[2018-07-11] MEDS: CITALOPRAM 20 MG TABLET. PO SCH (08:31)
[2018-07-11] MEDS: CARVEDILOL 12.5 MG TABLET. PO SCH (08:32)
[2018-07-11] MEDS: GABAPENTIN 300 MG CAPSULE. PO SCH (08:32)
[2018-07-11] MEDS: LUBIPROSTONE 8 MCG CAPSULE PO SCH (08:33)
[2018-07-11] MEDS: PANTOPRAZOLE 40 MG TABLET.DR. PO SCH (08:33)
[2018-07-11] MEDS: FUROSEMIDE 80 MG TABLET. PO SCH (08:33)
[2018-07-11] MEDS: POTASSIUM CHLORIDE 20 MEQ TABLET.ER. PO SCH (08:34)
[2018-07-11] MEDS: ASCORBIC ACID 500 MG TABLET PO SCH (08:34)
[2018-07-11 08:35] VITALS: BP 187/92
[2018-07-11] MEDS: cloNIDine HCL 0.2 MG TABLET PO SCH (08:35)
[2018-07-11] MEDS: RANOLAZINE 500 MG TAB.ER.12H PO SCH (08:35)
[2018-07-11] MEDS: TAMSULOSIN 0.4 MG CAP.ER.24H. PO SCH (08:35)
[2018-07-11] MEDS: APIXABAN 5 MG TABLET. PO SCH (08:35)
[2018-07-11] MEDS: TICAGRELOR 90 MG TABLET. PO SCH (08:39)
--- NOTE | 2018-07-11 08:48 | NUR ---
CHARLINE following pt. CHARLINE left a voice mail to Ghazala requesting a call back. CHARLINE spoke with DULCE Yanez at [facility] who reported they are expecting pt today at 1415. CHARLINE was never given a confirmed chair time from [facility] admission yesterday. CHARLINE discussed pt has dialyzed yesterday and is still in hospital and might not make it to clinic today. Renata reported pt is able to come tomorrow at 1430 and they will give pt his clinic schedule at first appointment. Awaiting to hear final confirmation of admission from [facility] intake at this time. CHARLINE phoned Renea and left a voice mail requesting a call back. Will continue to follow.
--- NOTE | 2018-07-11 09:20 | PDOC ---
Subjective: Subjective: Offers no complaints, wants to go home. Objective: Objective: D/w RN - DC today? Was waiting on outpt HD plans. Vital Signs: Vital Signs Date Time Temp Pulse Resp B/P (MAP) Pulse Ox O2 Delivery O2 Flow Rate FiO2 07/11/18 08:35 76 187/92 07/11/18 07:52 97.9 18 100 Room Air 97.9 07/10/18 15:38 2.0 Labs: Laboratory Tests Test 07/10/18 13:59 07/10/18 16:48 07/10/18 20:54 07/11/18 08:00 Glucose (Fingerstick) 119 mg/dL 181 mg/dL 196 mg/dL 64 mg/dL PE: GEN: NAD - eating breakfast LUNGS: room air HEART: RRR ABD: non-tender, soft NEURO/PSYCH: A & O 3 A/P: ESRD on HD, ACD GERD, constipation -- DC per primary on Protonix, Miralax, and Amitiza. Our office will contact re: follow-up. KEVIN LAGUNAS Jul 11, 2018 09:20
--- NOTE | 2018-07-11 11:58 | NUR ---
CHARLINE following pt. Pt has confirmed chair time on T, Th and Sat at 1445. After discussing with Renata at clinic pt is able to come tomorrow for first treatment at 1415 and they will provide pt with an accurate schedule. Confirmation paper provided to pt and pt's in room/aware about first appointment date. Pt's reported she had visited clinic yesterday and had talked to the nurses as well. Physician notified for dc order. RN notified.
[2018-07-11] MEDS ORDERED: LUBI24CA7 PO (12:16)
[2018-07-11] MEDS ORDERED: POLY17PO29 PO (12:16)
--- NOTE | 2018-07-11 12:32 | PDOC ---
Renal-Progress Notes Subjective Notes Notes NONE History of Present Illness Hx of present illness STABLE Vitals Vitals Vital Signs Date Time Temp Pulse Resp B/P (MAP) Pulse Ox O2 Delivery O2 Flow Rate FiO2 07/11/18 08:35 76 187/92 07/11/18 07:52 97.9 18 100 Room Air 97.9 07/10/18 15:38 2.0 Weight Weight [ ] I.O. Intake and Output Intake and Output 07/11/18 07:00 Intake Total 1050 ml Output Total 245 ml Balance 805 ml Intake Oral 1050 ml Output Urine Total 245 ml # Voids 3 Labs Labs Laboratory Tests Test 07/10/18 13:59 07/10/18 16:48 07/10/18 20:54 07/11/18 08:00 Glucose (Fingerstick) 119 mg/dL (70-99) 181 mg/dL (70-99) 196 mg/dL (70-99) 64 mg/dL (70-99) Test 07/11/18 11:52 Glucose (Fingerstick) 199 mg/dL (70-99) Review of Systems Constitutional: yes: weakness, alert, oriented Ears/Nose/Throat: Yes: no symptom reported Eyes: Yes: no symptom reported Pulmonary: Yes no symptom reported Gastrointestional: Yes: nausea, constipation Genitourinary: Yes: retention Musculoskeletal: Yes: muscle stiffness Skin: Yes no symptom reported Psychiatric/Neurological: Yes: no symptom reported Endocrine: Yes: no symptom reported Physical Exam General Appearance: no apparent distress Skin: warm Respiratory: bilateral CTA Heart: S1S2, RRR Abdomen: soft, bowel sounds present Genitourinary: bladder flat Extremities: pulses present Neurology: alert, oriented Musculoskeletal: Osteoarthritis Assessment Assessment IMP NEW ESRD ANEMIA HTN DM II COCAINE USE HX BPH HX PLAN HD TOMORROW OP OP HD SET UP OK TO D/C EMY GAN MD Jul 11, 2018 12:32
[2018-07-11] MEDS: oxyCODONE/APAP 7.5/325 1 TAB TABLET PO PRN (13:07)
--- NOTE | 2018-07-11 14:04 | NUR ---
Discharge Note: MIKE TELLEZ Discharge instructions and discharge home medications reviewed with Patient and a copy given. All questions have been answered and understanding verbalized. The following instructions and handouts were given: Dishcarge Instruction, Hemodialysis, Prescriptions Discontinued lines and drains: Right Hand Peripheral IV removed, Catheter intact. Patient discharged to Home with Self-Care via Private Vehicle
--- NOTE | 2018-07-11 15:05 | DS ---
DATE OF DISCHARGE: 07/11/2018 HOSPITAL COURSE: The patient is a 58-year-old -Lao male patient who was seen originally at [facility] with a complaint of recurrent bouts of nausea, vomiting as well as diarrhea. He also complained of left lower quadrant pain. All this started about 5 days prior to admission. He was evaluated in the Emergency Room and has had a CT scan, which showed no evidence of any diverticulitis or colitis. However, it did show that his kidney function has dramatically deteriorated. His creatinine has risen from the baseline of 2.5 to 3 to 4.9 and despite treatment with IV fluid, his kidney function continued to steadily worse and so I transferred him to [facility] where he was evaluated by the chemistry account manager, and it became clear that he will definitely require hemodialysis, and therefore, he initially had a temporary hemodialysis catheter placed and eventually a tunneled hemodialysis catheter placed after discontinuation of his Brilinta and apixaban. He was dialyzed on Tuesday, Tuesday, Tuesday, and he got the chair time today to be dialyzed as an outpatient, and therefore, a decision was made to discharge him home to continue hemodialysis and as an outpatient. PHYSICAL EXAMINATION: GENERAL: When I saw him this morning, he looked well and was clearly in no apparent respiratory distress. No pallor, jaundice, cyanosis or thyromegaly. No jugular venous distension. No lower limb edema. VITAL SIGNS: His heart rate was 76, blood pressure 160/90, temperature was 97.9, respiratory rate was 18 and oxygen saturation was 100% on room air. HEAD, EYES, EARS, NOSE AND THROAT: Showed normocephalic, atraumatic. NECK: Supple. HEART: Showed normal first and second heart sounds. No gallop, rub or murmur. CHEST: Clear to auscultation. No crepitation or rhonchi. ABDOMEN: Distended, soft, nontender. NEUROLOGIC: He was sleepy, but arousable. All cranial nerves intact. He moves extremities without difficulty, ambulates with a walker. His intake over the last 24 hours and output was incompletely recorded. LABORATORY DATA: Showed his blood sugar has been reasonably controlled. His hemoglobin was 10.5, hematocrit 31.2. DISCHARGE MEDICATIONS: He was discharged home to continue on following medications: He was discharged on Amitiza 24 mcg capsule twice a day, polyethylene glycol 17 grams daily, albuterol sulfate 1 puff every 4 hours as needed, alprazolam 0.5 mg every 8 hours as needed for anxiety, apixaban 5 mg twice a day, ascorbic acid 500 mg daily, atorvastatin calcium 40 mg daily, carvedilol 12.5 mg twice a day with meals, citalopram hydrobromide 20 mg daily, clonidine 0.2 mg tablet twice a day, ergocalciferol 50,000 units p.o. weekly, famotidine 20 mg at bedtime, furosemide 80 mg once a day, gabapentin 300 mg daily, hydrocodone/APAP 5/325 one tablet every 6 hours, hydrocortisone acetate for Anusol suppository rectally 1 twice a day as needed, nifedipine 60 mg once a day, nitroglycerin 0.4 mg sublingually every 5 minutes as needed, omega-3 fatty acid 1000 mg daily, ondansetron ODT 4 mg every 8 hours, oxycodone/APAP 7.5/325 one tablet 3 times a day as needed, Protonix 40 mg daily, Ranexa 500 mg twice a day, Senna-S one tablet at bedtime, tamsulosin for Flomax 0.4 mg once a day, Brilinta 90 mg twice a day. FINAL DISCHARGE DIAGNOSES: 1. End-stage renal disease, on hemodialysis Tuesday, Tuesday, Tuesday. 2. Type 2 diabetes mellitus, seems to be reasonably controlled. 3. Hypertension. 4. Hyperlipidemia. 5. Coronary artery disease, status post percutaneous coronary intervention with stent deployment. 6. Hypothyroidism. 7. Benign prostatic hypertrophy with no evidence of any distention. 8. Anemia of chronic kidney disease, for which he is now on darbepoetin yazmin 60 mcg once a week. JOSELO MCPHERSON MD DR: LEEANNA/bonnie JOB#: [id number] / [id number]
--- NOTE | 2018-07-11 22:52 | PN ---
DATE: 07/11/2018 SUBJECTIVE: The patient is resting, slightly propped up in bed, in no apparent distress. He was dialyzed yesterday and apparently has been up and about, walks to the bathroom without assistance. The social workers are still working to get him a chair time for hemodialysis as an outpatient. On questioning him, he denied any complaint. PHYSICAL EXAMINATION: GENERAL: When I examined him, he looked pale, but no jaundice, cyanosis or thyromegaly. No jugular venous distension. No lower limb edema. VITAL SIGNS: His heart rate was 76, blood pressure 187/92, temperature was 97.9, respiratory rate was 18 and oxygen saturation was 100%. The rest of the clinical examination is stable. LABORATORY DATA: His H and H was 10.5 and 31.2. His chemistry is variable as hemodialysis dependent. His blood sugar seems to be well controlled. ASSESSMENT: 1. End-stage renal disease, hemodialysis on Tuesday, Tuesday and Tuesday. 2. Type 2 diabetes mellitus, seems to be reasonably controlled. 3. Hypertension. 4. Hyperlipidemia. 5. Coronary artery disease, status post percutaneous coronary intervention with stent deployment. 6. Hypothyroidism. 7. Benign prostatic hypertrophy with no evidence of urinary retention. 8. Anemia of chronic kidney disease for which he is on darbepoetin yazmin 60 mcg once a week. PLAN: To continue with optimize his blood sugar and adjust insulin as needed. Continue with nutritional support. Continue with physical and occupational therapy. Continue the hemodialysis. Nephrology team will be discharged once we have chair time. JOSELO MCPHERSON MD DR: LEEANNA/bonnie JOB#: [id number] / [id number]
== END 2018-07-11 13:35 | disposition home or self-care (01) | DRG 674 ==
LOC: 6 SOUTH 17:16
PROVIDERS: ADMIT Internal Medicine; ATTEND Internal Medicine
PROC: 5A09357 Assistance with Respiratory Ventilation, Less than 24 Consecutive Hours, Continuous Positive Airway Pressure (ICD-10-PCS; 2018-07-01)
PROC: 5A09357 Assistance with Respiratory Ventilation, Less than 24 Consecutive Hours, Continuous Positive Airway Pressure (ICD-10-PCS; 2018-07-02)
PROC: 5A1D70Z Performance of Urinary Filtration, Intermittent, Less than 6 Hours Per Day (ICD-10-PCS; 2018-07-04)
PROC: 02H633Z Insertion of Infusion Device into Right Atrium, Percutaneous Approach (ICD-10-PCS; 2018-07-04)
PROC: B244ZZZ Ultrasonography of Right Heart (ICD-10-PCS; 2018-07-04)
PROC: B5181ZA Fluoroscopy of Superior Vena Cava using Low Osmolar Contrast, Guidance (ICD-10-PCS; 2018-07-04)
PROC: 5A1D70Z Performance of Urinary Filtration, Intermittent, Less than 6 Hours Per Day (ICD-10-PCS; 2018-07-05)
PROC: 0JH63XZ Insertion of Tunneled Vascular Access Device into Chest Subcutaneous Tissue and Fascia, Percutaneous Approach (ICD-10-PCS; principal; 2018-07-07)
PROC: 5A1D70Z Performance of Urinary Filtration, Intermittent, Less than 6 Hours Per Day (ICD-10-PCS; 2018-07-07)
PROC: 06PYX3Z Removal of Infusion Device from Lower Vein, External Approach (ICD-10-PCS; 2018-07-07)
PROC: 02H633Z Insertion of Infusion Device into Right Atrium, Percutaneous Approach (ICD-10-PCS; 2018-07-07)
PROC: B2141ZZ Fluoroscopy of Right Heart using Low Osmolar Contrast (ICD-10-PCS; 2018-07-07)
PROC: 5A1D70Z Performance of Urinary Filtration, Intermittent, Less than 6 Hours Per Day (ICD-10-PCS; 2018-07-10)
DX: N17.9 Acute kidney failure, unspecified (principal); E87.2 Acidosis; I12.0 Hypertensive chronic kidney disease with stage 5 chronic kidney disease or end stage renal disease; N39.0 Urinary tract infection, site not specified; D63.1 Anemia in chronic kidney disease; N18.6 End stage renal disease; E03.9 Hypothyroidism, unspecified; E11.22 Type 2 diabetes mellitus with diabetic chronic kidney disease; E78.5 Hyperlipidemia, unspecified; E83.42 Hypomagnesemia; E87.5 Hyperkalemia; E87.6 Hypokalemia; F14.90 Cocaine use, unspecified, uncomplicated; F17.210 Nicotine dependence, cigarettes, uncomplicated; F31.9 Bipolar disorder, unspecified; I25.10 Atherosclerotic heart disease of native coronary artery without angina pectoris; I48.91 Unspecified atrial fibrillation; J44.9 Chronic obstructive pulmonary disease, unspecified; K59.09 Other constipation; M19.90 Unspecified osteoarthritis, unspecified site; K21.9 Gastro-esophageal reflux disease without esophagitis; N40.1 Benign prostatic hyperplasia with lower urinary tract symptoms; R13.10 Dysphagia, unspecified; Z96.41 Presence of insulin pump (external) (internal); Z79.4 Long term (current) use of insulin; Z82.0 Family history of epilepsy and other diseases of the nervous system; Z82.3 Family history of stroke; Z82.49 Family history of ischemic heart disease and other diseases of the circulatory system; Z95.0 Presence of cardiac pacemaker; Z83.3 Family history of diabetes mellitus; Z95.5 Presence of coronary angioplasty implant and graft; Z98.41 Cataract extraction status, right eye; Z98.42 Cataract extraction status, left eye; Z99.2 Dependence on renal dialysis
CPT/HCPCS: 36415; 36556; 36581; 71046; 74018; 76937; 77001; 80048; 80053; 80069; 82274; 82550; 82962; 83540; 83550; 83735; 84100; 84443; 85014; 85018; 85025; 85027; 85651; 86140; 86704; 86706; 87340; 99152; 99153; 99406; A4215; C1750; C1769; C1892; J0696; J0881; J1815; J2250; J2405; J3010; J3475; J3490; J7030; J7042; J7050; 97110; 97530; 97535

== ENCOUNTER 2018-08-08 14:35 | Emergency (ER) | payer BC, MEDICARE ==
[~2018-08-08] VITALS: Ht 182.9 cm; Wt 96.4 kg
[~2018-08-08 14:35] MED LIST changes: +ASCO500T3 PO; +CITA20TA6 PO; +FAMO20TA5 PO; +HYDR25SU18 RC; +LUBI24CA7 PO; +OMEG100021 PO; +ONDA4TAB12 PO; +POLY17PO29 PO; +SENN1TAB37 PO
[2018-08-08] MEDS ORDERED: LABETALOL 20 MG/4 ML DISP.SYRIN. IVP ONE ×2 (15:15→16:00)
[2018-08-08 15:31] LABS: BASO # 0.1 x10^3/uL (0.0-0.2); BASO % 1 % (0-3); EOS % 0 % (0-3); HEMATOCRIT 34.4 % (39.0-53.0); HEMOGLOBIN 11.7 g/dL (13.0-17.5); LYMPH # 1.3 x10^3/uL (1.0-4.8); LYMPH % 15 % (24-48); MEAN CORPUSCULAR HEMOGLOBIN 30 pg (25-35); MEAN CORPUSCULAR HGB CONC 34 g/dL (31-37); MEAN CORPUSCULAR VOLUME 87 fL (79-100); MONO # 0.7 x10^3/uL (0.0-1.1); MONO % 8 % (0-9); NEUT # 6.7 x10^3uL (1.8-7.7); NEUT % 77 % (31-73); PLATELET COUNT 318 x10^3/uL (140-400); RED BLOOD COUNT 3.93 x10^6/uL (4.30-5.70); RED CELL DISTRIBUTION WIDTH 15.4 % (11.5-14.5); WHITE BLOOD COUNT 8.7 x10^3/uL (4.0-11.0)
[2018-08-08 15:44] LABS: PROTHROMBIN TIME PATIENT 15.2 SEC (11.7-14.0)
--- NOTE | 2018-08-08 15:46 | RAD ---
EXAM: Chest, single view. HISTORY: Weakness. COMPARISON: 03/30/2017 FINDINGS: A frontal view of the chest is obtained. There is no infiltrate, pleural effusion or pneumothorax. The heart is normal in size. There is a right central venous catheter overlying the superior vena cava. There is adjacent radiodense likely due to artifact from door captain. There is a cardiac pacemaker with leads unchanged in position. There is stable widening of the acromial clavicular joints. IMPRESSION: No acute pulmonary finding. Electronically signed by: Cori Mclaughlin MD (08/08/2018 3:43 PM) [place] [id number]
--- NOTE | 2018-08-08 15:50 | RAD ---
CT HEAD INDICATION: Weakness COMPARISON: 03/30/2017 Exposure: One or more of the following individualized dose reduction techniques were utilized for this examination: 1. Automated exposure control 2. Adjustment of the mA and/or kV according to patient size 3. Use of iterative reconstruction technique TECHNIQUE: 5 mm contiguous axial images were obtained from the skull base to the vertex in both bone and soft tissue algorithm. FINDINGS: There is hyperdensity identified in the left basal ganglia region measuring 3.5 cm likely acute bleed in the left basal ganglia adjacent to the left lateral ventricle with hypodensity identified adjacent to the bleed. There is extension of blood into the left and right lateral ventricles, third and the fourth ventricle. Mild bilateral periventricular white matter hypodensities likely chronic small vessel ischemic disease The visualized paranasal sinuses, mastoid air cells are clear. IMPRESSION: 1. Left basal ganglia acute bleed with extension of blood into the right and left lateral ventricles on the third and fourth ventricle. FOR INTERNAL CODING PURPOSES RESULT CODE: Dano De informed at 3:45 PM same day exam. Electronically signed by: Matty Garcia MD (08/08/2018 3:48 PM) [id number]
[2018-08-08 15:51] LABS: ALBUMIN 3.2 g/dL (3.4-5.0); ALBUMIN/GLOBULIN RATIO 0.7 (1.0-1.7); CALCIUM 8.9 mg/dL (8.5-10.1); CREATININE 3.3 mg/dL (0.7-1.3); GFR 23.3; MAGNESIUM 1.6 mg/dL (1.8-2.4); TOTAL BILIRUBIN 0.5 mg/dL (0.2-1.0); TOTAL PROTEIN 7.8 g/dL (6.4-8.2)
[2018-08-08 15:52] LABS: POTASSIUM 2.9 mmol/L (3.5-5.1)
--- NOTE | 2018-08-08 16:02 | PHYS DOC ---
Past Medical History Past Medical History: A-Fib, Asthma, CAD, COPD, Diabetes-Type I, Hypertension, Hypotension, VT, Seizure Additional Past Medical Histor: CARDIAC CATH WITH STENT PLACEMENT, SYNCOPE Past Surgical History: Pacemaker Additional Past Surgical Histo: CARDIAC CATH WITH STENT PLACEMENT, DIALYSIS CATHETER RIGHT CHEST Alcohol Use: Occasionally Drug Use: None Adult General Chief Complaint Chief Complaint: WEAKNESS/GENERALIZED HPI HPI Patient is a 58 year old male with history of diabetes type 2, hypertension, A. fib on Brilinta who presents to the ED today telling me his had a bad headache for 3 days. Patient is somehow "historian. He appears to be in pain. He states he has history of end-stage renal disease and just came from dialysis where he could not complete his dialysis session because of this headache and weakness. Nursing staff informs me patient fell down yesterday trying to get in bed. Patient denies any neck pain. He is currently alert and oriented 4. Patient denies any loss of consciousness when he fell down. He states he was able to get up and continue his daily life. Review of Systems Review of Systems Constitutional: Denies fever or chills [] Eyes: Denies change in visual acuity, redness, or eye pain [] HENT: Denies nasal congestion or sore throat [] Respiratory: Denies cough or shortness of breath [] Cardiovascular: No additional information not addressed in HPI [] GI: Denies abdominal pain, nausea, vomiting, bloody stools or diarrhea [] : Denies dysuria or hematuria [] Musculoskeletal: Reports falling. Denies back pain or joint pain [] Integument: Denies rash or skin lesions [] Neurologic: Reports headache, reports weakness specifically in the right side, All other systems were reviewed and found to be within normal limits, except as documented in this note. Current Medications Current Medications Current Medications Medications (Trade) Dose Ordered Sig/Lien Start Time Stop Time Status Last Admin Dose Admin Labetalol HCl (Normodyne Iv Push) 20 mg 1X ONCE 08/08/18 16:00 08/08/18 16:01 DC 08/08/18 16:00 20 MG Nicardipine HCl 50 mg/Sodium Chloride 250 ml @ 25 mls/hr CONT PRN 08/08/18 16:00 08/08/18 16:06 25 MLS/HR Potassium Chloride/Sodium Chloride 1,000 ml @ 75 mls/hr 1X ONCE 5/21/19 16:00 08/09/18 05:19 08/08/18 16:13 75 MLS/HR Allergies Allergies Allergies Coded Allergies Type Severity Reaction Last Updated Verified No Known Medication Allergies Allergy Unknown 06/23/15 Yes Physical Exam Physical Exam Constitutional: Well developed, well nourished, no acute distress, non-toxic appearance. [] HENT: Normocephalic, atraumatic, bilateral external ears normal, oropharynx moist, no oral exudates, nose normal. [] Eyes: PERRLA, EOMI, conjunctiva normal, no discharge. [] Neck: Normal range of motion, no tenderness, supple, no stridor. [] Cardiovascular:Heart rate regular rhythm, no murmur [] Lungs & Thorax: Bilateral breath sounds clear to auscultation [] Abdomen: Bowel sounds normal, soft, no tenderness, no masses, no pulsatile masses. [] Skin: Warm, dry, no erythema, no rash. [] Back: No tenderness, no CVA tenderness. [] Extremities: No tenderness, no cyanosis, no clubbing, ROM intact, no edema. [] Neurologic: Alert and oriented X 3, normal motor function, normal sensory function, no focal deficits noted. Cranial nerves II through XII intact. Weakness noted on the right upper extremity as well as right lower extremity. Psychologic: Affect normal, judgement normal, mood normal. [] Current Patient Data Vital Signs Vital Signs Date Time Temp Pulse Resp B/P (MAP) Pulse Ox O2 Delivery O2 Flow Rate FiO2 08/08/18 16:00 73 239/110 08/08/18 14:35 98.4 23 100 Room Air 98.4 Lab Values Laboratory Tests Test 08/08/18 15:20 08/08/18 15:30 White Blood Count 8.7 x10^3/uL (4.0-11.0) Red Blood Count 3.93 x10^6/uL (4.30-5.70) L Hemoglobin 11.7 g/dL (13.0-17.5) L Hematocrit 34.4 % (39.0-53.0) L Mean Corpuscular Volume 87 fL (79-100) Mean Corpuscular Hemoglobin 30 pg (25-35) Mean Corpuscular Hemoglobin Concent 34 g/dL (31-37) Red Cell Distribution Width 15.4 % (11.5-14.5) H Platelet Count 318 x10^3/uL (140-400) Neutrophils (%) (Auto) 77 % (31-73) H Lymphocytes (%) (Auto) 15 % (24-48) L Monocytes (%) (Auto) 8 % (0-9) Eosinophils (%) (Auto) 0 % (0-3) Basophils (%) (Auto) 1 % (0-3) Neutrophils # (Auto) 6.7 x10^3uL (1.8-7.7) Lymphocytes # (Auto) 1.3 x10^3/uL (1.0-4.8) Monocytes # (Auto) 0.7 x10^3/uL (0.0-1.1) Eosinophils # (Auto) 0.0 x10^3/uL (0.0-0.7) Basophils # (Auto) 0.1 x10^3/uL (0.0-0.2) Prothrombin Time 15.2 SEC (11.7-14.0) H Prothrombin Time INR 1.2 (0.8-1.1) H Sodium Level 141 mmol/L (136-145) Potassium Level 2.9 mmol/L (3.5-5.1) *L Chloride Level 102 mmol/L (98-107) Carbon Dioxide Level 24 mmol/L (21-32) Anion Gap 15 (6-14) H Blood Urea Nitrogen 18 mg/dL (8-26) Creatinine 3.3 mg/dL (0.7-1.3) H Estimated GFR (Cockcroft-Gault) 23.3 BUN/Creatinine Ratio 5 (6-20) L Glucose Level 95 mg/dL (70-99) Calcium Level 8.9 mg/dL (8.5-10.1) Magnesium Level 1.6 mg/dL (1.8-2.4) L Total Bilirubin 0.5 mg/dL (0.2-1.0) Aspartate Amino Transferase (AST) 36 U/L (15-37) Alanine Aminotransferase (ALT) 25 U/L (16-63) Alkaline Phosphatase 70 U/L (46-116) Creatine Kinase 760 U/L (39-308) H Creatine Kinase MB (Mass) 4.4 ng/mL (0.0-3.6) H Creatine Kinase MB Relative Index 0.6 % (0-4) Troponin I Quantitative 0.087 ng/mL (0.000-0.055) GA-Ovz-G-Type Natriuretic Peptide 95585 pg/mL (0-124) H Total Protein 7.8 g/dL (6.4-8.2) Albumin 3.2 g/dL (3.4-5.0) L Albumin/Globulin Ratio 0.7 (1.0-1.7) L Thyroid Stimulating Hormone (TSH) 0.910 uIU/mL (0.358-3.74) PTT 37 SEC (24-38) Laboratory Tests 08/08/18 15:20 Laboratory Tests 08/08/18 15:20 EKG EKG Interpreted by Dr. De sinus rhythm HR 72 no STEMI[] Radiology/Procedures Radiology/Procedures []PROCEDURE: CT HEAD WO CONTRAST CT HEAD INDICATION: Weakness COMPARISON: 03/30/2017 Exposure: One or more of the following individualized dose reduction techniques were utilized for this examination: 1. Automated exposure control 2. Adjustment of the mA and/or kV according to patient size 3. Use of iterative reconstruction technique TECHNIQUE: 5 mm contiguous axial images were obtained from the skull base to the vertex in both bone and soft tissue algorithm. FINDINGS: There is hyperdensity identified in the left basal ganglia region measuring 3.5 cm likely acute bleed in the left basal ganglia adjacent to the left lateral ventricle with hypodensity identified adjacent to the bleed. There is extension of blood into the left and right lateral ventricles, third and the fourth ventricle. Mild bilateral periventricular white matter hypodensities likely chronic small vessel ischemic disease The visualized paranasal sinuses, mastoid air cells are clear. IMPRESSION: 1. Left basal ganglia acute bleed with extension of blood into the right and left lateral ventricles on the third and fourth ventricle. FOR INTERNAL CODING PURPOSES RESULT CODE: C Dr. De informed at 3:45 PM same day exam. Electronically signed by: Matty Garcia MD (08/08/2018 3:48 PM) [id number] DICTATED and SIGNED BY: MATTY GARCIA MD DATE: 08/08/18 1548 PROCEDURE: PORTABLE CHEST 1V EXAM: Chest, single view. HISTORY: Weakness. COMPARISON: 03/30/2017 FINDINGS: A frontal view of the chest is obtained. There is no infiltrate, pleural effusion or pneumothorax. The heart is normal in size. There is a right central venous catheter overlying the superior vena cava. There is adjacent radiodense likely due to artifact from conveyor monitor. There is a cardiac pacemaker with leads unchanged in position. There is stable widening of the acromial clavicular joints. IMPRESSION: No acute pulmonary finding. Electronically signed by: Cori Miranda MD (08/08/2018 3:43 PM) [place] [id number] DICTATED and SIGNED BY: CORI MIRANDA MD DATE: 08/08/18 5889 PROCEDURE: CT CERVICAL SPINE WO CONTRAST CT of the cervical spine without contrast, 08/08/2018: HISTORY: Fall, neck pain Noncontrast scans were obtained with multiplanar reconstructions produced. Comparison is made to a study from 03/30/2017. There is moderate disc space narrowing at multiple levels in the mid and lower cervical spine with moderate marginal spurring. There are sclerotic and cystic changes in the vertebral bodies, particularly along the vertebral endplates, likely on a degenerative basis. These findings are greatest at C4, C5 and C6. There are moderate degenerative changes involving multiple facet joints bilaterally. No acute fracture or subluxation is evident. The posterior disc margins are not clearly defined due to artifacts. The degenerative changes are causing mild to moderate central spinal stenosis at several levels including C4-5 and C5-6. There is moderate calcific plaquing at both carotid bifurcations. IMPRESSION: 1. Moderate multilevel degenerative change as described above. 2. No acute bony abnormality is detected. RS Compliance Statement: One or more of the following individualized dose reduction techniques were utilized for this examination: 1. Automated exposure control 2. Adjustment of the mA and/or kV according to patient size 3. Use of iterative reconstruction technique Electronically signed by: Jaylen Jeffery MD (08/08/2018 5:15 PM) [facility] DICTATED and SIGNED BY: JAYLEN JEFFERY MD DATE: 08/08/18 9508 Course & Med Decision Making Course & Med Decision Making Pertinent Labs and Imaging studies reviewed. (See chart for details) This is a 58-year-old male patient who presents to the ED today complaining of a bad headache. It's reporting patient fell down yesterday trying to get in bed and hit his head on the ground. He is on Brilinta as well as dialysis CT of the head interpreted by radiologist -Left basal ganglia acute bleed with extension of blood into the right and left lateral ventricles on the third and fourth ventricle. Stroke scale was 4 Dr. De is aware. Patient's blood pressure was 249/112 on arrival to the ED with heart rate of 74. Dr. De ordered Cardene drip 16:20 spoke with Louann who accepted patient at [facility], she requested we start patient on FFP 6 packs. which were ordered CBC with no acute findings. CMP with potassium of 2.9, patient was started on IV potassium. Troponin 0.087, EKG is negative. Patient awaiting transportation to [facility]. 1808 EMS taking patient to Drag Disclaimer Dragon Disclaimer This electronic medical record was generated, in whole or in part, using a voice recognition dictation system. Departure Departure Impression: Primary Impression: Subarachnoid hemorrhage Additional Impressions: Fall from standing Hypokalemia Non-STEMI (non-ST elevated myocardial infarction) Accelerated hypertension Disposition: 05 TRANSFER OTHER Condition: STABLE Referrals: KAMRYN HARRY MD (PCP) NIHSS Stroke Scale NIH Stroke Scale: NIH Stroke Scale Response (Comments) Value Level of Consciousness: 0 Alert/Responsive 0 LOC Questions: 0 Answers both correctly 0 Best Gaze: 0 Normal 0 Visual: 0 No visual loss 0 Facial Palsy: 0 Normal, symmetrical 0 Motor - Left Arm 0 No drift 0 Motor - Right Arm 1 Drifts but can hold 1 Motor - Left Leg 0 No drift 0 Motor: Right Leg 3 Limb falls 3 Limb Ataxia: 0 Absent 0 Sensory: 0 No loss 0 Best Language: 0 Normal 0 Dysathria: 0 Normal 0 Extinction and Inattention: 0 Normal 0 Total 4 Problem Qualifiers Additional Impressions: Fall from standing Encounter type: initial encounter Qualified Codes: W19.XXXA - Unspecified fall, initial encounter HELADIO GALLARDO APRN August 08, 2018 16:02
--- NOTE | 2018-08-08 16:35 | EKG ---
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
--- NOTE | 2018-08-08 17:18 | RAD ---
CT of the cervical spine without contrast, 08/08/2018: HISTORY: Fall, neck pain Noncontrast scans were obtained with multiplanar reconstructions produced. Comparison is made to a study from 03/30/2017. There is moderate disc space narrowing at multiple levels in the mid and lower cervical spine with moderate marginal spurring. There are sclerotic and cystic changes in the vertebral bodies, particularly along the vertebral endplates, likely on a degenerative basis. These findings are greatest at C4, C5 and C6. There are moderate degenerative changes involving multiple facet joints bilaterally. No acute fracture or subluxation is evident. The posterior disc margins are not clearly defined due to artifacts. The degenerative changes are causing mild to moderate central spinal stenosis at several levels including C4-5 and C5-6. There is moderate calcific plaquing at both carotid bifurcations. IMPRESSION: 1. Moderate multilevel degenerative change as described above. 2. No acute bony abnormality is detected. PQRS Compliance Statement: One or more of the following individualized dose reduction techniques were utilized for this examination: 1. Automated exposure control 2. Adjustment of the mA and/or kV according to patient size 3. Use of iterative reconstruction technique Electronically signed by: Jaylen Pelletier MD (08/08/2018 5:15 PM) [facility]
[2018-08-08 18:02] VITALS: BP 135/74
== END 2018-08-08 18:11 | disposition short-term general hospital (02) ==
LOC: ER 14:35
DX: S06.6X9A Traumatic subarachnoid hemorrhage with loss of consciousness of unspecified duration, initial encounter (principal); R53.1 Weakness; I21.4 Non-ST elevation (NSTEMI) myocardial infarction; E87.6 Hypokalemia; I13.11 Hypertensive heart and chronic kidney disease without heart failure, with stage 5 chronic kidney disease, or end stage renal disease; E11.22 Type 2 diabetes mellitus with diabetic chronic kidney disease; N18.6 End stage renal disease; J44.9 Chronic obstructive pulmonary disease, unspecified; I25.10 Atherosclerotic heart disease of native coronary artery without angina pectoris; I48.91 Unspecified atrial fibrillation; Z99.2 Dependence on renal dialysis; W18.39XA Other fall on same level, initial encounter; Y93.89 Activity, other specified; Y92.89 Other specified places as the place of occurrence of the external cause; Y99.8 Other external cause status
CPT/HCPCS: 36415; 70450; 71045; 72125; 80053; 82553; 83735; 83880; 84443; 84484; 85025; 85610; 85730; 86850; 86900; 86901; 86927; 93005; 96365; 96366; 96368; 99285; J3490; J7050; P9017; J7030

== ENCOUNTER 2018-08-25 12:09 | Emergency (ER) | payer BC, MEDICARE ==
[~2018-08-25] VITALS: Ht 182.9 cm; Wt 96.2 kg
[2018-08-25] MEDS ORDERED: IV NORMAL SALINE 1000ML BAG 1,000 ML IV ONE ×3 (12:30→15:30)
[2018-08-25 12:46] LABS: BASE EXCESS ABG -1 mmol/L (-3-3); HCO3 ABG 22 mmol/L (21-28); PCO2 ABG 32 mmHg (35-46); PO2 ABG 436 mmHg (65-108); SAT O2 ABG 99 % (92-99)
--- NOTE | 2018-08-25 12:53 | RAD ---
EXAM: CHEST 1 VIEW. HISTORY: Intubated, respiratory failure.. COMPARISON: 08/08/2018. FINDINGS: A frontal view of the chest is obtained. An endotracheal tube has its tip 6 cm above the kerry. A nasogastric tube has its tip in the stomach. A right internal jugular hemodialysis catheter has its tip in the superior cavoatrial junction. A left-sided pacemaker has its leads in the right atrium and right ventricle. There are no confluent infiltrates. There is no pneumothorax or pleural effusion. The heart is not enlarged. IMPRESSION: 1. Line positioning as above. No confluent infiltrates. Electronically signed by: Alyssa Taylor MD (08/25/2018 12:51 PM) [facility]
[2018-08-25 12:58] LABS: AMPHETAMINE/METHAMPHETAMINE NEG (NEG); BARBITURATES NEG (NEG); BENZODIAZEPINES POS (NEG); CANNABINOIDS NEG (NEG); COCAINE NEG (NEG); METHADONE NEG (NEG); OPIATES NEG (NEG); PHENCYCLIDINE NEG (NEG)
[2018-08-25 12:58] LABS: FIO2 ABG 80
--- NOTE | 2018-08-25 13:00 | RAD ---
EXAM: CT HEAD WITHOUT CONTRAST. HISTORY: Altered mental status, intracranial hemorrhage. TECHNIQUE: Computed tomography of the head was performed without intravenous contrast. COMPARISON: 08/08/2018. FINDINGS: There has been interval evolution of the previously noted left superior thalamic intraparenchymal hematoma. It is now only slightly hyperdense. Only trace clot remains within the lateral ventricles. The lateral ventricles remain mildly enlarged, but stable since the prior study. Garica-white differentiation elsewhere is consistent with moderate chronic microangiopathic white matter change. Prominence of the lateral ventricles and hemispheric sulci indicates moderate atrophy. There is an air-fluid level in the left maxillary sinus. Fluid in the nasopharynx is associated with intubation and nasogastric tube placement. A chronic depressed fracture of the left medial orbital wall is noted. There are changes of bilateral cataract surgery. The temporal bones are unremarkable. The calvarium reveals no suspicious lesions. IMPRESSION: 1. Interval evolution of the previously noted intraparenchymal hematoma and intraventricular hemorrhage. No residual mass effect. Only trace intraventricular clot persists with stable ventricular size. 2. Moderate atrophy and chronic microangiopathic white matter change. 3. Acute left maxillary sinusitis. These findings were called to Dr. Valencia by Logan Taylor on 08/25/2018 at 12:56 PM. *One or more of the following individualized dose reduction techniques were utilized for this examination: 1. Automated exposure control. 2. Adjustment of the mA and/or kV according to patient size. 3. Use of iterative reconstruction technique. Electronically signed by: Alyssa Taylor MD (08/25/2018 12:58 PM) [facility]
[2018-08-25] MEDS ORDERED: ETOMIDATE 20 MG/10 ML VIAL. IV ONE (13:15)
[2018-08-25] MEDS ORDERED: ROCURONIUM 50 MG/5 ML VIAL. IV ONE (13:15)
[2018-08-25 13:45] LABS: CALCIUM 9.3 mg/dL (8.5-10.1); CREATININE 5.5 mg/dL (0.7-1.3); GFR 12.9; POTASSIUM 4.2 mmol/L (3.5-5.1)
[2018-08-25] MEDS ORDERED: MIDAZOLAM HCL/PF 5 MG/5 ML VIAL. NS ONE ×2 (13:45→14:00)
--- NOTE | 2018-08-25 13:45 | EKG ---
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
[2018-08-25 13:51] LABS: ALBUMIN 3.3 g/dL (3.4-5.0); ALBUMIN/GLOBULIN RATIO 0.8 (1.0-1.7); TOTAL BILIRUBIN 0.4 mg/dL (0.2-1.0); TOTAL PROTEIN 7.6 g/dL (6.4-8.2)
[2018-08-25 13:54] LABS: BASO % 0 % (0-3); EOS # 0.1 x10^3/uL (0.0-0.7); EOS % 1 % (0-3); HEMATOCRIT 37.7 % (39.0-53.0); HEMOGLOBIN 12.6 g/dL (13.0-17.5); LYMPH # 1.9 x10^3/uL (1.0-4.8); LYMPH % 31 % (24-48); MEAN CORPUSCULAR HEMOGLOBIN 30 pg (25-35); MEAN CORPUSCULAR HGB CONC 33 g/dL (31-37); MEAN CORPUSCULAR VOLUME 89 fL (79-100); MONO # 0.9 x10^3/uL (0.0-1.1); MONO % 15 % (0-9); NEUT # 3.2 x10^3uL (1.8-7.7); NEUT % 53 % (31-73); PLATELET COUNT 273 x10^3/uL (140-400); RED BLOOD COUNT 4.22 x10^6/uL (4.30-5.70); RED CELL DISTRIBUTION WIDTH 15.9 % (11.5-14.5)
[2018-08-25] MEDS ORDERED: PROPOFOL 50 ML IV ONE (13:57)
[2018-08-25] MEDS ORDERED: PROPOFOL 100 ML IV PRN (14:00)
[2018-08-25] MEDS ORDERED: fentaNYL PF VIAL 100 MCG/2 ML VIAL IV PRN (14:00)
[2018-08-25] MEDS ORDERED: PROPOFOL 50 ML IV PRN (14:00)
[2018-08-25 14:58] VITALS: BP 132/72
--- NOTE | 2018-08-25 15:03 | PHYS DOC ---
Past Medical History Past Medical History: A-Fib, Asthma, CAD, COPD, Diabetes-Type I, Hypertension, Hypotension, [place], Seizure Additional Past Medical Histor: CARDIAC CATH WITH STENT PLACEMENT, SYNCOPE Past Surgical History: Pacemaker Additional Past Surgical Histo: CARDIAC CATH WITH STENT PLACEMENT, DIALYSIS CATHETER RIGHT CHEST Alcohol Use: Occasionally Drug Use: None Adult General Chief Complaint Chief Complaint: ALTERED MENTAL STATUS HPI HPI Patient is a 58 year old -Beninese Beninese male with history of atrial fibrillation, end stage renal disease currently on dialysis, recent hemorrhagic CVA 2 weeks ago who presents from rehabilitation facility with decreased level of consciousness with apneic episodes. Patient's last known normal was at 10 AM. Rehabilitation facility, the patient was found unresponsive with GCS of 5. Patient was placed on oxygen but did require manual assisted bag valve ventilation. No seizure activity, posturing witnessing. Prehospital EKG sinus rhythm without arrhythmia. Blood pressure and pulse are stable. History is limited given the patient's condition. Patient intubated shortly after ED arrival. [] Review of Systems Review of Systems ROS as per HPI All other systems were reviewed and found to be within normal limits, except as documented in this note. Current Medications Current Medications Current Medications Medications (Trade) Dose Ordered Sig/Lien Start Time Stop Time Status Last Admin Dose Admin Etomidate (Amidate) 20 mg 1X ONCE 08/25/18 13:15 08/25/18 13:20 DC 08/25/18 12:19 20 MG Fentanyl Citrate (Fentanyl 2ml Vial) 25 mcg PRN Q1HR PRN 08/25/18 14:00 Midazolam HCl (Versed) 5 mg 1X ONCE 08/25/18 14:00 08/25/18 14:01 DC 08/25/18 13:59 5 MG Propofol 50 ml @ As Directed STK-MED ONCE 08/25/18 13:57 08/25/18 13:58 DC Rocuronium Converse (Zemuron) 50 mg 1X ONCE 08/25/18 13:15 08/25/18 13:20 DC 08/25/18 12:19 50 MG Sodium Chloride 1,000 ml @ 1,000 mls/hr 1X ONCE 08/25/18 14:45 08/25/18 15:44 Allergies Allergies Allergies Coded Allergies Type Severity Reaction Last Updated Verified No Known Medication Allergies Allergy Unknown 06/23/15 Yes Physical Exam Physical Exam Constitutional: Unresponsiveness, apnea with assisted manual ventilation via bag valve mask,[] HENT: Normocephalic, atraumatic, bilateral external ears normal, oropharynx moist, no oral exudates, nose normal. [] Eyes:Pinpoint, family reactive. [] Neck: Supple. [] Cardiovascular:Heart rate regular rhythm, no murmur [] Lungs & Thorax: Respiratory rate, decreased with shallow respirations and apneic episodes[] Abdomen: Bowel sounds normal, soft, no tenderness. [] Skin: Warm, dry, no erythema, no rash. [] Extremities: No tenderness, no cyanosis, no clubbing, ROM intact, no edema. [] Neurologic: Unresponsive, no purposeful movement. [] Current Patient Data Vital Signs Vital Signs Date Time Temp Pulse Resp B/P (MAP) Pulse Ox O2 Delivery O2 Flow Rate FiO2 08/25/18 14:28 99.0 68 16 100 99.0 08/25/18 12:20 Ventilator 08/25/18 12:09 113/48 (69) 15.0 Lab Values Laboratory Tests Test 08/25/18 12:20 08/25/18 12:26 08/25/18 12:28 08/25/18 12:45 White Blood Count 6.0 x10^3/uL (4.0-11.0) Red Blood Count 4.22 x10^6/uL (4.30-5.70) L Hemoglobin 12.6 g/dL (13.0-17.5) L Hematocrit 37.7 % (39.0-53.0) L Mean Corpuscular Volume 89 fL (79-100) Mean Corpuscular Hemoglobin 30 pg (25-35) Mean Corpuscular Hemoglobin Concent 33 g/dL (31-37) Red Cell Distribution Width 15.9 % (11.5-14.5) H Platelet Count 273 x10^3/uL (140-400) Neutrophils (%) (Auto) 53 % (31-73) Lymphocytes (%) (Auto) 31 % (24-48) Monocytes (%) (Auto) 15 % (0-9) H Eosinophils (%) (Auto) 1 % (0-3) Basophils (%) (Auto) 0 % (0-3) Neutrophils # (Auto) 3.2 x10^3uL (1.8-7.7) Lymphocytes # (Auto) 1.9 x10^3/uL (1.0-4.8) Monocytes # (Auto) 0.9 x10^3/uL (0.0-1.1) Eosinophils # (Auto) 0.1 x10^3/uL (0.0-0.7) Basophils # (Auto) 0.0 x10^3/uL (0.0-0.2) Prothrombin Time 13.0 SEC (11.7-14.0) Prothrombin Time INR 1.0 (0.8-1.1) PTT 31 SEC (24-38) Ammonia 25 mcmol/L (11-34) Ethyl Alcohol Level < 10 mg/dL (0-10) Glucose (Fingerstick) 140 mg/dL (70-99) H Urine Opiates Screen Neg (NEG) Urine Methadone Screen Neg (NEG) Urine Barbiturates Neg (NEG) Urine Phencyclidine Screen Neg (NEG) Urine Amphetamine/Methamphetamine Neg (NEG) Urine Benzodiazepines Screen Pos (NEG) Urine Cocaine Screen Neg (NEG) Urine Cannabinoids Screen Neg (NEG) Urine Ethyl Alcohol Neg (NEG) O2 Saturation 99 % (92-99) Arterial Blood pH 7.47 (7.35-7.45) H Arterial Blood pCO2 at Patient Temp 32 mmHg (35-46) L Arterial Blood pO2 at Patient Temp 436 mmHg (65-108) H Arterial Blood HCO3 22 mmol/L (21-28) Arterial Blood Base Excess -1 mmol/L (-3-3) FiO2 80 Test 08/25/18 13:20 Sodium Level 135 mmol/L (136-145) L Potassium Level 4.2 mmol/L (3.5-5.1) Chloride Level 97 mmol/L (98-107) L Carbon Dioxide Level 26 mmol/L (21-32) Anion Gap 12 (6-14) Blood Urea Nitrogen 29 mg/dL (8-26) H Creatinine 5.5 mg/dL (0.7-1.3) H Estimated GFR (Cockcroft-Gault) 12.9 BUN/Creatinine Ratio 5 (6-20) L Glucose Level 154 mg/dL (70-99) H Calcium Level 9.3 mg/dL (8.5-10.1) Total Bilirubin 0.4 mg/dL (0.2-1.0) Aspartate Amino Transferase (AST) 19 U/L (15-37) Alanine Aminotransferase (ALT) 23 U/L (16-63) Alkaline Phosphatase 58 U/L (46-116) Troponin I Quantitative 0.041 ng/mL (0.000-0.055) LY-Zuk-X-Type Natriuretic Peptide 1103 pg/mL (0-124) H Total Protein 7.6 g/dL (6.4-8.2) Albumin 3.3 g/dL (3.4-5.0) L Albumin/Globulin Ratio 0.8 (1.0-1.7) L Thyroid Stimulating Hormone (TSH) 1.025 uIU/mL (0.358-3.74) Laboratory Tests 08/25/18 12:20 Laboratory Tests 08/25/18 13:20 EKG EKG [EKG: Reviewed] Radiology/Procedures Radiology/Procedures [CT head without contrast: Evolution of prior stroke without's of rebleeding or increased intracranial pressure per radiology report.] Course & Med Decision Making Course & Med Decision Making Pertinent Labs and Imaging studies reviewed. (See chart for details) [Patient intubated for airway protection, respiratory failure shortly after ED arrival. CT head negative acute disease. Vital signs stable with that. Lab work nondiagnostic. Initially, patient sedated on vent. Some movement, localization of pain in upper extremities. Patient placed on to prevent drip. Patient transferred to [facility] per request of family members.] Dragon Disclaimer Dragon Disclaimer This electronic medical record was generated, in whole or in part, using a voice recognition dictation system. Departure Departure Impression: Primary Impression: Encephalopathy acute Additional Impression: Acute respiratory failure Disposition: 02 TRANSFER T-[facility]LY [facility] Condition: STABLE Referrals: KAMRYN HARRY MD (PCP) Problem Qualifiers BING ROBERSON DO Aug 25, 2018 15:03
== END 2018-08-25 15:17 | disposition short-term general hospital (02) ==
LOC: ER 12:09
DX: G93.40 Encephalopathy, unspecified (principal); J96.00 Acute respiratory failure, unspecified whether with hypoxia or hypercapnia; R41.82 Altered mental status, unspecified; I48.91 Unspecified atrial fibrillation; E10.22 Type 1 diabetes mellitus with diabetic chronic kidney disease; I13.11 Hypertensive heart and chronic kidney disease without heart failure, with stage 5 chronic kidney disease, or end stage renal disease; N18.6 End stage renal disease; J44.9 Chronic obstructive pulmonary disease, unspecified; I25.10 Atherosclerotic heart disease of native coronary artery without angina pectoris; I25.2 Old myocardial infarction; Z99.2 Dependence on renal dialysis; Z95.0 Presence of cardiac pacemaker
CPT/HCPCS: 31500; 36415; 36600; 51702; 70450; 71045; 80053; 80307; 82140; 82805; 82962; 83880; 84443; 84484; 85025; 85610; 85730; 87040; 93005; 96360; 96361; 99285; G0480; J2250; J2704; J7030; 92950; 94002; 99284

== ENCOUNTER 2018-10-17 19:49 | Emergency (ER) | payer BC, MEDICARE ==
[~2018-10-17] VITALS: Ht 185.4 cm; Wt 96.2 kg
[2018-10-17 20:15] VITALS: BP 152/96
--- NOTE | 2018-10-17 20:49 | PHYS DOC ---
Past Medical History Past Medical History: A-Fib, Asthma, CAD, COPD, Diabetes-Type I, Hypertension, Hypotension, [place], Seizure, Stroke Additional Past Medical Histor: CARDIAC CATH WITH STENT PLACEMENT, SYNCOPE Past Surgical History: Pacemaker Additional Past Surgical Histo: CARDIAC CATH WITH STENT PLACEMENT, DIALYSIS CATHETER RIGHT CHEST Alcohol Use: Occasionally Drug Use: None Adult General Chief Complaint Chief Complaint: SYNCOPE HPI HPI Patient is a 58 year old [f__sex] who presents with [] Review of Systems Review of Systems Constitutional: Denies fever or chills [] Eyes: Denies change in visual acuity, redness, or eye pain [] HENT: Denies nasal congestion or sore throat [] Respiratory: Denies cough or shortness of breath [] Cardiovascular: No additional information not addressed in HPI [] GI: Denies abdominal pain, nausea, vomiting, bloody stools or diarrhea [] : Denies dysuria or hematuria [] Musculoskeletal: Denies back pain or joint pain [] Integument: Denies rash or skin lesions [] Neurologic: Denies headache, focal weakness or sensory changes [] Endocrine: Denies polyuria or polydipsia [] All other systems were reviewed and found to be within normal limits, except as documented in this note. Allergies Allergies Allergies Coded Allergies Type Severity Reaction Last Updated Verified No Known Medication Allergies Allergy Unknown 06/23/15 Yes Physical Exam Physical Exam Constitutional: Well developed, well nourished, no acute distress, non-toxic appearance. [] HENT: Normocephalic, atraumatic, bilateral external ears normal, oropharynx moist, no oral exudates, nose normal. [] Eyes: PERRLA, EOMI, conjunctiva normal, no discharge. [] Neck: Normal range of motion, no tenderness, supple, no stridor. [] Cardiovascular:Heart rate regular rhythm, no murmur [] Lungs & Thorax: Bilateral breath sounds clear to auscultation [] Abdomen: Bowel sounds normal, soft, no tenderness, no masses, no pulsatile masses. [] Skin: Warm, dry, no erythema, no rash. [] Back: No tenderness, no CVA tenderness. [] Extremities: No tenderness, no cyanosis, no clubbing, ROM intact, no edema. [] Neurologic: Alert and oriented X 3, normal motor function, normal sensory function, no focal deficits noted. [] Psychologic: Affect normal, judgement normal, mood normal. [] Current Patient Data Vital Signs Vital Signs Date Time Temp Pulse Resp B/P (MAP) Pulse Ox O2 Delivery O2 Flow Rate FiO2 10/17/18 20:03 97.3 79 10 157/91 (113) 96 Room Air 97.3 EKG EKG @2018 NSR at 73bpm, NO ST elevation, Q wave in III, QRS 94ms, QT/QTc 464/516ms Radiology/Procedures Radiology/Procedures [] Course & Med Decision Making Course & Med Decision Making Pertinent Labs and Imaging studies reviewed. (See chart for details) [] Dragon Disclaimer Dragon Disclaimer This electronic medical record was generated, in whole or in part, using a voice recognition dictation system. Departure Departure Impression: Primary Impression: Chronic orthostatic hypotension Disposition: 01 HOME, SELF-CARE Condition: IMPROVED Referrals: SAHARA GU (PCP) Patient Instructions: Orthostatic Hypotension EDI MCNAIR DO Oct 17, 2018 20:49
--- NOTE | 2018-10-18 07:06 | EKG ---
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
== END 2018-10-17 21:00 | disposition home or self-care (01) ==
LOC: ER 19:49
DX: I95.1 Orthostatic hypotension (principal); I48.91 Unspecified atrial fibrillation; I25.10 Atherosclerotic heart disease of native coronary artery without angina pectoris; J44.9 Chronic obstructive pulmonary disease, unspecified; E10.9 Type 1 diabetes mellitus without complications; I10 Essential (primary) hypertension; I25.2 Old myocardial infarction; Z86.73 Personal history of transient ischemic attack (TIA), and cerebral infarction without residual deficits; Z95.5 Presence of coronary angioplasty implant and graft; Z95.0 Presence of cardiac pacemaker
CPT/HCPCS: 82962; 93005; 99285-25

== ENCOUNTER 2018-12-16 17:48 | Inpatient (IN) | payer BC, MEDICARE ==
[~2018-12-16] VITALS: Ht 180.3 cm; Wt 79.1 kg
[2018-12-16] MEDS ORDERED: MIDAZOLAM HCL/PF 2 MG/2 ML VIAL. ONE (18:08)
[2018-12-16] MEDS ORDERED: fentaNYL PF VIAL 100 MCG/2 ML VIAL ONE (18:08)
--- NOTE | 2018-12-16 18:15 | PHYS DOC ---
Past Medical History Past Medical History: A-Fib, Asthma, CAD, COPD, Diabetes-Type I, Hypertension, Hypotension, [place], Seizure, Stroke Additional Past Medical Histor: CARDIAC CATH WITH STENT PLACEMENT, SYNCOPE Past Surgical History: Pacemaker Additional Past Surgical Histo: CARDIAC CATH WITH STENT PLACEMENT, DIALYSIS CATHETER RIGHT CHEST Alcohol Use: Occasionally Drug Use: None Adult General Chief Complaint Chief Complaint: chest pain HPI HPI Patient is a 58-year-old -Cypriot male who arrives via EMS from dialysis center after reportedly having episode of crushing chest pain. EMS reports that when they had arrived patient was complaining of severe chest pain and EKG that they had obtained showed ST elevations in contour abnormality in V2 and V3. A shunt was given a dose of nitroglycerin while in route and had reported improvement in pain to EMS. At this point, patient's blood pressure had dropped down to 80s over 40s and IV fluids were initiated. EMS reports that they then did a rapid assessment for stroke and while he had normal cattle killer strengths, he was not able to hold his left arm up against gravity. Upon arrival, patient is intermittently arousable to verbal stimuli and did admit to continued chest pain although he is unable to rate pain. Additional history unobtainable as patient is unable to provide history.[] Review of Systems Review of Systems Constitutional: No report of fever[] Respiratory: No report of shortness of breath [] Cardiovascular: No additional information not addressed in HPI [] GI: No report of vomiting or diarrhea [] Integument: Positive report of diaphoresis per EMS[] Neurologic: Positive mental status change[] Unable to fully assess review of systems due to patient level of consciousness. Current Medications Current Medications Current Medications Medications (Trade) Dose Ordered Sig/Lien Start Time Stop Time Status Last Admin Dose Admin Fentanyl Citrate (Fentanyl 2ml Vial) 100 mcg STK-MED ONCE 12/16/18 18:08 12/16/18 18:08 DC Midazolam HCl (Versed) 2 mg STK-MED ONCE 12/16/18 18:08 12/16/18 18:08 DC Allergies Allergies Allergies Coded Allergies Type Severity Reaction Last Updated Verified No Known Medication Allergies Allergy Unknown 06/23/15 Yes Physical Exam Physical Exam Constitutional: Patient is minimally responsive to verbal stimuli, appears in mild distress. [] HENT: Normocephalic, atraumatic, bilateral external ears normal, oropharynx moist, no oral exudates, nose normal. [] Eyes: PERRLA, conjunctiva normal, no discharge. [] Neck: Normal range of motion, no tenderness, supple, no stridor. [] Cardiovascular: Regular rate and rhythm[] Lungs & Thorax: Bilateral breath sounds clear to auscultation [] Abdomen: Bowel sounds normal, soft. [] Skin: Warm, dry, no erythema, no rash. [] Extremities: No tenderness, no cyanosis, no clubbing, ROM intact. [] Neurologic: Patient intermittently responsive to verbal stimuli, unable to assess neurological status as patient is unable to follow commands. [] EKG EKG EKG demonstrates sinus rhythm with rate of 83. There is contract or abnormality noted in V1 and V2 as well as some ST depression in V4 and V5[] Radiology/Procedures Radiology/Procedures [] Impressions: Chest x-ray demonstrates well-inflated lungs with ET tube in good position. Course & Med Decision Making Course & Med Decision Making Pertinent Labs and Imaging studies reviewed. (See chart for details) Patient moved to room upon arrival was evaluated by your medical staff and after rapid assessment, patient deemed appropriate for RSI. On my staff will patient simultaneously prepared for intubation. Shots case was discussed with Dr. Lassiter while patient was still in route and he is in route to emergency room to evaluate patient for Project Builder. Endotracheal Intubation by me: Pre assessment performed. See preceding note for details. Pre-oxygenation performed with 100% oxygen RSI: Performed w/o complication or hypoxic events. Medications as ordered. Blade: Dennison scope ET Tube: 7.5 cm Depth: 24 cm at the lip Intubation confirmed by colorimetric CO2, equal breath sounds, quiet over the stomach. Chest X-ray 1V Interpreted by me: 4 cm above the kerry ET tube. Normal soft tissue, No pneumothorax. A total of 35 minutes of critical care time has been spent on this patient exclusive of separately billable procedures and includes direct [id number] time with the patient, ordering and reviewing of both laboratory and radiologic studies, discussion of patient's case with consultants, and finally on dictation of this patient's medical record. Patient's case was discussed with Dr. Hodge at 6:30 PM and patient will be admitted to ICU under his care. Beatriz Disclaimer Dragon Disclaimer This electronic medical record was generated, in whole or in part, using a voice recognition dictation system. Departure Departure Impression: Primary Impression: Acute respiratory failure Additional Impressions: Chest pain Abnormal EKG ESRD on hemodialysis Disposition: ADMITTED INPATIENT Admitting Physician: JASMEET (Dr. Hodge) Condition: GUARDED Referrals: SAHARA GU (PCP) Problem Qualifiers Primary Impression: Acute respiratory failure Respiratory failure complication: unspecified whether with hypoxia or hypercapnia Qualified Codes: J96.00 - Acute respiratory failure, unspecified whether with hypoxia or hypercapnia Additional Impressions: Chest pain Chest pain type: chest pain due to myocardial ischemia Ischemic chest pain type: unspecified angina pectoris type Qualified Codes: I25.9 - Chronic ischemic heart disease, unspecified ALEXANDRIA VILLALBA Jr. DO Dec 16, 2018 18:15
[2018-12-16 18:20] LABS: BASO % 1 % (0-3); EOS # 0.1 x10^3/uL (0.0-0.7); EOS % 1 % (0-3); HEMATOCRIT 38.1 % (39.0-53.0); HEMOGLOBIN 13.1 g/dL (13.0-17.5); LYMPH # 2.2 x10^3/uL (1.0-4.8); LYMPH % 36 % (24-48); MEAN CORPUSCULAR HEMOGLOBIN 32 pg (25-35); MEAN CORPUSCULAR HGB CONC 35 g/dL (31-37); MEAN CORPUSCULAR VOLUME 92 fL (79-100); MONO # 0.7 x10^3/uL (0.0-1.1); MONO % 11 % (0-9); NEUT % 50 % (31-73); PLATELET COUNT 275 x10^3/uL (140-400); RED BLOOD COUNT 4.16 x10^6/uL (4.30-5.70); RED CELL DISTRIBUTION WIDTH 15.3 % (11.5-14.5)
--- NOTE | 2018-12-16 18:23 | RAD ---
PORTABLE CHEST 1V Clinical indications: Chest pain. ET tube placement. COMPARISON: August 25, 2018. FINDINGS: ET tube is located 6 cm above the level of the kerry. NG tube is in place and the tip is seen within the fundus of the stomach. Right IJ hemodialysis line is in present and the distal tip is located within the lower SVC above the level of the right atrium. No pneumothorax or pleural effusion or pulmonary edema or pneumothorax is seen. Bipolar atrioventricular pacemaker is evident. Heart size and mediastinum and pulmonary vasculature and both brooks are unremarkable. Healed posterior right rib cage fractures are seen. IMPRESSION: No acute radiographic abnormality. Electronically signed by: Reza Cole MD (12/16/2018 6:21 PM) [id number]
--- NOTE | 2018-12-16 18:30 | RAD ---
PQRS Compliance Statement: One or more of the following individualized dose reduction techniques were utilized for this examination: 1. Automated exposure control 2. Adjustment of the mA and/or kV according to patient size 3. Use of iterative reconstruction technique CT head without contrast 12/16/2018 6:00 PM INDICATION: Altered mental status COMPARISON: CT head 08/25/2018 TECHNIQUE: Multiple axial CT images of the head were obtained from skull base through the vertex without intravenous contrast. FINDINGS: Head: Ventricles, sulci and basal cisterns are prominent compatible with mild general cerebral White mass. Low-attenuation in the periventricular white matter is suggestive of chronic small vessel ischemic changes. There is no hydrocephalus. Garcia-white matter differentiation is normal. There is no acute intracranial hemorrhage. There is no mass, mass effect or midline shift. Posterior fossa is normal in appearance. Visualized portions of the orbits are normal with exception of bilateral lens replacement. Small air-fluid levels identified in the left maxillary sinus. Mastoid air cells are well aerated. Scalp and calvaria are normal. Nasopharynx is fluid-filled. Patient is intubated. IMPRESSION: No acute intracranial hemorrhage. Mild general cerebral volume loss. Low-attenuation in the periventricular white matter is suggestive of chronic small vessel ischemic changes. Small air-fluid levels identified in the left maxillary sinus. Moderate mucosal thickening of the left ethmoid air cells. Findings may be associated with recent intubation. Electronically signed by: Delia Huff MD (12/16/2018 6:28 PM) [facility]
[2018-12-16 18:32] LABS: CREATININE 2.6 mg/dL (0.7-1.3); GFR 30.6; POTASSIUM 3.3 mmol/L (3.5-5.1)
[2018-12-16] MEDS ORDERED: VECURONIUM BOLUS 10 MG VIAL. IV ONE (18:42)
[2018-12-16] MEDS ORDERED: ETOMIDATE 20 MG/10 ML VIAL. IV ONE (18:42)
[2018-12-16 18:43] LABS: ALBUMIN 3.2 g/dL (3.4-5.0); ALBUMIN/GLOBULIN RATIO 0.7 (1.0-1.7); MAGNESIUM 1.6 mg/dL (1.8-2.4); TOTAL BILIRUBIN 0.4 mg/dL (0.2-1.0); TOTAL PROTEIN 7.8 g/dL (6.4-8.2)
[2018-12-16] MEDS ORDERED: HEPARIN for IV BOLUS 10,000 UNIT/10 ML VIAL. IV PRN (18:45)
[2018-12-16] MEDS ORDERED: HEPARIN for IV BOLUS 10,000 UNIT/10 ML VIAL. IV ONE (18:45)
[2018-12-16] MEDS: HEPARIN 25,000UTS/500ML PREMIX 500 ML IV PRN (19:35)
--- NOTE | 2018-12-16 19:55 | HP ---
ADMIT DATE: 12/16/2018 CHIEF COMPLAINT: Chest pain. HISTORY OF PRESENT ILLNESS: The patient is a pleasant 58-year-old male who is on dialysis. He apparently was at the dialysis center today and was having chest pain, described it as crushing. When the EMS arrived, they saw ST elevations. He is brought to the ER. We were considering activating the code STEMI. Dr. Chester arrived here in the ER with me, he feels like this is probably not an acute [place]. The patient has now been intubated to protect his airway. Per the ER doctor, the patient was intermittently arousable when he arrived. We are going to admit the patient. We will be consulting Cardiology and Pulmonary. I am also going to order a CAT scan of the chest to rule out PE. PAST MEDICAL HISTORY: AFib; end-stage renal disease, on dialysis; asthma; COPD; CAD; hypertension; hyperlipidemia; hypotension; seizures; cardiac cath; coronary stents; previous syncopal episodes; dialysis catheter on the right chest. ALLERGIES: None. FAMILY HISTORY: Coronary artery disease. SOCIAL HISTORY: I do not think he drinks smoke or take drugs. MEDICATIONS: Reviewed, please refer to the MRAD. REVIEW OF SYSTEMS: Unable to obtain as the patient is intubated. PHYSICAL EXAMINATION: VITALS: Within normal limits and are stable. GENERAL: No apparent distress. Alert and oriented. HEENT: He has ENT tube in place. NECK: Supple, no JVD, no thyromegaly was noted. LUNGS: Clear to auscultation in all lung abbasi without rhonchi or wheezing. CHEST: He has a right anterior chest wall hemodialysis catheter. HEART: RRR, S1, S2 present. Peripheral pulses intact, no obvious murmurs were noted. ABDOMEN: A little distended. EXTREMITIES: Show trace edema. NEUROLOGIC: He is sedated. PSYCHIATRIC: Normal affect, normal mood. Stable. SKIN: No ulcerations or rashes, good skin turgor, no jaundice. VASCULAR: Good capillary refill, neurovascular bundle appears to be intact. LABORATORY DATA: White count 6, hemoglobin 13, platelets 275. Electrolytes: Sodium 139, potassium 3.3, chloride 103, bicarb 27, BUN 20, creatinine 2.6, glucose 171. Troponin 0. BNP 6341. CT of the head was negative. Chest x-ray negative. ASSESSMENT AND PLAN: Chest pain and respiratory failure of undetermined etiology. The patient has been admitted to the ICU. We are consulting Pulmonary and Renal and Cardiology. Serial enzymes, serial EKGs. CT of the chest to rule out pulmonary embolism, deep venous thrombosis prophylaxis. PROGNOSIS: Guarded. GEETHA TAYLOR DO DR: CYNTHIA/bonnie JOB#: [id number] / [id number]
[2018-12-16 20:08] LABS: BASE EXCESS ABG 1 mmol/L (-3-3); HCO3 ABG 24 mmol/L (21-28); PCO2 ABG 34 mmHg (35-46); PO2 ABG 51 mmHg (65-108); SAT O2 ABG 89 % (92-99)
[2018-12-16 20:20] VITALS: BP 190/97
--- NOTE | 2018-12-16 20:20 | NUR ---
pt admitted to room 105 from ED at this time, accompanied pt to hospital. VSS while on 100% FiO2 on vent. pt unresponsive to painful stimuli, no cough, no gag but pupils still briskly reactive to light. on Heparin gtt for DVT prophylaxis. at bedside, able to answer admission questions and questions answered regarding pt's current condition. will pass on in report, will continue to closely monitor.
[2018-12-16 21:00] VITALS: BP 175/96
[2018-12-16 22:00] VITALS: BP 188/97
--- NOTE | 2018-12-16 22:35 | NUR ---
pt's SBP becoming increasingly elevated, >190s at times. pt also has hx of seizures but unable to recall dosage or frequency of pt's current seizure medications. Dr Hodge paged and notified, new orders received and noted. will pass on in report, will continue to closely monitor.
[2018-12-16] MEDS ORDERED: LABETALOL 20 MG/4 ML DISP.SYRIN. IVP PRN (22:45)
[2018-12-16 22:49] LABS: FIO2 ABG 80
[2018-12-16 23:00] VITALS: BP 190/106
[2018-12-17] VITALS (24 sets, daily range): BP systolic 95–191; BP diastolic 66–118
--- NOTE | 2018-12-17 00:10 | NUR ---
during 0000 assessment, pt now much more alert. moving arms and legs, trying to mouth words around ET tube, attempting to get at ET tube with his hands and opening eyes when spoken to. HR increasing and pt overbreathing the vent. sedation applied, bolus given and now pt more compliant with vent and VSS more stable. will pass on in report, will continue to closely monitor.
[2018-12-17 04:58] LABS: BASO % 1 % (0-3); EOS % 1 % (0-3); HEMATOCRIT 36.1 % (39.0-53.0); HEMOGLOBIN 12.2 g/dL (13.0-17.5); LYMPH # 1.9 x10^3/uL (1.0-4.8); LYMPH % 37 % (24-48); MEAN CORPUSCULAR HEMOGLOBIN 31 pg (25-35); MEAN CORPUSCULAR HGB CONC 34 g/dL (31-37); MEAN CORPUSCULAR VOLUME 92 fL (79-100); MONO # 0.6 x10^3/uL (0.0-1.1); MONO % 11 % (0-9); NEUT # 2.7 x10^3/uL (1.8-7.7); NEUT % 52 % (31-73); PLATELET COUNT 242 x10^3/uL (140-400); RED BLOOD COUNT 3.91 x10^6/uL (4.30-5.70); RED CELL DISTRIBUTION WIDTH 15.3 % (11.5-14.5); WHITE BLOOD COUNT 5.2 x10^3/uL (4.0-11.0)
[2018-12-17 05:17] LABS: CALCIUM 8.9 mg/dL (8.5-10.1); CREATININE 3.4 mg/dL (0.7-1.3); GFR 22.5; POTASSIUM 3.3 mmol/L (3.5-5.1)
[2018-12-17] MEDS: PROPOFOL 100 ML IV PRN ×3 (06:20→19:17)
--- NOTE | 2018-12-17 06:49 | PDOC ---
Provider Note Provider Note [id number] acute resp fail cp copd cta, le venous doppler, BD GUADALUPE CRUZ MD Dec 17, 2018 06:49
[2018-12-17] MEDS: IPRATRPIUM/ALBUTEROL 0.5/2.5MG 3 ML NEBU. NEB SCH ×4 (07:41→20:24)
[2018-12-17 07:55] LABS: BASE EXCESS ABG 0 mmol/L (-3-3); HCO3 ABG 22 mmol/L (21-28); PCO2 ABG 27 mmHg (35-46); PO2 ABG 302 mmHg (65-108); SAT O2 ABG 99 % (92-99)
[2018-12-17 07:57] LABS: FIO2 ABG 60
--- NOTE | 2018-12-17 07:58 | RAD ---
EXAM: Right lower extremity venous Doppler sonogram. HISTORY: Pain and swelling. TECHNIQUE: Garcia scale and color Doppler sonographic evaluation of the right lower extremity veins with spectral waveform analysis was performed. FINDINGS: The peroneal veins are not well seen due to soft tissue edema. There is normal color flow, normal compressibility and there are normal spectral waveforms in the common femoral, superficial femoral, popliteal, posterior tibial and greater saphenous veins. IMPRESSION: No Doppler evidence of lower extremity deep venous thrombosis, with limited evaluation of the peroneal veins due to soft tissue edema. Electronically signed by: Cori Mclaughlin MD (12/17/2018 7:55 AM) [facility]
[2018-12-17] MEDS: ANTI-COAG MONITOR BY PHARMACY. MC PRN (07:59)
[2018-12-17] MEDS ORDERED: CONTRAST GIVEN. MC PRN (08:00)
[2018-12-17] MEDS ORDERED: IOHEXOL 350 MG/ML 100 ML VIAL. IV ONE (08:00)
--- NOTE | 2018-12-17 10:43 | RAD ---
EXAM: CT angiography of the chest with intravenous contrast. HISTORY: Respiratory failure. TECHNIQUE: Computed tomographic images of the chest were obtained following the administration of 90 cc Omnipaque 350 intravenous contrast according to angiography protocol. Multiplanar reformatting was performed and 3-dimensional maximum intensity projection images were obtained. COMPARISON: None. FINDINGS: There is no convincing pulmonary emphysema. The aorta is normal in caliber. There is a bovine aortic arch branching pattern, a normal variant. The heart is normal in size. There is a small pericardial effusion. There is a left-sided cardiac pacemaker with leads in expected position. There is an endotracheal tube within the mid trachea. There is a nasogastric tube within the stomach. There is a small amount of aspirated debris within the inferior trachea and right mainstem bronchus. There are mildly prominent bilateral hilar lymph nodes. There is no pleural effusion or pneumothorax. There is right greater than left lower lobe posterior dependent and infrahilar atelectasis. The possibility of superimposed bilateral basilar interstitial infiltrate is not excluded. There is mild emphysema. No suspicious pulmonary nodule is seen. There is no acute finding involving the upper abdomen. There is fatty atrophy of the pancreatic tail. There is suspected left renal cortical lobulation due to scarring. There is no suspicious osseous lesion. There are chronic mild compression deformities and superior endplate depressions at the upper and mid thoracic levels. IMPRESSION: 1. No convincing pulmonary embolism. 2. Bilateral posterior dependent and infrahilar atelectasis. There may be superimposed right greater than left basilar interstitial infiltrate. 3. Small pericardial effusion. 4. Small amount of aspirated mucus within the inferior trachea and right mainstem bronchus. Electronically signed by: Cori Mclaughlin MD (12/17/2018 10:40 AM) [facility]
[2018-12-17] MEDS ORDERED: INSU100I17 SQ (11:05)
[2018-12-17] MEDS ORDERED: ESCITALOPRAM OX10 MG PO (11:05)
[2018-12-17] MEDS ORDERED: LINZESS145 MCG PO (11:05)
[2018-12-17] MEDS ORDERED: BRIV75TA PO (11:05)
[2018-12-17] MEDS ORDERED: ASPI-630 PO (11:05)
[2018-12-17] MEDS ORDERED: CALC667T4 PO (11:05)
[2018-12-17] MEDS ORDERED: DIVA250T14 PO (11:05)
[2018-12-17] MEDS ORDERED: INSU100I13 SQ (11:05)
--- NOTE | 2018-12-17 11:18 | EKG ---
[facility] [address] [place] [address] Test Date: 2018-12-16 Test Time: 18:33:49 Pat Name: MIKE TELLEZ Department: Room: 105 1 Gender: M [place] Filler: : 1960 Requested By: ALEXANDRIA VILLALBA Order Number: [id number] Reading MD: Osmel Lovelace MD Measurements Intervals [place] Rate: 79 P: -55 WV: 86 QRS: 61 QRSD: 100 T: 116 QT: 426 QTc: 495 Interpretive Statements SINUS RHYTHM T ABNORMALITY IN ANTEROLATERAL LEADS PROLONGED QT NON SPECIFIC ST DEPRESSION ABNORMAL ECG CONSIDER LVH Electronically Signed On 12-26-2018 10:26:56 CDT by Osmel Lovelace MD
--- NOTE | 2018-12-17 11:23 | CONS ---
DATE OF CONSULTATION: 12/17/2018 I was asked to see this 58-year-old gentleman for acute respiratory failure. HISTORY OF PRESENT ILLNESS: The patient is currently on the ventilator and is sedated and is not able to give me any information. All of the information was obtained from nursing staff and chart. He has end-stage renal disease and was on dialysis, developed severe chest pain, was brought to the Emergency Room via masks. He had altered mental status, so he was intubated in the Emergency Room. Currently, he is on the ventilator and is sedated. He has small amount of ET tube secretion. Cardiology is consulted. PAST MEDICAL HISTORY: Coronary artery disease, paroxysmal atrial fibrillation, COPD, diabetes mellitus, hypertension, status post stent, history of CVA, end-stage renal disease, on dialysis. ALLERGIES: No known drug allergies. MEDICATIONS: Currently, he is on propofol, heparin drip. SOCIAL HISTORY: Positive for smoking, details are not known. FAMILY HISTORY: Unable to obtain. The patient is on the ventilator and sedated. REVIEW OF SYSTEMS: As mentioned as above. I have discussed the patient with RN, other systems are otherwise negative. PHYSICAL EXAMINATION: GENERAL: This is a well-developed gentleman. VITAL SIGNS: O2 saturation on 80% FiO2 is 100%, respiratory rate 16, heart rate 75, blood pressure 177/91, temperature 98.7. HEENT: Normocephalic, atraumatic. Pupils equal, round, reactive to light. Nose is clear. Throat He is orally intubated. NECK: There is no lymphadenopathy or thyromegaly. CARDIOVASCULAR: Regular rate and rhythm. PMI is nondisplaced. CHEST: Inspection is normal. LUNGS: Clear to auscultation and percussion is within normal limit. ABDOMEN: Soft and obese. Bowel sounds are good. There is no mass. EXTREMITIES: There is no edema. LYMPHATICS: There is no lymphadenopathy. NEUROLOGIC: He is sedated on the ventilator. SKIN: Chronic changes. LYMPHATICS: There is no lymphadenopathy. LABORATORY DATA: I reviewed the following lab data: Chest x-ray shows ET tube is in good position. There is minimal left atelectasis. WBC 5.2, hemoglobin 12.2, platelet 242. Sodium 142, potassium 3.3, chloride 104, CO2 of 23, BUN 28, creatinine 3.4, glucose 196. Troponin is less than 0.017. BNP 6341. ABG: pH 7.47, pCO2 of 34, pO2 of 51 on 80% FiO2 at 10:00 on 12/16/2018. IMPRESSION: 1. Acute hypoxemic respiratory failure. Differential diagnosis including pulmonary embolism versus cardiac etiologies versus chronic obstructive pulmonary disease versus others. 2. Chest pain, questionable etiology. 3. Chronic obstructive pulmonary disease. 4. End-stage renal disease, on hemodialysis. 5. Hypokalemia. 6. Hypertension. 7. Diabetes mellitus. 8. History of cerebrovascular accident. 9. Coronary artery disease. 10. Paroxysmal atrial fibrillation. 11. Encephalopathy ? etiology. PLAN AND RECOMMENDATIONS: 1. Titrate FiO2 to keep O2 saturation 94%. We will repeat ABG. Change vent setting per ABG. 2. Continue ventilator support until the patient is more stable. 3. I will order CT angiogram if it is okay with Nephrology. 4. Cardiology is consulted. 5. Lower extremity venous Doppler. 6. Continue heparin until lower extremity venous Doppler and CT angiogram results are available. 7. Protonix for stress ulcer prophylaxis. 8. Monitor respiratory status very closely. 9. Cardiology is consulted. Thank you very much for allowing me to participate in care of this very nice gentleman. The findings and recommendations were discussed with RN. GUADALUPE CRUZ M.D. : MONIE/bonnie JOB#: [id number] / [id number]
--- NOTE | 2018-12-17 12:27 | PDOC ---
[facility] PROGRESS NOTE Chief Complaint Chief Complaint Chest pain Acute respiratory failure History of Present Illness History of Present Illness 12/17/18 Pt seen and examined in the ICU Was joined at bedside by Sedated with Diprivan On ventilation (AC 14/500/40% 5.0 PEEP) Will consult pulmonary and cardiology pH = 7.53, will decrease respiratory rate Vitals/I&O Vitals/I&O: Vital Signs Date Time Temp Pulse Resp B/P (MAP) Pulse Ox O2 Delivery O2 Flow Rate FiO2 12/17/18 11:00 72 14 157/89 (111) 100 Ventilator 12/17/18 08:00 98.7 98.7 12/16/18 17:48 15.0 I & O 12/16/18 12/16/18 12/17/18 15:00 23:00 07:00 Intake Total 209.8 ml Output Total 75 ml 70 ml Balance -75 ml 139.8 ml Physical Exam General: No acute distress Heart: Regular rate, Normal S1, Normal S2 Lungs: Clear Abdomen: Normal bowel sounds Extremities: No clubbing, No cyanosis, No edema, Normal pulses Skin: No rashes, No breakdown, No significant lesion Labs Labs: Laboratory Tests Test 12/16/18 18:00 12/16/18 20:05 12/16/18 22:30 12/17/18 04:00 White Blood Count 6.0 x10^3/uL (4.0-11.0) 5.2 x10^3/uL (4.0-11.0) Red Blood Count 4.16 x10^6/uL (4.30-5.70) 3.91 x10^6/uL (4.30-5.70) Hemoglobin 13.1 g/dL (13.0-17.5) 12.2 g/dL (13.0-17.5) Hematocrit 38.1 % (39.0-53.0) 36.1 % (39.0-53.0) Mean Corpuscular Volume 92 fL (79-100) 92 fL (79-100) Mean Corpuscular Hemoglobin 32 pg (25-35) 31 pg (25-35) Mean Corpuscular Hemoglobin Concent 35 g/dL (31-37) 34 g/dL (31-37) Red Cell Distribution Width 15.3 % (11.5-14.5) 15.3 % (11.5-14.5) Platelet Count 275 x10^3/uL (140-400) 242 x10^3/uL (140-400) Neutrophils (%) (Auto) 50 % (31-73) 52 % (31-73) Lymphocytes (%) (Auto) 36 % (24-48) 37 % (24-48) Monocytes (%) (Auto) 11 % (0-9) 11 % (0-9) Eosinophils (%) (Auto) 1 % (0-3) 1 % (0-3) Basophils (%) (Auto) 1 % (0-3) 1 % (0-3) Neutrophils # (Auto) 3.0 x10^3/uL (1.8-7.7) 2.7 x10^3/uL (1.8-7.7) Lymphocytes # (Auto) 2.2 x10^3/uL (1.0-4.8) 1.9 x10^3/uL (1.0-4.8) Monocytes # (Auto) 0.7 x10^3/uL (0.0-1.1) 0.6 x10^3/uL (0.0-1.1) Eosinophils # (Auto) 0.1 x10^3/uL (0.0-0.7) 0.0 x10^3/uL (0.0-0.7) Basophils # (Auto) 0.0 x10^3/uL (0.0-0.2) 0.0 x10^3/uL (0.0-0.2) Sodium Level 139 mmol/L (136-145) 142 mmol/L (136-145) Potassium Level 3.3 mmol/L (3.5-5.1) 3.3 mmol/L (3.5-5.1) Chloride Level 103 mmol/L (98-107) 104 mmol/L (98-107) Carbon Dioxide Level 27 mmol/L (21-32) 23 mmol/L (21-32) Anion Gap 9 (6-14) 15 (6-14) Blood Urea Nitrogen 20 mg/dL (8-26) 28 mg/dL (8-26) Creatinine 2.6 mg/dL (0.7-1.3) 3.4 mg/dL (0.7-1.3) Estimated GFR (Cockcroft-Gault) 30.6 22.5 BUN/Creatinine Ratio 8 (6-20) Glucose Level 171 mg/dL (70-99) 196 mg/dL (70-99) Calcium Level 9.0 mg/dL (8.5-10.1) 8.9 mg/dL (8.5-10.1) Magnesium Level 1.6 mg/dL (1.8-2.4) Total Bilirubin 0.4 mg/dL (0.2-1.0) Aspartate Amino Transf (AST/SGOT) 36 U/L (15-37) Alanine Aminotransferase (ALT/SGPT) 27 U/L (16-63) Alkaline Phosphatase 78 U/L (46-116) Troponin I Quantitative < 0.017 ng/mL (0.000-0.055) < 0.017 ng/mL (0.000-0.055) < 0.017 ng/mL (0.000-0.055) SD-Gyu-A-Type Natriuretic Peptide 6341 pg/mL (0-124) Total Protein 7.8 g/dL (6.4-8.2) Albumin 3.2 g/dL (3.4-5.0) Albumin/Globulin Ratio 0.7 (1.0-1.7) O2 Saturation 89 % (92-99) Arterial Blood pH 7.47 (7.35-7.45) Arterial Blood pCO2 at Patient Temp 34 mmHg (35-46) Arterial Blood pO2 at Patient Temp 51 mmHg (65-108) Arterial Blood HCO3 24 mmol/L (21-28) Arterial Blood Base Excess 1 mmol/L (-3-3) FiO2 80 Heparin Anti-Xa Act, Unfractionated 0.30 IU/mL (0.30-0.70) Test 12/17/18 07:40 12/17/18 11:05 O2 Saturation 99 % (92-99) Arterial Blood pH 7.53 (7.35-7.45) Arterial Blood pCO2 at Patient Temp 27 mmHg (35-46) Arterial Blood pO2 at Patient Temp 302 mmHg (65-108) Arterial Blood HCO3 22 mmol/L (21-28) Arterial Blood Base Excess 0 mmol/L (-3-3) FiO2 60 Heparin Anti-Xa Act, Unfractionated 0.45 IU/mL (0.30-0.70) Review of Systems Review of Systems: No nausea, no vomiting No headche, no loss of vision Assessment and Plan Assessmemt and Plan Problems Medical Problems: (1) Abnormal EKG Status: Acute (2) Acute respiratory failure Status: Acute (3) Chest pain Status: Acute Assessment Acute respiratory failure COPD Plan ICU monitoring Consult pulmonology Consult cardiology Home meds Sliding scale insulin OG tube feeds Hope to discharge on heparin based on consultants' input Full code Total time 32 min Comment Review of Relevant I have reviewed the following items dominick (where applicable) has been applied. Medications: Current Medications Medications (Trade) Dose Ordered Sig/Lien Route PRN Reason Start Time Stop Time Status Last Admin Dose Admin Heparin Sodium (Porcine) (Heparin Sodium) 4,000 unit 1X ONCE IV 12/16/18 18:45 12/16/18 18:46 DC 12/16/18 19:26 Heparin Sodium/ Dextrose 500 ml @ 20.88 mls/ hr CONT PRN IV SEE I/O 12/16/18 18:45 12/16/18 19:35 Lorazepam (Ativan Inj) 2 mg PRN Q1HR PRN IV PER PROTOCOL 12/16/18 22:45 12/16/18 23:10 Labetalol HCl (Normodyne Iv Push) 20 mg PRN Q2HR PRN IVP HYPERTENSION 12/16/18 22:45 12/16/18 23:04 Propofol 100 ml @ 1.225 mls/ hr CONT PRN IV SEE I/O RECORD 12/17/18 00:15 12/17/18 06:20 Albuterol/ Ipratropium (Duoneb) 3 ml RTQID NEB 12/17/18 08:00 12/17/18 07:41 Info (Anti-Coagulation Monitoring By Pharmacy) 1 each PRN DAILY PRN MC SEE COMMENTS 12/17/18 08:00 12/17/18 07:59 GEETHA TAYLOR III DO Dec 17, 2018 12:27
[2018-12-17] MEDS ORDERED: PANTOPRAZOLE 40 MG TABLET.DR. PO SCH (12:30)
[2018-12-17] MEDS: INSULIN LISPRO 300 UNITS/3 ML VIAL. SQ SCH ×2 (12:30→19:25)
--- NOTE | 2018-12-17 13:23 | PDOC2 ---
CONSULT Date of Consult Date of Consult DATE: 12/17/18 TIME: 13:17 Reason for Consult Reason for Consult: Respiratory failure, coronary artery disease Referring Physician Referring Physician: Dr. Hodge Identification/Chief Complaint Chief Complaint Chest pain and shortness of breath Source Source: Chart review History of Present Illness Reason for Visit: The patient is a 58-year-old male with a history of coronary artery disease and stenting, COPD and end-stage renal disease on hemodialysis. He reportedly developed chest discomfort while at his dialysis center and was transferred to the emergency room. In the emergency room the patient was in acute respiratory failure and was intubated and placed on a ventilator. EKG showed no acute EKG changes consistent with an ST elevated myocardial infarction and troponins have been negative �[address] head scan showed no acute changes. The patient has remained on a ventilator overnight and is being evaluated by the pulmonary service and the renal service. His rhythm has remained stable. Most recent echocardiogram from February 2018 showed an ejection fraction of 65% and no significant valvular abnormalities. Past Medical History Cardiovascular: AFIB, CAD, HTN Pulmonary: COPD, Pulmonary embolus CENTRAL NERVOUS SYSTEM: Periperal neuropathy, Seizure GI: Constipation, GERD Heme/Onc: No pertinent hx Hepatobiliary: No pertinent hx Psych: Bipolar Musculoskeletal: Osteoarthritis Infectious disease: No pertinent hx Renal/: Chronic renal insuff, Chronic renal failure Endocrine: Diabetes Past Surgical History Past Surgical History: Pacemaker, Other (coronary stents. Hemodialysis catheter.) Family History Family History: Diabetes, Heart Disease Social History No ALCOHOL: none Drugs: Cocaine Lives: with Family Current Problem List Problem List Problems Medical Problems: (1) Abnormal EKG Status: Acute (2) Acute respiratory failure Status: Acute (3) Chest pain Status: Acute Current Medications Current Medications Current Medications Fentanyl Citrate (Fentanyl 2ml Vial) 100 mcg STK-MED ONCE .ROUTE ; Start 12/16/18 at 18:08; Stop 12/16/18 at 18:08; Status DC Midazolam HCl (Versed) 2 mg STK-MED ONCE .ROUTE ; Start 12/16/18 at 18:08; Stop 12/16/18 at 18:08; Status DC Heparin Sodium (Porcine) (Heparin Sodium) 4,000 unit 1X ONCE IV Last administered on 12/16/18at 19:26; Start 12/16/18 at 18:45; Stop 12/16/18 at 18:46; Status DC Heparin Sodium/ Dextrose 500 ml @ 20.88 mls/ hr CONT PRN IV SEE I/O Last administered on 12/16/18at 19:35; Start 12/16/18 at 18:45 Heparin Sodium (Porcine) (Heparin Sodium) 2,200 unit PRN Q6HRS PRN IV FOR UFH LEVEL LESS THAN 0.2; Start 12/16/18 at 18:45 Etomidate (Amidate) 20 mg STK-MED ONCE IV ; Start 12/16/18 at 18:42; Stop 12/16/18 at 18:42; Status DC Vecuronium [place] (Norcuron Bolus) 10 mg STK-MED ONCE IV ; Start 12/16/18 at 18:42; Stop 12/16/18 at 18:42; Status DC Lorazepam (Ativan Inj) 2 mg PRN Q1HR PRN IV PER PROTOCOL Last administered on 12/16/18at 23:10; Start 12/16/18 at 22:45 Nicardipine HCl 50 mg/Sodium Chloride 250 ml @ 25 mls/hr CONT PRN IV SEE I/O RECORD; Start 12/16/18 at 22:45 Labetalol HCl (Normodyne Iv Push) 20 mg PRN Q2HR PRN IVP HYPERTENSION Last administered on 12/16/18at 23:04; Start 12/16/18 at 22:45 Propofol 100 ml @ 1.225 mls/ hr CONT PRN IV SEE I/O RECORD Last administered on 12/17/18at 06:20; Start 12/17/18 at 00:15 Albuterol/ Ipratropium (Duoneb) 3 ml RTQID NEB Last administered on 12/17/18at 12:36; Start 12/17/18 at 08:00 Iohexol (Omnipaque 350 Mg/ml) 100 ml 1X ONCE IV ; Start 12/17/18 at 08:00; Stop 12/17/18 at 08:01; Status DC Info (CONTRAST GIVEN -- Rx MONITORING) 1 each PRN DAILY PRN MC SEE COMMENTS; Start 12/17/18 at 08:00; Stop 12/19/18 at 07:59 Info (Anti-Coagulation Monitoring By Pharmacy) 1 each PRN DAILY PRN MC SEE COMMENTS Last administered on 12/17/18at 07:59; Start 12/17/18 at 08:00 Aspirin (Children'S Aspirin) 81 mg DAILY PO ; Start 12/17/18 at 12:30 Atorvastatin Calcium (Lipitor) 40 mg QHS PO ; Start 12/17/18 at 21:00 Divalproex Sodium (Depakote Er) 250 mg HS PO ; Start 12/17/18 at 21:00 Gabapentin (Neurontin) 300 mg DAILY PO ; Start 12/17/18 at 12:30 Non-Formulary Medication (Brivaracetam (Briviact)) 75 mg DAILY PO ; Start 12/18/18 at 09:00; Status UNV Calcium Acetate (Phoslo) 667 mg BIDWMEALS PO ; Start 12/17/18 at 17:00 Carvedilol (Coreg) 6.25 mg BIDWMEALS PO ; Start 12/17/18 at 12:30 Citalopram Hydrobromide (CeleXA) 20 mg DAILY PO ; Start 12/17/18 at 12:30 Insulin Human Lispro (HumaLOG) 3 units TIDWMEALS SQ ; Start 12/17/18 at 12:30 Insulin Glargine (Lantus Syringe) 6 unit QHS SQ ; Start 12/17/18 at 21:00 Non-Formulary Medication (Linaclotide (Linzess)) 72 mg DAILY07 PO ; Start 12/18/18 at 07:00; Status UNV Nifedipine (Procardia Xl) 60 mg DAILY PO ; Start 12/18/18 at 09:00; Status UNV Pantoprazole Sodium (Protonix) 40 mg DAILYAC PO ; Start 12/17/18 at 12:30; Stop 12/17/18 at 12:07; Status DC Lansoprazole (Prevacid) 30 mg DAILYAC FT ; Start 12/17/18 at 12:30 Active Scripts Active Miralax (Polyethylene Glycol 3350) 17 Gm Powd.pack 1 Packet PO DAILY 30 Days Amitiza (Lubiprostone) 24 Mcg Capsule 1 Cap PO BID 30 Days Hydrocodone-Apap 5-325 (Hydrocodone Bit/Acetaminophen) 1 Each Tablet 1 Tab PO PRN Q6HRS PRN Reported Aspirin 81 Mg Tab.chew 1 Tab PO DAILY Novolog Flexpen (Insulin Aspart) 100 Unit/1 Ml Insuln.pen 3 Unit SQ TIDAC Lantus Solostar (Insulin Glargine,Hum.rec.anlog) 100 Unit/1 Ml Insuln.pen 6 Unit SQ HS Linzess (Linaclotide) 145 Mcg Capsule 72 Mg PO DAILY07 Calcium Acetate 667 Mg Tablet 667 Mg PO BID Divalproex Sodium Er (Divalproex Sodium) 250 Mg Tab.er.24h 250 Mg PO HS Escitalopram Oxalate 10 Mg Tablet 1 Tab PO DAILY Briviact (Brivaracetam) 75 Mg Tablet 75 Mg PO DAILY Percocet 7.5-325 Mg Tablet (Oxycodone/Acetaminophen) 1 Each Tablet 1 Tab PO PRN TID PRN Sennosides-Docusate Sodium Tab (Sennosides/Docusate Sodium) 1 Each Tablet 1 Each PO HS Ondansetron Odt (Ondansetron) 4 Mg Tab.rapdis 1 Tab PO PRN Q8HRS PRN Anusol-Hc (Hydrocortisone Acetate) 25 Mg Supp.rect 1 Supp RC PRN BID PRN Protonix (Pantoprazole Sodium) 20 Mg Tablet.dr 40 Mg PO DAILY Gabapentin 300 Mg Capsule 300 Mg PO DAILY Nifedipine Er (Nifedipine) 60 Mg Tab.er.24 60 Mg PO DAILY Proventil Hfa Inhaler (Albuterol Sulfate) 6.7 Gm Hfa.aer.ad 1 Puff IH PRN Q4HRS PRN Atorvastatin Calcium 40 Mg Tablet 1 Tab PO DAILY Carvedilol 25 Mg Tablet 6.25 Mg PO BIDWMEALS Allergies Allergies: Coded Allergies: No Known Medication Allergies (Verified Allergy, Unknown, 06/23/15) ROS Review of System The patient is intubated. Physical Exam General: Other (intubated and sedated) Lungs: Other (decreased breath sounds) Heart: Regular rate Abdomen: Normal bowel sounds Vitals VITALS Vital Signs Date Time Temp Pulse Resp B/P (MAP) Pulse Ox O2 Delivery O2 Flow Rate FiO2 12/17/18 13:00 69 14 146/81 (102) 100 Ventilator 12/17/18 12:00 98.5 98.5 12/16/18 17:48 15.0 Labs Labs Laboratory Tests Test 12/16/18 18:00 12/16/18 20:05 12/16/18 22:30 12/17/18 04:00 White Blood Count 6.0 x10^3/uL (4.0-11.0) 5.2 x10^3/uL (4.0-11.0) Red Blood Count 4.16 x10^6/uL (4.30-5.70) 3.91 x10^6/uL (4.30-5.70) Hemoglobin 13.1 g/dL (13.0-17.5) 12.2 g/dL (13.0-17.5) Hematocrit 38.1 % (39.0-53.0) 36.1 % (39.0-53.0) Mean Corpuscular Volume 92 fL (79-100) 92 fL (79-100) Mean Corpuscular Hemoglobin 32 pg (25-35) 31 pg (25-35) Mean Corpuscular Hemoglobin Concent 35 g/dL (31-37) 34 g/dL (31-37) Red Cell Distribution Width 15.3 % (11.5-14.5) 15.3 % (11.5-14.5) Platelet Count 275 x10^3/uL (140-400) 242 x10^3/uL (140-400) Neutrophils (%) (Auto) 50 % (31-73) 52 % (31-73) Lymphocytes (%) (Auto) 36 % (24-48) 37 % (24-48) Monocytes (%) (Auto) 11 % (0-9) 11 % (0-9) Eosinophils (%) (Auto) 1 % (0-3) 1 % (0-3) Basophils (%) (Auto) 1 % (0-3) 1 % (0-3) Neutrophils # (Auto) 3.0 x10^3/uL (1.8-7.7) 2.7 x10^3/uL (1.8-7.7) Lymphocytes # (Auto) 2.2 x10^3/uL (1.0-4.8) 1.9 x10^3/uL (1.0-4.8) Monocytes # (Auto) 0.7 x10^3/uL (0.0-1.1) 0.6 x10^3/uL (0.0-1.1) Eosinophils # (Auto) 0.1 x10^3/uL (0.0-0.7) 0.0 x10^3/uL (0.0-0.7) Basophils # (Auto) 0.0 x10^3/uL (0.0-0.2) 0.0 x10^3/uL (0.0-0.2) Sodium Level 139 mmol/L (136-145) 142 mmol/L (136-145) Potassium Level 3.3 mmol/L (3.5-5.1) 3.3 mmol/L (3.5-5.1) Chloride Level 103 mmol/L (98-107) 104 mmol/L (98-107) Carbon Dioxide Level 27 mmol/L (21-32) 23 mmol/L (21-32) Anion Gap 9 (6-14) 15 (6-14) Blood Urea Nitrogen 20 mg/dL (8-26) 28 mg/dL (8-26) Creatinine 2.6 mg/dL (0.7-1.3) 3.4 mg/dL (0.7-1.3) Estimated GFR (Cockcroft-Gault) 30.6 22.5 BUN/Creatinine Ratio 8 (6-20) Glucose Level 171 mg/dL (70-99) 196 mg/dL (70-99) Calcium Level 9.0 mg/dL (8.5-10.1) 8.9 mg/dL (8.5-10.1) Magnesium Level 1.6 mg/dL (1.8-2.4) Total Bilirubin 0.4 mg/dL (0.2-1.0) Aspartate Amino Transf (AST/SGOT) 36 U/L (15-37) Alanine Aminotransferase (ALT/SGPT) 27 U/L (16-63) Alkaline Phosphatase 78 U/L (46-116) Troponin I Quantitative < 0.017 ng/mL (0.000-0.055) < 0.017 ng/mL (0.000-0.055) < 0.017 ng/mL (0.000-0.055) VA-Tme-J-Type Natriuretic Peptide 6341 pg/mL (0-124) Total Protein 7.8 g/dL (6.4-8.2) Albumin 3.2 g/dL (3.4-5.0) Albumin/Globulin Ratio 0.7 (1.0-1.7) O2 Saturation 89 % (92-99) Arterial Blood pH 7.47 (7.35-7.45) Arterial Blood pCO2 at Patient Temp 34 mmHg (35-46) Arterial Blood pO2 at Patient Temp 51 mmHg (65-108) Arterial Blood HCO3 24 mmol/L (21-28) Arterial Blood Base Excess 1 mmol/L (-3-3) FiO2 80 Heparin Anti-Xa Act, Unfractionated 0.30 IU/mL (0.30-0.70) Test 12/17/18 07:40 12/17/18 11:05 O2 Saturation 99 % (92-99) Arterial Blood pH 7.53 (7.35-7.45) Arterial Blood pCO2 at Patient Temp 27 mmHg (35-46) Arterial Blood pO2 at Patient Temp 302 mmHg (65-108) Arterial Blood HCO3 22 mmol/L (21-28) Arterial Blood Base Excess 0 mmol/L (-3-3) FiO2 60 Heparin Anti-Xa Act, Unfractionated 0.45 IU/mL (0.30-0.70) Laboratory Tests Test 12/16/18 18:00 12/16/18 20:05 12/16/18 22:30 12/17/18 04:00 White Blood Count 6.0 x10^3/uL (4.0-11.0) 5.2 x10^3/uL (4.0-11.0) Red Blood Count 4.16 x10^6/uL (4.30-5.70) 3.91 x10^6/uL (4.30-5.70) Hemoglobin 13.1 g/dL (13.0-17.5) 12.2 g/dL (13.0-17.5) Hematocrit 38.1 % (39.0-53.0) 36.1 % (39.0-53.0) Mean Corpuscular Volume 92 fL (79-100) 92 fL (79-100) Mean Corpuscular Hemoglobin 32 pg (25-35) 31 pg (25-35) Mean Corpuscular Hemoglobin Concent 35 g/dL (31-37) 34 g/dL (31-37) Red Cell Distribution Width 15.3 % (11.5-14.5) 15.3 % (11.5-14.5) Platelet Count 275 x10^3/uL (140-400) 242 x10^3/uL (140-400) Neutrophils (%) (Auto) 50 % (31-73) 52 % (31-73) Lymphocytes (%) (Auto) 36 % (24-48) 37 % (24-48) Monocytes (%) (Auto) 11 % (0-9) 11 % (0-9) Eosinophils (%) (Auto) 1 % (0-3) 1 % (0-3) Basophils (%) (Auto) 1 % (0-3) 1 % (0-3) Neutrophils # (Auto) 3.0 x10^3/uL (1.8-7.7) 2.7 x10^3/uL (1.8-7.7) Lymphocytes # (Auto) 2.2 x10^3/uL (1.0-4.8) 1.9 x10^3/uL (1.0-4.8) Monocytes # (Auto) 0.7 x10^3/uL (0.0-1.1) 0.6 x10^3/uL (0.0-1.1) Eosinophils # (Auto) 0.1 x10^3/uL (0.0-0.7) 0.0 x10^3/uL (0.0-0.7) Basophils # (Auto) 0.0 x10^3/uL (0.0-0.2) 0.0 x10^3/uL (0.0-0.2) Sodium Level 139 mmol/L (136-145) 142 mmol/L (136-145) Potassium Level 3.3 mmol/L (3.5-5.1) 3.3 mmol/L (3.5-5.1) Chloride Level 103 mmol/L (98-107) 104 mmol/L (98-107) Carbon Dioxide Level 27 mmol/L (21-32) 23 mmol/L (21-32) Anion Gap 9 (6-14) 15 (6-14) Blood Urea Nitrogen 20 mg/dL (8-26) 28 mg/dL (8-26) Creatinine 2.6 mg/dL (0.7-1.3) 3.4 mg/dL (0.7-1.3) Estimated GFR (Cockcroft-Gault) 30.6 22.5 BUN/Creatinine Ratio 8 (6-20) Glucose Level 171 mg/dL (70-99) 196 mg/dL (70-99) Calcium Level 9.0 mg/dL (8.5-10.1) 8.9 mg/dL (8.5-10.1) Magnesium Level 1.6 mg/dL (1.8-2.4) Total Bilirubin 0.4 mg/dL (0.2-1.0) Aspartate Amino Transf (AST/SGOT) 36 U/L (15-37) Alanine Aminotransferase (ALT/SGPT) 27 U/L (16-63) Alkaline Phosphatase 78 U/L (46-116) Troponin I Quantitative < 0.017 ng/mL (0.000-0.055) < 0.017 ng/mL (0.000-0.055) < 0.017 ng/mL (0.000-0.055) RF-Ret-D-Type Natriuretic Peptide 6341 pg/mL (0-124) Total Protein 7.8 g/dL (6.4-8.2) Albumin 3.2 g/dL (3.4-5.0) Albumin/Globulin Ratio 0.7 (1.0-1.7) O2 Saturation 89 % (92-99) Arterial Blood pH 7.47 (7.35-7.45) Arterial Blood pCO2 at Patient Temp 34 mmHg (35-46) Arterial Blood pO2 at Patient Temp 51 mmHg (65-108) Arterial Blood HCO3 24 mmol/L (21-28) Arterial Blood Base Excess 1 mmol/L (-3-3) FiO2 80 Heparin Anti-Xa Act, Unfractionated 0.30 IU/mL (0.30-0.70) Test 12/17/18 07:40 12/17/18 11:05 O2 Saturation 99 % (92-99) Arterial Blood pH 7.53 (7.35-7.45) Arterial Blood pCO2 at Patient Temp 27 mmHg (35-46) Arterial Blood pO2 at Patient Temp 302 mmHg (65-108) Arterial Blood HCO3 22 mmol/L (21-28) Arterial Blood Base Excess 0 mmol/L (-3-3) FiO2 60 Heparin Anti-Xa Act, Unfractionated 0.45 IU/mL (0.30-0.70) Images Images CT head scan with no acute changes. Assessment/Plan Assessment/Plan 1. Respiratory failure. History of severe COPD. Patient intubated on a ventil ator. Pulmonary following. CT chest scan pending. 2. Reported chest pain. No EKG changes of an acute ST elevated myocardial inf arction. Troponin have been normal �3. History of coronary artery disease and stenting. We'll continue present medications. We'll check an echocardiogram for LV function. 3. History of atrial fibrillation and permanent pacing. We'll obtain the credit risk manager and interrogate the device. 4. End-stage renal disease. Hemodialysis as per the renal service. 5. Diabetes mellitus. As per the primary service. 6. Hypertension. Controlled. 7. History of previous CVA. Thank you for allowing us to participate in the care of your patient. TOBY HOFFMAN MD Dec 17, 2018 13:23
[2018-12-17] MEDS: amLODIPine BESYLATE 10 MG TABLET PO SCH (13:26)
[2018-12-17] MEDS: LANSOPRAZOLE 30 MG TAB.RAP.DR FT SCH (13:26)
[2018-12-17] MEDS: ASPIRIN CHEWABLE 81 MG TABLET. PO SCH (13:26)
[2018-12-17] MEDS: CITALOPRAM 20 MG TABLET. PO SCH (13:26)
[2018-12-17] MEDS: GABAPENTIN 300 MG CAPSULE. PO SCH (13:27)
[2018-12-17] MEDS: CARVEDILOL 6.25 MG TABLET. PO SCH ×2 (13:27→19:19)
[2018-12-17] MEDS ORDERED: IV NORMAL SALINE 1000ML BAG 1,000 ML IV PRN ×2 (13:54)
[2018-12-17] MEDS ORDERED: 0.9 % SODIUM CHLORIDE 10 ML DISP.SYRIN. IV PRN ×2 (14:00)
[2018-12-17] MEDS ORDERED: ALBUMIN HUMAN 25% 200 ML IV PRN (14:00)
[2018-12-17] MEDS ORDERED: diphenhydrAMINE 50 MG/ML VIAL IV PRN ×2 (14:00)
[2018-12-17] MEDS ORDERED: DIALYSIS PATIENT. MC PRN (14:00)
[2018-12-17] MEDS ORDERED: ACETAMINOPHEN 500 MG TABLET PO PRN (14:00)
--- NOTE | 2018-12-17 14:00 | NUR ---
Spoke with Dr Pyle about discontinuing Heparin gtt. Dr. Pyle wants to keep heparin gtt infusing until the morning and will re evaluate.
[2018-12-17] MEDS ORDERED: POTASSIUM BICARB 20 MEQ EFFERVESCENT TABLET. PO ONE (14:30)
--- NOTE | 2018-12-17 14:54 | CONS ---
DATE OF CONSULTATION: REQUESTING PHYSICIAN: Hospitalist. REASON FOR CONSULTATION: Renal failure. HISTORY OF PRESENT ILLNESS: This is a 58-year-old gentleman with history of end-stage renal disease. He has been on dialysis since June of 2018. He has multiple hospitalizations during that time course. Currently admitted with chest pain, it has just occurred during his dialysis treatment. He was brought to the hospital and admitted to the Emergency Department. Evaluation at this point, he has not revealed etiology. Does not appear to be an acute cardiac event and CT angiogram was unremarkable for pulmonary embolus. PAST MEDICAL HISTORY: Hypertension, end-stage renal disease, hemodialysis-dependent, anemia of chronic kidney disease, secondary hyperparathyroidism, renal disease, atrial fibrillation, coronary artery stenting, COPD, hyperlipidemia and syncope. ALLERGIES: None. MEDICATIONS: Reviewed per medication list. FAMILY HISTORY: Noncontributory. SOCIAL HISTORY: The patient is , resides with his . REVIEW OF SYSTEMS: Unobtainable, the patient is intubated and sedated. PHYSICAL EXAMINATION: GENERAL APPEARANCE: The patient intubated and sedated. HEENT: Clear. NECK: No increased JVD. No thyromegaly, mass, or adenopathy. LUNGS: Clear. CARDIAC: Without S3 or rub. ABDOMEN: Soft, nontender, no bruits. EXTREMITIES: Without edema. NEUROLOGY/PSYCHIATRIC: Sedated. LABORATORY DATA: Hemoglobin 12.2 and white count is 5.2. Sodium 142, potassium 3.3, chloride 104, CO2 23, BUN 28, creatinine 3.4 and GFR is 22.5. Head CT, no acute intracranial hemorrhage. CT angiogram of chest, no pulmonary embolism, small pericardial effusion. IMPRESSION: 1. End-stage renal disease secondary to hypertensive nephrosclerosis. 2. Chest pain, unclear etiology. He has had mild pericardial effusion. Could raise the possibility of pericarditis. RECOMMENDATIONS: 1. Ongoing dialysis Tuesday, and Tuesday. 2. Pulmonary management. 3. Further evaluation of his chest pain is indicated. We will follow. EDI HERNANDEZ MD DR: MARIZA/bonnie JOB#: [id number] / [id number]
[2018-12-17] MEDS: CALCIUM ACETATE 667 MG CAPSULE PO SCH (19:19)
[2018-12-17] MEDS: HEPARIN 25,000UTS/500ML PREMIX 500 ML IV PRN (19:26)
[2018-12-17] MEDS: DIVALPROEX EXTENDED RELEASE 250 MG TAB.ER.24H. PO SCH (21:00)
[2018-12-17] MEDS: ATORVASTATIN CALCIUM 40 MG TABLET. PO SCH (21:13)
[2018-12-17] MEDS: INSULIN GLARGINE SYRINGE. SQ SCH (21:16)
[2018-12-18] VITALS (24 sets, daily range): BP systolic 96–171; BP diastolic 62–98
[2018-12-18] MEDS: PROPOFOL 100 ML IV PRN (00:30)
[2018-12-18] MEDS: LINACLOTIDE 72 MG PO SCH (07:00)
[2018-12-18] MEDS: IPRATRPIUM/ALBUTEROL 0.5/2.5MG 3 ML NEBU. NEB SCH ×3 (07:31→19:38)
[2018-12-18 07:50] LABS: BASO % 0 % (0-3); EOS # 0.1 x10^3/uL (0.0-0.7); EOS % 1 % (0-3); HEMATOCRIT 37.7 % (39.0-53.0); HEMOGLOBIN 12.6 g/dL (13.0-17.5); LYMPH # 1.6 x10^3/uL (1.0-4.8); LYMPH % 28 % (24-48); MEAN CORPUSCULAR HEMOGLOBIN 31 pg (25-35); MEAN CORPUSCULAR HGB CONC 34 g/dL (31-37); MEAN CORPUSCULAR VOLUME 93 fL (79-100); MONO # 0.9 x10^3/uL (0.0-1.1); MONO % 15 % (0-9); NEUT # 3.1 x10^3/uL (1.8-7.7); NEUT % 56 % (31-73); PLATELET COUNT 230 x10^3/uL (140-400); RED BLOOD COUNT 4.04 x10^6/uL (4.30-5.70); RED CELL DISTRIBUTION WIDTH 15.8 % (11.5-14.5); WHITE BLOOD COUNT 5.6 x10^3/uL (4.0-11.0)
[2018-12-18 07:50] LABS: BASE EXCESS ABG 2 mmol/L (-3-3); HCO3 ABG 25 mmol/L (21-28); PCO2 ABG 35 mmHg (35-46); PO2 ABG 150 mmHg (65-108); SAT O2 ABG 99 % (92-99)
[2018-12-18 07:52] LABS: FIO2 ABG 40
[2018-12-18] MEDS: ANTI-COAG MONITOR BY PHARMACY. MC PRN (08:08)
[2018-12-18 08:19] LABS: CALCIUM 8.8 mg/dL (8.5-10.1); CREATININE 3.3 mg/dL (0.7-1.3); GFR 23.3; POTASSIUM 3.8 mmol/L (3.5-5.1)
[2018-12-18] MEDS: ASPIRIN CHEWABLE 81 MG TABLET. PO SCH (08:41)
[2018-12-18] MEDS: CALCIUM ACETATE 667 MG CAPSULE PO SCH ×2 (08:41→17:00)
[2018-12-18] MEDS: CITALOPRAM 20 MG TABLET. PO SCH (08:41)
[2018-12-18] MEDS: CARVEDILOL 6.25 MG TABLET. PO SCH ×2 (08:41→17:00)
[2018-12-18] MEDS: GABAPENTIN 300 MG CAPSULE. PO SCH (08:41)
[2018-12-18] MEDS: LANSOPRAZOLE 30 MG TAB.RAP.DR FT SCH (08:41)
[2018-12-18] MEDS: amLODIPine BESYLATE 10 MG TABLET PO SCH (08:42)
[2018-12-18] MEDS: INSULIN LISPRO 300 UNITS/3 ML VIAL. SQ SCH ×2 (08:50→17:00)
[2018-12-18] MEDS: BRIVARACETAM PO SCH ×3 (09:00→21:00)
--- NOTE | 2018-12-18 09:20 | PDOC ---
SUBJECTIVE ROS Intubated , no new concerns voiced y RN OBJECTIVE Vital Signs Vital Signs Date Time Temp Pulse Resp B/P (MAP) Pulse Ox O2 Delivery O2 Flow Rate FiO2 12/18/18 08:42 72 166/88 12/18/18 07:31 100 Ventilator 12/18/18 06:00 14 12/18/18 04:00 99.2 99.2 I & 0 Intake and Output 12/18/18 06:59 Intake Total 1649.7 ml Output Total 215 ml Balance 1434.7 ml Intake Oral 0 ml IV Total 832.7 ml Tube Feeding 417 ml Other 400 ml Output Urine Total 215 ml Gastric Drainage Total 0 ml PHYSICAL EXAM Physical Exam GENERAL: Intubated on MV HEENT:Intubated NECK: Supple, LUNGS: Clear to auscultation CHEST: right anterior chest wall hemodialysis catheter. HEART: RRR, S1, S2 present. ABDOMEN: soft EXTREMITIES: trace edema. NEUROLOGIC: sedated. SKIN: No rashes DIAGNOSIS/ASSESSMENT Assessment & Plan End-stage renal disease secondary to hypertensive nephrosclerosis. Ongoing dialysis TTS Dialyzed on 12/17 after CTA , No indication today for HD Respiratory failure. History of severe COPD. Patient intubated on a ventilator. Pulmonary following. CT chest scan pending. Chest pain. No EKG changes of an acute ST elevated myocardial infarction. History of coronary artery disease and stenting. Cardiology following History of atrial fibrillation and permanent pacing Diabetes mellitus. As per the primary service. Hypertension. Controlled. History of previous CVA. COMMENT/RELEVANT DATA Meds Current Medications Medications (Trade) Dose Ordered Sig/Lien Start Time Stop Time Status Last Admin Dose Admin Acetaminophen (Tylenol) 500 mg 1X PRN PRN 12/17/18 14:00 12/18/18 13:59 Albumin Human 200 ml @ 200 mls/hr 1X PRN PRN 12/17/18 14:00 12/17/18 19:59 DC Albuterol/ Ipratropium (Duoneb) 3 ml RTQID 12/17/18 08:00 12/18/18 07:31 3 ML Amlodipine Besylate (Norvasc) 10 mg DAILY 12/17/18 13:30 12/18/18 08:42 10 MG Aspirin (Children'S Aspirin) 81 mg DAILY 12/17/18 12:30 12/18/18 08:41 81 MG Atorvastatin Calcium (Lipitor) 40 mg QHS 12/17/18 21:00 12/17/18 21:13 40 MG Calcium Acetate (Phoslo) 667 mg BIDWMEALS 12/17/18 17:00 12/18/18 08:41 667 MG Carvedilol (Coreg) 6.25 mg BIDWMEALS 12/17/18 12:30 12/18/18 08:41 6.25 MG Citalopram Hydrobromide (CeleXA) 20 mg DAILY 12/17/18 12:30 12/18/18 08:41 20 MG Diphenhydramine HCl (Benadryl) 25 mg 1X PRN PRN 12/17/18 14:00 12/18/18 13:59 Divalproex Sodium (Depakote Er) 250 mg HS 12/17/18 21:00 Etomidate (Amidate) 20 mg STK-MED ONCE 12/16/18 18:42 12/16/18 18:42 DC Fentanyl Citrate (Fentanyl 2ml Vial) 100 mcg STK-MED ONCE 12/16/18 18:08 12/16/18 18:08 DC Gabapentin (Neurontin) 300 mg DAILY 12/17/18 12:30 12/18/18 08:41 300 MG Heparin Sodium (Porcine) (Heparin Sodium) 2,200 unit PRN Q6HRS PRN 12/16/18 18:45 Heparin Sodium/ Dextrose 500 ml @ 20.88 mls/ hr CONT PRN 12/16/18 18:45 12/17/18 19:26 20.88 MLS/HR Info (Anti-Coagulation Monitoring By Pharmacy) 1 each PRN DAILY PRN 12/17/18 08:00 12/18/18 08:08 1 EACH Info (CONTRAST GIVEN -- Rx MONITORING) 1 each PRN DAILY PRN 12/17/18 08:00 12/19/18 07:59 Info (PHARMACY MONITORING -- do not chart) 1 each PRN DAILY PRN 12/17/18 14:00 Insulin Glargine (Lantus Syringe) 6 unit QHS 12/17/18 21:00 12/17/18 21:16 6 UNIT Insulin Human Lispro (HumaLOG) 3 units TIDWMEALS 12/17/18 12:30 12/18/18 08:50 3 UNITS Iohexol (Omnipaque 350 Mg/ml) 100 ml 1X ONCE 12/17/18 08:00 12/17/18 08:01 DC Labetalol HCl (Normodyne Iv Push) 20 mg PRN Q2HR PRN 12/16/18 22:45 12/16/18 23:04 20 MG Lansoprazole (Prevacid) 30 mg DAILYAC 12/17/18 12:30 12/18/18 08:41 30 MG Lorazepam (Ativan Inj) 2 mg PRN Q1HR PRN 12/16/18 22:45 12/16/18 23:10 2 MG Midazolam HCl (Versed) 2 mg STK-MED ONCE 12/16/18 18:08 12/16/18 18:08 DC Nicardipine HCl 50 mg/Sodium Chloride 250 ml @ 25 mls/hr CONT PRN 12/16/18 22:45 Nifedipine (Procardia Xl) 60 mg DAILY 12/18/18 09:00 UNV Non-Formulary Medication (Brivaracetam (Briviact)) 75 mg DAILY 12/18/18 09:00 UNV Non-Formulary Medication (Linaclotide (Linzess)) 72 mg DAILY07 12/18/18 07:00 UNV Pantoprazole Sodium (Protonix) 40 mg DAILYAC 12/17/18 12:30 12/17/18 12:07 DC Potassium Bicarbonate (Potassium Effervescent Tablet) 40 meq 1X ONCE 12/17/18 14:30 12/17/18 14:31 DC 12/17/18 15:00 40 MEQ Propofol 100 ml @ 1.225 mls/ hr CONT PRN 12/17/18 00:15 12/18/18 00:30 12.247 MLS/HR Sodium Chloride 1,000 ml @ 400 mls/hr Q2H30M PRN 12/17/18 13:54 12/18/18 01:53 DC Sodium Chloride (Normal Saline Flush) 10 ml 1X PRN PRN 12/17/18 14:00 12/18/18 13:59 Vecuronium [place] (Norcuron Bolus) 10 mg STK-MED ONCE 12/16/18 18:42 12/16/18 18:42 DC Lab Laboratory Tests Test 12/17/18 11:05 12/17/18 17:00 12/17/18 19:22 12/17/18 21:16 Heparin Anti-Xa Act, Unfractionated 0.45 IU/mL (0.30-0.70) Hepatitis B Surface Antigen Nonreactive (Nonreactive) Glucose (Fingerstick) 169 mg/dL (70-99) 148 mg/dL (70-99) Test 12/18/18 04:35 12/18/18 07:30 12/18/18 08:40 White Blood Count 5.6 x10^3/uL (4.0-11.0) Red Blood Count 4.04 x10^6/uL (4.30-5.70) Hemoglobin 12.6 g/dL (13.0-17.5) Hematocrit 37.7 % (39.0-53.0) Mean Corpuscular Volume 93 fL (79-100) Mean Corpuscular Hemoglobin 31 pg (25-35) Mean Corpuscular Hemoglobin Concent 34 g/dL (31-37) Red Cell Distribution Width 15.8 % (11.5-14.5) Platelet Count 230 x10^3/uL (140-400) Neutrophils (%) (Auto) 56 % (31-73) Lymphocytes (%) (Auto) 28 % (24-48) Monocytes (%) (Auto) 15 % (0-9) Eosinophils (%) (Auto) 1 % (0-3) Basophils (%) (Auto) 0 % (0-3) Neutrophils # (Auto) 3.1 x10^3/uL (1.8-7.7) Lymphocytes # (Auto) 1.6 x10^3/uL (1.0-4.8) Monocytes # (Auto) 0.9 x10^3/uL (0.0-1.1) Eosinophils # (Auto) 0.1 x10^3/uL (0.0-0.7) Basophils # (Auto) 0.0 x10^3/uL (0.0-0.2) Heparin Anti-Xa Act, Unfractionated 0.68 IU/mL (0.30-0.70) Sodium Level 139 mmol/L (136-145) Potassium Level 3.8 mmol/L (3.5-5.1) Chloride Level 101 mmol/L (98-107) Carbon Dioxide Level 30 mmol/L (21-32) Anion Gap 8 (6-14) Blood Urea Nitrogen 23 mg/dL (8-26) Creatinine 3.3 mg/dL (0.7-1.3) Estimated GFR (Cockcroft-Gault) 23.3 Glucose Level 133 mg/dL (70-99) Calcium Level 8.8 mg/dL (8.5-10.1) O2 Saturation 99 % (92-99) Arterial Blood pH 7.48 (7.35-7.45) Arterial Blood pCO2 at Patient Temp 35 mmHg (35-46) Arterial Blood pO2 at Patient Temp 150 mmHg (65-108) Arterial Blood HCO3 25 mmol/L (21-28) Arterial Blood Base Excess 2 mmol/L (-3-3) FiO2 40 Glucose (Fingerstick) 167 mg/dL (70-99) Results All relevant outside records, renal labs, imaging studies, telemetry/EKG's were reviewed. JOY CELIS MD Dec 18, 2018 09:20
--- NOTE | 2018-12-18 09:42 | NUR ---
Home medications not on formulary non administered due to medications not being here. is supposed to bring medications from home for pharmacy to label. Will re assess
--- NOTE | 2018-12-18 09:48 | PDOC ---
PULMONARY PROGRESS NOTES Subjective remains intubated/sedated/ has been agitated Vitals Vital Signs Date Time Temp Pulse Resp B/P (MAP) Pulse Ox O2 Delivery O2 Flow Rate FiO2 12/18/18 09:00 70 14 160/84 (109) 100 Ventilator 12/18/18 08:00 99.3 99.3 General: No acute distress Lungs: Clear Cardiovascular: S1, S2 Abdomen: Soft, Non-tender Extremities: No Edema Skin: Warm Labs Laboratory Tests Test 12/16/18 18:00 12/16/18 20:05 12/16/18 22:30 12/17/18 04:00 White Blood Count 6.0 x10^3/uL (4.0-11.0) 5.2 x10^3/uL (4.0-11.0) Red Blood Count 4.16 x10^6/uL (4.30-5.70) 3.91 x10^6/uL (4.30-5.70) Hemoglobin 13.1 g/dL (13.0-17.5) 12.2 g/dL (13.0-17.5) Hematocrit 38.1 % (39.0-53.0) 36.1 % (39.0-53.0) Mean Corpuscular Volume 92 fL (79-100) 92 fL (79-100) Mean Corpuscular Hemoglobin 32 pg (25-35) 31 pg (25-35) Mean Corpuscular Hemoglobin Concent 35 g/dL (31-37) 34 g/dL (31-37) Red Cell Distribution Width 15.3 % (11.5-14.5) 15.3 % (11.5-14.5) Platelet Count 275 x10^3/uL (140-400) 242 x10^3/uL (140-400) Neutrophils (%) (Auto) 50 % (31-73) 52 % (31-73) Lymphocytes (%) (Auto) 36 % (24-48) 37 % (24-48) Monocytes (%) (Auto) 11 % (0-9) 11 % (0-9) Eosinophils (%) (Auto) 1 % (0-3) 1 % (0-3) Basophils (%) (Auto) 1 % (0-3) 1 % (0-3) Neutrophils # (Auto) 3.0 x10^3/uL (1.8-7.7) 2.7 x10^3/uL (1.8-7.7) Lymphocytes # (Auto) 2.2 x10^3/uL (1.0-4.8) 1.9 x10^3/uL (1.0-4.8) Monocytes # (Auto) 0.7 x10^3/uL (0.0-1.1) 0.6 x10^3/uL (0.0-1.1) Eosinophils # (Auto) 0.1 x10^3/uL (0.0-0.7) 0.0 x10^3/uL (0.0-0.7) Basophils # (Auto) 0.0 x10^3/uL (0.0-0.2) 0.0 x10^3/uL (0.0-0.2) Sodium Level 139 mmol/L (136-145) 142 mmol/L (136-145) Potassium Level 3.3 mmol/L (3.5-5.1) 3.3 mmol/L (3.5-5.1) Chloride Level 103 mmol/L (98-107) 104 mmol/L (98-107) Carbon Dioxide Level 27 mmol/L (21-32) 23 mmol/L (21-32) Anion Gap 9 (6-14) 15 (6-14) Blood Urea Nitrogen 20 mg/dL (8-26) 28 mg/dL (8-26) Creatinine 2.6 mg/dL (0.7-1.3) 3.4 mg/dL (0.7-1.3) Estimated GFR (Cockcroft-Gault) 30.6 22.5 BUN/Creatinine Ratio 8 (6-20) Glucose Level 171 mg/dL (70-99) 196 mg/dL (70-99) Calcium Level 9.0 mg/dL (8.5-10.1) 8.9 mg/dL (8.5-10.1) Magnesium Level 1.6 mg/dL (1.8-2.4) Total Bilirubin 0.4 mg/dL (0.2-1.0) Aspartate Amino Transf (AST/SGOT) 36 U/L (15-37) Alanine Aminotransferase (ALT/SGPT) 27 U/L (16-63) Alkaline Phosphatase 78 U/L (46-116) Troponin I Quantitative < 0.017 ng/mL (0.000-0.055) < 0.017 ng/mL (0.000-0.055) < 0.017 ng/mL (0.000-0.055) EN-Tjq-O-Type Natriuretic Peptide 6341 pg/mL (0-124) Total Protein 7.8 g/dL (6.4-8.2) Albumin 3.2 g/dL (3.4-5.0) Albumin/Globulin Ratio 0.7 (1.0-1.7) O2 Saturation 89 % (92-99) Arterial Blood pH 7.47 (7.35-7.45) Arterial Blood pCO2 at Patient Temp 34 mmHg (35-46) Arterial Blood pO2 at Patient Temp 51 mmHg (65-108) Arterial Blood HCO3 24 mmol/L (21-28) Arterial Blood Base Excess 1 mmol/L (-3-3) FiO2 80 Heparin Anti-Xa Act, Unfractionated 0.30 IU/mL (0.30-0.70) Test 12/17/18 07:40 12/17/18 11:05 12/17/18 17:00 12/17/18 19:22 O2 Saturation 99 % (92-99) Arterial Blood pH 7.53 (7.35-7.45) Arterial Blood pCO2 at Patient Temp 27 mmHg (35-46) Arterial Blood pO2 at Patient Temp 302 mmHg (65-108) Arterial Blood HCO3 22 mmol/L (21-28) Arterial Blood Base Excess 0 mmol/L (-3-3) FiO2 60 Heparin Anti-Xa Act, Unfractionated 0.45 IU/mL (0.30-0.70) Hepatitis B Surface Antigen Nonreactive (Nonreactive) Glucose (Fingerstick) 169 mg/dL (70-99) Test 12/17/18 21:16 12/18/18 04:35 12/18/18 07:30 12/18/18 08:40 Glucose (Fingerstick) 148 mg/dL (70-99) 167 mg/dL (70-99) White Blood Count 5.6 x10^3/uL (4.0-11.0) Red Blood Count 4.04 x10^6/uL (4.30-5.70) Hemoglobin 12.6 g/dL (13.0-17.5) Hematocrit 37.7 % (39.0-53.0) Mean Corpuscular Volume 93 fL (79-100) Mean Corpuscular Hemoglobin 31 pg (25-35) Mean Corpuscular Hemoglobin Concent 34 g/dL (31-37) Red Cell Distribution Width 15.8 % (11.5-14.5) Platelet Count 230 x10^3/uL (140-400) Neutrophils (%) (Auto) 56 % (31-73) Lymphocytes (%) (Auto) 28 % (24-48) Monocytes (%) (Auto) 15 % (0-9) Eosinophils (%) (Auto) 1 % (0-3) Basophils (%) (Auto) 0 % (0-3) Neutrophils # (Auto) 3.1 x10^3/uL (1.8-7.7) Lymphocytes # (Auto) 1.6 x10^3/uL (1.0-4.8) Monocytes # (Auto) 0.9 x10^3/uL (0.0-1.1) Eosinophils # (Auto) 0.1 x10^3/uL (0.0-0.7) Basophils # (Auto) 0.0 x10^3/uL (0.0-0.2) Heparin Anti-Xa Act, Unfractionated 0.68 IU/mL (0.30-0.70) Sodium Level 139 mmol/L (136-145) Potassium Level 3.8 mmol/L (3.5-5.1) Chloride Level 101 mmol/L (98-107) Carbon Dioxide Level 30 mmol/L (21-32) Anion Gap 8 (6-14) Blood Urea Nitrogen 23 mg/dL (8-26) Creatinine 3.3 mg/dL (0.7-1.3) Estimated GFR (Cockcroft-Gault) 23.3 Glucose Level 133 mg/dL (70-99) Calcium Level 8.8 mg/dL (8.5-10.1) O2 Saturation 99 % (92-99) Arterial Blood pH 7.48 (7.35-7.45) Arterial Blood pCO2 at Patient Temp 35 mmHg (35-46) Arterial Blood pO2 at Patient Temp 150 mmHg (65-108) Arterial Blood HCO3 25 mmol/L (21-28) Arterial Blood Base Excess 2 mmol/L (-3-3) FiO2 40 Laboratory Tests Test 12/17/18 11:05 12/17/18 17:00 12/17/18 19:22 12/17/18 21:16 Heparin Anti-Xa Act, Unfractionated 0.45 IU/mL (0.30-0.70) Hepatitis B Surface Antigen Nonreactive (Nonreactive) Glucose (Fingerstick) 169 mg/dL (70-99) 148 mg/dL (70-99) Test 12/18/18 04:35 12/18/18 07:30 12/18/18 08:40 White Blood Count 5.6 x10^3/uL (4.0-11.0) Red Blood Count 4.04 x10^6/uL (4.30-5.70) Hemoglobin 12.6 g/dL (13.0-17.5) Hematocrit 37.7 % (39.0-53.0) Mean Corpuscular Volume 93 fL (79-100) Mean Corpuscular Hemoglobin 31 pg (25-35) Mean Corpuscular Hemoglobin Concent 34 g/dL (31-37) Red Cell Distribution Width 15.8 % (11.5-14.5) Platelet Count 230 x10^3/uL (140-400) Neutrophils (%) (Auto) 56 % (31-73) Lymphocytes (%) (Auto) 28 % (24-48) Monocytes (%) (Auto) 15 % (0-9) Eosinophils (%) (Auto) 1 % (0-3) Basophils (%) (Auto) 0 % (0-3) Neutrophils # (Auto) 3.1 x10^3/uL (1.8-7.7) Lymphocytes # (Auto) 1.6 x10^3/uL (1.0-4.8) Monocytes # (Auto) 0.9 x10^3/uL (0.0-1.1) Eosinophils # (Auto) 0.1 x10^3/uL (0.0-0.7) Basophils # (Auto) 0.0 x10^3/uL (0.0-0.2) Heparin Anti-Xa Act, Unfractionated 0.68 IU/mL (0.30-0.70) Sodium Level 139 mmol/L (136-145) Potassium Level 3.8 mmol/L (3.5-5.1) Chloride Level 101 mmol/L (98-107) Carbon Dioxide Level 30 mmol/L (21-32) Anion Gap 8 (6-14) Blood Urea Nitrogen 23 mg/dL (8-26) Creatinine 3.3 mg/dL (0.7-1.3) Estimated GFR (Cockcroft-Gault) 23.3 Glucose Level 133 mg/dL (70-99) Calcium Level 8.8 mg/dL (8.5-10.1) O2 Saturation 99 % (92-99) Arterial Blood pH 7.48 (7.35-7.45) Arterial Blood pCO2 at Patient Temp 35 mmHg (35-46) Arterial Blood pO2 at Patient Temp 150 mmHg (65-108) Arterial Blood HCO3 25 mmol/L (21-28) Arterial Blood Base Excess 2 mmol/L (-3-3) FiO2 40 Glucose (Fingerstick) 167 mg/dL (70-99) Medications Active Scripts Medications Dose Route/Sig Max Daily Dose Days Date Category Aspirin 81 Mg Tab.chew 1 Tab PO DAILY 12/17/18 Reported Novolog Flexpen (Insulin Aspart) 100 Unit/1 Ml Insuln.pen 3 Unit SQ TIDAC 12/17/18 Reported Lantus Solostar (Insulin Glargine,Hum.rec.anlog) 100 Unit/1 Ml Insuln.pen 6 Unit SQ HS 12/17/18 Reported Linzess (Linaclotide) 145 Mcg Capsule 72 Mg PO DAILY07 12/17/18 Reported Calcium Acetate 667 Mg Tablet 667 Mg PO BID 12/17/18 Reported Divalproex Sodium Er (Divalproex Sodium) 250 Mg Tab.er.24h 250 Mg PO HS 12/17/18 Reported Escitalopram Oxalate 10 Mg Tablet 1 Tab PO DAILY 12/17/18 Reported Briviact (Brivaracetam) 75 Mg Tablet 75 Mg PO DAILY 12/17/18 Reported Miralax (Polyethylene Glycol 3350) 17 Gm Powd.pack 1 Packet PO DAILY 30 07/11/18 Rx Amitiza (Lubiprostone) 24 Mcg Capsule 1 Cap PO BID 30 07/11/18 Rx Percocet 7.5-325 Mg Tablet (Oxycodone/Acetaminophen) 1 Each Tablet 1 Tab PO PRN TID PRN 06/30/18 Reported Sennosides-Docusate Sodium Tab (Sennosides/Docusate Sodium) 1 Each Tablet 1 Each PO HS 06/30/18 Reported Ondansetron Odt (Ondansetron) 4 Mg Tab.rapdis 1 Tab PO PRN Q8HRS PRN 06/30/18 Reported Anusol-Hc (Hydrocortisone Acetate) 25 Mg Supp.rect 1 Supp RC PRN BID PRN 06/30/18 Reported Hydrocodone-Apap 5-325 (Hydrocodone Bit/Acetaminophen) 1 Each Tablet 1 Tab PO PRN Q6HRS PRN 02/24/18 Rx Protonix (Pantoprazole Sodium) 20 Mg Tablet.dr 40 Mg PO DAILY 02/20/18 Reported Gabapentin 300 Mg Capsule 300 Mg PO DAILY 02/20/18 Reported Nifedipine Er (Nifedipine) 60 Mg Tab.er.24 60 Mg PO DAILY 01/19/17 Reported Proventil Hfa Inhaler (Albuterol Sulfate) 6.7 Gm Hfa.aer.ad 1 Puff IH PRN Q4HRS PRN 01/19/17 Reported Atorvastatin Calcium 40 Mg Tablet 1 Tab PO DAILY 06/23/15 Reported Carvedilol 25 Mg Tablet 6.25 Mg PO BIDWMEALS 11/25/14 Reported Impression . 1. Acute hypoxemic respiratory failure due to encephalopathy /chronic obstructive pulmonary disease . No PE/DVT 2. Chest pain, questionable etiology.no CAD 3. Chronic obstructive pulmonary disease. 4. End-stage renal disease, on hemodialysis. 5. Hypokalemia. 6. Hypertension. 7. Diabetes mellitus. 8. History of cerebrovascular accident. 9. Coronary artery disease. 10. Paroxysmal atrial fibrillation. 11. Encephalopathy ? etiology. Plan . 1. ABG adequate/ AC mode. will dc sedation and assess MS 2. May use precedex if needed 3. CT angiogram neg for PE 4. Cardiology rec. can dc heparin pulmonary dyer 5. Lower extremity venous Doppler.neg 6. f/u cxr as needed 7. Protonix for stress ulcer prophylaxis. 8. Monitor respiratory status very closely. d/w RN/RT cct 30 min BAYRON SCHNEIDER MD Dec 18, 2018 09:48
--- NOTE | 2018-12-18 10:35 | PDOC ---
CARDIO Progress Notes Date and Time Date of Service 12/18/18 Time of Evaluation 1020 Subjective Subjective: Other (intubated ) Vitals Vitals Vital Signs Date Time Temp Pulse Resp B/P (MAP) Pulse Ox O2 Delivery O2 Flow Rate FiO2 12/18/18 10:00 74 14 125/78 (94) 100 Ventilator 12/18/18 08:00 99.3 99.3 Weight Weight [ ] Input and Output Intake and Output Intake and Output 12/18/18 07:00 Intake Total 1649.7 ml Output Total 210 ml Balance 1439.7 ml Intake Oral 0 ml IV Total 832.7 ml Tube Feeding 417 ml Other 400 ml Output Urine Total 210 ml Gastric Drainage Total 0 ml Laboratory Labs Laboratory Tests Test 12/17/18 11:05 12/17/18 17:00 12/17/18 19:22 12/17/18 21:16 Heparin Anti-Xa Act, Unfractionated 0.45 IU/mL (0.30-0.70) Hepatitis B Surface Antigen Nonreactive (Nonreactive) Glucose (Fingerstick) 169 mg/dL (70-99) 148 mg/dL (70-99) Test 12/18/18 04:35 12/18/18 07:30 12/18/18 08:40 White Blood Count 5.6 x10^3/uL (4.0-11.0) Red Blood Count 4.04 x10^6/uL (4.30-5.70) Hemoglobin 12.6 g/dL (13.0-17.5) Hematocrit 37.7 % (39.0-53.0) Mean Corpuscular Volume 93 fL (79-100) Mean Corpuscular Hemoglobin 31 pg (25-35) Mean Corpuscular Hemoglobin Concent 34 g/dL (31-37) Red Cell Distribution Width 15.8 % (11.5-14.5) Platelet Count 230 x10^3/uL (140-400) Neutrophils (%) (Auto) 56 % (31-73) Lymphocytes (%) (Auto) 28 % (24-48) Monocytes (%) (Auto) 15 % (0-9) Eosinophils (%) (Auto) 1 % (0-3) Basophils (%) (Auto) 0 % (0-3) Neutrophils # (Auto) 3.1 x10^3/uL (1.8-7.7) Lymphocytes # (Auto) 1.6 x10^3/uL (1.0-4.8) Monocytes # (Auto) 0.9 x10^3/uL (0.0-1.1) Eosinophils # (Auto) 0.1 x10^3/uL (0.0-0.7) Basophils # (Auto) 0.0 x10^3/uL (0.0-0.2) Heparin Anti-Xa Act, Unfractionated 0.68 IU/mL (0.30-0.70) Sodium Level 139 mmol/L (136-145) Potassium Level 3.8 mmol/L (3.5-5.1) Chloride Level 101 mmol/L (98-107) Carbon Dioxide Level 30 mmol/L (21-32) Anion Gap 8 (6-14) Blood Urea Nitrogen 23 mg/dL (8-26) Creatinine 3.3 mg/dL (0.7-1.3) Estimated GFR (Cockcroft-Gault) 23.3 Glucose Level 133 mg/dL (70-99) Calcium Level 8.8 mg/dL (8.5-10.1) O2 Saturation 99 % (92-99) Arterial Blood pH 7.48 (7.35-7.45) Arterial Blood pCO2 at Patient Temp 35 mmHg (35-46) Arterial Blood pO2 at Patient Temp 150 mmHg (65-108) Arterial Blood HCO3 25 mmol/L (21-28) Arterial Blood Base Excess 2 mmol/L (-3-3) FiO2 40 Glucose (Fingerstick) 167 mg/dL (70-99) Physical Exam HEENT: Neck Supple W Full Motion Chest: Symmetric LUNGS: Other (intubation with mech. ventilation ) Abdomen: Other (soft ) Extremities: No Edema Neurology: alert, follow commands Assessment Assessment 1. Acute respiratory failure with COPD; s/p intubation. CTA negative for PE. Probable extubation later todasy 2. Chest pain; AMI ruled out. Echo 02/2018 with preserved LV systolic function. 3. CAD s/p PCI/MALINDA to Dx 12/07/2018. [facility] 08/13/2016 with stent RCA and PTCA to distal LAD with BMS 4. PAFIB; on Eliquis for stroke prevention. Maintaining SR 5. SSS s/p PPM (Medtronic) 6. Accelerated hypertension; now better controlled 7. ESRD on HD 8. Hyperlipidemia; statin 9. Diabetes, II; as per PCP 10. H/o CVA 11. Hypokalemia 12. H/o substance abuse Recommendations Echo to assess LV systolic function Lipids Secondary prevention measures Medtronic interrogation Discontinue heparin gtt. Lung optimization as per pulmonary ALFREDA PICKARD APRN Dec 18, 2018 10:35
[2018-12-18 11:15] LABS: BARBITURATES NEG (NEG); BENZODIAZEPINES NEG (NEG); CANNABINOIDS NEG (NEG); COCAINE NEG (NEG); METHADONE NEG (NEG); OPIATES NEG (NEG); PHENCYCLIDINE NEG (NEG)
[2018-12-18 11:18] LABS: AMPHETAMINE/METHAMPHETAMINE NEG (NEG)
[2018-12-18 11:19] LABS: BASE EXCESS ABG 1 mmol/L (-3-3); HCO3 ABG 26 mmol/L (21-28); PCO2 ABG 40 mmHg (35-46); SAT O2 ABG 99 % (92-99)
[2018-12-18 11:20] LABS: FIO2 ABG 40
--- NOTE | 2018-12-18 11:20 | NUR ---
SS following for discharge planning. SS reviewed pt chart. Pt is from home with spouse and is currently on the vent. SS will continue to follow for discharge planning.
[2018-12-18 11:22] LABS: CHOLESTEROL/HDL RATIO 2.3
[2018-12-18 11:23] LABS: PO2 ABG 147 mmHg (65-108)
--- NOTE | 2018-12-18 11:48 | NUR ---
Briviact was brought in by and pharmacy approved so given via OG tube. Pt placed on Spontaneous trial at 1040. ABG drawn at 1110. Pt extubated at 1138. OG removed at this time as well. Pt placed on 2LNC.
--- NOTE | 2018-12-18 12:10 | PDOC ---
[employer] PROGRESS NOTE Chief Complaint Chief Complaint Chest pain Acute respiratory failure History of Present Illness History of Present Illness 12/18/18 Pt seen and examine in the ICU Was joined at bedside by and friend Spontaneous respirations with 40% FiO2 Glucose increased to 167 from 148 on 12/17 DW RN 12/17/18 Pt seen and examined in the ICU Was joined at bedside by Sedated with Diprivan On ventilation (AC 14/500/40% 5.0 PEEP) Will consult pulmonary and cardiology pH = 7.53, will decrease respiratory rate Vitals/I&O Vitals/I&O: Vital Signs Date Time Temp Pulse Resp B/P (MAP) Pulse Ox O2 Delivery O2 Flow Rate FiO2 12/18/18 11:37 Nasal Cannula 3.0 12/18/18 11:00 73 14 138/80 (99) 100 12/18/18 08:00 99.3 99.3 I & O 12/17/18 12/17/18 12/18/18 15:00 23:00 07:00 Intake Total 100 ml 534 ml 1015.7 ml Output Total 115 ml 60 ml 35 ml Balance -15 ml 474 ml 980.7 ml Physical Exam General: No acute distress, Other (Sedated) Heart: Regular rate Lungs: Clear Abdomen: Normal bowel sounds Extremities: No clubbing, No cyanosis, No edema, Normal pulses Skin: No rashes, No breakdown, No significant lesion Labs Labs: Laboratory Tests Test 12/17/18 17:00 12/17/18 19:22 12/17/18 21:16 12/18/18 04:35 Hepatitis B Surface Antigen Nonreactive (Nonreactive) Glucose (Fingerstick) 169 mg/dL (70-99) 148 mg/dL (70-99) White Blood Count 5.6 x10^3/uL (4.0-11.0) Red Blood Count 4.04 x10^6/uL (4.30-5.70) Hemoglobin 12.6 g/dL (13.0-17.5) Hematocrit 37.7 % (39.0-53.0) Mean Corpuscular Volume 93 fL (79-100) Mean Corpuscular Hemoglobin 31 pg (25-35) Mean Corpuscular Hemoglobin Concent 34 g/dL (31-37) Red Cell Distribution Width 15.8 % (11.5-14.5) Platelet Count 230 x10^3/uL (140-400) Neutrophils (%) (Auto) 56 % (31-73) Lymphocytes (%) (Auto) 28 % (24-48) Monocytes (%) (Auto) 15 % (0-9) Eosinophils (%) (Auto) 1 % (0-3) Basophils (%) (Auto) 0 % (0-3) Neutrophils # (Auto) 3.1 x10^3/uL (1.8-7.7) Lymphocytes # (Auto) 1.6 x10^3/uL (1.0-4.8) Monocytes # (Auto) 0.9 x10^3/uL (0.0-1.1) Eosinophils # (Auto) 0.1 x10^3/uL (0.0-0.7) Basophils # (Auto) 0.0 x10^3/uL (0.0-0.2) Heparin Anti-Xa Act, Unfractionated 0.68 IU/mL (0.30-0.70) Sodium Level 139 mmol/L (136-145) Potassium Level 3.8 mmol/L (3.5-5.1) Chloride Level 101 mmol/L (98-107) Carbon Dioxide Level 30 mmol/L (21-32) Anion Gap 8 (6-14) Blood Urea Nitrogen 23 mg/dL (8-26) Creatinine 3.3 mg/dL (0.7-1.3) Estimated GFR (Cockcroft-Gault) 23.3 Glucose Level 133 mg/dL (70-99) Calcium Level 8.8 mg/dL (8.5-10.1) Magnesium Level 1.8 mg/dL (1.8-2.4) Triglycerides Level 75 mg/dL (0-150) Cholesterol Level 100 mg/dL (0-200) LDL Cholesterol, Calculated 42 mg/dL (0-100) VLDL Cholesterol, Calculated 15 mg/dL (0-40) Non-HDL Cholesterol Calculated 57 mg/dL (0-129) HDL Cholesterol 43 mg/dL (40-60) Cholesterol/HDL Ratio 2.3 Test 12/18/18 07:30 12/18/18 08:40 12/18/18 10:50 12/18/18 11:10 O2 Saturation 99 % (92-99) 99 % (92-99) Arterial Blood pH 7.48 (7.35-7.45) 7.42 (7.35-7.45) Arterial Blood pCO2 at Patient Temp 35 mmHg (35-46) 40 mmHg (35-46) Arterial Blood pO2 at Patient Temp 150 mmHg (65-108) 147 mmHg (65-108) Arterial Blood HCO3 25 mmol/L (21-28) 26 mmol/L (21-28) Arterial Blood Base Excess 2 mmol/L (-3-3) 1 mmol/L (-3-3) FiO2 40 40 Glucose (Fingerstick) 167 mg/dL (70-99) Urine Opiates Screen Neg (NEG) Urine Methadone Screen Neg (NEG) Urine Barbiturates Neg (NEG) Urine Phencyclidine Screen Neg (NEG) Urine Amphetamine/Methamphetamine Neg (NEG) Urine Benzodiazepines Screen Neg (NEG) Urine Cocaine Screen Neg (NEG) Urine Cannabinoids Screen Neg (NEG) Urine Ethyl Alcohol Neg (NEG) Review of Systems Review of Systems: No nausea, no vomiting No chest pain, no shortness of breath Assessment and Plan Assessmemt and Plan Problems Medical Problems: (1) Abnormal EKG Status: Acute (2) Acute respiratory failure Status: Acute (3) Chest pain Status: Acute Assessment ESRD Respiratory failure Plan ICU monitoring Vent weaning Continue vent weaning OG feeds PT/OT DVT prophylaxis HD Nephrology following Pulmonary following Full code Total time 32 min Comment Review of Relevant I have reviewed the following items dominick (where applicable) has been applied. Medications: Current Medications Medications (Trade) Dose Ordered Sig/Lien Route PRN Reason Start Time Stop Time Status Last Admin Dose Admin Aspirin (Children'S Aspirin) 81 mg DAILY PO 12/17/18 12:30 12/18/18 08:41 Atorvastatin Calcium (Lipitor) 40 mg QHS PO 12/17/18 21:00 12/17/18 21:13 Gabapentin (Neurontin) 300 mg DAILY PO 12/17/18 12:30 12/18/18 08:41 Non-Formulary Medication (Brivaracetam (Briviact)) 75 mg BID PO 12/18/18 09:00 12/18/18 11:25 Calcium Acetate (Phoslo) 667 mg BIDWMEALS PO 12/17/18 17:00 12/18/18 08:41 Carvedilol (Coreg) 6.25 mg BIDWMEALS PO 12/17/18 12:30 12/18/18 08:41 Citalopram Hydrobromide (CeleXA) 20 mg DAILY PO 12/17/18 12:30 12/18/18 08:41 Insulin Human Lispro (HumaLOG) 3 units TIDWMEALS SQ 12/17/18 12:30 12/18/18 08:50 Insulin Glargine (Lantus Syringe) 6 unit QHS SQ 12/17/18 21:00 12/17/18 21:16 Lansoprazole (Prevacid) 30 mg DAILYAC FT 12/17/18 12:30 12/18/18 08:41 Amlodipine Besylate (Norvasc) 10 mg DAILY PO 12/17/18 13:30 12/18/18 08:42 Potassium Bicarbonate (Potassium Effervescent Tablet) 40 meq 1X ONCE PO 12/17/18 14:30 12/17/18 14:31 DC 12/17/18 15:00 GEETHA TAYLOR III DO Dec 18, 2018 12:10
--- NOTE | 2018-12-18 14:35 | RAD ---
Examination: CT HEAD WO CONTRAST History: Strokelike symptoms post extubation. Comparison/Correlation: 12/16/2018 CT head without contrast Findings: Axial images of the head were obtained without contrast. Coronal reformatted images were provided. Atrophy and chronic ischemic changes of the matter noted. No intracranial hemorrhage, midline shift, or mass effect. Left basilar lacunar infarct is unchanged. Globes and optic nerves are unremarkable. Ventricles are unchanged. Fluid levels within the sphenoid sinus bilaterally is noted. . Bony structures are intact. Opacification of the left maxillary sinus is evident. Impression: Left basilar lacunar infarct of indeterminate age and unchanged. No suspicious new intracranial process. Acute and chronic paranasal sinusitis is greater than on the prior exam. PQRS Compliance Statement: One or more of the following individualized dose reduction techniques were utilized for this examination: 1. Automated exposure control 2. Adjustment of the mA and/or kV according to patient size 3. Use of iterative reconstruction technique Electronically signed by: Long Andres MD (12/18/2018 2:32 PM) [facility]
--- NOTE | 2018-12-18 15:13 | PDOC2 ---
NEUROLOGY CONSULT Date of Admission Date of Admission DATE: 12/18/18 TIME: 14:54 Reason for Consult Reason for Consult: IMPRESSION: Metabolic encephalopathy. Respiratory failure. Chest pain. ESRD on dialysis. 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 DM. HTN. RECOMMENDATIONS/PLAN: HCT.= performed again w/o acute findings. EEG. Lab: see orders. Brain MRI if has new focalized motor or sensory deficits if no contraindication for MRI. Continue medical treatment. Discussed with his at bedside in ICU on 12/18/18. HISTORY OF THE PRESENT ILLNESS: This is a 58-year-old AA male with a history of coronary artery disease and stenting, COPD and end-stage renal disease on hemodialysis. He reportedly developed chest discomfort while at his dialysis center on 12/16/18 and was transferred to the emergency room. He was found in acute respiratory failure and was intubated and placed on a ventilator. After discontinuation of propofol sedation for about 8 hours, he still has not gained consciousness, so Neurology was requested for consultation. Past Medical History Cardiovascular: AFIB, CAD, HTN Pulmonary: COPD, Pulmonary embolus CENTRAL NERVOUS SYSTEM: Periperal neuropathy, Seizure GI: Constipation, GERD Heme/Onc: No pertinent hx Hepatobiliary: No pertinent hx Psych: Bipolar Musculoskeletal: Osteoarthritis Infectious disease: No pertinent hx Renal/: Chronic renal insuff, Chronic renal failure Endocrine: Diabetes Past Surgical History Pacemaker, Other (coronary stents. Hemodialysis catheter.) Family History Diabetes, Heart Disease Social History ALCOHOL: none Drugs: Cocaine in past. Lives: with Family ALLERGY: NKDA MEDICATIONS: Refer to MAR REVIEW OF SYSTEMS: Constitutional: No malnutrition, weight loss, cachexia. Head: No traumatic brain or head injury. Skin: No edema, or rash. Ear: No infection. Eyes: No vision loss or color blindness. Nose: No bleeding or purulent discharges. Hearing: No hearing decrease. Neck: No injury. Cardiac: CAD, HTN, HLD. Pulmonary: No COPD. GI: No GI ulcer, GI bleeding. Urinary/genital: ESRD on dialysis. Endocrinologic: Diabetes Mellitus. Skeletomuscular: No muscular atrophy, deformity. Neurological: see HP. Psychiatric: Denies drug use/abuse. Otherwise, not -ucxcm review of systems. PHYSICAL EXAMINATION: General appearance is in subacute distress. HEENT: Normocephalic and nontraumatic. Eyes, nose, ears, and throat are unremarkable. Neck is supple. No lymphadenopathy. No crepitus. Cardiovascular: S1, S2, regular rate and rhythm. Pulmonary: Relative clear to auscultation bilaterally. Abdomen: Bowel sounds are positive. Extremities: No rash, lesions. No restriction of range of motion NEUROLOGICAL EXAMINATION: Sleepiness. Not oriented to time, place and person. PERRL. EOMI not elicited due to not follow commands. But he was resistant for eye open. CN: no focal findings. Muscle tone: within normal. Muscle strength: Moves all extremities. Left side mildly weak. DTR: 2 Plantar reflex: Neutral response bilaterally Gait: not examined in bed. Sensory exam: no abnormal findings. Not able to access cerebellar signs. F-T-N test not performed due to not follow commands. Current Medications Current Medications Current Medications Fentanyl Citrate (Fentanyl 2ml Vial) 100 mcg STK-MED ONCE .ROUTE ; Start 12/16/18 at 18:08; Stop 12/16/18 at 18:08; Status DC Midazolam HCl (Versed) 2 mg STK-MED ONCE .ROUTE ; Start 12/16/18 at 18:08; Stop 12/16/18 at 18:08; Status DC Heparin Sodium (Porcine) (Heparin Sodium) 4,000 unit 1X ONCE IV Last administered on 12/16/18at 19:26; Start 12/16/18 at 18:45; Stop 12/16/18 at 18:46; Status DC Heparin Sodium/ Dextrose 500 ml @ 20.88 mls/ hr CONT PRN IV SEE I/O Last administered on 12/17/18at 19:26; Start 12/16/18 at 18:45; Stop 12/18/18 at 10:59; Status DC Heparin Sodium (Porcine) (Heparin Sodium) 2,200 unit PRN Q6HRS PRN IV FOR UFH LEVEL LESS THAN 0.2; Start 12/16/18 at 18:45; Stop 12/18/18 at 11:02; Status DC Etomidate (Amidate) 20 mg STK-MED ONCE IV ; Start 12/16/18 at 18:42; Stop 12/16/18 at 18:42; Status DC Vecuronium [place] (Norcuron Bolus) 10 mg STK-MED ONCE IV ; Start 12/16/18 at 18:42; Stop 12/16/18 at 18:42; Status DC Lorazepam (Ativan Inj) 2 mg PRN Q1HR PRN IV PER PROTOCOL Last administered on 12/16/18at 23:10; Start 12/16/18 at 22:45 Nicardipine HCl 50 mg/Sodium Chloride 250 ml @ 25 mls/hr CONT PRN IV SEE I/O RECORD; Start 12/16/18 at 22:45 Labetalol HCl (Normodyne Iv Push) 20 mg PRN Q2HR PRN IVP HYPERTENSION Last administered on 12/16/18at 23:04; Start 12/16/18 at 22:45 Propofol 100 ml @ 1.225 mls/ hr CONT PRN IV SEE I/O RECORD Last administered on 12/18/18at 00:30; Start 12/17/18 at 00:15; Stop 12/18/18 at 10:59; Status DC Albuterol/ Ipratropium (Duoneb) 3 ml RTQID NEB Last administered on 12/18/18at 07:31; Start 12/17/18 at 08:00 Iohexol (Omnipaque 350 Mg/ml) 100 ml 1X ONCE IV ; Start 12/17/18 at 08:00; Stop 12/17/18 at 08:01; Status DC Info (CONTRAST GIVEN -- Rx MONITORING) 1 each PRN DAILY PRN MC SEE COMMENTS; Start 12/17/18 at 08:00; Stop 12/19/18 at 07:59 Info (Anti-Coagulation Monitoring By Pharmacy) 1 each PRN DAILY PRN MC SEE COMMENTS Last administered on 12/18/18at 08:08; Start 12/17/18 at 08:00; Stop 12/18/18 at 11:01; Status DC Aspirin (Children'S Aspirin) 81 mg DAILY PO Last administered on 12/18/18at 08:41; Start 12/17/18 at 12:30 Atorvastatin Calcium (Lipitor) 40 mg QHS PO Last administered on 12/17/18at 21:13; Start 12/17/18 at 21:00 Divalproex Sodium (Depakote Er) 250 mg HS PO ; Start 12/17/18 at 21:00 Gabapentin (Neurontin) 300 mg DAILY PO Last administered on 12/18/18at 08:41; Start 12/17/18 at 12:30 Non-Formulary Medication (Brivaracetam (Briviact)) 75 mg BID PO Last administered on 12/18/18 11:25; Start 12/18/18 at 09:00 Calcium Acetate (Phoslo) 667 mg BIDWMEALS PO Last administered on 12/18/18 08:41; Start 12/17/18 at 17:00 Carvedilol (Coreg) 6.25 mg BIDWMEALS PO Last administered on 12/18/18 08:41; Start 12/17/18 at 12:30 Citalopram Hydrobromide (CeleXA) 20 mg DAILY PO Last administered on 12/18/18 08:41; Start 12/17/18 at 12:30 Insulin Human Lispro (HumaLOG) 3 units TIDWMEALS SQ Last administered on 12/18/18 08:50; Start 12/17/18 at 12:30 Insulin Glargine (Lantus Syringe) 6 unit QHS SQ Last administered on 12/17/18at 21:16; Start 12/17/18 at 21:00 Non-Formulary Medication (Linaclotide (Linzess)) 72 mg DAILY07 PO ; Start 12/18/18 at 07:00; Status UNV Nifedipine (Procardia Xl) 60 mg DAILY PO ; Start 12/18/18 at 09:00; Status UNV Pantoprazole Sodium (Protonix) 40 mg DAILYAC PO ; Start 12/17/18 at 12:30; Stop 12/17/18 at 12:07; Status DC Lansoprazole (Prevacid) 30 mg DAILYAC FT Last administered on 12/18/18 08:41; Start 12/17/18 at 12:30 Amlodipine Besylate (Norvasc) 10 mg DAILY PO Last administered on 12/18/18at 08:42; Start 12/17/18 at 13:30 Sodium Chloride 1,000 ml @ 1,000 mls/hr Q1H PRN IV hypotension; Start 12/17/18 at 13:54; Stop 12/17/18 at 19:53; Status DC Albumin Human 200 ml @ 200 mls/hr 1X PRN PRN IV Hypotension; Start 12/17/18 at 14:00; Stop 12/17/18 at 19:59; Status DC Acetaminophen (Tylenol) 500 mg 1X PRN PRN PO MILD PAIN / TEMP; Start 12/17/18 at 14:00; Stop 12/18/18 at 13:59; Status DC Diphenhydramine HCl (Benadryl) 25 mg 1X PRN PRN IV ITCHING; Start 12/17/18 at 14:00; Stop 12/18/18 at 13:59; Status DC Diphenhydramine HCl (Benadryl) 25 mg 1X PRN PRN IV ITCHING; Start 12/17/18 at 14:00; Stop 12/18/18 at 13:59; Status DC Sodium Chloride (Normal Saline Flush) 10 ml 1X PRN PRN IV AP catheter pack; Start 12/17/18 at 14:00; Stop 12/18/18 at 13:59; Status DC Sodium Chloride (Normal Saline Flush) 10 ml 1X PRN PRN IV MANAGER [employer] catheter pack; Start 12/17/18 at 14:00; Stop 12/18/18 at 13:59; Status DC Sodium Chloride 1,000 ml @ 400 mls/hr Q2H30M PRN IV PATENCY; Start 12/17/18 at 13:54; Stop 12/18/18 at 01:53; Status DC Info (PHARMACY MONITORING -- do not chart) 1 each PRN DAILY PRN MC SEE COMMENTS; Start 12/17/18 at 14:00 Potassium Bicarbonate (Potassium Effervescent Tablet) 40 meq 1X ONCE PO Last administered on 12/17/18at 15:00; Start 12/17/18 at 14:30; Stop 12/17/18 at 14:31; Status DC Heparin Sodium (Porcine) (Heparin Sodium) 5,000 unit Q8HRS SQ ; Start 12/18/18 at 14:00 Active Scripts Active Miralax (Polyethylene Glycol 3350) 17 Gm Powd.pack 1 Packet PO DAILY 30 Days Amitiza (Lubiprostone) 24 Mcg Capsule 1 Cap PO BID 30 Days Hydrocodone-Apap 5-325 (Hydrocodone Bit/Acetaminophen) 1 Each Tablet 1 Tab PO PRN Q6HRS PRN Reported Aspirin 81 Mg Tab.chew 1 Tab PO DAILY Novolog Flexpen (Insulin Aspart) 100 Unit/1 Ml Insuln.pen 3 Unit SQ TIDAC Lantus Solostar (Insulin Glargine,Hum.rec.anlog) 100 Unit/1 Ml Insuln.pen 6 Unit SQ HS Linzess (Linaclotide) 145 Mcg Capsule 72 Mg PO DAILY07 Calcium Acetate 667 Mg Tablet 667 Mg PO BID Divalproex Sodium Er (Divalproex Sodium) 250 Mg Tab.er.24h 250 Mg PO HS Escitalopram Oxalate 10 Mg Tablet 1 Tab PO DAILY Briviact (Brivaracetam) 75 Mg Tablet 75 Mg PO DAILY Percocet 7.5-325 Mg Tablet (Oxycodone/Acetaminophen) 1 Each Tablet 1 Tab PO PRN TID PRN Sennosides-Docusate Sodium Tab (Sennosides/Docusate Sodium) 1 Each Tablet 1 Each PO HS Ondansetron Odt (Ondansetron) 4 Mg Tab.rapdis 1 Tab PO PRN Q8HRS PRN Anusol-Hc (Hydrocortisone Acetate) 25 Mg Supp.rect 1 Supp RC PRN BID PRN Protonix (Pantoprazole Sodium) 20 Mg Tablet.dr 40 Mg PO DAILY Gabapentin 300 Mg Capsule 300 Mg PO DAILY Nifedipine Er (Nifedipine) 60 Mg Tab.er.24 60 Mg PO DAILY Proventil Hfa Inhaler (Albuterol Sulfate) 6.7 Gm Hfa.aer.ad 1 Puff IH PRN Q4HRS PRN Atorvastatin Calcium 40 Mg Tablet 1 Tab PO DAILY Carvedilol 25 Mg Tablet 6.25 Mg PO BIDWMEALS Allergies Allergies: Allergies Coded Allergies Type Severity Reaction Last Updated Verified No Known Medication Allergies Allergy Unknown 06/23/15 Yes ROS Review of System The patient denies any associated fevers, chills, headache, ear pain, rhinorrhea, sore throat, stiff neck, productive cough, chest pain, shortness of breath, back or flank pain, abdominal pain, nausea, vomiting, diarrhea, constipation, dysuria, rash, numbness, weakness, tingling, incontinence, difficulty ambulating, or diaphoresis. Physical Exam Physical Exam General: Well developed, well nourished, no acute distress, well appearing HEENT: Pupils equally round and reactive to light, EOMI, no discharge, normal conjunctiva Neck: Supple, no nuchal rigidity, no JVD, trachea midline, no tenderness Cardiac: RRR, no murmurs, no gallops, no rubs Chest/Lungs: CTAB, no wheeze, no rhonchi, no crackles Abdomen: soft, non-distended, no guarding, no peritoneal signs, non-tender Back: No tenderness Extremities: no edema, pulses intact, non-tender,capillary refill <3 sec bilateral upper and lower extremities, Neuro: Alert and oriented x 4, no focal deficits, normal speech Vitals Vitals: Vital Signs Date Time Temp Pulse Resp B/P (MAP) Pulse Ox O2 Delivery O2 Flow Rate FiO2 12/18/18 13:50 100 Nasal Cannula 3.0 12/18/18 12:00 97.5 79 11 150/84 (106) 97.5 Labs Labs Laboratory Tests Test 12/16/18 18:00 12/16/18 20:05 12/16/18 22:30 12/17/18 04:00 White Blood Count 6.0 x10^3/uL (4.0-11.0) 5.2 x10^3/uL (4.0-11.0) Red Blood Count 4.16 x10^6/uL (4.30-5.70) 3.91 x10^6/uL (4.30-5.70) Hemoglobin 13.1 g/dL (13.0-17.5) 12.2 g/dL (13.0-17.5) Hematocrit 38.1 % (39.0-53.0) 36.1 % (39.0-53.0) Mean Corpuscular Volume 92 fL (79-100) 92 fL (79-100) Mean Corpuscular Hemoglobin 32 pg (25-35) 31 pg (25-35) Mean Corpuscular Hemoglobin Concent 35 g/dL (31-37) 34 g/dL (31-37) Red Cell Distribution Width 15.3 % (11.5-14.5) 15.3 % (11.5-14.5) Platelet Count 275 x10^3/uL (140-400) 242 x10^3/uL (140-400) Neutrophils (%) (Auto) 50 % (31-73) 52 % (31-73) Lymphocytes (%) (Auto) 36 % (24-48) 37 % (24-48) Monocytes (%) (Auto) 11 % (0-9) 11 % (0-9) Eosinophils (%) (Auto) 1 % (0-3) 1 % (0-3) Basophils (%) (Auto) 1 % (0-3) 1 % (0-3) Neutrophils # (Auto) 3.0 x10^3/uL (1.8-7.7) 2.7 x10^3/uL (1.8-7.7) Lymphocytes # (Auto) 2.2 x10^3/uL (1.0-4.8) 1.9 x10^3/uL (1.0-4.8) Monocytes # (Auto) 0.7 x10^3/uL (0.0-1.1) 0.6 x10^3/uL (0.0-1.1) Eosinophils # (Auto) 0.1 x10^3/uL (0.0-0.7) 0.0 x10^3/uL (0.0-0.7) Basophils # (Auto) 0.0 x10^3/uL (0.0-0.2) 0.0 x10^3/uL (0.0-0.2) Sodium Level 139 mmol/L (136-145) 142 mmol/L (136-145) Potassium Level 3.3 mmol/L (3.5-5.1) 3.3 mmol/L (3.5-5.1) Chloride Level 103 mmol/L (98-107) 104 mmol/L (98-107) Carbon Dioxide Level 27 mmol/L (21-32) 23 mmol/L (21-32) Anion Gap 9 (6-14) 15 (6-14) Blood Urea Nitrogen 20 mg/dL (8-26) 28 mg/dL (8-26) Creatinine 2.6 mg/dL (0.7-1.3) 3.4 mg/dL (0.7-1.3) Estimated GFR (Cockcroft-Gault) 30.6 22.5 BUN/Creatinine Ratio 8 (6-20) Glucose Level 171 mg/dL (70-99) 196 mg/dL (70-99) Calcium Level 9.0 mg/dL (8.5-10.1) 8.9 mg/dL (8.5-10.1) Magnesium Level 1.6 mg/dL (1.8-2.4) Total Bilirubin 0.4 mg/dL (0.2-1.0) Aspartate Amino Transf (AST/SGOT) 36 U/L (15-37) Alanine Aminotransferase (ALT/SGPT) 27 U/L (16-63) Alkaline Phosphatase 78 U/L (46-116) Troponin I Quantitative < 0.017 ng/mL (0.000-0.055) < 0.017 ng/mL (0.000-0.055) < 0.017 ng/mL (0.000-0.055) GH-Cru-J-Type Natriuretic Peptide 6341 pg/mL (0-124) Total Protein 7.8 g/dL (6.4-8.2) Albumin 3.2 g/dL (3.4-5.0) Albumin/Globulin Ratio 0.7 (1.0-1.7) O2 Saturation 89 % (92-99) Arterial Blood pH 7.47 (7.35-7.45) Arterial Blood pCO2 at Patient Temp 34 mmHg (35-46) Arterial Blood pO2 at Patient Temp 51 mmHg (65-108) Arterial Blood HCO3 24 mmol/L (21-28) Arterial Blood Base Excess 1 mmol/L (-3-3) FiO2 80 Heparin Anti-Xa Act, Unfractionated 0.30 IU/mL (0.30-0.70) Test 12/17/18 07:40 12/17/18 11:05 12/17/18 17:00 12/17/18 19:22 O2 Saturation 99 % (92-99) Arterial Blood pH 7.53 (7.35-7.45) Arterial Blood pCO2 at Patient Temp 27 mmHg (35-46) Arterial Blood pO2 at Patient Temp 302 mmHg (65-108) Arterial Blood HCO3 22 mmol/L (21-28) Arterial Blood Base Excess 0 mmol/L (-3-3) FiO2 60 Heparin Anti-Xa Act, Unfractionated 0.45 IU/mL (0.30-0.70) Hepatitis B Surface Antigen Nonreactive (Nonreactive) Glucose (Fingerstick) 169 mg/dL (70-99) Test 12/17/18 21:16 12/18/18 04:35 12/18/18 07:30 12/18/18 08:40 Glucose (Fingerstick) 148 mg/dL (70-99) 167 mg/dL (70-99) White Blood Count 5.6 x10^3/uL (4.0-11.0) Red Blood Count 4.04 x10^6/uL (4.30-5.70) Hemoglobin 12.6 g/dL (13.0-17.5) Hematocrit 37.7 % (39.0-53.0) Mean Corpuscular Volume 93 fL (79-100) Mean Corpuscular Hemoglobin 31 pg (25-35) Mean Corpuscular Hemoglobin Concent 34 g/dL (31-37) Red Cell Distribution Width 15.8 % (11.5-14.5) Platelet Count 230 x10^3/uL (140-400) Neutrophils (%) (Auto) 56 % (31-73) Lymphocytes (%) (Auto) 28 % (24-48) Monocytes (%) (Auto) 15 % (0-9) Eosinophils (%) (Auto) 1 % (0-3) Basophils (%) (Auto) 0 % (0-3) Neutrophils # (Auto) 3.1 x10^3/uL (1.8-7.7) Lymphocytes # (Auto) 1.6 x10^3/uL (1.0-4.8) Monocytes # (Auto) 0.9 x10^3/uL (0.0-1.1) Eosinophils # (Auto) 0.1 x10^3/uL (0.0-0.7) Basophils # (Auto) 0.0 x10^3/uL (0.0-0.2) Heparin Anti-Xa Act, Unfractionated 0.68 IU/mL (0.30-0.70) Sodium Level 139 mmol/L (136-145) Potassium Level 3.8 mmol/L (3.5-5.1) Chloride Level 101 mmol/L (98-107) Carbon Dioxide Level 30 mmol/L (21-32) Anion Gap 8 (6-14) Blood Urea Nitrogen 23 mg/dL (8-26) Creatinine 3.3 mg/dL (0.7-1.3) Estimated GFR (Cockcroft-Gault) 23.3 Glucose Level 133 mg/dL (70-99) Calcium Level 8.8 mg/dL (8.5-10.1) Magnesium Level 1.8 mg/dL (1.8-2.4) Triglycerides Level 75 mg/dL (0-150) Cholesterol Level 100 mg/dL (0-200) LDL Cholesterol, Calculated 42 mg/dL (0-100) VLDL Cholesterol, Calculated 15 mg/dL (0-40) Non-HDL Cholesterol Calculated 57 mg/dL (0-129) HDL Cholesterol 43 mg/dL (40-60) Cholesterol/HDL Ratio 2.3 O2 Saturation 99 % (92-99) Arterial Blood pH 7.48 (7.35-7.45) Arterial Blood pCO2 at Patient Temp 35 mmHg (35-46) Arterial Blood pO2 at Patient Temp 150 mmHg (65-108) Arterial Blood HCO3 25 mmol/L (21-28) Arterial Blood Base Excess 2 mmol/L (-3-3) FiO2 40 Test 12/18/18 10:50 12/18/18 11:10 Urine Opiates Screen Neg (NEG) Urine Methadone Screen Neg (NEG) Urine Barbiturates Neg (NEG) Urine Phencyclidine Screen Neg (NEG) Urine Amphetamine/Methamphetamine Neg (NEG) Urine Benzodiazepines Screen Neg (NEG) Urine Cocaine Screen Neg (NEG) Urine Cannabinoids Screen Neg (NEG) Urine Ethyl Alcohol Neg (NEG) O2 Saturation 99 % (92-99) Arterial Blood pH 7.42 (7.35-7.45) Arterial Blood pCO2 at Patient Temp 40 mmHg (35-46) Arterial Blood pO2 at Patient Temp 147 mmHg (65-108) Arterial Blood HCO3 26 mmol/L (21-28) Arterial Blood Base Excess 1 mmol/L (-3-3) FiO2 40 Laboratory Tests Test 12/17/18 17:00 12/17/18 19:22 12/17/18 21:16 12/18/18 04:35 Hepatitis B Surface Antigen Nonreactive (Nonreactive) Glucose (Fingerstick) 169 mg/dL (70-99) 148 mg/dL (70-99) White Blood Count 5.6 x10^3/uL (4.0-11.0) Red Blood Count 4.04 x10^6/uL (4.30-5.70) Hemoglobin 12.6 g/dL (13.0-17.5) Hematocrit 37.7 % (39.0-53.0) Mean Corpuscular Volume 93 fL (79-100) Mean Corpuscular Hemoglobin 31 pg (25-35) Mean Corpuscular Hemoglobin Concent 34 g/dL (31-37) Red Cell Distribution Width 15.8 % (11.5-14.5) Platelet Count 230 x10^3/uL (140-400) Neutrophils (%) (Auto) 56 % (31-73) Lymphocytes (%) (Auto) 28 % (24-48) Monocytes (%) (Auto) 15 % (0-9) Eosinophils (%) (Auto) 1 % (0-3) Basophils (%) (Auto) 0 % (0-3) Neutrophils # (Auto) 3.1 x10^3/uL (1.8-7.7) Lymphocytes # (Auto) 1.6 x10^3/uL (1.0-4.8) Monocytes # (Auto) 0.9 x10^3/uL (0.0-1.1) Eosinophils # (Auto) 0.1 x10^3/uL (0.0-0.7) Basophils # (Auto) 0.0 x10^3/uL (0.0-0.2) Heparin Anti-Xa Act, Unfractionated 0.68 IU/mL (0.30-0.70) Sodium Level 139 mmol/L (136-145) Potassium Level 3.8 mmol/L (3.5-5.1) Chloride Level 101 mmol/L (98-107) Carbon Dioxide Level 30 mmol/L (21-32) Anion Gap 8 (6-14) Blood Urea Nitrogen 23 mg/dL (8-26) Creatinine 3.3 mg/dL (0.7-1.3) Estimated GFR (Cockcroft-Gault) 23.3 Glucose Level 133 mg/dL (70-99) Calcium Level 8.8 mg/dL (8.5-10.1) Magnesium Level 1.8 mg/dL (1.8-2.4) Triglycerides Level 75 mg/dL (0-150) Cholesterol Level 100 mg/dL (0-200) LDL Cholesterol, Calculated 42 mg/dL (0-100) VLDL Cholesterol, Calculated 15 mg/dL (0-40) Non-HDL Cholesterol Calculated 57 mg/dL (0-129) HDL Cholesterol 43 mg/dL (40-60) Cholesterol/HDL Ratio 2.3 Test 12/18/18 07:30 12/18/18 08:40 12/18/18 10:50 12/18/18 11:10 O2 Saturation 99 % (92-99) 99 % (92-99) Arterial Blood pH 7.48 (7.35-7.45) 7.42 (7.35-7.45) Arterial Blood pCO2 at Patient Temp 35 mmHg (35-46) 40 mmHg (35-46) Arterial Blood pO2 at Patient Temp 150 mmHg (65-108) 147 mmHg (65-108) Arterial Blood HCO3 25 mmol/L (21-28) 26 mmol/L (21-28) Arterial Blood Base Excess 2 mmol/L (-3-3) 1 mmol/L (-3-3) FiO2 40 40 Glucose (Fingerstick) 167 mg/dL (70-99) Urine Opiates Screen Neg (NEG) Urine Methadone Screen Neg (NEG) Urine Barbiturates Neg (NEG) Urine Phencyclidine Screen Neg (NEG) Urine Amphetamine/Methamphetamine Neg (NEG) Urine Benzodiazepines Screen Neg (NEG) Urine Cocaine Screen Neg (NEG) Urine Cannabinoids Screen Neg (NEG) Urine Ethyl Alcohol Neg (NEG) FARA MOURA MD Dec 18, 2018 15:13
--- NOTE | 2018-12-18 16:19 | NUR ---
Paged [employer] to interrogate pacemaker.
[2018-12-18] MEDS: HEPARIN for SUB-Q USE 5,000 UNIT/ML VIAL. SQ SCH ×2 (17:09→22:43)
[2018-12-18] MEDS: DIVALPROEX EXTENDED RELEASE 250 MG TAB.ER.24H. PO SCH (21:00)
[2018-12-18] MEDS: ATORVASTATIN CALCIUM 40 MG TABLET. PO SCH (21:00)
--- NOTE | 2018-12-18 22:30 | NUR ---
Pt NPO status at this time d/t decreased alertness. The newspaper writer noted pt to be on seizure medication, Depakote, and has hx of seizures. Call placed to Dr. Hodge to ask if alternative IVP medication is needed. Received call back from Dr. Amezcua. stated "Monitor pt throughout the shift. Pt should be fine with the medication held one more day." Notified charge nurse. Pts alertness continues to increase throughout the shift. Pt within sight of RN. Pt currently resting with eyes closed and call light within reach.
[2018-12-18] MEDS: INSULIN GLARGINE SYRINGE. SQ SCH (22:43)
[2018-12-19] VITALS (15 sets, daily range): BP systolic 115–200; BP diastolic 67–98
[2018-12-19 04:42] LABS: HEMATOCRIT 34.9 % (39.0-53.0); HEMOGLOBIN 11.9 g/dL (13.0-17.5); RED BLOOD COUNT 3.78 x10^6/uL (4.30-5.70); RED CELL DISTRIBUTION WIDTH 15.3 % (11.5-14.5); WHITE BLOOD COUNT 6.4 x10^3/uL (4.0-11.0)
[2018-12-19 05:13] LABS: CALCIUM 8.9 mg/dL (8.5-10.1); CREATININE 4.6 mg/dL (0.7-1.3); GFR 15.9; POTASSIUM 3.6 mmol/L (3.5-5.1)
[2018-12-19] MEDS: HEPARIN for SUB-Q USE 5,000 UNIT/ML VIAL. SQ SCH ×3 (05:45→21:53)
[2018-12-19] MEDS: LINACLOTIDE 72 MG PO SCH (07:00)
[2018-12-19] MEDS: LANSOPRAZOLE 30 MG TAB.RAP.DR FT SCH (07:30)
[2018-12-19] MEDS: CARVEDILOL 6.25 MG TABLET. PO SCH ×2 (08:00→17:00)
[2018-12-19] MEDS: CALCIUM ACETATE 667 MG CAPSULE PO SCH ×2 (08:00→17:00)
[2018-12-19] MEDS: IPRATRPIUM/ALBUTEROL 0.5/2.5MG 3 ML NEBU. NEB SCH ×4 (08:16→19:51)
[2018-12-19] MEDS: BRIVARACETAM PO SCH ×2 (09:00→21:00)
[2018-12-19] MEDS: ASPIRIN CHEWABLE 81 MG TABLET. PO SCH (09:00)
[2018-12-19] MEDS: GABAPENTIN 300 MG CAPSULE. PO SCH (09:00)
[2018-12-19] MEDS ORDERED: hydrALAZINE 20 MG/ML VIAL. IVP ONE (09:00)
[2018-12-19] MEDS: amLODIPine BESYLATE 10 MG TABLET PO SCH (09:00)
[2018-12-19] MEDS: CITALOPRAM 20 MG TABLET. PO SCH (09:00)
--- NOTE | 2018-12-19 09:01 | PDOC ---
CARDIO Progress Notes Date and Time Date of Service 12/19/2018 Time of Evaluation 0835 Subjective Subjective: No Chest Pain, No shortness of breath, No Palpitations Vitals Vitals Vital Signs Date Time Temp Pulse Resp B/P (MAP) Pulse Ox O2 Delivery O2 Flow Rate FiO2 12/19/18 08:20 98 Nasal Cannula 2.0 12/19/18 06:00 73 18 174/89 (117) 12/19/18 04:00 99.1 99.1 Weight Weight [ ] Input and Output Intake and Output Intake and Output 12/19/18 06:59 Intake Total 378 ml Output Total 355 ml Balance 23 ml IV Total 45 ml Tube Feeding 233 ml Other 100 ml Output Urine Total 355 ml Gastric Drainage Total 0 ml Laboratory Labs Laboratory Tests Test 12/18/18 10:50 12/18/18 11:10 12/18/18 15:35 12/18/18 16:58 Urine Opiates Screen Neg (NEG) Urine Methadone Screen Neg (NEG) Urine Barbiturates Neg (NEG) Urine Phencyclidine Screen Neg (NEG) Urine Amphetamine/Methamphetamine Neg (NEG) Urine Benzodiazepines Screen Neg (NEG) Urine Cocaine Screen Neg (NEG) Urine Cannabinoids Screen Neg (NEG) Urine Ethyl Alcohol Neg (NEG) O2 Saturation 99 % (92-99) Arterial Blood pH 7.42 (7.35-7.45) Arterial Blood pCO2 at Patient Temp 40 mmHg (35-46) Arterial Blood pO2 at Patient Temp 147 mmHg (65-108) Arterial Blood HCO3 26 mmol/L (21-28) Arterial Blood Base Excess 1 mmol/L (-3-3) FiO2 40 Ammonia 21 mcmol/L (11-34) Glucose (Fingerstick) 178 mg/dL (70-99) Test 12/18/18 22:39 12/19/18 04:05 12/19/18 05:49 Glucose (Fingerstick) 119 mg/dL (70-99) 101 mg/dL (70-99) White Blood Count 6.4 x10^3/uL (4.0-11.0) Red Blood Count 3.78 x10^6/uL (4.30-5.70) Hemoglobin 11.9 g/dL (13.0-17.5) Hematocrit 34.9 % (39.0-53.0) Mean Corpuscular Volume 93 fL (79-100) Mean Corpuscular Hemoglobin 32 pg (25-35) Mean Corpuscular Hemoglobin Concent 34 g/dL (31-37) Red Cell Distribution Width 15.3 % (11.5-14.5) Platelet Count 218 x10^3/uL (140-400) Sodium Level 137 mmol/L (136-145) Potassium Level 3.6 mmol/L (3.5-5.1) Chloride Level 99 mmol/L (98-107) Carbon Dioxide Level 28 mmol/L (21-32) Anion Gap 10 (6-14) Blood Urea Nitrogen 32 mg/dL (8-26) Creatinine 4.6 mg/dL (0.7-1.3) Estimated GFR (Cockcroft-Gault) 15.9 Glucose Level 99 mg/dL (70-99) Calcium Level 8.9 mg/dL (8.5-10.1) Physical Exam HEENT: Neck Supple W Full Motion Chest: Symmetric LUNGS: Other (diminished bases) Heart: RRR (SR) Abdomen: Soft N/T Extremities: No Edema Neurology: alert, oriented (x1), follow commands Assessment Assessment 1. Acute respiratory failure with COPD; post extubation, ?aspiration 2. Chest pain; AMI ruled out.. EF and WM nml. Trops nml. Occurred during dialysis? 3. CAD s/p PCI/MALINDA to Dx 12/07/2018. [facility] 08/13/2016 with stent RCA and PTCA to distal LAD with BMS 4. PAFIB; on Eliquis for stroke prevention. Maintaining SR 5. SSS s/p PPM (Medtr[employer]): 4.5 yrs battery life. DDD. 0 AFIB burden 6. Accelerated hypertension; still has labile episodes 7. ESRD on HD 8. Hyperlipidemia; lipids on goal 9. Diabetes, II; as per PCP 10. H/o CVA 11. H/o substance abuse: UDS neg. 12. Metabolic encephalopathy: mentation better, unclear baseline. CT neg for acute changes. Recommendations 1. Secondary prevention measures 2. Consider for outpt stress test, 3. Lung optimization as per pulmonary 4. Hydralazine IV. Reeval BP after HD. If remains NPO then will transition to TD and IV meds. 5. Fluid off loading per HD. BROOKE CAMPBELL APRN Dec 19, 2018 09:01
--- NOTE | 2018-12-19 09:20 | CARD ---
MR#: [id number] Date of Study: 12/18/2018 Ordering Physician: TOBY HOFFMAN, Referring Physician: TOBY HOFFMAN, Tech: Katiana Brown GEN APPROVED REPORT EXAM: Two-dimensional and M-mode echocardiogram with Doppler and color Doppler. Other Information Quality : Good INDICATION Cardiac Disease: CAD Respiratory Failure 2D DIMENSIONS Left Atrium(2D)3.6 (1.6-4.0cm)IVSd1.6 (0.7-1.1cm) Aortic Root(2D)3.0 (2.0-3.7cm)LVDd3.7 (3.9-5.9cm) LVOT Diameter2.0 (1.8-2.4cm)PWd1.0 (0.7-1.1cm) LVDs2.2 (2.5-4.0cm)FS (%) 30.0 % SV40.4 mlLVEF(%)60.0 (>50%) Aortic Valve AoV Peak Dionte.117.3cm/sAoV VTI18.4cm AO Peak GR.5.5mmHgLVOT VTI 14.86cm AO Mean GR.4mmHgAVA (VTI)2.58cm2 Mitral Valve MV E Xhdzalrj00.4cm/sMV DECEL ERST857is MV A Iaxwrqux635.3cm/sE/A Ratio0.5 TDI Lateral E' P. V8.69cm/sMedial E' P. V3.93cm/s E/Lateral E'7.1E/Medial E'15.6 Pulmonary Vein S1 Lrkmhtpe77.2cm/sS2 Fvnidnii45.76cm/s D2 Yhpljywj44.8cm/s LEFT VENTRICLE The left ventricle is normal size. There is moderate to severe concentric left ventricular hypertroph y. The left ventricular systolic function is normal and the ejection fraction is within normal range. The Ejection Fraction is 60-65%. There is normal LV segmental wall motion. Transmitral Doppler flow pattern is Grade I-abnormal relaxation pattern. RIGHT VENTRICLE The right ventricle is normal size. The right ventricular systolic function is normal. ATRIA The left atrium size is normal. The right atrium size is normal. The interatrial septum is intact wit h no evidence for an atrial septal defect or patent foramen ovale as noted on 2-D or Doppler imaging. AORTIC VALVE The aortic valve is calcified but opens well. Doppler and Color Flow revealed no significant aortic r egurgitation. There is no significant aortic valvular stenosis. MITRAL VALVE The mitral valve is calcified but opens well. There is no evidence of mitral valve prolapse. There is no mitral valve stenosis. Doppler and Color-flow revealed trace mitral regurgitation. TRICUSPID VALVE The tricuspid valve is normal in structure and function. Doppler and Color Flow revealed trace tricus pid regurgitation. There is no tricuspid valve stenosis. PULMONIC VALVE The pulmonic valve is not well visualized. Doppler and Color Flow revealed trace pulmonic valvular re gurgitation. There is no pulmonic valvular stenosis. GREAT VESSELS The aortic root is normal in size. The ascending aorta is normal in size. The IVC is normal in size a nd collapses >50% with inspiration. PERICARDIAL EFFUSION There is no evidence of significant pericardial effusion. Critical Notification Critical Value: No <Conclusion> There is moderate to severe concentric left ventricular hypertrophy. The left ventricular systolic function is normal and the ejection fraction is within normal range. Th e Ejection Fraction is 60-65%. There is normal LV segmental wall motion. Signed by : Osmel Lovelace, Electronically Approved : 12/18/2018 12:54:33
--- NOTE | 2018-12-19 09:31 | PDOC ---
SUBJECTIVE ROS Intubated , no new concerns voiced y RN OBJECTIVE Vital Signs Vital Signs Date Time Temp Pulse Resp B/P (MAP) Pulse Ox O2 Delivery O2 Flow Rate FiO2 12/19/18 08:20 98 Nasal Cannula 2.0 12/19/18 06:00 73 18 174/89 (117) 12/19/18 04:00 99.1 99.1 I & 0 Intake and Output 12/19/18 07:00 Intake Total 378 ml Output Total 355 ml Balance 23 ml IV Total 45 ml Tube Feeding 233 ml Other 100 ml Output Urine Total 355 ml Gastric Drainage Total 0 ml PHYSICAL EXAM Physical Exam GENERAL: Intubated on MV HEENT:Intubated NECK: Supple, LUNGS: Clear to auscultation CHEST: right anterior chest wall hemodialysis catheter. HEART: RRR, S1, S2 present. ABDOMEN: soft EXTREMITIES: trace edema. NEUROLOGIC: sedated. SKIN: No rashes DIAGNOSIS/ASSESSMENT Assessment & Plan End-stage renal disease secondary to hypertensive nephrosclerosis. On HD TTS @ [facility] today as ordered, Ar Hurley Respiratory failure. History of severe COPD.Was on MV Extubated Chest pain. No EKG changes of an acute ST elevated myocardial infarction. History of coronary artery disease and stenting. Cardiology following History of atrial fibrillation and permanent pacing Diabetes mellitus. As per the primary service. Hypertension- Optimization per card History of previous CVA. COMMENT/RELEVANT DATA Meds Current Medications Medications (Trade) Dose Ordered Sig/Lien Start Time Stop Time Status Last Admin Dose Admin Acetaminophen (Tylenol) 500 mg 1X PRN PRN 12/17/18 14:00 12/18/18 13:59 DC Albumin Human 200 ml @ 200 mls/hr 1X PRN PRN 12/17/18 14:00 12/17/18 19:59 DC Albuterol/ Ipratropium (Duoneb) 3 ml RTQID 12/17/18 08:00 12/19/18 08:16 3 ML Amlodipine Besylate (Norvasc) 10 mg DAILY 12/17/18 13:30 12/18/18 08:42 10 MG Aspirin (Children'S Aspirin) 81 mg DAILY 12/17/18 12:30 12/18/18 08:41 81 MG Atorvastatin Calcium (Lipitor) 40 mg QHS 12/17/18 21:00 12/17/18 21:13 40 MG Calcium Acetate (Phoslo) 667 mg BIDWMEALS 12/17/18 17:00 12/18/18 08:41 667 MG Carvedilol (Coreg) 6.25 mg BIDWMEALS 12/17/18 12:30 12/18/18 08:41 6.25 MG Citalopram Hydrobromide (CeleXA) 20 mg DAILY 12/17/18 12:30 12/18/18 08:41 20 MG Diphenhydramine HCl (Benadryl) 25 mg 1X PRN PRN 12/17/18 14:00 12/18/18 13:59 DC Divalproex Sodium (Depakote Er) 250 mg HS 12/17/18 21:00 Etomidate (Amidate) 20 mg STK-MED ONCE 12/16/18 18:42 12/16/18 18:42 DC Fentanyl Citrate (Fentanyl 2ml Vial) 100 mcg STK-MED ONCE 12/16/18 18:08 12/16/18 18:08 DC Gabapentin (Neurontin) 300 mg DAILY 12/17/18 12:30 12/18/18 08:41 300 MG Heparin Sodium (Porcine) (Heparin Sodium) 5,000 unit Q8HRS 12/18/18 14:00 12/19/18 05:45 5,000 UNIT Heparin Sodium/ Dextrose 500 ml @ 20.88 mls/ hr CONT PRN 12/16/18 18:45 12/18/18 10:59 DC 12/17/18 19:26 20.88 MLS/HR Hydralazine HCl (Apresoline Inj) 10 mg 1X ONCE 12/19/18 09:00 12/19/18 09:01 DC Info (Anti-Coagulation Monitoring By Pharmacy) 1 each PRN DAILY PRN 12/17/18 08:00 12/18/18 11:01 DC 12/18/18 08:08 1 EACH Info (CONTRAST GIVEN -- Rx MONITORING) 1 each PRN DAILY PRN 12/17/18 08:00 12/19/18 07:59 DC Info (PHARMACY MONITORING -- do not chart) 1 each PRN DAILY PRN 12/17/18 14:00 Insulin Glargine (Lantus Syringe) 6 unit QHS 12/17/18 21:00 12/18/18 22:43 6 UNIT Insulin Human Lispro (HumaLOG) 3 units TIDWMEALS 12/17/18 12:30 12/18/18 08:50 3 UNITS Iohexol (Omnipaque 350 Mg/ml) 100 ml 1X ONCE 12/17/18 08:00 12/17/18 08:01 DC Labetalol HCl (Normodyne Iv Push) 20 mg PRN Q2HR PRN 12/16/18 22:45 12/16/18 23:04 20 MG Lansoprazole (Prevacid) 30 mg DAILYAC 12/17/18 12:30 12/18/18 08:41 30 MG Lorazepam (Ativan Inj) 2 mg PRN Q1HR PRN 12/16/18 22:45 12/16/18 23:10 2 MG Midazolam HCl (Versed) 2 mg STK-MED ONCE 12/16/18 18:08 12/16/18 18:08 DC Nicardipine HCl 50 mg/Sodium Chloride 250 ml @ 25 mls/hr CONT PRN 12/16/18 22:45 Nifedipine (Procardia Xl) 60 mg DAILY 12/18/18 09:00 UNV Non-Formulary Medication (Brivaracetam (Briviact)) 75 mg BID 12/18/18 09:00 12/18/18 11:25 75 MG Non-Formulary Medication (Linaclotide (Linzess)) 72 mg DAILY07 12/18/18 07:00 UNV Pantoprazole Sodium (Protonix) 40 mg DAILYAC 12/17/18 12:30 12/17/18 12:07 DC Potassium Bicarbonate (Potassium Effervescent Tablet) 40 meq 1X ONCE 12/17/18 14:30 12/17/18 14:31 DC 12/17/18 15:00 40 MEQ Propofol 100 ml @ 1.225 mls/ hr CONT PRN 12/17/18 00:15 12/18/18 10:59 DC 12/18/18 00:30 12.247 MLS/HR Sodium Chloride 1,000 ml @ 400 mls/hr Q2H30M PRN 12/17/18 13:54 12/18/18 01:53 DC Sodium Chloride (Normal Saline Flush) 10 ml 1X PRN PRN 12/17/18 14:00 12/18/18 13:59 DC Vecuronium [place]outman (Norcuron Bolus) 10 mg STK-MED ONCE 12/16/18 18:42 12/16/18 18:42 DC Lab Laboratory Tests Test 12/18/18 10:50 12/18/18 11:10 12/18/18 15:35 12/18/18 16:58 Urine Opiates Screen Neg (NEG) Urine Methadone Screen Neg (NEG) Urine Barbiturates Neg (NEG) Urine Phencyclidine Screen Neg (NEG) Urine Amphetamine/Methamphetamine Neg (NEG) Urine Benzodiazepines Screen Neg (NEG) Urine Cocaine Screen Neg (NEG) Urine Cannabinoids Screen Neg (NEG) Urine Ethyl Alcohol Neg (NEG) O2 Saturation 99 % (92-99) Arterial Blood pH 7.42 (7.35-7.45) Arterial Blood pCO2 at Patient Temp 40 mmHg (35-46) Arterial Blood pO2 at Patient Temp 147 mmHg (65-108) Arterial Blood HCO3 26 mmol/L (21-28) Arterial Blood Base Excess 1 mmol/L (-3-3) FiO2 40 Ammonia 21 mcmol/L (11-34) Glucose (Fingerstick) 178 mg/dL (70-99) Test 12/18/18 22:39 12/19/18 04:05 12/19/18 05:49 Glucose (Fingerstick) 119 mg/dL (70-99) 101 mg/dL (70-99) White Blood Count 6.4 x10^3/uL (4.0-11.0) Red Blood Count 3.78 x10^6/uL (4.30-5.70) Hemoglobin 11.9 g/dL (13.0-17.5) Hematocrit 34.9 % (39.0-53.0) Mean Corpuscular Volume 93 fL (79-100) Mean Corpuscular Hemoglobin 32 pg (25-35) Mean Corpuscular Hemoglobin Concent 34 g/dL (31-37) Red Cell Distribution Width 15.3 % (11.5-14.5) Platelet Count 218 x10^3/uL (140-400) Sodium Level 137 mmol/L (136-145) Potassium Level 3.6 mmol/L (3.5-5.1) Chloride Level 99 mmol/L (98-107) Carbon Dioxide Level 28 mmol/L (21-32) Anion Gap 10 (6-14) Blood Urea Nitrogen 32 mg/dL (8-26) Creatinine 4.6 mg/dL (0.7-1.3) Estimated GFR (Cockcroft-Gault) 15.9 Glucose Level 99 mg/dL (70-99) Calcium Level 8.9 mg/dL (8.5-10.1) Results All relevant outside records, renal labs, imaging studies, telemetry/EKG's were reviewed. JOY CELIS MD Dec 19, 2018 09:31
[2018-12-19] MEDS: INSULIN LISPRO 300 UNITS/3 ML VIAL. SQ SCH ×3 (09:36→17:00)
--- NOTE | 2018-12-19 09:50 | PDOC ---
[employer] PROGRESS NOTE Chief Complaint Chief Complaint Chest pain Acute respiratory failure History of Present Illness History of Present Illness 12/19/18 Pt seen and examined in the ICU Extubated, sitting up in chair Was joined by Glucose decreased from 167 from 12/18 to 95 reports slight confusion Pt was able to report the current year EJ RN Charts and labs reviewed 12/18/18 Pt seen and examine in the ICU Was joined at bedside by and friend Spontaneous respirations with 40% FiO2 Glucose increased to 167 from 148 on 12/17 DW RN 12/17/18 Pt seen and examined in the ICU Was joined at bedside by Sedated with Diprivan On ventilation (AC 14/500/40% 5.0 PEEP) Will consult pulmonary and cardiology pH = 7.53, will decrease respiratory rate Vitals/I&O Vitals/I&O: Vital Signs Date Time Temp Pulse Resp B/P (MAP) Pulse Ox O2 Delivery O2 Flow Rate FiO2 12/19/18 08:20 98 Nasal Cannula 2.0 12/19/18 06:00 73 18 174/89 (117) 12/19/18 04:00 99.1 99.1 I & O 12/18/18 12/18/18 12/19/18 15:00 23:00 07:00 Intake Total 378 ml Output Total 65 ml 160 ml 130 ml Balance 313 ml -160 ml -130 ml Physical Exam General: Alert, Oriented X3, Cooperative, No acute distress, Other Heart: Regular rate Lungs: Clear Abdomen: Normal bowel sounds, Soft Extremities: No clubbing, No cyanosis, No edema, Normal pulses Skin: No rashes, No breakdown, No significant lesion Labs Labs: Laboratory Tests Test 12/18/18 10:50 12/18/18 11:10 12/18/18 15:35 12/18/18 16:58 Urine Opiates Screen Neg (NEG) Urine Methadone Screen Neg (NEG) Urine Barbiturates Neg (NEG) Urine Phencyclidine Screen Neg (NEG) Urine Amphetamine/Methamphetamine Neg (NEG) Urine Benzodiazepines Screen Neg (NEG) Urine Cocaine Screen Neg (NEG) Urine Cannabinoids Screen Neg (NEG) Urine Ethyl Alcohol Neg (NEG) O2 Saturation 99 % (92-99) Arterial Blood pH 7.42 (7.35-7.45) Arterial Blood pCO2 at Patient Temp 40 mmHg (35-46) Arterial Blood pO2 at Patient Temp 147 mmHg (65-108) Arterial Blood HCO3 26 mmol/L (21-28) Arterial Blood Base Excess 1 mmol/L (-3-3) FiO2 40 Ammonia 21 mcmol/L (11-34) Glucose (Fingerstick) 178 mg/dL (70-99) Test 12/18/18 22:39 12/19/18 04:05 12/19/18 05:49 12/19/18 09:27 Glucose (Fingerstick) 119 mg/dL (70-99) 101 mg/dL (70-99) 95 mg/dL (70-99) White Blood Count 6.4 x10^3/uL (4.0-11.0) Red Blood Count 3.78 x10^6/uL (4.30-5.70) Hemoglobin 11.9 g/dL (13.0-17.5) Hematocrit 34.9 % (39.0-53.0) Mean Corpuscular Volume 93 fL (79-100) Mean Corpuscular Hemoglobin 32 pg (25-35) Mean Corpuscular Hemoglobin Concent 34 g/dL (31-37) Red Cell Distribution Width 15.3 % (11.5-14.5) Platelet Count 218 x10^3/uL (140-400) Sodium Level 137 mmol/L (136-145) Potassium Level 3.6 mmol/L (3.5-5.1) Chloride Level 99 mmol/L (98-107) Carbon Dioxide Level 28 mmol/L (21-32) Anion Gap 10 (6-14) Blood Urea Nitrogen 32 mg/dL (8-26) Creatinine 4.6 mg/dL (0.7-1.3) Estimated GFR (Cockcroft-Gault) 15.9 Glucose Level 99 mg/dL (70-99) Calcium Level 8.9 mg/dL (8.5-10.1) Review of Systems Review of Systems: No nausea, no vomiting No chest pain, no palpitations Assessment and Plan Assessmemt and Plan Problems Medical Problems: (1) Abnormal EKG Status: Acute (2) Acute respiratory failure Status: Acute (3) Chest pain Status: Acute Assessment Acute respiratory failure ESRD Plan ICU monitoring Speech therapy PT/OT DVT prophylaxis Brain MRI recommended per neurology Echo to assess LV function per cardiology Discontinue heparin Full code HD as scheduled Hope to advance diet Comment Review of Relevant I have reviewed the following items dominick (where applicable) has been applied. Medications: Current Medications Medications (Trade) Dose Ordered Sig/Lien Route PRN Reason Start Time Stop Time Status Last Admin Dose Admin Heparin Sodium (Porcine) (Heparin Sodium) 5,000 unit Q8HRS SQ 12/18/18 14:00 12/19/18 05:45 GEETHA TAYLOR III DO Dec 19, 2018 09:50
--- NOTE | 2018-12-19 10:05 | PDOC ---
PULMONARY PROGRESS NOTES Subjective extubated 12/18 follows some commands Vitals Vital Signs Date Time Temp Pulse Resp B/P (MAP) Pulse Ox O2 Delivery O2 Flow Rate FiO2 12/19/18 08:20 98 Nasal Cannula 2.0 12/19/18 06:00 73 18 174/89 (117) 12/19/18 04:00 99.1 99.1 General: Alert, No acute distress Lungs: Clear Cardiovascular: S1, S2 Abdomen: Soft, Non-tender Neuro Exam: Alert Extremities: No Edema Skin: Warm Labs Laboratory Tests Test 12/17/18 11:05 12/17/18 17:00 12/17/18 19:22 12/17/18 21:16 Heparin Anti-Xa Act, Unfractionated 0.45 IU/mL (0.30-0.70) Hepatitis B Surface Antigen Nonreactive (Nonreactive) Glucose (Fingerstick) 169 mg/dL (70-99) 148 mg/dL (70-99) Test 12/18/18 04:35 12/18/18 07:30 12/18/18 08:40 12/18/18 10:50 White Blood Count 5.6 x10^3/uL (4.0-11.0) Red Blood Count 4.04 x10^6/uL (4.30-5.70) Hemoglobin 12.6 g/dL (13.0-17.5) Hematocrit 37.7 % (39.0-53.0) Mean Corpuscular Volume 93 fL (79-100) Mean Corpuscular Hemoglobin 31 pg (25-35) Mean Corpuscular Hemoglobin Concent 34 g/dL (31-37) Red Cell Distribution Width 15.8 % (11.5-14.5) Platelet Count 230 x10^3/uL (140-400) Neutrophils (%) (Auto) 56 % (31-73) Lymphocytes (%) (Auto) 28 % (24-48) Monocytes (%) (Auto) 15 % (0-9) Eosinophils (%) (Auto) 1 % (0-3) Basophils (%) (Auto) 0 % (0-3) Neutrophils # (Auto) 3.1 x10^3/uL (1.8-7.7) Lymphocytes # (Auto) 1.6 x10^3/uL (1.0-4.8) Monocytes # (Auto) 0.9 x10^3/uL (0.0-1.1) Eosinophils # (Auto) 0.1 x10^3/uL (0.0-0.7) Basophils # (Auto) 0.0 x10^3/uL (0.0-0.2) Heparin Anti-Xa Act, Unfractionated 0.68 IU/mL (0.30-0.70) Sodium Level 139 mmol/L (136-145) Potassium Level 3.8 mmol/L (3.5-5.1) Chloride Level 101 mmol/L (98-107) Carbon Dioxide Level 30 mmol/L (21-32) Anion Gap 8 (6-14) Blood Urea Nitrogen 23 mg/dL (8-26) Creatinine 3.3 mg/dL (0.7-1.3) Estimated GFR (Cockcroft-Gault) 23.3 Glucose Level 133 mg/dL (70-99) Calcium Level 8.8 mg/dL (8.5-10.1) Magnesium Level 1.8 mg/dL (1.8-2.4) Triglycerides Level 75 mg/dL (0-150) Cholesterol Level 100 mg/dL (0-200) LDL Cholesterol, Calculated 42 mg/dL (0-100) VLDL Cholesterol, Calculated 15 mg/dL (0-40) Non-HDL Cholesterol Calculated 57 mg/dL (0-129) HDL Cholesterol 43 mg/dL (40-60) Cholesterol/HDL Ratio 2.3 Thyroid Stimulating Hormone (TSH) 2.323 uIU/mL (0.358-3.74) O2 Saturation 99 % (92-99) Arterial Blood pH 7.48 (7.35-7.45) Arterial Blood pCO2 at Patient Temp 35 mmHg (35-46) Arterial Blood pO2 at Patient Temp 150 mmHg (65-108) Arterial Blood HCO3 25 mmol/L (21-28) Arterial Blood Base Excess 2 mmol/L (-3-3) FiO2 40 Glucose (Fingerstick) 167 mg/dL (70-99) Urine Opiates Screen Neg (NEG) Urine Methadone Screen Neg (NEG) Urine Barbiturates Neg (NEG) Urine Phencyclidine Screen Neg (NEG) Urine Amphetamine/Methamphetamine Neg (NEG) Urine Benzodiazepines Screen Neg (NEG) Urine Cocaine Screen Neg (NEG) Urine Cannabinoids Screen Neg (NEG) Urine Ethyl Alcohol Neg (NEG) Test 9/30/19 11:10 12/18/18 15:35 12/18/18 16:58 12/18/18 22:39 O2 Saturation 99 % (92-99) Arterial Blood pH 7.42 (7.35-7.45) Arterial Blood pCO2 at Patient Temp 40 mmHg (35-46) Arterial Blood pO2 at Patient Temp 147 mmHg (65-108) Arterial Blood HCO3 26 mmol/L (21-28) Arterial Blood Base Excess 1 mmol/L (-3-3) FiO2 40 Ammonia 21 mcmol/L (11-34) Glucose (Fingerstick) 178 mg/dL (70-99) 119 mg/dL (70-99) Test 12/19/18 04:05 12/19/18 05:49 12/19/18 09:27 White Blood Count 6.4 x10^3/uL (4.0-11.0) Red Blood Count 3.78 x10^6/uL (4.30-5.70) Hemoglobin 11.9 g/dL (13.0-17.5) Hematocrit 34.9 % (39.0-53.0) Mean Corpuscular Volume 93 fL (79-100) Mean Corpuscular Hemoglobin 32 pg (25-35) Mean Corpuscular Hemoglobin Concent 34 g/dL (31-37) Red Cell Distribution Width 15.3 % (11.5-14.5) Platelet Count 218 x10^3/uL (140-400) Sodium Level 137 mmol/L (136-145) Potassium Level 3.6 mmol/L (3.5-5.1) Chloride Level 99 mmol/L (98-107) Carbon Dioxide Level 28 mmol/L (21-32) Anion Gap 10 (6-14) Blood Urea Nitrogen 32 mg/dL (8-26) Creatinine 4.6 mg/dL (0.7-1.3) Estimated GFR (Cockcroft-Gault) 15.9 Glucose Level 99 mg/dL (70-99) Calcium Level 8.9 mg/dL (8.5-10.1) Glucose (Fingerstick) 101 mg/dL (70-99) 95 mg/dL (70-99) Laboratory Tests Test 12/18/18 10:50 12/18/18 11:10 12/18/18 15:35 12/18/18 16:58 Urine Opiates Screen Neg (NEG) Urine Methadone Screen Neg (NEG) Urine Barbiturates Neg (NEG) Urine Phencyclidine Screen Neg (NEG) Urine Amphetamine/Methamphetamine Neg (NEG) Urine Benzodiazepines Screen Neg (NEG) Urine Cocaine Screen Neg (NEG) Urine Cannabinoids Screen Neg (NEG) Urine Ethyl Alcohol Neg (NEG) O2 Saturation 99 % (92-99) Arterial Blood pH 7.42 (7.35-7.45) Arterial Blood pCO2 at Patient Temp 40 mmHg (35-46) Arterial Blood pO2 at Patient Temp 147 mmHg (65-108) Arterial Blood HCO3 26 mmol/L (21-28) Arterial Blood Base Excess 1 mmol/L (-3-3) FiO2 40 Ammonia 21 mcmol/L (11-34) Glucose (Fingerstick) 178 mg/dL (70-99) Test 12/18/18 22:39 12/19/18 04:05 12/19/18 05:49 12/19/18 09:27 Glucose (Fingerstick) 119 mg/dL (70-99) 101 mg/dL (70-99) 95 mg/dL (70-99) White Blood Count 6.4 x10^3/uL (4.0-11.0) Red Blood Count 3.78 x10^6/uL (4.30-5.70) Hemoglobin 11.9 g/dL (13.0-17.5) Hematocrit 34.9 % (39.0-53.0) Mean Corpuscular Volume 93 fL (79-100) Mean Corpuscular Hemoglobin 32 pg (25-35) Mean Corpuscular Hemoglobin Concent 34 g/dL (31-37) Red Cell Distribution Width 15.3 % (11.5-14.5) Platelet Count 218 x10^3/uL (140-400) Sodium Level 137 mmol/L (136-145) Potassium Level 3.6 mmol/L (3.5-5.1) Chloride Level 99 mmol/L (98-107) Carbon Dioxide Level 28 mmol/L (21-32) Anion Gap 10 (6-14) Blood Urea Nitrogen 32 mg/dL (8-26) Creatinine 4.6 mg/dL (0.7-1.3) Estimated GFR (Cockcroft-Gault) 15.9 Glucose Level 99 mg/dL (70-99) Calcium Level 8.9 mg/dL (8.5-10.1) Medications Active Scripts Medications Dose Route/Sig Max Daily Dose Days Date Category Aspirin 81 Mg Tab.chew 1 Tab PO DAILY 12/17/18 Reported Novolog Flexpen (Insulin Aspart) 100 Unit/1 Ml Insuln.pen 3 Unit SQ TIDAC 12/17/18 Reported Lantus Solostar (Insulin Glargine,Hum.rec.anlog) 100 Unit/1 Ml Insuln.pen 6 Unit SQ HS 12/17/18 Reported Linzess (Linaclotide) 145 Mcg Capsule 72 Mg PO DAILY07 12/17/18 Reported Calcium Acetate 667 Mg Tablet 667 Mg PO BID 12/17/18 Reported Divalproex Sodium Er (Divalproex Sodium) 250 Mg Tab.er.24h 250 Mg PO HS 12/17/18 Reported Escitalopram Oxalate 10 Mg Tablet 1 Tab PO DAILY 12/17/18 Reported Briviact (Brivaracetam) 75 Mg Tablet 75 Mg PO DAILY 12/17/18 Reported Miralax (Polyethylene Glycol 3350) 17 Gm Powd.pack 1 Packet PO DAILY 30 07/11/18 Rx Amitiza (Lubiprostone) 24 Mcg Capsule 1 Cap PO BID 30 07/11/18 Rx Percocet 7.5-325 Mg Tablet (Oxycodone/Acetaminophen) 1 Each Tablet 1 Tab PO PRN TID PRN 06/30/18 Reported Sennosides-Docusate Sodium Tab (Sennosides/Docusate Sodium) 1 Each Tablet 1 Each PO HS 06/30/18 Reported Ondansetron Odt (Ondansetron) 4 Mg Tab.rapdis 1 Tab PO PRN Q8HRS PRN 06/30/18 Reported Anusol-Hc (Hydrocortisone Acetate) 25 Mg Supp.rect 1 Supp RC PRN BID PRN 06/30/18 Reported Hydrocodone-Apap 5-325 (Hydrocodone Bit/Acetaminophen) 1 Each Tablet 1 Tab PO PRN Q6HRS PRN 02/24/18 Rx Protonix (Pantoprazole Sodium) 20 Mg Tablet.dr 40 Mg PO DAILY 02/20/18 Reported Gabapentin 300 Mg Capsule 300 Mg PO DAILY 02/20/18 Reported Nifedipine Er (Nifedipine) 60 Mg Tab.er.24 60 Mg PO DAILY 01/19/17 Reported Proventil Hfa Inhaler (Albuterol Sulfate) 6.7 Gm Hfa.aer.ad 1 Puff IH PRN Q4HRS PRN 01/19/17 Reported Atorvastatin Calcium 40 Mg Tablet 1 Tab PO DAILY 06/23/15 Reported Carvedilol 25 Mg Tablet 6.25 Mg PO BIDWMEALS 11/25/14 Reported Impression . 1. Acute hypoxemic respiratory failure due to encephalopathy /chronic obstructive pulmonary disease . No PE/DVT, extubated 12/18 2. Chest pain, questionable etiology.no CAD 3. Chronic obstructive pulmonary disease. 4. End-stage renal disease, on hemodialysis. 5. Hypokalemia. 6. Hypertension. 7. Diabetes mellitus. 8. History of cerebrovascular accident. 9. Coronary artery disease. 10. Paroxysmal atrial fibrillation. 11. Encephalopathy ? etiology. likely due to CVA Plan . 1. nasal canula 2. repeat ct head with no new events, old lacunar infarct 3. CT angiogram neg for PE 4. Cardiology rec. dc full dose heparin pulmonary dyer, on prophylaxis dose 5. Lower extremity venous Doppler.neg 6. f/u cxr as needed 7. Protonix for stress ulcer prophylaxis. 8. Monitor respiratory status transfer to floor d/w BAYRON HUGHES MD Dec 19, 2018 10:05
--- NOTE | 2018-12-19 13:24 | PDOC ---
PROGRESS NOTES Assessment Assessment Metabolic encephalopathy. Respiratory failure. Chest pain. ESRD on dialysis. 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 DM. HTN. RECOMMENDATIONS/PLAN: Continue ASA daily. Continue Lipitor HS. EEG. Continue medical treatment. Discussed with his at bedside in ICU on 12/18/18. Repeated HCT on 12/17/18: No acute findings. HISTORY OF THE PRESENT ILLNESS: This is a 58-year-old AA male with a history of coronary artery disease and stenting, COPD and end-stage renal disease on hemodialysis. He reportedly developed chest discomfort while at his dialysis center on 12/16/18 and was transferred to the emergency room. He was found in acute respiratory failure and was intubated and placed on a ventilator. After discontinuation of propofol sedation for about 8 hours, he still has not gained consciousness, so Neurology was requested for consultation. Past Medical History Cardiovascular: AFIB, CAD, HTN Pulmonary: COPD, Pulmonary embolus CENTRAL NERVOUS SYSTEM: Periperal neuropathy, Seizure GI: Constipation, GERD Heme/Onc: No pertinent hx Hepatobiliary: No pertinent hx Psych: Bipolar Musculoskeletal: Osteoarthritis Infectious disease: No pertinent hx Renal/: Chronic renal insuff, Chronic renal failure Endocrine: Diabetes Past Surgical History Pacemaker, Other (coronary stents. Hemodialysis catheter.) Family History Diabetes, Heart Disease Social History ALCOHOL: none Drugs: Cocaine in past. Lives: with Family ALLERGY: NKDA MEDICATIONS: Refer to MAR REVIEW OF SYSTEMS: Constitutional: No malnutrition, weight loss, cachexia. Head: No traumatic brain or head injury. Skin: No edema, or rash. Ear: No infection. Eyes: No vision loss or color blindness. Nose: No bleeding or purulent discharges. Hearing: No hearing decrease. Neck: No injury. Cardiac: CAD, HTN, HLD. Pulmonary: No COPD. GI: No GI ulcer, GI bleeding. Urinary/genital: ESRD on dialysis. Endocrinologic: Diabetes Mellitus. Skeletomuscular: No muscular atrophy, deformity. Neurological: see HP. Psychiatric: Denies drug use/abuse. Otherwise, not [id number] review of systems. PHYSICAL EXAMINATION: General appearance is in subacute distress. HEENT: Normocephalic and nontraumatic. Eyes, nose, ears, and throat are unremarkable. Neck is supple. No lymphadenopathy. No crepitus. Cardiovascular: S1, S2, regular rate and rhythm. Pulmonary: Relative clear to auscultation bilaterally. Abdomen: Bowel sounds are positive. Extremities: No rash, lesions. No restriction of range of motion NEUROLOGICAL EXAMINATION: Awake. Sitting in chair. Not fully oriented to time, but knew place and person. PERRL. EOMI not elicited due to not follow commands. But he was resistant for eye open. CN: no focal findings. Muscle tone: within normal. Muscle strength: 4+ right side 5 left side. DTR: 2 Plantar reflex: Neutral response bilaterally Gait: not examined in chair. Sensory exam: no abnormal findings. No cerebellar signs elicited. F-T-N test fine. Objective Objective Vital Signs Date Time Temp Pulse Resp B/P (MAP) Pulse Ox O2 Delivery O2 Flow Rate FiO2 12/19/18 11:49 97 Room Air 12/19/18 11:00 76 30 115/69 (84) 12/19/18 08:20 2.0 12/19/18 04:00 99.1 99.1 Intake and Output 12/19/18 07:00 Intake Total 378 ml Output Total 355 ml Balance 23 ml IV Total 45 ml Tube Feeding 233 ml Other 100 ml Output Urine Total 355 ml Gastric Drainage Total 0 ml Vitals Signs Vitals VS - Last 72 Hours, by Label Date Time Temp Pulse Resp B/P (MAP) Pulse Ox O2 Delivery O2 Flow Rate FiO2 12/19/18 11:49 97 Room Air 12/19/18 11:00 76 30 115/69 (84) 97 Room Air 12/19/18 10:00 79 23 151/84 (106) 97 Room Air 12/19/18 09:00 75 28 188/96 (126) 97 Room Air 12/19/18 09:00 115/69 12/19/18 08:20 98 Nasal Cannula 2.0 12/19/18 08:00 72 24 166/88 (114) 97 Room Air 12/19/18 08:00 Room Air 12/19/18 07:00 72 24 165/83 (110) 97 Room Air 12/19/18 06:00 73 18 174/89 (117) 100 Room Air 12/19/18 05:00 71 22 168/89 (115) 98 Room Air 12/19/18 04:00 Room Air 12/19/18 04:00 99.1 73 19 166/86 (112) 97 Room Air 99.1 12/19/18 03:00 74 19 161/86 (111) 99 Nasal Cannula 2.0 12/19/18 02:00 68 17 139/77 (97) 100 Nasal Cannula 2.0 12/19/18 01:00 78 20 147/82 (103) 100 Nasal Cannula 2.0 12/19/18 00:00 98.9 76 22 140/79 (99) 99 Nasal Cannula 2.0 98.9 12/18/18 23:59 Nasal Cannula 2.0 12/18/18 23:00 79 17 158/86 (110) 100 Nasal Cannula 2.0 12/18/18 22:00 80 14 119/98 (105) 100 Nasal Cannula 2.0 12/18/18 21:00 72 19 147/78 (101) 100 Nasal Cannula 2.0 12/18/18 20:00 Nasal Cannula 2.0 12/18/18 20:00 99.0 74 20 125/67 (86) 100 Nasal Cannula 2.0 99.0 12/18/18 19:39 100 Nasal Cannula 2.0 12/18/18 19:00 78 18 134/69 (90) 100 Nasal Cannula 2.0 12/18/18 18:00 81 14 149/83 (105) 100 Nasal Cannula 2.0 12/18/18 17:00 80 18 152/85 (107) 100 Nasal Cannula 2.0 12/18/18 16:31 100 Nasal Cannula 3.0 12/18/18 16:00 98.9 80 19 139/86 (103) 100 Nasal Cannula 2.0 98.9 12/18/18 16:00 Nasal Cannula 2.0 12/18/18 15:00 80 23 148/81 (103) 98 Nasal Cannula 2.0 12/18/18 14:00 72 23 127/67 (87) 98 Nasal Cannula 2.0 12/18/18 13:50 100 Nasal Cannula 3.0 12/18/18 13:00 78 27 148/80 (102) 100 Nasal Cannula 2.0 12/18/18 12:00 97.5 79 11 150/84 (106) 100 Nasal Cannula 2.0 97.5 12/18/18 12:00 Nasal Cannula 2.0 12/18/18 11:37 Nasal Cannula 3.0 12/18/18 11:00 73 14 138/80 (99) 100 Ventilator 12/18/18 10:40 Ventilator 12/18/18 10:00 74 14 125/78 (94) 100 Ventilator 12/18/18 09:00 70 14 160/84 (109) 100 Ventilator 12/18/18 08:42 72 166/88 12/18/18 08:41 72 166/88 12/18/18 08:00 99.3 72 14 171/83 (112) 100 Ventilator 99.3 12/18/18 08:00 Mechanical Ventilator 12/18/18 07:31 100 Ventilator 12/18/18 07:00 68 13 128/72 (90) 100 Ventilator Laboratory Laboratory Laboratory Tests Test 12/18/18 15:35 12/18/18 16:58 12/18/18 22:39 12/19/18 04:05 Ammonia 21 mcmol/L (11-34) Glucose (Fingerstick) 178 mg/dL (70-99) 119 mg/dL (70-99) White Blood Count 6.4 x10^3/uL (4.0-11.0) Red Blood Count 3.78 x10^6/uL (4.30-5.70) Hemoglobin 11.9 g/dL (13.0-17.5) Hematocrit 34.9 % (39.0-53.0) Mean Corpuscular Volume 93 fL (79-100) Mean Corpuscular Hemoglobin 32 pg (25-35) Mean Corpuscular Hemoglobin Concent 34 g/dL (31-37) Red Cell Distribution Width 15.3 % (11.5-14.5) Platelet Count 218 x10^3/uL (140-400) Sodium Level 137 mmol/L (136-145) Potassium Level 3.6 mmol/L (3.5-5.1) Chloride Level 99 mmol/L (98-107) Carbon Dioxide Level 28 mmol/L (21-32) Anion Gap 10 (6-14) Blood Urea Nitrogen 32 mg/dL (8-26) Creatinine 4.6 mg/dL (0.7-1.3) Estimated GFR (Cockcroft-Gault) 15.9 Glucose Level 99 mg/dL (70-99) Calcium Level 8.9 mg/dL (8.5-10.1) Test 12/19/18 05:49 12/19/18 09:27 12/19/18 12:32 Glucose (Fingerstick) 101 mg/dL (70-99) 95 mg/dL (70-99) 120 mg/dL (70-99) Medication Medications Current Medications Heparin Sodium (Porcine) (Heparin Sodium) 5,000 unit Q8HRS SQ Last administered on 12/19/18at 05:45; Start 12/18/18 at 14:00 Hydralazine HCl (Apresoline Inj) 10 mg 1X ONCE IVP ; Start 12/19/18 at 09:00; Stop 12/19/18 at 09:01; Status DC Comment Review of Relevant I have reviewed the following items dominick (where applicable) has been applied. FARA MOURA MD Dec 19, 2018 13:24
[2018-12-19] MEDS ORDERED: IV NORMAL SALINE 1000ML BAG 1,000 ML IV PRN ×2 (14:40)
[2018-12-19] MEDS ORDERED: DIALYSIS PATIENT. MC PRN ×2 (14:45)
--- NOTE | 2018-12-19 15:34 | NUR ---
SS following up with discharge planning. Pt extubated. PT/OT ordered. SS will continue to follow for discharge planning.
[2018-12-19] MEDS: ATORVASTATIN CALCIUM 40 MG TABLET. PO SCH (21:49)
[2018-12-19] MEDS: DIVALPROEX EXTENDED RELEASE 250 MG TAB.ER.24H. PO SCH (21:49)
[2018-12-19] MEDS: INSULIN GLARGINE SYRINGE. SQ SCH (22:49)
[2018-12-20 02:50] VITALS: BP 176/94
[2018-12-20] MEDS: LINACLOTIDE 72 MG PO SCH (05:16)
[2018-12-20] MEDS: HEPARIN for SUB-Q USE 5,000 UNIT/ML VIAL. SQ SCH ×3 (05:18→21:23)
[2018-12-20 07:00] VITALS: BP 179/91
[2018-12-20] MEDS: INSULIN LISPRO 300 UNITS/3 ML VIAL. SQ SCH ×3 (08:00→18:02)
[2018-12-20] MEDS: IPRATRPIUM/ALBUTEROL 0.5/2.5MG 3 ML NEBU. NEB SCH ×4 (08:01→19:48)
[2018-12-20] MEDS: GABAPENTIN 300 MG CAPSULE. PO SCH (09:36)
[2018-12-20] MEDS: CITALOPRAM 20 MG TABLET. PO SCH (09:36)
[2018-12-20] MEDS: CARVEDILOL 6.25 MG TABLET. PO SCH (09:36)
[2018-12-20] MEDS: ASPIRIN CHEWABLE 81 MG TABLET. PO SCH (09:36)
[2018-12-20] MEDS: CALCIUM ACETATE 667 MG CAPSULE PO SCH ×2 (09:36→17:55)
[2018-12-20] MEDS: LANSOPRAZOLE 30 MG TAB.RAP.DR FT SCH (09:36)
[2018-12-20] MEDS: amLODIPine BESYLATE 10 MG TABLET PO SCH (09:37)
[2018-12-20] MEDS: BRIVARACETAM PO SCH ×2 (09:37→20:49)
--- NOTE | 2018-12-20 10:01 | PDOC ---
PULMONARY PROGRESS NOTES Subjective extubated 12/18 follows some commands Vitals Vital Signs Date Time Temp Pulse Resp B/P (MAP) Pulse Ox O2 Delivery O2 Flow Rate FiO2 12/20/18 09:37 76 179/91 12/20/18 08:01 100 Room Air 12/20/18 07:00 98.4 18 97.0 98.4 General: Alert, No acute distress Lungs: Clear Cardiovascular: S1, S2 Abdomen: Soft, Non-tender Neuro Exam: Alert Extremities: No Edema Skin: Warm Labs Laboratory Tests Test 12/18/18 10:50 12/18/18 11:10 12/18/18 15:35 12/18/18 16:58 Urine Opiates Screen Neg (NEG) Urine Methadone Screen Neg (NEG) Urine Barbiturates Neg (NEG) Urine Phencyclidine Screen Neg (NEG) Urine Amphetamine/Methamphetamine Neg (NEG) Urine Benzodiazepines Screen Neg (NEG) Urine Cocaine Screen Neg (NEG) Urine Cannabinoids Screen Neg (NEG) Urine Ethyl Alcohol Neg (NEG) O2 Saturation 99 % (92-99) Arterial Blood pH 7.42 (7.35-7.45) Arterial Blood pCO2 at Patient Temp 40 mmHg (35-46) Arterial Blood pO2 at Patient Temp 147 mmHg (65-108) Arterial Blood HCO3 26 mmol/L (21-28) Arterial Blood Base Excess 1 mmol/L (-3-3) FiO2 40 Ammonia 21 mcmol/L (11-34) Glucose (Fingerstick) 178 mg/dL (70-99) Test 12/18/18 22:39 12/19/18 04:05 12/19/18 05:49 12/19/18 09:27 Glucose (Fingerstick) 119 mg/dL (70-99) 101 mg/dL (70-99) 95 mg/dL (70-99) White Blood Count 6.4 x10^3/uL (4.0-11.0) Red Blood Count 3.78 x10^6/uL (4.30-5.70) Hemoglobin 11.9 g/dL (13.0-17.5) Hematocrit 34.9 % (39.0-53.0) Mean Corpuscular Volume 93 fL (79-100) Mean Corpuscular Hemoglobin 32 pg (25-35) Mean Corpuscular Hemoglobin Concent 34 g/dL (31-37) Red Cell Distribution Width 15.3 % (11.5-14.5) Platelet Count 218 x10^3/uL (140-400) Sodium Level 137 mmol/L (136-145) Potassium Level 3.6 mmol/L (3.5-5.1) Chloride Level 99 mmol/L (98-107) Carbon Dioxide Level 28 mmol/L (21-32) Anion Gap 10 (6-14) Blood Urea Nitrogen 32 mg/dL (8-26) Creatinine 4.6 mg/dL (0.7-1.3) Estimated GFR (Cockcroft-Gault) 15.9 Glucose Level 99 mg/dL (70-99) Calcium Level 8.9 mg/dL (8.5-10.1) Test 12/19/18 12:32 12/19/18 18:10 12/19/18 21:02 12/20/18 07:32 Glucose (Fingerstick) 120 mg/dL (70-99) 124 mg/dL (70-99) 161 mg/dL (70-99) 117 mg/dL (70-99) Laboratory Tests Test 12/19/18 12:32 12/19/18 18:10 12/19/18 21:02 12/20/18 07:32 Glucose (Fingerstick) 120 mg/dL (70-99) 124 mg/dL (70-99) 161 mg/dL (70-99) 117 mg/dL (70-99) Medications Active Scripts Medications Dose Route/Sig Max Daily Dose Days Date Category Aspirin 81 Mg Tab.chew 1 Tab PO DAILY 12/17/18 Reported Novolog Flexpen (Insulin Aspart) 100 Unit/1 Ml Insuln.pen 3 Unit SQ TIDAC 12/17/18 Reported Lantus Solostar (Insulin Glargine,Hum.rec.anlog) 100 Unit/1 Ml Insuln.pen 6 Unit SQ HS 12/17/18 Reported Linzess (Linaclotide) 145 Mcg Capsule 72 Mg PO DAILY07 12/17/18 Reported Calcium Acetate 667 Mg Tablet 667 Mg PO BID 12/17/18 Reported Divalproex Sodium Er (Divalproex Sodium) 250 Mg Tab.er.24h 250 Mg PO HS 12/17/18 Reported Escitalopram Oxalate 10 Mg Tablet 1 Tab PO DAILY 12/17/18 Reported Briviact (Brivaracetam) 75 Mg Tablet 75 Mg PO DAILY 12/17/18 Reported Miralax (Polyethylene Glycol 3350) 17 Gm Powd.pack 1 Packet PO DAILY 30 07/11/18 Rx Amitiza (Lubiprostone) 24 Mcg Capsule 1 Cap PO BID 30 07/11/18 Rx Percocet 7.5-325 Mg Tablet (Oxycodone/Acetaminophen) 1 Each Tablet 1 Tab PO PRN TID PRN 06/30/18 Reported Sennosides-Docusate Sodium Tab (Sennosides/Docusate Sodium) 1 Each Tablet 1 Each PO HS 06/30/18 Reported Ondansetron Odt (Ondansetron) 4 Mg Tab.rapdis 1 Tab PO PRN Q8HRS PRN 06/30/18 Reported Anusol-Hc (Hydrocortisone Acetate) 25 Mg Supp.rect 1 Supp RC PRN BID PRN 06/30/18 Reported Hydrocodone-Apap 5-325 (Hydrocodone Bit/Acetaminophen) 1 Each Tablet 1 Tab PO PRN Q6HRS PRN 02/24/18 Rx Protonix (Pantoprazole Sodium) 20 Mg Tablet.dr 40 Mg PO DAILY 02/20/18 Reported Gabapentin 300 Mg Capsule 300 Mg PO DAILY 02/20/18 Reported Nifedipine Er (Nifedipine) 60 Mg Tab.er.24 60 Mg PO DAILY 01/19/17 Reported Proventil Hfa Inhaler (Albuterol Sulfate) 6.7 Gm Hfa.aer.ad 1 Puff IH PRN Q4HRS PRN 01/19/17 Reported Atorvastatin Calcium 40 Mg Tablet 1 Tab PO DAILY 06/23/15 Reported Carvedilol 25 Mg Tablet 6.25 Mg PO BIDWMEALS 11/25/14 Reported Impression . 1. Acute hypoxemic respiratory failure due to encephalopathy /chronic obstructive pulmonary disease . No PE/DVT, extubated 12/18 2. Chest pain, questionable etiology.no CAD 3. Chronic obstructive pulmonary disease. 4. End-stage renal disease, on hemodialysis. 5. Hypokalemia. 6. Hypertension. 7. Diabetes mellitus. 8. History of cerebrovascular accident. 9. Coronary artery disease. 10. Paroxysmal atrial fibrillation. 11. Encephalopathy ? etiology. likely due to CVA Plan . 1. nasal canula 2. repeat ct head with no new events, old lacunar infarct 3. CT angiogram neg for PE 4. Cardiology rec. off full dose heparin pulmonary dyer, on prophylaxis dose 5. Lower extremity venous Doppler.neg 6. f/u cxr as needed 7. Protonix for stress ulcer prophylaxis. 8. Monitor respiratory status d/w BAYRON HUGHES MD Dec 20, 2018 10:01
--- NOTE | 2018-12-20 10:12 | PDOC ---
[facility] PROGRESS NOTE Chief Complaint Chief Complaint Chest pain Acute respiratory failure History of Present Illness History of Present Illness 12/20/18 Pt seen and examined on med floor Pt was sitting up eating breakfast and drinking coffee. Pt was semi-sedated and not very responsive, his eyes were open. Pt had a rough night and had received Ativan Reviewed chart and labs EJ RN 12/19/18 Pt seen and examined in the ICU Extubated, sitting up in chair Was joined by Glucose decreased from 167 from 12/18 to 95 reports slight confusion Pt was able to report the current year EJ RN Charts and labs reviewed 12/18/18 Pt seen and examine in the ICU Was joined at bedside by and friend Spontaneous respirations with 40% FiO2 Glucose increased to 167 from 148 on 12/17 EJ RN 12/17/18 Pt seen and examined in the ICU Was joined at bedside by Sedated with Diprivan On ventilation (AC 14/500/40% 5.0 PEEP) Will consult pulmonary and cardiology pH = 7.53, will decrease respiratory rate Vitals/I&O Vitals/I&O: Vital Signs Date Time Temp Pulse Resp B/P (MAP) Pulse Ox O2 Delivery O2 Flow Rate FiO2 12/20/18 09:37 76 179/91 12/20/18 08:01 100 Room Air 12/20/18 07:00 98.4 18 97.0 98.4 I & O 12/19/18 12/19/18 12/20/18 15:00 23:00 07:00 Intake Total 380 ml 100 ml Output Total 225 ml Balance 380 ml -125 ml Physical Exam General: Alert, Oriented X3, Cooperative, No acute distress, Other Heart: Regular rate Lungs: Clear Abdomen: Normal bowel sounds, Soft Extremities: No clubbing, No cyanosis, No edema, Normal pulses Skin: No rashes, No breakdown, No significant lesion Labs Labs: Laboratory Tests Test 12/19/18 12:32 12/19/18 18:10 12/19/18 21:02 12/20/18 07:32 Glucose (Fingerstick) 120 mg/dL (70-99) 124 mg/dL (70-99) 161 mg/dL (70-99) 117 mg/dL (70-99) Review of Systems Review of Systems: Unable to obtain due to semi-sedated state Assessment and Plan Assessmemt and Plan Problems Medical Problems: (1) Abnormal EKG Status: Acute (2) Acute respiratory failure Status: Acute (3) Chest pain Status: Acute Assessment Acute respiratory failure ESRD Chest pain Plan Discharge deposition pending Probable discharge to [facility] Speech therapy PT/OT DVT prophylaxis Dialysis Home meds Full code Comment Review of Relevant I have reviewed the following items dominick (where applicable) has been applied. GEETHA TAYLOR III, DO Dec 20, 2018 10:12
[2018-12-20 11:00] VITALS: BP 124/75
--- NOTE | 2018-12-20 12:05 | PDOC ---
CARDIO Progress Notes Date and Time Date of Service 12/20/18 Time of Evaluation 1150 Subjective Subjective: Other (drowsy) Comments: confused, combative last night Vitals Vitals Vital Signs Date Time Temp Pulse Resp B/P (MAP) Pulse Ox O2 Delivery O2 Flow Rate FiO2 12/20/18 11:00 98.4 74 16 124/75 (91) 95 Room Air 98.4 12/20/18 07:00 97.0 Weight Weight [ ] Input and Output Intake and Output Intake and Output 12/20/18 07:00 Intake Total 480 ml Output Total 225 ml Balance 255 ml Intake Oral 480 ml Output Urine Total 225 ml Laboratory Labs Laboratory Tests Test 12/19/18 12:32 12/19/18 18:10 12/19/18 21:02 12/20/18 07:32 Glucose (Fingerstick) 120 mg/dL (70-99) 124 mg/dL (70-99) 161 mg/dL (70-99) 117 mg/dL (70-99) Physical Exam HEENT: Neck Supple W Full Motion Chest: Symmetric LUNGS: Other (diminished bases) Heart: RRR (SR) Abdomen: Soft N/T Extremities: No Edema Neurology: other (drowsy) Assessment Assessment 1. Acute respiratory failure with COPD; post extubation 2. Chest pain; AMI ruled out. Echo EF and WM nml. 3. CAD s/p PCI/MALINDA to Dx 12/07/2018. [facility] 08/13/2016 with stent RCA and PTCA to distal LAD with BMS 4. PAFIB; on Eliquis for stroke prevention. Maintaining SR 5. SSS s/p PPM ([employer]) 4.5 yrs battery life. DDD. 0 AFIB burden 6. Accelerated hypertension; labile 7. ESRD on HD 8. Hyperlipidemia; statin. Lipids on goal 9. Diabetes, II; as per PCP 10. H/o substance abuse; UDS neg. 11. Metabolic encephalopathy: combative overnight. unclear baseline. CT neg for acute changes. Recommendations Increase coreg for better BP control Secondary prevention measures Fluid offloading, management via HD as per nephrology Consider outpatient stress test Lung optimization as per pulmonary Follow up in our office with Dr. Pyle 02/01/19 at 2:30pm. ALFREDA PICKARD APRN Dec 20, 2018 12:05
[2018-12-20] MEDS ORDERED: CARVEDILOL 6.25 MG TABLET. PO ONE (12:15)
--- NOTE | 2018-12-20 13:27 | NUR ---
SS following up with discharge planning. SS met with pt and pt's spouse in room to discuss rehabilitation. Pt's spouse reported that pt was recently discharged from acute rehabilitation in September of 2018 and was discharged to home with [facility], ; fax [phone]. She reported that pt has dialysis at [facility] in [place]. Pt's spouse reported that she does not want pt to return to rehabilitation facility and will be taken pt home to resume home healthcare. Pt's RN notified.
--- NOTE | 2018-12-20 13:54 | PDOC ---
SUBJECTIVE ROS Stable OBJECTIVE Vital Signs Vital Signs Date Time Temp Pulse Resp B/P (MAP) Pulse Ox O2 Delivery O2 Flow Rate FiO2 12/20/18 12:04 100 Room Air 12/20/18 11:00 98.4 74 16 124/75 (91) 98.4 12/20/18 07:00 97.0 I & 0 Intake and Output 12/20/18 07:00 Intake Total 480 ml Output Total 225 ml Balance 255 ml Intake Oral 480 ml Output Urine Total 225 ml PHYSICAL EXAM Physical Exam GENERAL: NAD HEENT: OM moist NECK: Supple, LUNGS: Clear to auscultation, Non labored CHEST: right anterior chest wall hemodialysis catheter. HEART: RRR, S1, S2 present. ABDOMEN: soft EXTREMITIES: trace edema. NEUROLOGIC: Hx of CVA, grossly normal SKIN: No rashes DIAGNOSIS/ASSESSMENT Assessment & Plan End-stage renal disease secondary to hypertensive nephrosclerosis. On HD TTS @ [facility] No indication for HD today Respiratory failure. History of severe COPD.Was on MV Chest pain. No EKG changes of an acute ST elevated myocardial infarction. History of coronary artery disease and stenting. Cardiology following History of atrial fibrillation and permanent pacing Diabetes mellitus. As per the primary service. Hypertension- stable History of previous CVA. COMMENT/RELEVANT DATA Meds Current Medications Medications (Trade) Dose Ordered Sig/Lien Start Time Stop Time Status Last Admin Dose Admin Acetaminophen (Tylenol) 500 mg 1X PRN PRN 12/17/18 14:00 12/18/18 13:59 DC Albumin Human 200 ml @ 200 mls/hr 1X PRN PRN 12/17/18 14:00 12/17/18 19:59 DC Albuterol/ Ipratropium (Duoneb) 3 ml RTQID 12/17/18 08:00 12/20/18 08:01 3 ML Amlodipine Besylate (Norvasc) 10 mg DAILY 12/17/18 13:30 12/20/18 09:37 10 MG Aspirin (Children'S Aspirin) 81 mg DAILY 12/17/18 12:30 12/20/18 09:36 81 MG Atorvastatin Calcium (Lipitor) 40 mg QHS 12/17/18 21:00 12/19/18 21:49 40 MG Calcium Acetate (Phoslo) 667 mg BIDWMEALS 12/17/18 17:00 12/20/18 09:36 667 MG Carvedilol (Coreg) 6.25 mg 1X ONCE 12/20/18 12:15 12/20/18 12:16 DC Citalopram Hydrobromide (CeleXA) 20 mg DAILY 12/17/18 12:30 12/20/18 09:36 20 MG Diphenhydramine HCl (Benadryl) 25 mg 1X PRN PRN 12/17/18 14:00 12/18/18 13:59 DC Divalproex Sodium (Depakote Er) 250 mg HS 12/17/18 21:00 12/19/18 21:49 250 MG Etomidate (Amidate) 20 mg STK-MED ONCE 12/16/18 18:42 12/16/18 18:42 DC Fentanyl Citrate (Fentanyl 2ml Vial) 100 mcg STK-MED ONCE 12/16/18 18:08 12/16/18 18:08 DC Gabapentin (Neurontin) 300 mg DAILY 12/17/18 12:30 12/20/18 09:36 300 MG Heparin Sodium (Porcine) (Heparin Sodium) 5,000 unit Q8HRS 12/18/18 14:00 12/20/18 05:18 5,000 UNIT Heparin Sodium/ Dextrose 500 ml @ 20.88 mls/ hr CONT PRN 12/16/18 18:45 12/18/18 10:59 DC 12/17/18 19:26 20.88 MLS/HR Hydralazine HCl (Apresoline Inj) 10 mg 1X ONCE 12/19/18 09:00 12/19/18 09:01 DC Info (Anti-Coagulation Monitoring By Pharmacy) 1 each PRN DAILY PRN 12/17/18 08:00 12/18/18 11:01 DC 12/18/18 08:08 1 EACH Info (CONTRAST GIVEN -- Rx MONITORING) 1 each PRN DAILY PRN 12/17/18 08:00 12/19/18 07:59 DC Info (PHARMACY MONITORING -- do not chart) 1 each PRN DAILY PRN 12/19/18 14:45 UNV Insulin Glargine (Lantus Syringe) 6 unit QHS 12/17/18 21:00 12/19/18 22:49 6 UNIT Insulin Human Lispro (HumaLOG) 3 units TIDWMEALS 12/17/18 12:30 12/19/18 12:34 3 UNITS Iohexol (Omnipaque 350 Mg/ml) 100 ml 1X ONCE 12/17/18 08:00 12/17/18 08:01 DC Labetalol HCl (Normodyne Iv Push) 20 mg PRN Q2HR PRN 12/16/18 22:45 12/16/18 23:04 20 MG Lansoprazole (Prevacid) 30 mg DAILYAC 12/17/18 12:30 12/20/18 09:36 30 MG Lorazepam (Ativan Inj) 2 mg PRN Q1HR PRN 12/16/18 22:45 12/20/18 01:01 2 MG Midazolam HCl (Versed) 2 mg STK-MED ONCE 12/16/18 18:08 12/16/18 18:08 DC Nicardipine HCl 50 mg/Sodium Chloride 250 ml @ 25 mls/hr CONT PRN 12/16/18 22:45 Nifedipine (Procardia Xl) 60 mg DAILY 12/18/18 09:00 UNV Non-Formulary Medication (Brivaracetam (Briviact)) 75 mg BID 12/18/18 09:00 12/20/18 09:37 75 MG Non-Formulary Medication (Linaclotide (Linzess)) 72 mg DAILY07 12/18/18 07:00 UNV Pantoprazole Sodium (Protonix) 40 mg DAILYAC 12/17/18 12:30 12/17/18 12:07 DC Potassium Bicarbonate (Potassium Effervescent Tablet) 40 meq 1X ONCE 12/17/18 14:30 12/17/18 14:31 DC 12/17/18 15:00 40 MEQ Propofol 100 ml @ 1.225 mls/ hr CONT PRN 12/17/18 00:15 12/18/18 10:59 DC 12/18/18 00:30 12.247 MLS/HR Sodium Chloride 1,000 ml @ 400 mls/hr Q2H30M PRN 12/19/18 14:40 12/20/18 02:39 DC Sodium Chloride (Normal Saline Flush) 10 ml 1X PRN PRN 12/17/18 14:00 12/18/18 13:59 DC Vecuronium Hendricks (Norcuron Bolus) 10 mg STK-MED ONCE 12/16/18 18:42 12/16/18 18:42 NH Lab Laboratory Tests Test 12/19/18 18:10 12/19/18 21:02 12/20/18 07:32 12/20/18 12:29 Glucose (Fingerstick) 124 mg/dL (70-99) 161 mg/dL (70-99) 117 mg/dL (70-99) 139 mg/dL (70-99) Results All relevant outside records, renal labs, imaging studies, telemetry/EKG's were reviewed. JOY CELIS MD Dec 20, 2018 13:54
--- NOTE | 2018-12-20 14:18 | EEG ---
DATE OF SERVICE: 12/19/2018 EEG NUMBER: [id number] OBJECTIVE: This is a 58-year-old -[place] male patient with history of mental status changes not gaining consciousness after sedation was discontinued. EEG was requested to evaluate cerebral activity and help rule out subclinical seizure. FINDINGS: 1. Background: The patient was recorded in the awake, drowsy, and sleep states. The overall background amplitude is 10-25 microvolts. A posterior dominant rhythm of 6-7 Hz is observed. 2. Abnormalities: No specific epileptiform discharge or electrographic seizure is seen. 3. Activation: Hyperventilation was not performed because the patient was not following commands. Intermittent photic stimulation was performed with photic driving. IMPRESSION: This EEG falls into the abnormal category of the study for the awake, drowsy, and sleep states. The posterior dominant rhythm of 6-7 Hz is slow for age. No focal, lateralizing, specific epileptiform discharge or electrographic seizure is seen. FARA MOURA MD DR: MARCIAL/bonine JOB#: [id number] / [id number] ALEC
[2018-12-20 15:00] VITALS: BP 136/70
--- NOTE | 2018-12-20 15:28 | PDOC ---
PROGRESS NOTES Assessment Assessment Metabolic encephalopathy. Respiratory failure. Chest pain. ESRD on dialysis. 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 DM. HTN. RECOMMENDATIONS/PLAN: Continue ASA daily. Continue Lipitor HS. Continue medical treatment. Discussed with his at bedside in ICU on 12/18/18. Repeated HCT on 12/17/18: No acute findings. EEG on 12/19/18: The posterior dominant rhythm is 6-7 Hz/s that is slow for age. HISTORY OF THE PRESENT ILLNESS: This is a 58-year-old AA male with a history of coronary artery disease and stenting, COPD and end-stage renal disease on hemodialysis. He reportedly developed chest discomfort while at his dialysis center on 12/16/18 and was transferred to the emergency room. He was found in acute respiratory failure and was intubated and placed on a ventilator. After discontinuation of propofol sedation for about 8 hours, he still has not gained consciousness, so Neurology was requested for consultation. Past Medical History Cardiovascular: AFIB, CAD, HTN Pulmonary: COPD, Pulmonary embolus CENTRAL NERVOUS SYSTEM: Periperal neuropathy, Seizure GI: Constipation, GERD Heme/Onc: No pertinent hx Hepatobiliary: No pertinent hx Psych: Bipolar Musculoskeletal: Osteoarthritis Infectious disease: No pertinent hx Renal/: Chronic renal insuff, Chronic renal failure Endocrine: Diabetes Past Surgical History Pacemaker, Other (coronary stents. Hemodialysis catheter.) Family History Diabetes, Heart Disease Social History ALCOHOL: none Drugs: Cocaine in past. Lives: with Family ALLERGY: NKDA MEDICATIONS: Refer to MAR REVIEW OF SYSTEMS: Constitutional: No malnutrition, weight loss, cachexia. Head: No traumatic brain or head injury. Skin: No edema, or rash. Ear: No infection. Eyes: No vision loss or color blindness. Nose: No bleeding or purulent discharges. Hearing: No hearing decrease. Neck: No injury. Cardiac: CAD, HTN, HLD. Pulmonary: No COPD. GI: No GI ulcer, GI bleeding. Urinary/genital: ESRD on dialysis. Endocrinologic: Diabetes Mellitus. Skeletomuscular: No muscular atrophy, deformity. Neurological: see HP. Psychiatric: Denies drug use/abuse. Otherwise, not [id number] review of systems. PHYSICAL EXAMINATION: General appearance is in subacute distress. HEENT: Normocephalic and nontraumatic. Eyes, nose, ears, and throat are unremarkable. Neck is supple. No lymphadenopathy. No crepitus. Cardiovascular: S1, S2, regular rate and rhythm. Pulmonary: Relative clear to auscultation bilaterally. Abdomen: Bowel sounds are positive. Extremities: No rash, lesions. No restriction of range of motion NEUROLOGICAL EXAMINATION: Sleepiness but arousable. Not fully oriented to time, but knew place and person. PERRL. EOMI not elicited due to not follow commands. But he was resistant for eye open. CN: no focal findings. Muscle tone: within normal. Muscle strength: 4+ right side 5 left side. DTR: 2 Plantar reflex: Neutral response bilaterally Gait: not examined while in bed. Sensory exam: no abnormal findings. No cerebellar signs elicited. F-T-N test fine. Objective Objective Vital Signs Date Time Temp Pulse Resp B/P (MAP) Pulse Ox O2 Delivery O2 Flow Rate FiO2 12/20/18 15:00 98.0 16 16 136/70 (92) 97 Room Air 98.0 12/20/18 07:00 97.0 Intake and Output 12/20/18 07:00 Intake Total 480 ml Output Total 225 ml Balance 255 ml Intake Oral 480 ml Output Urine Total 225 ml Vitals Signs Vitals VS - Last 72 Hours, by Label Date Time Temp Pulse Resp B/P (MAP) Pulse Ox O2 Delivery O2 Flow Rate FiO2 12/20/18 15:00 98.0 16 16 136/70 (92) 97 Room Air 98.0 12/20/18 12:04 100 Room Air 12/20/18 11:00 98.4 74 16 124/75 (91) 95 Room Air 98.4 12/20/18 09:37 76 179/91 12/20/18 09:36 76 179/91 12/20/18 08:01 100 Room Air 12/20/18 08:00 Room Air 12/20/18 07:00 98.4 76 18 179/91 (120) Room Air 97.0 98.4 12/20/18 02:50 97.8 84 18 176/94 (121) 96 Room Air 97.8 12/19/18 23:00 97.4 88 18 200/98 (132) 96 Room Air 97.4 12/19/18 20:00 Room Air 12/19/18 19:52 96 Room Air 12/19/18 19:40 97.8 78 18 156/67 (96) 96 Room Air 97.8 12/19/18 17:00 78 156/67 12/19/18 12:00 97.7 75 30 144/75 (98) 97 Room Air 97.7 12/19/18 11:49 97 Room Air 12/19/18 11:00 76 30 115/69 (84) 97 Room Air 12/19/18 10:00 79 23 151/84 (106) 97 Room Air 12/19/18 09:00 75 28 188/96 (126) 97 Room Air 12/19/18 09:00 115/69 12/19/18 09:00 78 156/67 12/19/18 08:20 98 Nasal Cannula 2.0 12/19/18 08:00 98.3 72 24 166/88 (114) 97 Room Air 98.3 12/19/18 08:00 Room Air 12/19/18 07:00 72 24 165/83 (110) 97 Room Air Laboratory Laboratory Laboratory Tests Test 12/19/18 18:10 12/19/18 21:02 12/20/18 07:32 12/20/18 12:29 Glucose (Fingerstick) 124 mg/dL (70-99) 161 mg/dL (70-99) 117 mg/dL (70-99) 139 mg/dL (70-99) Medication Medications Current Medications Carvedilol (Coreg) 6.25 mg 1X ONCE PO ; Start 12/20/18 at 12:15; Stop 12/20/18 at 12:16; Status DC Carvedilol (Coreg) 12.5 mg BIDWMEALS PO ; Start 12/20/18 at 17:00 Comment Review of Relevant I have reviewed the following items dominick (where applicable) has been applied. FARA MOURA MD Dec 20, 2018 15:28
[2018-12-20] MEDS: CARVEDILOL 12.5 MG TABLET. PO SCH (17:55)
[2018-12-20 19:00] VITALS: BP 141/76
[2018-12-20] MEDS: DIVALPROEX EXTENDED RELEASE 250 MG TAB.ER.24H. PO SCH (20:49)
[2018-12-20] MEDS: ATORVASTATIN CALCIUM 40 MG TABLET. PO SCH (20:49)
[2018-12-20] MEDS: INSULIN GLARGINE SYRINGE. SQ SCH (21:22)
[2018-12-20 23:00] VITALS: BP 161/92
[2018-12-21 03:00] VITALS: BP 162/87
[2018-12-21] MEDS: HEPARIN for SUB-Q USE 5,000 UNIT/ML VIAL. SQ SCH ×3 (05:21→21:07)
[2018-12-21] MEDS: LINACLOTIDE 72 MG PO SCH (05:21)
[2018-12-21 05:50] LABS: BASO % 0 % (0-3); EOS # 0.1 x10^3/uL (0.0-0.7); EOS % 1 % (0-3); HEMATOCRIT 34.1 % (39.0-53.0); HEMOGLOBIN 11.9 g/dL (13.0-17.5); LYMPH % 35 % (24-48); MEAN CORPUSCULAR HEMOGLOBIN 32 pg (25-35); MEAN CORPUSCULAR HGB CONC 35 g/dL (31-37); MEAN CORPUSCULAR VOLUME 92 fL (79-100); MONO # 0.8 x10^3/uL (0.0-1.1); MONO % 14 % (0-9); NEUT # 2.8 x10^3/uL (1.8-7.7); NEUT % 49 % (31-73); PLATELET COUNT 223 x10^3/uL (140-400); RED BLOOD COUNT 3.73 x10^6/uL (4.30-5.70); RED CELL DISTRIBUTION WIDTH 14.5 % (11.5-14.5); WHITE BLOOD COUNT 5.8 x10^3/uL (4.0-11.0)
[2018-12-21 06:08] LABS: CREATININE 5.1 mg/dL (0.7-1.3); GFR 14.1; POTASSIUM 3.8 mmol/L (3.5-5.1)
[2018-12-21 07:00] VITALS: BP 147/82
[2018-12-21] MEDS: INSULIN LISPRO 300 UNITS/3 ML VIAL. SQ SCH ×3 (08:00→17:34)
[2018-12-21] MEDS ORDERED: diphenhydrAMINE 50 MG/ML VIAL IV PRN ×2 (08:00)
[2018-12-21] MEDS ORDERED: ALBUMIN HUMAN 25% 200 ML IV PRN (08:00)
[2018-12-21] MEDS ORDERED: IV NORMAL SALINE 1000ML BAG 1,000 ML IV PRN ×2 (08:00)
[2018-12-21] MEDS: CARVEDILOL 12.5 MG TABLET. PO SCH ×2 (08:00→17:27)
[2018-12-21] MEDS ORDERED: DIALYSIS PATIENT. MC PRN ×2 (08:00)
[2018-12-21] MEDS ORDERED: ACETAMINOPHEN 500 MG TABLET PO PRN (08:00)
[2018-12-21] MEDS: CALCIUM ACETATE 667 MG CAPSULE PO SCH ×2 (08:00→17:27)
[2018-12-21] MEDS: IPRATRPIUM/ALBUTEROL 0.5/2.5MG 3 ML NEBU. NEB SCH ×4 (08:32→19:25)
--- NOTE | 2018-12-21 11:23 | PDOC ---
[facility] PROGRESS NOTE Chief Complaint Chief Complaint Chest pain Acute respiratory failure History of Present Illness History of Present Illness 12/21 Pt seen and examined on dialysis Pt was sleeping and in no acute distress Charts and labs reviewed EJ RN 12/20/18 Pt seen and examined on med floor Pt was sitting up eating breakfast and drinking coffee. Pt was semi-sedated and not very responsive, his eyes were open. Pt had a rough night and had received Ativan Reviewed chart and labs EJ RN 12/19/18 Pt seen and examined in the ICU Extubated, sitting up in chair Was joined by Glucose decreased from 167 from 12/18 to 95 reports slight confusion Pt was able to report the current year EJ RN Charts and labs reviewed 12/18/18 Pt seen and examine in the ICU Was joined at bedside by and friend Spontaneous respirations with 40% FiO2 Glucose increased to 167 from 148 on 12/17 EJ RN 12/17/18 Pt seen and examined in the ICU Was joined at bedside by Sedated with Diprivan On ventilation (AC 14/500/40% 5.0 PEEP) Will consult pulmonary and cardiology pH = 7.53, will decrease respiratory rate Vitals/I&O Vitals/I&O: Vital Signs Date Time Temp Pulse Resp B/P (MAP) Pulse Ox O2 Delivery O2 Flow Rate FiO2 12/21/18 08:33 97 Room Air 12/21/18 07:00 97.5 76 28 147/82 (103) 97.5 12/20/18 07:00 97.0 I & O 12/20/18 12/20/18 12/21/18 15:00 23:00 07:00 Intake Total 580 ml 0 ml Output Total 20 ml 200 ml Balance -20 ml 580 ml -200 ml Physical Exam General: Alert, Oriented X3, Cooperative, No acute distress, Other Heart: Regular rate Lungs: Clear Abdomen: Normal bowel sounds, Soft Extremities: No clubbing, No cyanosis, No edema, Normal pulses Skin: No rashes, No breakdown, No significant lesion Labs Labs: Laboratory Tests Test 12/20/18 12:29 12/20/18 17:27 12/20/18 20:48 12/21/18 05:01 Glucose (Fingerstick) 139 mg/dL (70-99) 172 mg/dL (70-99) 162 mg/dL (70-99) White Blood Count 5.8 x10^3/uL (4.0-11.0) Red Blood Count 3.73 x10^6/uL (4.30-5.70) Hemoglobin 11.9 g/dL (13.0-17.5) Hematocrit 34.1 % (39.0-53.0) Mean Corpuscular Volume 92 fL (79-100) Mean Corpuscular Hemoglobin 32 pg (25-35) Mean Corpuscular Hemoglobin Concent 35 g/dL (31-37) Red Cell Distribution Width 14.5 % (11.5-14.5) Platelet Count 223 x10^3/uL (140-400) Neutrophils (%) (Auto) 49 % (31-73) Lymphocytes (%) (Auto) 35 % (24-48) Monocytes (%) (Auto) 14 % (0-9) Eosinophils (%) (Auto) 1 % (0-3) Basophils (%) (Auto) 0 % (0-3) Neutrophils # (Auto) 2.8 x10^3/uL (1.8-7.7) Lymphocytes # (Auto) 2.0 x10^3/uL (1.0-4.8) Monocytes # (Auto) 0.8 x10^3/uL (0.0-1.1) Eosinophils # (Auto) 0.1 x10^3/uL (0.0-0.7) Basophils # (Auto) 0.0 x10^3/uL (0.0-0.2) Sodium Level 136 mmol/L (136-145) Potassium Level 3.8 mmol/L (3.5-5.1) Chloride Level 99 mmol/L (98-107) Carbon Dioxide Level 28 mmol/L (21-32) Anion Gap 9 (6-14) Blood Urea Nitrogen 39 mg/dL (8-26) Creatinine 5.1 mg/dL (0.7-1.3) Estimated GFR (Cockcroft-Gault) 14.1 Glucose Level 140 mg/dL (70-99) Calcium Level 9.0 mg/dL (8.5-10.1) Review of Systems Review of Systems: Unable to obtain due to sleep Assessment and Plan Assessmemt and Plan Problems Medical Problems: (1) Abnormal EKG Status: Acute (2) Acute respiratory failure Status: Acute (3) Chest pain Status: Acute Assessment Acute respiratory failure ESRD Chest pain Plan Speech therapy PT/OT Dialysis Home meds DVT prophylaxis Full code Probable discharge with home health if stable Comment Review of Relevant I have reviewed the following items dominick (where applicable) has been applied. Medications: Current Medications Medications (Trade) Dose Ordered Sig/Lien Route PRN Reason Start Time Stop Time Status Last Admin Dose Admin Carvedilol (Coreg) 12.5 mg BIDWMEALS PO 12/20/18 17:00 12/20/18 17:55 GEETHA TAYLOR III DO Dec 21, 2018 11:23
--- NOTE | 2018-12-21 11:49 | PDOC ---
PULMONARY PROGRESS NOTES Subjective extubated 12/18 follows some commands Vitals Vital Signs Date Time Temp Pulse Resp B/P (MAP) Pulse Ox O2 Delivery O2 Flow Rate FiO2 12/21/18 08:33 97 Room Air 12/21/18 07:00 97.5 76 28 147/82 (103) 97.5 12/20/18 07:00 97.0 General: Alert, No acute distress Lungs: Clear Cardiovascular: S1, S2 Abdomen: Soft, Non-tender Neuro Exam: Alert Extremities: No Edema Skin: Warm Labs Laboratory Tests Test 12/19/18 12:32 12/19/18 18:10 12/19/18 21:02 12/20/18 07:32 Glucose (Fingerstick) 120 mg/dL (70-99) 124 mg/dL (70-99) 161 mg/dL (70-99) 117 mg/dL (70-99) Test 12/20/18 12:29 12/20/18 17:27 12/20/18 20:48 12/21/18 05:01 Glucose (Fingerstick) 139 mg/dL (70-99) 172 mg/dL (70-99) 162 mg/dL (70-99) White Blood Count 5.8 x10^3/uL (4.0-11.0) Red Blood Count 3.73 x10^6/uL (4.30-5.70) Hemoglobin 11.9 g/dL (13.0-17.5) Hematocrit 34.1 % (39.0-53.0) Mean Corpuscular Volume 92 fL (79-100) Mean Corpuscular Hemoglobin 32 pg (25-35) Mean Corpuscular Hemoglobin Concent 35 g/dL (31-37) Red Cell Distribution Width 14.5 % (11.5-14.5) Platelet Count 223 x10^3/uL (140-400) Neutrophils (%) (Auto) 49 % (31-73) Lymphocytes (%) (Auto) 35 % (24-48) Monocytes (%) (Auto) 14 % (0-9) Eosinophils (%) (Auto) 1 % (0-3) Basophils (%) (Auto) 0 % (0-3) Neutrophils # (Auto) 2.8 x10^3/uL (1.8-7.7) Lymphocytes # (Auto) 2.0 x10^3/uL (1.0-4.8) Monocytes # (Auto) 0.8 x10^3/uL (0.0-1.1) Eosinophils # (Auto) 0.1 x10^3/uL (0.0-0.7) Basophils # (Auto) 0.0 x10^3/uL (0.0-0.2) Sodium Level 136 mmol/L (136-145) Potassium Level 3.8 mmol/L (3.5-5.1) Chloride Level 99 mmol/L (98-107) Carbon Dioxide Level 28 mmol/L (21-32) Anion Gap 9 (6-14) Blood Urea Nitrogen 39 mg/dL (8-26) Creatinine 5.1 mg/dL (0.7-1.3) Estimated GFR (Cockcroft-Gault) 14.1 Glucose Level 140 mg/dL (70-99) Calcium Level 9.0 mg/dL (8.5-10.1) Laboratory Tests Test 12/20/18 12:29 12/20/18 17:27 12/20/18 20:48 12/21/18 05:01 Glucose (Fingerstick) 139 mg/dL (70-99) 172 mg/dL (70-99) 162 mg/dL (70-99) White Blood Count 5.8 x10^3/uL (4.0-11.0) Red Blood Count 3.73 x10^6/uL (4.30-5.70) Hemoglobin 11.9 g/dL (13.0-17.5) Hematocrit 34.1 % (39.0-53.0) Mean Corpuscular Volume 92 fL (79-100) Mean Corpuscular Hemoglobin 32 pg (25-35) Mean Corpuscular Hemoglobin Concent 35 g/dL (31-37) Red Cell Distribution Width 14.5 % (11.5-14.5) Platelet Count 223 x10^3/uL (140-400) Neutrophils (%) (Auto) 49 % (31-73) Lymphocytes (%) (Auto) 35 % (24-48) Monocytes (%) (Auto) 14 % (0-9) Eosinophils (%) (Auto) 1 % (0-3) Basophils (%) (Auto) 0 % (0-3) Neutrophils # (Auto) 2.8 x10^3/uL (1.8-7.7) Lymphocytes # (Auto) 2.0 x10^3/uL (1.0-4.8) Monocytes # (Auto) 0.8 x10^3/uL (0.0-1.1) Eosinophils # (Auto) 0.1 x10^3/uL (0.0-0.7) Basophils # (Auto) 0.0 x10^3/uL (0.0-0.2) Sodium Level 136 mmol/L (136-145) Potassium Level 3.8 mmol/L (3.5-5.1) Chloride Level 99 mmol/L (98-107) Carbon Dioxide Level 28 mmol/L (21-32) Anion Gap 9 (6-14) Blood Urea Nitrogen 39 mg/dL (8-26) Creatinine 5.1 mg/dL (0.7-1.3) Estimated GFR (Cockcroft-Gault) 14.1 Glucose Level 140 mg/dL (70-99) Calcium Level 9.0 mg/dL (8.5-10.1) Medications Active Scripts Medications Dose Route/Sig Max Daily Dose Days Date Category Aspirin 81 Mg Tab.chew 1 Tab PO DAILY 12/17/18 Reported Novolog Flexpen (Insulin Aspart) 100 Unit/1 Ml Insuln.pen 3 Unit SQ TIDAC 12/17/18 Reported Lantus Solostar (Insulin Glargine,Hum.rec.anlog) 100 Unit/1 Ml Insuln.pen 6 Unit SQ HS 12/17/18 Reported Linzess (Linaclotide) 145 Mcg Capsule 72 Mg PO DAILY07 12/17/18 Reported Calcium Acetate 667 Mg Tablet 667 Mg PO BID 12/17/18 Reported Divalproex Sodium Er (Divalproex Sodium) 250 Mg Tab.er.24h 250 Mg PO HS 12/17/18 Reported Escitalopram Oxalate 10 Mg Tablet 1 Tab PO DAILY 12/17/18 Reported Briviact (Brivaracetam) 75 Mg Tablet 75 Mg PO DAILY 12/17/18 Reported Miralax (Polyethylene Glycol 3350) 17 Gm Powd.pack 1 Packet PO DAILY 30 07/11/18 Rx Amitiza (Lubiprostone) 24 Mcg Capsule 1 Cap PO BID 30 4/23/19 Rx Percocet 7.5-325 Mg Tablet (Oxycodone/Acetaminophen) 1 Each Tablet 1 Tab PO PRN TID PRN 06/30/18 Reported Sennosides-Docusate Sodium Tab (Sennosides/Docusate Sodium) 1 Each Tablet 1 Each PO HS 06/30/18 Reported Ondansetron Odt (Ondansetron) 4 Mg Tab.rapdis 1 Tab PO PRN Q8HRS PRN 06/30/18 Reported Anusol-Hc (Hydrocortisone Acetate) 25 Mg Supp.rect 1 Supp RC PRN BID PRN 06/30/18 Reported Hydrocodone-Apap 5-325 (Hydrocodone Bit/Acetaminophen) 1 Each Tablet 1 Tab PO PRN Q6HRS PRN 02/24/18 Rx Protonix (Pantoprazole Sodium) 20 Mg Tablet.dr 40 Mg PO DAILY 02/20/18 Reported Gabapentin 300 Mg Capsule 300 Mg PO DAILY 02/20/18 Reported Nifedipine Er (Nifedipine) 60 Mg Tab.er.24 60 Mg PO DAILY 01/19/17 Reported Proventil Hfa Inhaler (Albuterol Sulfate) 6.7 Gm Hfa.aer.ad 1 Puff IH PRN Q4HRS PRN 01/19/17 Reported Atorvastatin Calcium 40 Mg Tablet 1 Tab PO DAILY 06/23/15 Reported Carvedilol 25 Mg Tablet 6.25 Mg PO BIDWMEALS 11/25/14 Reported Impression . 1. Acute hypoxemic respiratory failure due to encephalopathy /chronic obstructive pulmonary disease . No PE/DVT, extubated 12/18 2. Chest pain, questionable etiology.no CAD 3. Chronic obstructive pulmonary disease. 4. End-stage renal disease, on hemodialysis. 5. Hypokalemia. 6. Hypertension. 7. Diabetes mellitus. 8. History of cerebrovascular accident. 9. Coronary artery disease. 10. Paroxysmal atrial fibrillation. 11. Encephalopathy ? etiology. likely due to CVA Plan . 1. nasal canula 2. repeat ct head with no new events, old lacunar infarct 3. CT angiogram neg for PE 4. Cardiology rec. off full dose heparin pulmonary dyer, on prophylaxis dose 5. Lower extremity venous Doppler.neg 6. f/u cxr as needed 7. Protonix for stress ulcer prophylaxis. 8. Not much to add. will sign off BAYRON SCHNEIDER MD Dec 21, 2018 11:49
--- NOTE | 2018-12-21 12:37 | PDOC ---
SUBJECTIVE ROS Stable OBJECTIVE Vital Signs Vital Signs Date Time Temp Pulse Resp B/P (MAP) Pulse Ox O2 Delivery O2 Flow Rate FiO2 12/21/18 12:08 Room Air 12/21/18 08:33 97 12/21/18 07:00 97.5 76 28 147/82 (103) 97.5 12/20/18 07:00 97.0 I & 0 Intake and Output 12/21/18 07:00 Intake Total 580 ml Output Total 220 ml Balance 360 ml Intake Oral 580 ml Output Urine Total 220 ml PHYSICAL EXAM Physical Exam GENERAL: NAD HEENT: OM moist NECK: Supple, LUNGS: Clear to auscultation, Non labored CHEST: right anterior chest wall hemodialysis catheter. HEART: RRR, S1, S2 present. ABDOMEN: soft EXTREMITIES: trace edema. NEUROLOGIC: Hx of CVA, grossly normal SKIN: No rashes DIAGNOSIS/ASSESSMENT Assessment & Plan End-stage renal disease secondary to hypertensive nephrosclerosis. On HD TTS @ [facility] Seen on HD,tolerating well, no complaints, continue as ordered, Ar [facility] Respiratory failure. History of severe COPD.Was on MV CT angio neg for PE Chest pain. No EKG changes of an acute ST elevated myocardial infarction. History of coronary artery disease and stenting. Cardiology following History of atrial fibrillation and permanent pacing Diabetes mellitus. As per the primary service. Hypertension- stable History of previous CVA. COMMENT/RELEVANT DATA Meds Current Medications Medications (Trade) Dose Ordered Sig/Lien Start Time Stop Time Status Last Admin Dose Admin Acetaminophen (Tylenol) 500 mg 1X PRN PRN 12/21/18 08:00 12/21/18 18:00 Albumin Human 200 ml @ 200 mls/hr 1X PRN PRN 12/21/18 08:00 12/21/18 18:00 Albuterol/ Ipratropium (Duoneb) 3 ml RTQID 12/17/18 08:00 12/21/18 12:06 3 ML Amlodipine Besylate (Norvasc) 10 mg DAILY 12/17/18 13:30 12/20/18 09:37 10 MG Aspirin (Children'S Aspirin) 81 mg DAILY 12/17/18 12:30 12/20/18 09:36 81 MG Atorvastatin Calcium (Lipitor) 40 mg QHS 12/17/18 21:00 12/20/18 20:49 40 MG Calcium Acetate (Phoslo) 667 mg BIDWMEALS 12/17/18 17:00 12/20/18 17:55 667 MG Carvedilol (Coreg) 6.25 mg 1X ONCE 12/20/18 12:15 12/20/18 12:16 DC Citalopram Hydrobromide (CeleXA) 20 mg DAILY 12/17/18 12:30 12/20/18 09:36 20 MG Diphenhydramine HCl (Benadryl) 25 mg 1X PRN PRN 12/21/18 08:00 12/21/18 18:00 Divalproex Sodium (Depakote Er) 250 mg HS 12/17/18 21:00 12/20/18 20:49 250 MG Etomidate (Amidate) 20 mg STK-MED ONCE 12/16/18 18:42 12/16/18 18:42 DC Fentanyl Citrate (Fentanyl 2ml Vial) 100 mcg STK-MED ONCE 12/16/18 18:08 12/16/18 18:08 DC Gabapentin (Neurontin) 300 mg DAILY 12/17/18 12:30 12/20/18 09:36 300 MG Heparin Sodium (Porcine) (Heparin Sodium) 5,000 unit Q8HRS 12/18/18 14:00 12/21/18 05:21 5,000 UNIT Heparin Sodium/ Dextrose 500 ml @ 20.88 mls/ hr CONT PRN 12/16/18 18:45 12/18/18 10:59 DC 12/17/18 19:26 20.88 MLS/HR Hydralazine HCl (Apresoline Inj) 10 mg 1X ONCE 12/19/18 09:00 12/19/18 09:01 DC Info (Anti-Coagulation Monitoring By Pharmacy) 1 each PRN DAILY PRN 12/17/18 08:00 12/18/18 11:01 DC 12/18/18 08:08 1 EACH Info (CONTRAST GIVEN -- Rx MONITORING) 1 each PRN DAILY PRN 12/17/18 08:00 12/19/18 07:59 DC Info (PHARMACY MONITORING -- do not chart) 1 each PRN DAILY PRN 12/21/18 08:00 UNV Insulin Glargine (Lantus Syringe) 6 unit QHS 12/17/18 21:00 12/20/18 21:22 6 UNIT Insulin Human Lispro (HumaLOG) 3 units TIDWMEALS 12/17/18 12:30 12/20/18 18:02 3 UNITS Iohexol (Omnipaque 350 Mg/ml) 100 ml 1X ONCE 12/17/18 08:00 12/17/18 08:01 DC Labetalol HCl (Normodyne Iv Push) 20 mg PRN Q2HR PRN 12/16/18 22:45 12/16/18 23:04 20 MG Lansoprazole (Prevacid) 30 mg DAILYAC 12/17/18 12:30 12/20/18 09:36 30 MG Lorazepam (Ativan Inj) 2 mg PRN Q1HR PRN 12/16/18 22:45 12/20/18 23:04 2 MG Midazolam HCl (Versed) 2 mg STK-MED ONCE 12/16/18 18:08 12/16/18 18:08 DC Nicardipine HCl 50 mg/Sodium Chloride 250 ml @ 25 mls/hr CONT PRN 12/16/18 22:45 Nifedipine (Procardia Xl) 60 mg DAILY 12/18/18 09:00 UNV Non-Formulary Medication (Brivaracetam (Briviact)) 75 mg BID 12/18/18 09:00 12/20/18 20:49 75 MG Non-Formulary Medication (Linaclotide (Linzess)) 72 mg DAILY07 12/18/18 07:00 UNV Pantoprazole Sodium (Protonix) 40 mg DAILYAC 12/17/18 12:30 12/17/18 12:07 DC Potassium Bicarbonate (Potassium Effervescent Tablet) 40 meq 1X ONCE 12/17/18 14:30 12/17/18 14:31 DC 12/17/18 15:00 40 MEQ Propofol 100 ml @ 1.225 mls/ hr CONT PRN 12/17/18 00:15 12/18/18 10:59 DC 12/18/18 00:30 12.247 MLS/HR Sodium Chloride 1,000 ml @ 400 mls/hr Q2H30M PRN 12/21/18 08:00 12/21/18 18:00 Sodium Chloride (Normal Saline Flush) 10 ml 1X PRN PRN 12/17/18 14:00 12/18/18 13:59 DC Vecuronium [place] (Norcuron Bolus) 10 mg STK-MED ONCE 12/16/18 18:42 12/16/18 18:42 DC Lab Laboratory Tests Test 12/20/18 17:27 12/20/18 20:48 12/21/18 05:01 Glucose (Fingerstick) 172 mg/dL (70-99) 162 mg/dL (70-99) White Blood Count 5.8 x10^3/uL (4.0-11.0) Red Blood Count 3.73 x10^6/uL (4.30-5.70) Hemoglobin 11.9 g/dL (13.0-17.5) Hematocrit 34.1 % (39.0-53.0) Mean Corpuscular Volume 92 fL (79-100) Mean Corpuscular Hemoglobin 32 pg (25-35) Mean Corpuscular Hemoglobin Concent 35 g/dL (31-37) Red Cell Distribution Width 14.5 % (11.5-14.5) Platelet Count 223 x10^3/uL (140-400) Neutrophils (%) (Auto) 49 % (31-73) Lymphocytes (%) (Auto) 35 % (24-48) Monocytes (%) (Auto) 14 % (0-9) Eosinophils (%) (Auto) 1 % (0-3) Basophils (%) (Auto) 0 % (0-3) Neutrophils # (Auto) 2.8 x10^3/uL (1.8-7.7) Lymphocytes # (Auto) 2.0 x10^3/uL (1.0-4.8) Monocytes # (Auto) 0.8 x10^3/uL (0.0-1.1) Eosinophils # (Auto) 0.1 x10^3/uL (0.0-0.7) Basophils # (Auto) 0.0 x10^3/uL (0.0-0.2) Sodium Level 136 mmol/L (136-145) Potassium Level 3.8 mmol/L (3.5-5.1) Chloride Level 99 mmol/L (98-107) Carbon Dioxide Level 28 mmol/L (21-32) Anion Gap 9 (6-14) Blood Urea Nitrogen 39 mg/dL (8-26) Creatinine 5.1 mg/dL (0.7-1.3) Estimated GFR (Cockcroft-Gault) 14.1 Glucose Level 140 mg/dL (70-99) Calcium Level 9.0 mg/dL (8.5-10.1) Results All relevant outside records, renal labs, imaging studies, telemetry/EKG's were reviewed. JOY CELIS MD Dec 21, 2018 12:37
--- NOTE | 2018-12-21 13:45 | NUR ---
Pt's states she is attempting to get nitesh of [facility] to know if he has been given his flu vaccination this season. Awaiting notification.
[2018-12-21] MEDS: GABAPENTIN 300 MG CAPSULE. PO SCH (14:36)
[2018-12-21] MEDS: LANSOPRAZOLE 30 MG TAB.RAP.DR FT SCH (14:36)
[2018-12-21] MEDS: CITALOPRAM 20 MG TABLET. PO SCH (14:36)
[2018-12-21] MEDS: amLODIPine BESYLATE 10 MG TABLET PO SCH (14:36)
[2018-12-21] MEDS: ASPIRIN CHEWABLE 81 MG TABLET. PO SCH (14:36)
[2018-12-21] MEDS: BRIVARACETAM PO SCH ×2 (14:51→21:00)
[2018-12-21 15:00] VITALS: BP 177/91
--- NOTE | 2018-12-21 18:16 | PDOC ---
PROGRESS NOTES Assessment Assessment Metabolic encephalopathy. Respiratory failure. Chest pain. ESRD on dialysis. 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 DM. HTN. RECOMMENDATIONS/PLAN: Continue ASA daily. Continue Lipitor HS. Continue medical treatment. Discussed with his at bedside on 12/21/18. Repeated HCT on 12/17/18: No acute findings. EEG on 12/19/18: The posterior dominant rhythm is 6-7 Hz/s that is slow for age. HISTORY OF THE PRESENT ILLNESS: This is a 58-year-old AA male with a history of coronary artery disease and stenting, COPD and end-stage renal disease on hemodialysis. He reportedly developed chest discomfort while at his dialysis center on 12/16/18 and was transferred to the emergency room. He was found in acute respiratory failure and was intubated and placed on a ventilator. After discontinuation of propofol sedation for about 8 hours, he still has not gained consciousness, so Neurology was requested for consultation. Past Medical History Cardiovascular: AFIB, CAD, HTN Pulmonary: COPD, Pulmonary embolus CENTRAL NERVOUS SYSTEM: Periperal neuropathy, Seizure GI: Constipation, GERD Heme/Onc: No pertinent hx Hepatobiliary: No pertinent hx Psych: Bipolar Musculoskeletal: Osteoarthritis Infectious disease: No pertinent hx Renal/: Chronic renal insuff, Chronic renal failure Endocrine: Diabetes Past Surgical History Pacemaker, Other (coronary stents. Hemodialysis catheter.) Family History Diabetes, Heart Disease Social History ALCOHOL: none Drugs: Cocaine in past. Lives: with Family ALLERGY: NKDA MEDICATIONS: Refer to MAR REVIEW OF SYSTEMS: Constitutional: No malnutrition, weight loss, cachexia. Head: No traumatic brain or head injury. Skin: No edema, or rash. Ear: No infection. Eyes: No vision loss or color blindness. Nose: No bleeding or purulent discharges. Hearing: No hearing decrease. Neck: No injury. Cardiac: CAD, HTN, HLD. Pulmonary: No COPD. GI: No GI ulcer, GI bleeding. Urinary/genital: ESRD on dialysis. Endocrinologic: Diabetes Mellitus. Skeletomuscular: No muscular atrophy, deformity. Neurological: see HP. Psychiatric: Denies drug use/abuse. Otherwise, not [id number] review of systems. PHYSICAL EXAMINATION: General appearance is in subacute distress. HEENT: Normocephalic and nontraumatic. Eyes, nose, ears, and throat are unremarkable. Neck is supple. No lymphadenopathy. No crepitus. Cardiovascular: S1, S2, regular rate and rhythm. Pulmonary: Relative clear to auscultation bilaterally. Abdomen: Bowel sounds are positive. Extremities: No rash, lesions. No restriction of range of motion NEUROLOGICAL EXAMINATION: Sleepiness but arousable. Not fully oriented to time, but knew place and person. PERRL. EOMI. CN: no focal findings. Muscle tone: within normal. Muscle strength: 4+ right side 5 left side. DTR: 2 Plantar reflex: Neutral response bilaterally Gait: not examined while in bed. Sensory exam: no abnormal findings. No cerebellar signs elicited. F-T-N test not performed due to sleepiness. Objective Objective Vital Signs Date Time Temp Pulse Resp B/P (MAP) Pulse Ox O2 Delivery O2 Flow Rate FiO2 12/21/18 17:27 76 177/91 12/21/18 16:22 Room Air 12/21/18 15:00 98.1 28 96 98.1 12/20/18 07:00 97.0 Intake and Output 12/21/18 07:00 Intake Total 580 ml Output Total 220 ml Balance 360 ml Intake Oral 580 ml Output Urine Total 220 ml Vitals Signs Vitals VS - Last 72 Hours, by Label Date Time Temp Pulse Resp B/P (MAP) Pulse Ox O2 Delivery O2 Flow Rate FiO2 12/21/18 17:27 76 177/91 12/21/18 16:22 Room Air 12/21/18 15:00 98.1 76 28 177/91 (119) 96 Room Air 98.1 12/21/18 14:36 76 147/82 12/21/18 12:08 Room Air 12/21/18 08:33 97 Room Air 12/21/18 08:00 Room Air 12/21/18 07:00 97.5 76 28 147/82 (103) 94 Room Air 97.5 12/21/18 03:00 99.3 78 28 162/87 (112) 100 Room Air 99.3 12/20/18 23:00 98.7 78 24 161/92 (115) 95 Room Air 98.7 12/20/18 20:00 Room Air 12/20/18 19:49 Room Air 12/20/18 19:00 98.7 75 16 141/76 (97) 95 Room Air 98.7 12/20/18 17:55 79 136/70 12/20/18 16:21 Room Air 12/20/18 15:00 98.0 16 16 136/70 (92) 97 Room Air 98.0 12/20/18 12:04 100 Room Air 12/20/18 11:00 98.4 74 16 124/75 (91) 95 Room Air 98.4 12/20/18 09:37 76 179/91 12/20/18 09:36 76 179/91 12/20/18 08:01 100 Room Air 12/20/18 08:00 Room Air 12/20/18 07:00 98.4 76 18 179/91 (120) Room Air 97.0 98.4 Laboratory Laboratory Laboratory Tests Test 12/20/18 20:48 12/21/18 05:01 12/21/18 17:20 Glucose (Fingerstick) 162 mg/dL (70-99) 197 mg/dL (70-99) White Blood Count 5.8 x10^3/uL (4.0-11.0) Red Blood Count 3.73 x10^6/uL (4.30-5.70) Hemoglobin 11.9 g/dL (13.0-17.5) Hematocrit 34.1 % (39.0-53.0) Mean Corpuscular Volume 92 fL (79-100) Mean Corpuscular Hemoglobin 32 pg (25-35) Mean Corpuscular Hemoglobin Concent 35 g/dL (31-37) Red Cell Distribution Width 14.5 % (11.5-14.5) Platelet Count 223 x10^3/uL (140-400) Neutrophils (%) (Auto) 49 % (31-73) Lymphocytes (%) (Auto) 35 % (24-48) Monocytes (%) (Auto) 14 % (0-9) Eosinophils (%) (Auto) 1 % (0-3) Basophils (%) (Auto) 0 % (0-3) Neutrophils # (Auto) 2.8 x10^3/uL (1.8-7.7) Lymphocytes # (Auto) 2.0 x10^3/uL (1.0-4.8) Monocytes # (Auto) 0.8 x10^3/uL (0.0-1.1) Eosinophils # (Auto) 0.1 x10^3/uL (0.0-0.7) Basophils # (Auto) 0.0 x10^3/uL (0.0-0.2) Sodium Level 136 mmol/L (136-145) Potassium Level 3.8 mmol/L (3.5-5.1) Chloride Level 99 mmol/L (98-107) Carbon Dioxide Level 28 mmol/L (21-32) Anion Gap 9 (6-14) Blood Urea Nitrogen 39 mg/dL (8-26) Creatinine 5.1 mg/dL (0.7-1.3) Estimated GFR (Cockcroft-Gault) 14.1 Glucose Level 140 mg/dL (70-99) Calcium Level 9.0 mg/dL (8.5-10.1) Medication Medications Current Medications Acetaminophen (Tylenol) 500 mg 1X PRN PRN PO MILD PAIN / TEMP; Start 12/21/18 at 08:00; Stop 12/21/18 at 18:00; Status DC Albumin Human 200 ml @ 200 mls/hr 1X PRN PRN IV Hypotension; Start 12/21/18 at 08:00; Stop 12/21/18 at 18:00; Status DC Diphenhydramine HCl (Benadryl) 25 mg 1X PRN PRN IV ITCHING; Start 12/21/18 at 08:00; Stop 12/21/18 at 18:00; Status DC Diphenhydramine HCl (Benadryl) 25 mg 1X PRN PRN IV ITCHING; Start 12/21/18 at 08:00; Stop 12/21/18 at 18:00; Status DC Info (PHARMACY MONITORING -- do not chart) 1 each PRN DAILY PRN MC SEE COMMENTS; Start 12/21/18 at 08:00; Status UNV Info (PHARMACY MONITORING -- do not chart) 1 each PRN DAILY PRN MC SEE COMMENTS; Start 12/21/18 at 08:00; Status UNV Sodium Chloride 1,000 ml @ 400 mls/hr Q2H30M PRN IV PATENCY; Start 12/21/18 at 08:00; Stop 12/21/18 at 18:00; Status DC Sodium Chloride 1,000 ml @ 1,000 mls/hr Q1H PRN IV hypotension; Start 12/21/18 at 08:00; Stop 12/21/18 at 18:00; Status DC Comment Review of Relevant I have reviewed the following items dominick (where applicable) has been applied. FARA MOURA MD Dec 21, 2018 18:16
[2018-12-21 19:50] VITALS: BP 104/64
[2018-12-21] MEDS: ATORVASTATIN CALCIUM 40 MG TABLET. PO SCH (21:00)
[2018-12-21] MEDS: DIVALPROEX EXTENDED RELEASE 250 MG TAB.ER.24H. PO SCH (21:01)
[2018-12-21] MEDS: INSULIN GLARGINE SYRINGE. SQ SCH (21:08)
[2018-12-21 22:39] VITALS: BP 133/75
[2018-12-22 02:02] VITALS: BP 137/79
[2018-12-22] MEDS: HEPARIN for SUB-Q USE 5,000 UNIT/ML VIAL. SQ SCH ×2 (05:25→14:00)
[2018-12-22 06:02] LABS: BASO % 0 % (0-3); EOS # 0.1 x10^3/uL (0.0-0.7); EOS % 2 % (0-3); HEMATOCRIT 33.2 % (39.0-53.0); HEMOGLOBIN 11.4 g/dL (13.0-17.5); LYMPH # 1.9 x10^3/uL (1.0-4.8); LYMPH % 38 % (24-48); MEAN CORPUSCULAR HEMOGLOBIN 31 pg (25-35); MEAN CORPUSCULAR HGB CONC 34 g/dL (31-37); MEAN CORPUSCULAR VOLUME 91 fL (79-100); MONO # 0.7 x10^3/uL (0.0-1.1); MONO % 14 % (0-9); NEUT # 2.3 x10^3/uL (1.8-7.7); NEUT % 46 % (31-73); PLATELET COUNT 219 x10^3/uL (140-400); RED BLOOD COUNT 3.65 x10^6/uL (4.30-5.70); RED CELL DISTRIBUTION WIDTH 14.3 % (11.5-14.5); WHITE BLOOD COUNT 4.9 x10^3/uL (4.0-11.0)
[2018-12-22 06:12] LABS: CALCIUM 9.1 mg/dL (8.5-10.1); CREATININE 4.3 mg/dL (0.7-1.3); GFR 17.1; POTASSIUM 3.9 mmol/L (3.5-5.1)
[2018-12-22 07:00] VITALS: BP 156/82
[2018-12-22] MEDS: IPRATRPIUM/ALBUTEROL 0.5/2.5MG 3 ML NEBU. NEB SCH ×3 (08:00→15:45)
[2018-12-22] MEDS: ASPIRIN CHEWABLE 81 MG TABLET. PO SCH (08:31)
[2018-12-22] MEDS: LANSOPRAZOLE 30 MG TAB.RAP.DR FT SCH (08:31)
[2018-12-22] MEDS: CITALOPRAM 20 MG TABLET. PO SCH (08:31)
[2018-12-22] MEDS: amLODIPine BESYLATE 10 MG TABLET PO SCH (08:31)
[2018-12-22] MEDS: BRIVARACETAM PO SCH (08:32)
[2018-12-22] MEDS: CARVEDILOL 12.5 MG TABLET. PO SCH (08:32)
[2018-12-22] MEDS: GABAPENTIN 300 MG CAPSULE. PO SCH (08:32)
[2018-12-22] MEDS: CALCIUM ACETATE 667 MG CAPSULE PO SCH (08:32)
[2018-12-22] MEDS: INSULIN LISPRO 300 UNITS/3 ML VIAL. SQ SCH ×2 (08:39→12:46)
--- NOTE | 2018-12-22 10:31 | PDOC ---
PULMONARY PROGRESS NOTES Subjective extubated 12/18 follows commands Vitals Vital Signs Date Time Temp Pulse Resp B/P (MAP) Pulse Ox O2 Delivery O2 Flow Rate FiO2 12/22/18 08:32 80 12/22/18 08:01 94 Room Air 12/22/18 07:00 98.0 20 156/82 (106) 98.0 General: Alert, No acute distress Lungs: Clear Cardiovascular: S1, S2 Abdomen: Soft, Non-tender Neuro Exam: Alert Extremities: No Edema Skin: Warm Labs Laboratory Tests Test 12/20/18 12:29 12/20/18 17:27 12/20/18 20:48 12/21/18 05:01 Glucose (Fingerstick) 139 mg/dL (70-99) 172 mg/dL (70-99) 162 mg/dL (70-99) White Blood Count 5.8 x10^3/uL (4.0-11.0) Red Blood Count 3.73 x10^6/uL (4.30-5.70) Hemoglobin 11.9 g/dL (13.0-17.5) Hematocrit 34.1 % (39.0-53.0) Mean Corpuscular Volume 92 fL (79-100) Mean Corpuscular Hemoglobin 32 pg (25-35) Mean Corpuscular Hemoglobin Concent 35 g/dL (31-37) Red Cell Distribution Width 14.5 % (11.5-14.5) Platelet Count 223 x10^3/uL (140-400) Neutrophils (%) (Auto) 49 % (31-73) Lymphocytes (%) (Auto) 35 % (24-48) Monocytes (%) (Auto) 14 % (0-9) Eosinophils (%) (Auto) 1 % (0-3) Basophils (%) (Auto) 0 % (0-3) Neutrophils # (Auto) 2.8 x10^3/uL (1.8-7.7) Lymphocytes # (Auto) 2.0 x10^3/uL (1.0-4.8) Monocytes # (Auto) 0.8 x10^3/uL (0.0-1.1) Eosinophils # (Auto) 0.1 x10^3/uL (0.0-0.7) Basophils # (Auto) 0.0 x10^3/uL (0.0-0.2) Sodium Level 136 mmol/L (136-145) Potassium Level 3.8 mmol/L (3.5-5.1) Chloride Level 99 mmol/L (98-107) Carbon Dioxide Level 28 mmol/L (21-32) Anion Gap 9 (6-14) Blood Urea Nitrogen 39 mg/dL (8-26) Creatinine 5.1 mg/dL (0.7-1.3) Estimated GFR (Cockcroft-Gault) 14.1 Glucose Level 140 mg/dL (70-99) Calcium Level 9.0 mg/dL (8.5-10.1) Test 12/21/18 17:20 12/21/18 20:46 12/22/18 04:15 12/22/18 07:56 Glucose (Fingerstick) 197 mg/dL (70-99) 221 mg/dL (70-99) 134 mg/dL (70-99) White Blood Count 4.9 x10^3/uL (4.0-11.0) Red Blood Count 3.65 x10^6/uL (4.30-5.70) Hemoglobin 11.4 g/dL (13.0-17.5) Hematocrit 33.2 % (39.0-53.0) Mean Corpuscular Volume 91 fL (79-100) Mean Corpuscular Hemoglobin 31 pg (25-35) Mean Corpuscular Hemoglobin Concent 34 g/dL (31-37) Red Cell Distribution Width 14.3 % (11.5-14.5) Platelet Count 219 x10^3/uL (140-400) Neutrophils (%) (Auto) 46 % (31-73) Lymphocytes (%) (Auto) 38 % (24-48) Monocytes (%) (Auto) 14 % (0-9) Eosinophils (%) (Auto) 2 % (0-3) Basophils (%) (Auto) 0 % (0-3) Neutrophils # (Auto) 2.3 x10^3/uL (1.8-7.7) Lymphocytes # (Auto) 1.9 x10^3/uL (1.0-4.8) Monocytes # (Auto) 0.7 x10^3/uL (0.0-1.1) Eosinophils # (Auto) 0.1 x10^3/uL (0.0-0.7) Basophils # (Auto) 0.0 x10^3/uL (0.0-0.2) Sodium Level 137 mmol/L (136-145) Potassium Level 3.9 mmol/L (3.5-5.1) Chloride Level 100 mmol/L (98-107) Carbon Dioxide Level 30 mmol/L (21-32) Anion Gap 7 (6-14) Blood Urea Nitrogen 29 mg/dL (8-26) Creatinine 4.3 mg/dL (0.7-1.3) Estimated GFR (Cockcroft-Gault) 17.1 Glucose Level 179 mg/dL (70-99) Calcium Level 9.1 mg/dL (8.5-10.1) Laboratory Tests Test 12/21/18 17:20 12/21/18 20:46 12/22/18 04:15 12/22/18 07:56 Glucose (Fingerstick) 197 mg/dL (70-99) 221 mg/dL (70-99) 134 mg/dL (70-99) White Blood Count 4.9 x10^3/uL (4.0-11.0) Red Blood Count 3.65 x10^6/uL (4.30-5.70) Hemoglobin 11.4 g/dL (13.0-17.5) Hematocrit 33.2 % (39.0-53.0) Mean Corpuscular Volume 91 fL (79-100) Mean Corpuscular Hemoglobin 31 pg (25-35) Mean Corpuscular Hemoglobin Concent 34 g/dL (31-37) Red Cell Distribution Width 14.3 % (11.5-14.5) Platelet Count 219 x10^3/uL (140-400) Neutrophils (%) (Auto) 46 % (31-73) Lymphocytes (%) (Auto) 38 % (24-48) Monocytes (%) (Auto) 14 % (0-9) Eosinophils (%) (Auto) 2 % (0-3) Basophils (%) (Auto) 0 % (0-3) Neutrophils # (Auto) 2.3 x10^3/uL (1.8-7.7) Lymphocytes # (Auto) 1.9 x10^3/uL (1.0-4.8) Monocytes # (Auto) 0.7 x10^3/uL (0.0-1.1) Eosinophils # (Auto) 0.1 x10^3/uL (0.0-0.7) Basophils # (Auto) 0.0 x10^3/uL (0.0-0.2) Sodium Level 137 mmol/L (136-145) Potassium Level 3.9 mmol/L (3.5-5.1) Chloride Level 100 mmol/L (98-107) Carbon Dioxide Level 30 mmol/L (21-32) Anion Gap 7 (6-14) Blood Urea Nitrogen 29 mg/dL (8-26) Creatinine 4.3 mg/dL (0.7-1.3) Estimated GFR (Cockcroft-Gault) 17.1 Glucose Level 179 mg/dL (70-99) Calcium Level 9.1 mg/dL (8.5-10.1) Medications Active Scripts Medications Dose Route/Sig Max Daily Dose Days Date Category Aspirin 81 Mg Tab.chew 1 Tab PO DAILY 12/17/18 Reported Novolog Flexpen (Insulin Aspart) 100 Unit/1 Ml Insuln.pen 3 Unit SQ TIDAC 12/17/18 Reported Lantus Solostar (Insulin Glargine,Hum.rec.anlog) 100 Unit/1 Ml Insuln.pen 6 Unit SQ HS 12/17/18 Reported Linzess (Linaclotide) 145 Mcg Capsule 72 Mg PO DAILY07 12/17/18 Reported Calcium Acetate 667 Mg Tablet 667 Mg PO BID 12/17/18 Reported Divalproex Sodium Er (Divalproex Sodium) 250 Mg Tab.er.24h 250 Mg PO HS 12/17/18 Reported Escitalopram Oxalate 10 Mg Tablet 1 Tab PO DAILY 12/17/18 Reported Briviact (Brivaracetam) 75 Mg Tablet 75 Mg PO DAILY 12/17/18 Reported Miralax (Polyethylene Glycol 3350) 17 Gm Powd.pack 1 Packet PO DAILY 30 07/11/18 Rx Amitiza (Lubiprostone) 24 Mcg Capsule 1 Cap PO BID 30 07/11/18 Rx Percocet 7.5-325 Mg Tablet (Oxycodone/Acetaminophen) 1 Each Tablet 1 Tab PO PRN TID PRN 06/30/18 Reported Sennosides-Docusate Sodium Tab (Sennosides/Docusate Sodium) 1 Each Tablet 1 Each PO HS 06/30/18 Reported Ondansetron Odt (Ondansetron) 4 Mg Tab.rapdis 1 Tab PO PRN Q8HRS PRN 06/30/18 Reported Anusol-Hc (Hydrocortisone Acetate) 25 Mg Supp.rect 1 Supp RC PRN BID PRN 06/30/18 Reported Hydrocodone-Apap 5-325 (Hydrocodone Bit/Acetaminophen) 1 Each Tablet 1 Tab PO PRN Q6HRS PRN 02/24/18 Rx Protonix (Pantoprazole Sodium) 20 Mg Tablet.dr 40 Mg PO DAILY 02/20/18 Reported Gabapentin 300 Mg Capsule 300 Mg PO DAILY 02/20/18 Reported Nifedipine Er (Nifedipine) 60 Mg Tab.er.24 60 Mg PO DAILY 01/19/17 Reported Proventil Hfa Inhaler (Albuterol Sulfate) 6.7 Gm Hfa.aer.ad 1 Puff IH PRN Q4HRS PRN 01/19/17 Reported Atorvastatin Calcium 40 Mg Tablet 1 Tab PO DAILY 06/23/15 Reported Carvedilol 25 Mg Tablet 6.25 Mg PO BIDWMEALS 11/25/14 Reported Impression . 1. Acute hypoxemic respiratory failure due to encephalopathy /chronic o bstructive pulmonary disease . No PE/DVT, extubated 12/18 2. Chest pain, questionable etiology.no CAD 3. Chronic obstructive pulmonary disease. 4. End-stage renal disease, on hemodialysis. 5. Hypokalemia. 6. Hypertension. 7. Diabetes mellitus. 8. History of cerebrovascular accident. 9. Coronary artery disease. 10. Paroxysmal atrial fibrillation. 11. Encephalopathy ? etiology. likely due to CVA, improved Plan . 1. off nasal canula 2. repeat ct head with no new events, old lacunar infarct 3. CT angiogram neg for PE 4. Cardiology rec. off full dose heparin pulmonary dyer, on prophylaxis dose 5. Lower extremity venous Doppler.neg 6. f/u cxr as needed 7. Protonix for stress ulcer prophylaxis. 8. Not much to add. will sign off BAYRON SCHNEIDER MD Dec 22, 2018 10:31
[2018-12-22 11:00] VITALS: BP 126/71
--- NOTE | 2018-12-22 12:33 | NUR ---
SS following up with discharge planning. SS met with pt and pt's spouse to discuss discharge planning. Pt's spouse reported that pt will not go to rehabilitation and reported that [facility], ; fax [phone]. PT/OT recommending inpatient rehabilitation. SS contacted [facility] in [place], ; fax [phone], and notified that pt may discharge today pending on physicians orders. SS will continue to follow for discharge planning.
--- NOTE | 2018-12-22 12:46 | SNU/HH DC ---
DISCHARGE WITH HOME HEALTH DISCHARGE INFORMATION: Discharge Date: Dec 22, 2018 Final Diagnosis: Problems Medical Problems: (1) Abnormal EKG Status: Acute (2) Acute respiratory failure Status: Acute (3) Chest pain Status: Acute Condition on Discharge: Stable CODE STATUS: Code Status: Full HOME HEALTH: Face to Face: I certify this patient is under my care and that I, or a nurse practitioner or physician's surveyor instrument assistant working with me, had a face to face encounter that meets the physician face to face encounter requirements with this patient on []. Medical Complications: Pneumonia, Other (esrd) Penitentiary For: Assess & Educate Safety, Assess/Skilled Observatio, Diabetic Care, Other: RN For Eval/Treatment: Yes Physical Therapy For: Evalulation/Treatment Occupational Therapy For: Evaluation/Treatment Pt Meets Homebound Status: Poor coordination w/ amb., Unsteady balance w/ amb,, Fatigue w/ amb., Poor cognition POST DISCHARGE ORDERS: Activity Instructions for Disc: Activity as tolerated Weight Bearing Status after Di: As tolerated DIET AFTER DISCHARGE: ADA CHECKS AFTER DISCHARGE: Checks after discharge: Check blood sugar, ac/hs FOLLOW-UP: Follow up with: [facility] 6 days TREATMENT/EQUIPMENT ORDERS: Adaptive Equipment Issued: None CERTIFICATION STATEMENT: Certification Statement: Certification Statement: Based on the above finding, I certify that this patient is confined to the home and needs intermittent fci care, physical therapy and/or speech therapy, or continues to need occupational therapy.~ This patient is under my care, and I have initiated the establishment of the plan of care.~ This patient will be followed by myself or a community physician who will periodically review the plan of care. Home Meds Active Scripts Polyethylene Glycol 3350 (MIRALAX) 17 Gm Powd.pack, 1 PACKET PO DAILY for CONSTIPATION for 30 Days, #30 PACKET 3 Refills Prov:JOSELO MCPHERSON MD 07/11/18 Lubiprostone (AMITIZA) 24 Mcg Capsule, 1 CAP PO BID for CONSTIPATION for 30 Days, #60 CAP 5 Refills Prov:JOSELO MCPHERSON MD 07/11/18 Reported Medications Aspirin (ASPIRIN) 81 Mg Tab.chew, 1 TAB PO DAILY for Cardiac stents, #30 TAB 3 Refills 12/17/18 Insulin Aspart (NOVOLOG FLEXPEN) 100 Unit/1 Ml Insuln.pen, 3 UNIT SQ TIDAC for DM, SYR 12/17/18 Insulin Glargine,Hum.rec.anlog (LANTUS SOLOSTAR) 100 Unit/1 Ml Insuln.pen, 6 UNIT SQ HS for DM I, SYR 12/17/18 Linaclotide (LINZESS) 145 Mcg Capsule, 72 MG PO DAILY07 for IRRITABLE BOWEL, CAP 12/17/18 Calcium Acetate (CALCIUM ACETATE) 667 Mg Tablet, 667 MG PO BID for DIALYSIS PATIENTS, CAP 12/17/18 Divalproex Sodium (DIVALPROEX SODIUM ER) 250 Mg Tab.er.24h, 250 MG PO HS for medical, TAB.SR 12/17/18 Escitalopram Oxalate (ESCITALOPRAM OXALATE) 10 Mg Tablet, 1 TAB PO DAILY for managment, #30 TAB 3 Refills 12/17/18 Brivaracetam (Briviact) 75 Mg Tablet, 75 MG PO DAILY for management, TAB 12/17/18 Sennosides/Docusate Sodium (SENNOSIDES-DOCUSATE SODIUM TAB) 1 Each Tablet, 1 EACH PO HS for constipation, TAB 06/30/18 Ondansetron (ONDANSETRON ODT) 4 Mg Tab.rapdis, 1 TAB PO PRN Q8HRS PRN for NAUSEA, #16 TAB 06/30/18 Hydrocortisone Acetate (ANUSOL-HC) 25 Mg Supp.rect, 1 SUPP RC PRN BID PRN for PAIN, #14 SUPP 06/30/18 Pantoprazole Sodium (PROTONIX) 20 Mg Tablet.dr, 40 MG PO DAILY for stomach, TAB 02/20/18 Gabapentin (GABAPENTIN) 300 Mg Capsule, 300 MG PO DAILY for neuropathy, CAP 02/20/18 Nifedipine (NIFEDIPINE ER) 60 Mg Tab.er.24, 60 MG PO DAILY for bp, TAB.SR 01/19/17 Albuterol Sulfate (PROVENTIL HFA INHALER) 6.7 Gm Hfa.aer.ad, 1 PUFF IH PRN Q4HRS PRN for FOR ASTHMA, INHALER 0 Refills 01/19/17 Atorvastatin Calcium (ATORVASTATIN CALCIUM) 40 Mg Tablet, 1 TAB PO DAILY, #30 TAB 5 Refills 06/23/15 Carvedilol (CARVEDILOL) 25 Mg Tablet, 6.25 MG PO BIDWMEALS for bp, TAB 11/25/14 Discontinued Reported Medications Oxycodone/Apap 7.5-325 (PERCOCET 7.5-325 MG TABLET ) 1 Each Tablet, 1 TAB PO PRN TID PRN for PAIN, TAB 0 Refills 06/30/18 Furosemide (LASIX) 80 Mg Tablet, 80 MG PO DAILY for diuretic, TAB 07/03/18 Tamsulosin Hcl (FLOMAX) 0.4 Mg Cap.er.24h, 1 CAP PO DAILY for retention, #30 CAP 11 Refills 06/30/18 Ranolazine (RANEXA) 500 Mg Tab.er.12h, 1 TAB PO BID for angina, #60 TAB 3 Refills 06/30/18 Weston-3/Dha/Epa/Fish Oil (Fish Oil 1,000 mg Softgel) 1,000 Mg Capsule, 1000 MG PO DAILY for replacement, CAP 06/30/18 Famotidine (FAMOTIDINE) 20 Mg Tablet, 20 MG PO HS for GI, TAB 06/30/18 Citalopram Hydrobromide (CITALOPRAM HBR) 20 Mg Tablet, 1 TAB PO DAILY for depression, #30 TAB 5 Refills 06/30/18 Ascorbic Acid (ASCORBIC ACID) 500 Mg Tablet, 500 MG PO DAILY for replacement, TAB 06/30/18 Ergocalciferol (Vitamin D2) (VITAMIN D2) 50,000 Unit Capsule, 73452 UNIT PO WEEKLY for vitamin, #2 CAP 02/20/18 Ticagrelor (BRILINTA) 90 Mg Tablet, 90 MG PO BID for antiplatelet, TAB 02/20/18 Nitroglycerin (NITROGLYCERIN SubLingual) 0.4 Mg Tab.subl, 0.4 MG SL PRN Q5MIN P RN for CHEST PAIN, BOTTLE 01/19/17 Apixaban (ELIQUIS) 5 Mg Tablet, 5 MG PO BID for vte, TAB 01/19/17 Alprazolam (ALPRAZOLAM) 0.25 Mg Tablet, 0.5 MG PO PRN Q8HRS PRN for ANXIETY / AGITATION, TAB 0 Refills 06/27/15 Clonidine Hcl (CLONIDINE HCL) 0.2 Mg Tablet, 1 TAB PO BID for BP, #60 TAB 5 Refills 06/23/15 Discontinued Scripts Hydrocodone Bit/Acetaminophen (HYDROCODONE-APAP 5-325 ) 1 Each Tablet, 1 TAB PO PRN Q6HRS PRN for PAIN, #20 TAB Prov:MARYA RAMOS MD 02/24/18 TAVIA PEREZ MD Dec 22, 2018 12:46
--- NOTE | 2018-12-22 12:53 | PDOC3 ---
Discharge Summary Visit Information Date of Admission: Dec 16, 2018 Date of Discharge: Dec 22, 2018 Final Diagnosis 1. Acute hypoxemic respiratory failure due to encephalopathy /chronic obstructive pulmonary disease . No PE/DVT, extubated 12/18 2. Chest pain, questionable etiology.no CAD 3. Chronic obstructive pulmonary disease. 4. End-stage renal disease, on hemodialysis. 5. Hypokalemia. 6. Hypertension. 7. Diabetes mellitus. 8. History of cerebrovascular accident. 9. Coronary artery disease. 10. Paroxysmal atrial fibrillation. 11. Encephalopathy ? etiology. likely due to CVA, improved Problems Medical Problems: (1) Abnormal EKG Status: Acute (2) Acute respiratory failure Status: Acute (3) Chest pain Status: Acute Brief Hospital Course Allergies Allergies Coded Allergies Type Severity Reaction Last Updated Verified No Known Drug Allergies 12/21/18 No Vital Signs Vital Signs Date Time Temp Pulse Resp B/P (MAP) Pulse Ox O2 Delivery O2 Flow Rate FiO2 12/22/18 11:40 93 Room Air 12/22/18 11:00 97.6 69 20 126/71 (89) 97.6 Lab Results Laboratory Tests Test 12/20/18 17:27 12/20/18 20:48 12/21/18 05:01 12/21/18 17:20 Glucose (Fingerstick) 172 mg/dL (70-99) 162 mg/dL (70-99) 197 mg/dL (70-99) White Blood Count 5.8 x10^3/uL (4.0-11.0) Red Blood Count 3.73 x10^6/uL (4.30-5.70) Hemoglobin 11.9 g/dL (13.0-17.5) Hematocrit 34.1 % (39.0-53.0) Mean Corpuscular Volume 92 fL (79-100) Mean Corpuscular Hemoglobin 32 pg (25-35) Mean Corpuscular Hemoglobin Concent 35 g/dL (31-37) Red Cell Distribution Width 14.5 % (11.5-14.5) Platelet Count 223 x10^3/uL (140-400) Neutrophils (%) (Auto) 49 % (31-73) Lymphocytes (%) (Auto) 35 % (24-48) Monocytes (%) (Auto) 14 % (0-9) Eosinophils (%) (Auto) 1 % (0-3) Basophils (%) (Auto) 0 % (0-3) Neutrophils # (Auto) 2.8 x10^3/uL (1.8-7.7) Lymphocytes # (Auto) 2.0 x10^3/uL (1.0-4.8) Monocytes # (Auto) 0.8 x10^3/uL (0.0-1.1) Eosinophils # (Auto) 0.1 x10^3/uL (0.0-0.7) Basophils # (Auto) 0.0 x10^3/uL (0.0-0.2) Sodium Level 136 mmol/L (136-145) Potassium Level 3.8 mmol/L (3.5-5.1) Chloride Level 99 mmol/L (98-107) Carbon Dioxide Level 28 mmol/L (21-32) Anion Gap 9 (6-14) Blood Urea Nitrogen 39 mg/dL (8-26) Creatinine 5.1 mg/dL (0.7-1.3) Estimated GFR (Cockcroft-Gault) 14.1 Glucose Level 140 mg/dL (70-99) Calcium Level 9.0 mg/dL (8.5-10.1) Test 12/21/18 20:46 12/22/18 04:15 12/22/18 07:56 12/22/18 11:56 Glucose (Fingerstick) 221 mg/dL (70-99) 134 mg/dL (70-99) 171 mg/dL (70-99) White Blood Count 4.9 x10^3/uL (4.0-11.0) Red Blood Count 3.65 x10^6/uL (4.30-5.70) Hemoglobin 11.4 g/dL (13.0-17.5) Hematocrit 33.2 % (39.0-53.0) Mean Corpuscular Volume 91 fL (79-100) Mean Corpuscular Hemoglobin 31 pg (25-35) Mean Corpuscular Hemoglobin Concent 34 g/dL (31-37) Red Cell Distribution Width 14.3 % (11.5-14.5) Platelet Count 219 x10^3/uL (140-400) Neutrophils (%) (Auto) 46 % (31-73) Lymphocytes (%) (Auto) 38 % (24-48) Monocytes (%) (Auto) 14 % (0-9) Eosinophils (%) (Auto) 2 % (0-3) Basophils (%) (Auto) 0 % (0-3) Neutrophils # (Auto) 2.3 x10^3/uL (1.8-7.7) Lymphocytes # (Auto) 1.9 x10^3/uL (1.0-4.8) Monocytes # (Auto) 0.7 x10^3/uL (0.0-1.1) Eosinophils # (Auto) 0.1 x10^3/uL (0.0-0.7) Basophils # (Auto) 0.0 x10^3/uL (0.0-0.2) Sodium Level 137 mmol/L (136-145) Potassium Level 3.9 mmol/L (3.5-5.1) Chloride Level 100 mmol/L (98-107) Carbon Dioxide Level 30 mmol/L (21-32) Anion Gap 7 (6-14) Blood Urea Nitrogen 29 mg/dL (8-26) Creatinine 4.3 mg/dL (0.7-1.3) Estimated GFR (Cockcroft-Gault) 17.1 Glucose Level 179 mg/dL (70-99) Calcium Level 9.1 mg/dL (8.5-10.1) Laboratory Tests Test 12/21/18 17:20 12/21/18 20:46 12/22/18 04:15 12/22/18 07:56 Glucose (Fingerstick) 197 mg/dL (70-99) 221 mg/dL (70-99) 134 mg/dL (70-99) White Blood Count 4.9 x10^3/uL (4.0-11.0) Red Blood Count 3.65 x10^6/uL (4.30-5.70) Hemoglobin 11.4 g/dL (13.0-17.5) Hematocrit 33.2 % (39.0-53.0) Mean Corpuscular Volume 91 fL (79-100) Mean Corpuscular Hemoglobin 31 pg (25-35) Mean Corpuscular Hemoglobin Concent 34 g/dL (31-37) Red Cell Distribution Width 14.3 % (11.5-14.5) Platelet Count 219 x10^3/uL (140-400) Neutrophils (%) (Auto) 46 % (31-73) Lymphocytes (%) (Auto) 38 % (24-48) Monocytes (%) (Auto) 14 % (0-9) Eosinophils (%) (Auto) 2 % (0-3) Basophils (%) (Auto) 0 % (0-3) Neutrophils # (Auto) 2.3 x10^3/uL (1.8-7.7) Lymphocytes # (Auto) 1.9 x10^3/uL (1.0-4.8) Monocytes # (Auto) 0.7 x10^3/uL (0.0-1.1) Eosinophils # (Auto) 0.1 x10^3/uL (0.0-0.7) Basophils # (Auto) 0.0 x10^3/uL (0.0-0.2) Sodium Level 137 mmol/L (136-145) Potassium Level 3.9 mmol/L (3.5-5.1) Chloride Level 100 mmol/L (98-107) Carbon Dioxide Level 30 mmol/L (21-32) Anion Gap 7 (6-14) Blood Urea Nitrogen 29 mg/dL (8-26) Creatinine 4.3 mg/dL (0.7-1.3) Estimated GFR (Cockcroft-Gault) 17.1 Glucose Level 179 mg/dL (70-99) Calcium Level 9.1 mg/dL (8.5-10.1) Test 12/22/18 11:56 Glucose (Fingerstick) 171 mg/dL (70-99) Brief Hospital Course Mr. Perez is a 58 old admit, acute resp failure, intubated, Assessment Assessment still weak Discharge Information Condition at Discharge: Improved Follow Up: Weeks Disposition/Orders: D/C to Home w/ HH Scheduled Aspirin (Aspirin) 81 Mg Tab.chew, 1 TAB PO DAILY for Cardiac stents, #30 Ref 3 (Reported) Entered as Reported by: HAIR MITCHELL on 12/17/18 1105 Last Action: Continued on 12/17/181202 by HAIR MITCHELL Atorvastatin Calcium (Atorvastatin Calcium) 40 Mg Tablet, 1 TAB PO DAILY, #30 Ref 5 (Reported) Entered as Reported by: ALFREDA LEE on 06/23/15 1644 Last Action: Continued on 12/17/181202 by HAIR MITCHELL Brivaracetam (Briviact) 75 Mg Tablet, 75 MG PO DAILY for management, (Reported) Entered as Reported by: HAIR MITCHELL on 12/17/181104 Last Action: Converted on 12/17/181202 by HAIR MITCHELL Calcium Acetate (Calcium Acetate) 667 Mg Tablet, 667 MG PO BID for DIALYSIS PATIENTS, (Reported) Entered as Reported by: HAIR MITCHELL on 12/17/181104 Last Action: Converted on 12/17/181202 by AHIR MITCHELL Carvedilol (Carvedilol) 25 Mg Tablet, 6.25 MG PO BIDWMEALS for bp, (Reported) Entered as Reported by: JANELLE COHEN on 11/25/14 0514 Last Action: Converted on 12/17/181202 by HAIR MITCHELL Divalproex Sodium (Divalproex Sodium Er) 250 Mg Tab.er.24h, 250 MG PO HS for medical, (Reported) Entered as Reported by: HAIR MITCHELL on 12/17/181104 Last Action: Continued on 12/17/181202 by HAIR MITCHELL Escitalopram Oxalate (Escitalopram Oxalate) 10 Mg Tablet, 1 TAB PO DAILY for managment, #30 Ref 3 (Reported) Entered as Reported by: HAIR MITCHELL on 12/17/181104 Last Action: Converted on 12/17/181202 by HAIR MITCHELL Gabapentin (Gabapentin) 300 Mg Capsule, 300 MG PO DAILY for neuropathy, (Reported) Entered as Reported by: SILVINA ALMENDAREZ on 02/20/18 1057 Last Action: Continued on 12/17/181202 by HAIR MITCHELL Insulin Aspart (Novolog Flexpen) 100 Unit/1 Ml Insuln.pen, 3 UNIT SQ TIDAC for DM, (Reported) Entered as Reported by: HAIR MITCHELL on 12/17/181104 Last Action: Converted on 12/17/181202 by HAIR MITCHELL Insulin Glargine,Hum.rec.anlog (Lantus Solostar) 100 Unit/1 Ml Insuln.pen, 6 UNIT SQ HS for DM I, (Reported) Entered as Reported by: HAIR MITCHELL on 9/29/19 1105 Last Action: Converted on 12/17/18 1203 by HAIR MITCHELL Linaclotide (Linzess) 145 Mcg Capsule, 72 MG PO DAILY07 for IRRITABLE BOWEL, (Reported) Entered as Reported by: HAIR MITCHELL on 12/17/18 1105 Last Action: Converted on 12/17/18 120 by HARI MITCHELL Lubiprostone (Amitiza) 24 Mcg Capsule, 1 CAP PO BID for CONSTIPATION for 30 Days, #60 Ref 5 Prescribed by: KY JOSUE on 07/11/18 1216 Nifedipine (Nifedipine Er) 60 Mg Tab.er.24, 60 MG PO DAILY for bp, (Reported) Entered as Reported by: MARIO CHOPRA on 01/19/17 1556 Last Action: Converted on 12/17/181202 by HAIR MITCHELL Pantoprazole Sodium (Protonix) 20 Mg Tablet.dr, 40 MG PO DAILY for stomach, (Reported) Entered as Reported by: SILVINA ALMENDAREZ on 02/20/18 1057 Last Action: Converted on 12/17/181202 by HAIR MITCHELL Polyethylene Glycol 3350 (Miralax) 17 Gm Powd.pack, 1 PACKET PO DAILY for CONSTIPATION for 30 Days, #30 Ref 3 Prescribed by: KY JOSUE on 07/11/18 1216 Sennosides/Docusate Sodium (Sennosides-Docusate Sodium Tab) 1 Each Tablet, 1 EACH PO HS for constipation, (Reported) Entered as Reported by: MICHAEL FENG on 06/30/181957 Scheduled PRN Albuterol Sulfate (Proventil Hfa Inhaler) 6.7 Gm Hfa.aer.ad, 1 PUFF IH PRN Q4HRS PRN for FOR ASTHMA, Ref 0 (Reported) Entered as Reported by: MARIO CHOPRA on 01/19/17 155 Hydrocortisone Acetate (Anusol-Hc) 25 Mg Supp.rect, 1 SUPP RC PRN BID PRN for PAIN, #14 (Reported) Entered as Reported by: MICHAEL FENG on 06/30/181957 Ondansetron (Ondansetron Odt) 4 Mg Tab.rapdis, 1 TAB PO PRN Q8HRS PRN for NAUSEA, #16 (Reported) Entered as Reported by: MICHAEL FENG on 06/30/181957 Discontinued Medications Alprazolam (Alprazolam) 0.25 Mg Tablet, 0.5 MG PO PRN Q8HRS PRN for ANXIETY / AGITATION, Ref 0 (Reported) Entered as Reported by: LORY HIGGINS on 06/27/15 1732 Last Action: Discontinued on 12/17/181105 by HAIR MITCHELL Apixaban (Eliquis) 5 Mg Tablet, 5 MG PO BID for vte, (Reported) Entered as Reported by: MARIO CHOPRA on 01/19/17 1556 Last Action: Discontinued on 12/17/181104 by HAIR MITCHELL Ascorbic Acid (Ascorbic Acid) 500 Mg Tablet, 500 MG PO DAILY for replacement, (Reported) Entered as Reported by: MICHAEL FENG on 06/30/181957 Last Action: Discontinued on 12/17/181104 by HAIR MITCHELL Citalopram Hydrobromide (Citalopram Hbr) 20 Mg Tablet, 1 TAB PO DAILY for depression, #30 Ref 5 (Reported) Entered as Reported by: MICHAEL FENG on 06/30/181957 Last Action: Discontinued on 12/17/181105 by HAIR MITCHELL Clonidine Hcl (Clonidine Hcl) 0.2 Mg Tablet, 1 TAB PO BID for BP, #60 Ref 5 (Reported) Entered as Reported by: ALFREDA LEE on 06/23/15 1644 Last Action: Discontinued on 12/17/181105 by HAIR MITCHELL Ergocalciferol (Vitamin D2) (Vitamin D2) 50,000 Unit Capsule, 50,000 UNIT PO WEEKLY for vitamin, #2 (Reported) Entered as Reported by: SILVINA ALMENDAREZ on 02/20/18 1057 Last Action: Discontinued on 12/17/181104 by HAIR MITCHELL Famotidine (Famotidine) 20 Mg Tablet, 20 MG PO HS for GI, (Reported) Entered as Reported by: MICHAEL FENG on 06/30/181957 Last Action: Discontinued on 12/17/181104 by HAIR MITCHELL Furosemide (Lasix) 80 Mg Tablet, 80 MG PO DAILY for diuretic, (Reported) Entered as Reported by: JOAN QUAN on 07/03/18 1130 Last Action: Discontinued on 12/17/181104 by HAIR MITCHELL Hydrocodone Bit/Acetaminophen (Hydrocodone-Apap 5-325 ) 1 Each Tablet, 1 TAB PO PRN Q6HRS PRN for PAIN, #20 Prescribed by: MARYA RAMOS MD on 02/24/18 0824 Nitroglycerin (NITROGLYCERIN SubLingual) 0.4 Mg Tab.subl, 0.4 MG SL PRN Q5MIN PRN for CHEST PAIN, (Reported) Entered as Reported by: MARIO CHOPRA on 01/19/17 1556 Last Action: Discontinued on 12/17/181105 by HAIR MITCHELL [place]-3/Dha/Epa/Fish Oil (Fish Oil 1,000 mg Softgel) 1,000 Mg Capsule, 1,000 MG PO DAILY for replacement, (Reported) Entered as Reported by: MICHAEL FENG on 06/30/181957 Last Action: Discontinued on 12/17/181105 by HAIR MITCHELL Oxycodone/Apap 7.5-325 (Percocet 7.5-325 Mg Tablet ) 1 Each Tablet, 1 TAB PO PRN TID PRN for PAIN, Ref 0 (Reported) Entered as Reported by: MICHAEL FENG on 06/30/181957 Ranolazine (Ranexa) 500 Mg Tab.er.12h, 1 TAB PO BID for angina, #60 Ref 3 (Reported) Entered as Reported by: MICHAEL FENG on 06/30/181957 Last Action: Discontinued on 12/17/181105 by HAIR MITCHELL Tamsulosin Hcl (Flomax) 0.4 Mg Cap.er.24h, 1 CAP PO DAILY for retention, #30 Ref 11 (Reported) Entered as Reported by: MICHAEL FENG on 06/30/181957 Last Action: Discontinued on 12/17/181104 by HAIR MITCHELL Ticagrelor (Brilinta) 90 Mg Tablet, 90 MG PO BID for antiplatelet, (Reported) Entered as Reported by: SILVINA ALMENDAREZ on 02/20/18 1057 Last Action: Discontinued on 12/17/181104 by HAIR MITCHELL Patient Instructions Patient Instructions > 30 min face to face ECHO<Conclusion> There is moderate to severe concentric left ventricular hypertrophy. The left ventricular systolic function is normal and the ejection fraction is within normal range. The Ejection Fraction is 60-65%. There is normal LV segmental wall motion. TAVIA PEREZ MD Dec 22, 2018 12:53
--- NOTE | 2018-12-22 13:01 | NUR ---
SS following up with discharge planning. Discharge orders received for [facility] [phone]; [phone]. SS phoned and faxed discharge orders and referral to [facility] and phoned and faxed discharge orders to [facility] [place]. Pt's RN notified.
--- NOTE | 2018-12-22 13:38 | PDOC ---
SUBJECTIVE ROS Stable OBJECTIVE Vital Signs Vital Signs Date Time Temp Pulse Resp B/P (MAP) Pulse Ox O2 Delivery O2 Flow Rate FiO2 12/22/18 11:40 93 Room Air 12/22/18 11:00 97.6 69 20 126/71 (89) 97.6 I & 0 Intake and Output 12/22/18 07:00 Intake Total 50 ml Output Total 225 ml Balance -175 ml Intake Oral 50 ml Output Urine Total 225 ml PHYSICAL EXAM Physical Exam GENERAL: NAD HEENT: OM moist NECK: Supple, LUNGS: Clear to auscultation, Non labored CHEST: right anterior chest wall hemodialysis catheter. HEART: RRR, S1, S2 present. ABDOMEN: soft EXTREMITIES: trace edema. NEUROLOGIC: Hx of CVA, grossly normal SKIN: No rashes DIAGNOSIS/ASSESSMENT Assessment & Plan End-stage renal disease secondary to hypertensive nephrosclerosis. On HD TTS @ [facility] No indication today Respiratory failure. History of severe COPD.Was on MV CT angio neg for PE Chest pain. No EKG changes of an acute ST elevated myocardial infarction. History of coronary artery disease and stenting. Cardiology following History of atrial fibrillation and permanent pacing Diabetes mellitus. As per the primary service. Hypertension- stable History of previous CVA. COMMENT/RELEVANT DATA Meds Current Medications Medications (Trade) Dose Ordered Sig/Lien Start Time Stop Time Status Last Admin Dose Admin Acetaminophen (Tylenol) 500 mg 1X PRN PRN 12/21/18 08:00 12/21/18 18:00 DC Albumin Human 200 ml @ 200 mls/hr 1X PRN PRN 12/21/18 08:00 12/21/18 18:00 DC Albuterol/ Ipratropium (Duoneb) 3 ml RTQID 12/17/18 08:00 12/22/18 11:40 3 ML Amlodipine Besylate (Norvasc) 10 mg DAILY 12/17/18 13:30 12/22/18 08:31 10 MG Aspirin (Children'S Aspirin) 81 mg DAILY 12/17/18 12:30 12/22/18 08:31 81 MG Atorvastatin Calcium (Lipitor) 40 mg QHS 12/17/18 21:00 12/21/18 21:00 40 MG Calcium Acetate (Phoslo) 667 mg BIDWMEALS 12/17/18 17:00 12/22/18 08:32 667 MG Carvedilol (Coreg) 6.25 mg 1X ONCE 12/20/18 12:15 12/20/18 12:16 DC Citalopram Hydrobromide (CeleXA) 20 mg DAILY 12/17/18 12:30 12/22/18 08:31 20 MG Diphenhydramine HCl (Benadryl) 25 mg 1X PRN PRN 12/21/18 08:00 12/21/18 18:00 DC Divalproex Sodium (Depakote Er) 250 mg HS 12/17/18 21:00 12/21/18 21:01 250 MG Etomidate (Amidate) 20 mg STK-MED ONCE 12/16/18 18:42 12/16/18 18:42 DC Fentanyl Citrate (Fentanyl 2ml Vial) 100 mcg STK-MED ONCE 12/16/18 18:08 12/16/18 18:08 DC Gabapentin (Neurontin) 300 mg DAILY 12/17/18 12:30 12/22/18 08:32 300 MG Heparin Sodium (Porcine) (Heparin Sodium) 5,000 unit Q8HRS 12/18/18 14:00 12/22/18 05:25 5,000 UNIT Heparin Sodium/ Dextrose 500 ml @ 20.88 mls/ hr CONT PRN 12/16/18 18:45 12/18/18 10:59 DC 12/17/18 19:26 20.88 MLS/HR Hydralazine HCl (Apresoline Inj) 10 mg 1X ONCE 12/19/18 09:00 12/19/18 09:01 DC Info (Anti-Coagulation Monitoring By Pharmacy) 1 each PRN DAILY PRN 12/17/18 08:00 12/18/18 11:01 DC 12/18/18 08:08 1 EACH Info (CONTRAST GIVEN -- Rx MONITORING) 1 each PRN DAILY PRN 12/17/18 08:00 12/19/18 07:59 DC Info (PHARMACY MONITORING -- do not chart) 1 each PRN DAILY PRN 12/21/18 08:00 UNV Insulin Glargine (Lantus Syringe) 6 unit QHS 12/17/18 21:00 12/21/18 21:08 6 UNIT Insulin Human Lispro (HumaLOG) 3 units TIDWMEALS 12/17/18 12:30 12/22/18 12:46 3 UNITS Iohexol (Omnipaque 350 Mg/ml) 100 ml 1X ONCE 12/17/18 08:00 12/17/18 08:01 DC Labetalol HCl (Normodyne Iv Push) 20 mg PRN Q2HR PRN 12/16/18 22:45 12/16/18 23:04 20 MG Lansoprazole (Prevacid) 30 mg DAILYAC 12/17/18 12:30 12/22/18 08:31 30 MG Lorazepam (Ativan Inj) 2 mg PRN Q1HR PRN 12/16/18 22:45 12/20/18 23:04 2 MG Midazolam HCl (Versed) 2 mg STK-MED ONCE 12/16/18 18:08 12/16/18 18:08 DC Nicardipine HCl 50 mg/Sodium Chloride 250 ml @ 25 mls/hr CONT PRN 12/16/18 22:45 Nifedipine (Procardia Xl) 60 mg DAILY 12/18/18 09:00 UNV Non-Formulary Medication (Brivaracetam (Briviact)) 75 mg BID 12/18/18 09:00 12/22/18 08:32 75 MG Non-Formulary Medication (Linaclotide (Linzess)) 72 mg DAILY07 12/18/18 07:00 12/21/18 12:32 DC Pantoprazole Sodium (Protonix) 40 mg DAILYAC 12/17/18 12:30 12/17/18 12:07 DC Potassium Bicarbonate (Potassium Effervescent Tablet) 40 meq 1X ONCE 12/17/18 14:30 12/17/18 14:31 DC 12/17/18 15:00 40 MEQ Propofol 100 ml @ 1.225 mls/ hr CONT PRN 12/17/18 00:15 12/18/18 10:59 DC 12/18/18 00:30 12.247 MLS/HR Sodium Chloride 1,000 ml @ 400 mls/hr Q2H30M PRN 12/21/18 08:00 12/21/18 18:00 DC Sodium Chloride (Normal Saline Flush) 10 ml 1X PRN PRN 12/17/18 14:00 12/18/18 13:59 DC Vecuronium [place] (Norcuron Bolus) 10 mg STK-MED ONCE 12/16/18 18:42 12/16/18 18:42 IA Lab Laboratory Tests Test 12/21/18 17:20 12/21/18 20:46 12/22/18 04:15 12/22/18 07:56 Glucose (Fingerstick) 197 mg/dL (70-99) 221 mg/dL (70-99) 134 mg/dL (70-99) White Blood Count 4.9 x10^3/uL (4.0-11.0) Red Blood Count 3.65 x10^6/uL (4.30-5.70) Hemoglobin 11.4 g/dL (13.0-17.5) Hematocrit 33.2 % (39.0-53.0) Mean Corpuscular Volume 91 fL (79-100) Mean Corpuscular Hemoglobin 31 pg (25-35) Mean Corpuscular Hemoglobin Concent 34 g/dL (31-37) Red Cell Distribution Width 14.3 % (11.5-14.5) Platelet Count 219 x10^3/uL (140-400) Neutrophils (%) (Auto) 46 % (31-73) Lymphocytes (%) (Auto) 38 % (24-48) Monocytes (%) (Auto) 14 % (0-9) Eosinophils (%) (Auto) 2 % (0-3) Basophils (%) (Auto) 0 % (0-3) Neutrophils # (Auto) 2.3 x10^3/uL (1.8-7.7) Lymphocytes # (Auto) 1.9 x10^3/uL (1.0-4.8) Monocytes # (Auto) 0.7 x10^3/uL (0.0-1.1) Eosinophils # (Auto) 0.1 x10^3/uL (0.0-0.7) Basophils # (Auto) 0.0 x10^3/uL (0.0-0.2) Sodium Level 137 mmol/L (136-145) Potassium Level 3.9 mmol/L (3.5-5.1) Chloride Level 100 mmol/L (98-107) Carbon Dioxide Level 30 mmol/L (21-32) Anion Gap 7 (6-14) Blood Urea Nitrogen 29 mg/dL (8-26) Creatinine 4.3 mg/dL (0.7-1.3) Estimated GFR (Cockcroft-Gault) 17.1 Glucose Level 179 mg/dL (70-99) Calcium Level 9.1 mg/dL (8.5-10.1) Test 12/22/18 11:56 Glucose (Fingerstick) 171 mg/dL (70-99) Results All relevant outside records, renal labs, imaging studies, telemetry/EKG's were reviewed. JOY CELIS MD Dec 22, 2018 13:38
--- NOTE | 2018-12-22 15:50 | PDOC ---
PROGRESS NOTES Assessment Assessment Metabolic encephalopathy. Respiratory failure. Chest pain. ESRD on dialysis. 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 DM. HTN. RECOMMENDATIONS/PLAN: Continue ASA daily. Continue Lipitor HS. Continue medical treatment. FU with PCP. Discussed with his at bedside on 12/22/18. Repeated HCT on 12/17/18: No acute findings. EEG on 12/19/18: The posterior dominant rhythm is 6-7 Hz/s that is slow for age. HISTORY OF THE PRESENT ILLNESS: This is a 58-year-old AA male with a history of coronary artery disease and stenting, COPD and end-stage renal disease on hemodialysis. He reportedly developed chest discomfort while at his dialysis center on 12/16/18 and was tra nsferred to the emergency room. He was found in acute respiratory failure and was intubated and placed on a ventilator. After discontinuation of propofol sedation for about 8 hours, he still has not gained consciousness, so Neurology was requested for consultation. Past Medical History Cardiovascular: AFIB, CAD, HTN Pulmonary: COPD, Pulmonary embolus CENTRAL NERVOUS SYSTEM: Periperal neuropathy, Seizure GI: Constipation, GERD Heme/Onc: No pertinent hx Hepatobiliary: No pertinent hx Psych: Bipolar Musculoskeletal: Osteoarthritis Infectious disease: No pertinent hx Renal/: Chronic renal insuff, Chronic renal failure Endocrine: Diabetes Past Surgical History Pacemaker, Other (coronary stents. Hemodialysis catheter.) Family History Diabetes, Heart Disease Social History ALCOHOL: none Drugs: Cocaine in past. Lives: with Family ALLERGY: NKDA MEDICATIONS: Refer to MAR REVIEW OF SYSTEMS: Constitutional: No malnutrition, weight loss, cachexia. Head: No traumatic brain or head injury. Skin: No edema, or rash. Ear: No infection. Eyes: No vision loss or color blindness. Nose: No bleeding or purulent discharges. Hearing: No hearing decrease. Neck: No injury. Cardiac: CAD, HTN, HLD. Pulmonary: No COPD. GI: No GI ulcer, GI bleeding. Urinary/genital: ESRD on dialysis. Endocrinologic: Diabetes Mellitus. Skeletomuscular: No muscular atrophy, deformity. Neurological: see HP. Psychiatric: Denies drug use/abuse. Otherwise, not [id number] review of systems. PHYSICAL EXAMINATION: General appearance is in no acute distress. HEENT: Normocephalic and nontraumatic. Eyes, nose, ears, and throat are unremarkable. Neck is supple. No lymphadenopathy. No crepitus. Cardiovascular: S1, S2, regular rate and rhythm. Pulmonary: Relative clear to auscultation bilaterally. Abdomen: Bowel sounds are positive. Extremities: No rash, lesions. No restriction of range of motion NEUROLOGICAL EXAMINATION: Awake. Partially oriented to time, and knew place and person. PERRL. EOMI. CN: no focal findings. Muscle tone: within normal. Muscle strength: 4+ right side 5 left side. DTR: 2 Plantar reflex: Neutral response bilaterally Gait: able to walk in room. Sensory exam: no abnormal findings. No cerebellar signs elicited. F-T-N test fine. Objective Objective Vital Signs Date Time Temp Pulse Resp B/P (MAP) Pulse Ox O2 Delivery O2 Flow Rate FiO2 12/22/18 11:40 93 Room Air 12/22/18 11:00 97.6 69 20 126/71 (89) 97.6 Intake and Output 12/22/18 07:00 Intake Total 50 ml Output Total 225 ml Balance -175 ml Intake Oral 50 ml Output Urine Total 225 ml Vitals Signs Vitals VS - Last 72 Hours, by Label Date Time Temp Pulse Resp B/P (MAP) Pulse Ox O2 Delivery O2 Flow Rate FiO2 12/22/18 11:40 93 Room Air 12/22/18 11:00 97.6 69 20 126/71 (89) 93 Room Air 97.6 12/22/18 08:32 80 12/22/18 08:31 80 12/22/18 08:05 Room Air 12/22/18 08:01 94 Room Air 12/22/18 07:00 98.0 73 20 156/82 (106) 96 Room Air 98.0 12/22/18 02:02 98.0 76 16 137/79 (98) 96 Room Air 98.0 12/21/18 22:39 99.4 78 16 133/75 (94) 94 Room Air 99.4 12/21/18 20:00 Room Air 12/21/18 19:50 98.6 82 18 104/64 (77) 97 Room Air 98.6 12/21/18 19:25 94 Room Air 12/21/18 17:27 76 177/91 12/21/18 16:22 Room Air 12/21/18 15:00 98.1 76 28 177/91 (119) 96 Room Air 98.1 12/21/18 14:36 76 147/82 12/21/18 12:08 Room Air 12/21/18 08:33 97 Room Air 12/21/18 08:00 Room Air 12/21/18 07:00 97.5 76 28 147/82 (103) 94 Room Air 97.5 Laboratory Laboratory Laboratory Tests Test 12/21/18 17:20 12/21/18 20:46 12/22/18 04:15 12/22/18 07:56 Glucose (Fingerstick) 197 mg/dL (70-99) 221 mg/dL (70-99) 134 mg/dL (70-99) White Blood Count 4.9 x10^3/uL (4.0-11.0) Red Blood Count 3.65 x10^6/uL (4.30-5.70) Hemoglobin 11.4 g/dL (13.0-17.5) Hematocrit 33.2 % (39.0-53.0) Mean Corpuscular Volume 91 fL (79-100) Mean Corpuscular Hemoglobin 31 pg (25-35) Mean Corpuscular Hemoglobin Concent 34 g/dL (31-37) Red Cell Distribution Width 14.3 % (11.5-14.5) Platelet Count 219 x10^3/uL (140-400) Neutrophils (%) (Auto) 46 % (31-73) Lymphocytes (%) (Auto) 38 % (24-48) Monocytes (%) (Auto) 14 % (0-9) Eosinophils (%) (Auto) 2 % (0-3) Basophils (%) (Auto) 0 % (0-3) Neutrophils # (Auto) 2.3 x10^3/uL (1.8-7.7) Lymphocytes # (Auto) 1.9 x10^3/uL (1.0-4.8) Monocytes # (Auto) 0.7 x10^3/uL (0.0-1.1) Eosinophils # (Auto) 0.1 x10^3/uL (0.0-0.7) Basophils # (Auto) 0.0 x10^3/uL (0.0-0.2) Sodium Level 137 mmol/L (136-145) Potassium Level 3.9 mmol/L (3.5-5.1) Chloride Level 100 mmol/L (98-107) Carbon Dioxide Level 30 mmol/L (21-32) Anion Gap 7 (6-14) Blood Urea Nitrogen 29 mg/dL (8-26) Creatinine 4.3 mg/dL (0.7-1.3) Estimated GFR (Cockcroft-Gault) 17.1 Glucose Level 179 mg/dL (70-99) Calcium Level 9.1 mg/dL (8.5-10.1) Test 12/22/18 11:56 Glucose (Fingerstick) 171 mg/dL (70-99) Comment Review of Relevant I have reviewed the following items dominick (where applicable) has been applied. FARA MOURA MD Dec 22, 2018 15:50
--- NOTE | 2018-12-22 15:54 | NUR ---
Discharge: Teaching verbal and written. Reviewed medications, follow-up, orthostatic hypotension, Respiratory Failure, dialysis, diet, ect. Paitent and verbalized understanding. Home Health set up per social work. All belongings with patient. 1 bottle of home medication returned to patient. IV removed without complications. Isaac catheter removed. Recommended patient wait until voiding to discharge. Patients did not want to wait. Patient has little urine output. Patient assisted off of unit via wheelchair accompanied by NATHANIEL
== END 2018-12-22 15:30 | disposition home health service (06) | DRG 208 ==
LOC: ER 17:48 → 1 WEST ICU 18:30 → 2 SOUTH 12-19 17:53
PROVIDERS: ADMIT Internal Medicine; ATTEND Internal Medicine
PROC: 5A1945Z Respiratory Ventilation, 24-96 Consecutive Hours (ICD-10-PCS; principal; 2018-12-16)
PROC: 0BH17EZ Insertion of Endotracheal Airway into Trachea, Via Natural or Artificial Opening (ICD-10-PCS; 2018-12-16)
PROC: 5A1D70Z Performance of Urinary Filtration, Intermittent, Less than 6 Hours Per Day (ICD-10-PCS; 2018-12-17)
PROC: 5A1D70Z Performance of Urinary Filtration, Intermittent, Less than 6 Hours Per Day (ICD-10-PCS; 2018-12-19)
PROC: 5A1D70Z Performance of Urinary Filtration, Intermittent, Less than 6 Hours Per Day (ICD-10-PCS; 2018-12-21)
DX: J96.01 Acute respiratory failure with hypoxia (principal); N18.6 End stage renal disease; G93.41 Metabolic encephalopathy; G81.91 Hemiplegia, unspecified affecting right dominant side; I12.0 Hypertensive chronic kidney disease with stage 5 chronic kidney disease or end stage renal disease; N25.81 Secondary hyperparathyroidism of renal origin; D63.1 Anemia in chronic kidney disease; E11.22 Type 2 diabetes mellitus with diabetic chronic kidney disease; E78.5 Hyperlipidemia, unspecified; E87.6 Hypokalemia; F31.9 Bipolar disorder, unspecified; I48.0 Paroxysmal atrial fibrillation; M19.90 Unspecified osteoarthritis, unspecified site; J44.9 Chronic obstructive pulmonary disease, unspecified; K21.9 Gastro-esophageal reflux disease without esophagitis; Z79.4 Long term (current) use of insulin; Z79.82 Long term (current) use of aspirin; Z82.49 Family history of ischemic heart disease and other diseases of the circulatory system; Z86.711 Personal history of pulmonary embolism; Z83.3 Family history of diabetes mellitus; Z86.73 Personal history of transient ischemic attack (TIA), and cerebral infarction without residual deficits; Z95.5 Presence of coronary angioplasty implant and graft; Z99.2 Dependence on renal dialysis; Z95.0 Presence of cardiac pacemaker
CPT/HCPCS: 36415; 36600; 70450; 71045; 71275; 80048; 80053; 80061; 80307; 82140; 82805; 82962; 83735; 83880; 84443; 84484; 85025; 85027; 85520; 87340; 93005; 93306; 93970; 94002; 94003; 94640; 94760; 95816; 96374; J1644; J1815; J2060; J2704; J3490; J7620; 92526; 92610; 97110; 97530; 99285-25; G0378